=== PATIENT | female | born 1970 | race Caucasian/White ===

== ENCOUNTER → 2017-06-24 16:14 | Outpatient (CLI) | payer OTHER, SELFPAY ==
[2017-06-24 17:40] LABS: Vitamin D,25 Hydroxy 29.6 ng/mL (29.95-100.01)
[2017-06-24 17:48] LABS: AST(SGOT) 7 U/L (15-37); Alanine Aminotransfer ALT/SGPT 21 U/L (13-56); Alkaline Phosphatase 55 U/L (45-117); Anion Gap 7 (5-15); BUN 14 mg/dL (7-18); Calcium,Total 8.8 mg/dL (8.5-10.1); Chloride 104 mmol/L (98-107); Cholesterol 196 mg/dL (200); Creatinine, Serum 0.74 mg/dL (0.55-1.02); EST Glomerular Filtration Rate 90 mL/min (>60); Est Glom Filt Rate - Afr Amer 109 mL/min (>60); Glucose 87 mg/dL (74-106); High Density Lipoprotein 61 mg/dL; Potassium 3.9 mmol/L (3.5-5.1); Sodium Level 136 mmol/L (136-145); Triglycerides 88 mg/dL; Very Low Density Lipoprotein 18 mg/dL (5-40)
[2017-06-25 10:59] LABS: Absolute Lymphocyte Count 1.55 X10^3/ul (0.83-4.51); Absolute Neutrophil Count 4.2 X10^3/uL (2.0-7.7); Basophil# 0.02 X10^3/uL; Basophil% 0.3 % (0-1); Eosinophil# 0.04 X10^3/uL; Eosinophils% 0.6 % (0-5); Hematocrit 38.8 % (37-47); Hemoglobin 12.4 g/dl (12.0-15.0); Lymphocyte # 1.55 X10^3/ul (4.0); Mean Corpuscular Hgb 28.2 pg (27.0-32.0); Mean Corpuscular Volume 88.4 fL (81-99); Monocyte% 10.8 % (0-10); Neutrophil # 4.15 X10^3/uL (2.7-7.7); Neutrophil % 64.1 % (47-70); POSITIVE COUNT NO; POSITIVE DIFFERENTIAL NO; POSITIVE MORPHOLOGY NO; Platelet Count 258 K/mm3 (150-450); RBC Distribution Width CV 14.7 % (11.6-14.6); RBC Distribution Width SD 47.5 fl (35.1-43.9); Red Blood Count 4.39 M/mm3 (4.2-5.4); White Blood Count 6.5 K/mm3 (4.4-11.0)
== END ==
PROVIDERS: Family Provider Internal Medicine; PCP Internal Medicine; Visit Provider Internal Medicine Rheumatology
DX: L40.59 Other psoriatic arthropathy (principal); L40.8 Other psoriasis; M19.072 Primary osteoarthritis, left ankle and foot; Z79.899 Other long term (current) drug therapy
CPT/HCPCS: 36415; 80053; 80061; 82306; 85025

== ENCOUNTER → 2017-06-26 13:04 | Outpatient (CLI) | payer OTHER, SELFPAY ==
--- NOTE | 2017-06-26 13:05 | BI_ITS ---
MAMMOGRAPHY - BILATERAL SCREENING REASON FOR EXAM: Female, 47 years old. Routine annual screening examination. PERTINENT HISTORY: Aunt with breast cancer. TECHNIQUE: Digital bilateral breast jo (3D mammographic acquisition) in the CC and MLO projections. 2-D mediolateral oblique (MLO) and craniocaudad (CC) views of both breasts were obtained. CAD: Full Field Digital Mammography with Computer Added Detection was performed. COMPARISON: Comparison is made with prior abdomen examination dated March 23, 2016. FINDINGS: Breast Composition: There are scattered areas of fibroglandular density. There are no dominant masses or suspicious calcifications. No other significant abnormalities are identified. There has been no significant change since the prior study. BI/SCREENING MAMM (CAD), BILAT IMPRESSION: Stable bilateral screening mammogram. Yearly follow-up mammogram recommended. (A) ASSESSMENT CATEGORY: BIRADS Category 1: Negative. A letter regarding these results will be sent to the patient by the facility within 30 days. Approximately 10% of breast cancers are not detected by mammography. A normal mammogram should not delay biopsy of a clinically suspicious abnormality. [id number] Electronically Signed: Dominic Srinivasan MD at 14:41 EDT Tel [phone], Service support ,
== END ==
PROVIDERS: Family Provider Internal Medicine; PCP Internal Medicine; Visit Provider Internal Medicine
DX: Z12.31 Encounter for screening mammogram for malignant neoplasm of breast (principal)
CPT/HCPCS: 77063; 77067

== ENCOUNTER → 2017-09-20 13:07 | Outpatient (CLI) | payer OTHER, SELFPAY ==
[2017-09-20 15:32] LABS: Absolute Lymphocyte Count 1.64 X10^3/ul (0.83-4.51); Absolute Neutrophil Count 4.2 X10^3/uL (2.0-7.7); Basophil# 0.03 X10^3/uL; Basophil% 0.5 % (0-1); Eosinophil# 0.09 X10^3/uL; Eosinophils% 1.4 % (0-5); Hematocrit 38.9 % (37-47); Hemoglobin 12.7 g/dl (12.0-15.0); Lymphocyte # 1.64 X10^3/ul (4.0); Lymphocyte % 25.2 % (19-41); Mean Corp Hgb Conc 32.6 g/gl (32-36); Mean Corpuscular Hgb 29.1 pg (27.0-32.0); Mean Corpuscular Volume 89.2 fL (81-99); Mean Platelet Vol. 9.9 fl (6.2-12.0); Monocyte# 0.51 X10^3/uL; Monocyte% 7.8 % (0-10); Neutrophil # 4.23 X10^3/uL (2.7-7.7); Neutrophil % 64.9 % (47-70); Platelet Count 273 K/mm3 (150-450); RBC Distribution Width CV 15.7 % (11.6-14.6); RBC Distribution Width SD 50.8 fl (35.1-43.9); Red Blood Count 4.36 M/mm3 (4.2-5.4); White Blood Count 6.5 K/mm3 (4.4-11.0)
[2017-09-20 15:43] LABS: POSITIVE COUNT NO; POSITIVE DIFFERENTIAL NO; POSITIVE MORPHOLOGY NO
[2017-09-20 15:45] LABS: ALB/GLOB Ratio 1.1 RATIO (0.9-2.4); AST(SGOT) 11 U/L (15-37); Alanine Aminotransfer ALT/SGPT 31 U/L (13-56); Albumin, Serum 3.8 g/dL (3.2-5.0); Alkaline Phosphatase 61 U/L (45-117); Anion Gap 8 (5-15); BUN 15 mg/dL (7-18); BUN/Creat Ratio 18.2 RATIO (10-20); Calcium,Total 8.4 mg/dL (8.5-10.1); Chloride 105 mmol/L (98-107); Creatinine, Serum 0.82 mg/dL (0.55-1.02); EST Glomerular Filtration Rate 79 mL/min (>60); Est Glom Filt Rate - Afr Amer 96 mL/min (>60); Globulin 3.6 g/dL (2.2-4.2); Glucose 72 mg/dL (74-106); Potassium 4.2 mmol/L (3.5-5.1); Protein, Total 7.4 g/dL (6.4-8.2); Sodium Level 140 mmol/L (136-145)
== END ==
PROVIDERS: Family Provider Internal Medicine; PCP Internal Medicine; Visit Provider Internal Medicine Rheumatology
DX: L40.59 Other psoriatic arthropathy (principal); L40.8 Other psoriasis; M19.072 Primary osteoarthritis, left ankle and foot; Z79.899 Other long term (current) drug therapy
CPT/HCPCS: 36415; 80053; 85025

== ENCOUNTER → 2018-01-31 11:17 | Outpatient (CLI) | payer OTHER, SELFPAY ==
[2018-01-31 13:45] LABS: Absolute Neutrophil Count 3.4 X10^3/uL (2.0-7.7); Basophil# 0.03 X10^3/uL; Basophil% 0.5 % (0-1); Eosinophils% 1.8 % (0-5); Hematocrit 39.6 % (37-47); Hemoglobin 12.5 g/dl (12.0-15.0); Lymphocyte % 25.5 % (19-41); Mean Corp Hgb Conc 31.6 g/gl (32-36); Mean Corpuscular Hgb 28.3 pg (27.0-32.0); Mean Corpuscular Volume 89.6 fL (81-99); Mean Platelet Vol. 10.4 fl (6.2-12.0); Monocyte# 0.52 X10^3/uL; Monocyte% 9.5 % (0-10); Neutrophil # 3.43 X10^3/uL (2.7-7.7); Neutrophil % 62.5 % (47-70); POSITIVE COUNT NO; POSITIVE DIFFERENTIAL NO; POSITIVE MORPHOLOGY NO; Platelet Count 248 K/mm3 (150-450); RBC Distribution Width SD 48.3 fl (35.1-43.9); Red Blood Count 4.42 M/mm3 (4.2-5.4); White Blood Count 5.5 K/mm3 (4.4-11.0)
[2018-01-31 13:55] LABS: AST(SGOT) 8 U/L (15-37); Alanine Aminotransfer ALT/SGPT 24 U/L (13-56); Albumin, Serum 3.7 g/dL (3.2-5.0); Alkaline Phosphatase 59 U/L (45-117); Anion Gap 7 (5-15); BUN 10 mg/dL (7-18); BUN/Creat Ratio 15.5 RATIO (10-20); Calcium,Total 8.6 mg/dL (8.5-10.1); Chloride 106 mmol/L (98-107); Creatinine, Serum 0.64 mg/dL (0.55-1.02); EST Glomerular Filtration Rate 105 mL/min (>60); Est Glom Filt Rate - Afr Amer 127 mL/min (>60); Globulin 3.6 g/dL (2.2-4.2); Glucose 80 mg/dL (74-106); Potassium 4.3 mmol/L (3.5-5.1); Protein, Total 7.3 g/dL (6.4-8.2); Sodium Level 140 mmol/L (136-145)
== END ==
LOC: HPRAD 11:19 → MTLAB 11:20
PROVIDERS: Family Provider Internal Medicine; PCP Internal Medicine; Referring Provider Internal Medicine Rheumatology; Visit Provider Internal Medicine Rheumatology
DX: L40.59 Other psoriatic arthropathy (principal); L40.8 Other psoriasis; M19.071 Primary osteoarthritis, right ankle and foot; M19.072 Primary osteoarthritis, left ankle and foot; Z79.899 Other long term (current) drug therapy
CPT/HCPCS: 36415; 80053; 85025

== ENCOUNTER → 2018-04-25 14:01 | Outpatient (CLI) | payer OTHER, SELFPAY ==
[2018-04-25 15:53] LABS: Absolute Lymphocyte Count 1.48 X10^3/ul (0.83-4.51); Absolute Neutrophil Count 4.7 X10^3/uL (2.0-7.7); Basophil# 0.03 X10^3/uL; Basophil% 0.4 % (0-1); Eosinophil# 0.08 X10^3/uL; Eosinophils% 1.2 % (0-5); Hematocrit 39.5 % (37-47); Hemoglobin 12.3 g/dl (12.0-15.0); Lymphocyte # 1.48 X10^3/ul (4.0); Lymphocyte % 21.5 % (19-41); Mean Corp Hgb Conc 31.1 g/gl (32-36); Mean Corpuscular Hgb 27.8 pg (27.0-32.0); Mean Corpuscular Volume 89.4 fL (81-99); Mean Platelet Vol. 9.6 fl (6.2-12.0); Monocyte# 0.55 X10^3/uL; Neutrophil # 4.73 X10^3/uL (2.7-7.7); Neutrophil % 68.8 % (47-70); Platelet Count 319 K/mm3 (150-450); RBC Distribution Width CV 16.5 % (11.6-14.6); RBC Distribution Width SD 53.2 fl (35.1-43.9); Red Blood Count 4.42 M/mm3 (4.2-5.4); White Blood Count 6.9 K/mm3 (4.4-11.0)
[2018-04-25 15:58] LABS: POSITIVE COUNT NO; POSITIVE DIFFERENTIAL NO; POSITIVE MORPHOLOGY NO
[2018-04-25 16:11] LABS: AST(SGOT) 7 U/L (15-37); Alanine Aminotransfer ALT/SGPT 24 U/L (13-56); Albumin, Serum 3.8 g/dL (3.2-5.0); Alkaline Phosphatase 72 U/L (45-117); Anion Gap 9 (5-15); BUN 16 mg/dL (7-18); BUN/Creat Ratio 22.8 RATIO (10-20); Calcium,Total 8.3 mg/dL (8.5-10.1); Chloride 106 mmol/L (98-107); EST Glomerular Filtration Rate 95 mL/min (>60); Est Glom Filt Rate - Afr Amer 115 mL/min (>60); Glucose 117 mg/dL (74-106); Potassium 3.8 mmol/L (3.5-5.1); Protein, Total 7.8 g/dL (6.4-8.2); Sodium Level 139 mmol/L (136-145)
== END ==
PROVIDERS: Family Provider Internal Medicine; PCP Internal Medicine; Referring Provider Internal Medicine Rheumatology; Visit Provider Internal Medicine Rheumatology
DX: L40.59 Other psoriatic arthropathy (principal); L40.8 Other psoriasis; M19.071 Primary osteoarthritis, right ankle and foot; M19.072 Primary osteoarthritis, left ankle and foot; Z79.899 Other long term (current) drug therapy
CPT/HCPCS: 36415; 80053; 85025

== ENCOUNTER → 2018-04-28 12:11 | Outpatient (CLI) | payer OTHER, SELFPAY ==
--- NOTE | 2018-04-28 12:18 | US_ITS ---
STUDY: ULTRASOUND OF THE FEMALE PELVIS - COMPLETE REASON FOR EXAM: Female, 48 years old. 2 month history of abnormal uterine bleeding. LMP: April 21, 2018. TECHNIQUE: Transabdominal and Transvaginal TECHNICAL QUALITY: Adequate. COMPARISON: None. FINDINGS: The uterus is anteverted and is in a midline position. The uterus measures 9.7 cm x 4.9 cm x 3.9 cm. There is a Nabothian cyst of the cervix. The endometrium measures 9 point mm in thickness, and is hyperechoic. There is no demonstrated endometrial mass. The uterus is of heterogeneous echotexture. 2 uterine fibroids are seen. The larger measures 1.7 cm x 1.6 cm by 1.6 cm. I.U.D. - The patient does not have an I.U.D. The right ovary is visualized. The right ovary measures 3.1 cm x 2.7 cm x 2.1 cm. There is a 1.8 cm x 1.3 cm x 1.2 cm dominant follicle in the ovary. There is no visualized right adnexal mass or complex lesion. There is normal arterial and normal venous vascularity. The left ovary is visualized. The left ovary measures 2.2 cm x 3 cm x 1.4 cm. A follicle is seen within it measuring 1.1 cm x 1 cm x 0.9 cm. There is no visualized left adnexal mass or complex lesion. There is normal arterial and normal venous vascularity. There is no fluid in the cul-de-sac. The pre void volume of the bladder was 64.5 ml. Polycystic ovary disease: No. US/Pelvic (Non ) IMPRESSION: Fibroid uterus. Follicles seen in both ovaries. Electronically Signed: Dominic Srinivasan MD at 10:05 EST , Service support ,
--- NOTE | 2018-04-28 12:47 | US_ITS ---
STUDY: ULTRASOUND OF THE FEMALE PELVIS - COMPLETE REASON FOR EXAM: Female, 48 years old. 2 month history of abnormal uterine bleeding. LMP: April 21, 2018. TECHNIQUE: Transabdominal and Transvaginal TECHNICAL QUALITY: Adequate. COMPARISON: None. FINDINGS: The uterus is anteverted and is in a midline position. The uterus measures 9.7 cm x 4.9 cm x 3.9 cm. There is a Nabothian cyst of the cervix. The endometrium measures 9 point mm in thickness, and is hyperechoic. There is no demonstrated endometrial mass. The uterus is of heterogeneous echotexture. 2 uterine fibroids are seen. The larger measures 1.7 cm x 1.6 cm by 1.6 cm. I.U.D. - The patient does not have an I.U.D. The right ovary is visualized. The right ovary measures 3.1 cm x 2.7 cm x 2.1 cm. There is a 1.8 cm x 1.3 cm x 1.2 cm dominant follicle in the ovary. There is no visualized right adnexal mass or complex lesion. There is normal arterial and normal venous vascularity. The left ovary is visualized. The left ovary measures 2.2 cm x 3 cm x 1.4 cm. A follicle is seen within it measuring 1.1 cm x 1 cm x 0.9 cm. There is no visualized left adnexal mass or complex lesion. There is normal arterial and normal venous vascularity. There is no fluid in the cul-de-sac. The pre void volume of the bladder was 64.5 ml. Polycystic ovary disease: No. US/Transvaginal Non- IMPRESSION: Fibroid uterus. Follicles seen in both ovaries. Electronically Signed: Dominic Srinivasan MD at 10:05 EST , Service support ,
== END ==
PROVIDERS: Family Provider Internal Medicine; PCP Internal Medicine; Referring Provider Internal Medicine; Visit Provider Internal Medicine
DX: D25.9 Leiomyoma of uterus, unspecified (principal); N83.01 Follicular cyst of right ovary; N83.02 Follicular cyst of left ovary; N93.9 Abnormal uterine and vaginal bleeding, unspecified
CPT/HCPCS: 76830; 76856; 93976

== ENCOUNTER → 2018-05-09 10:06 | Outpatient (CLI) | payer OTHER, SELFPAY ==
[2018-05-09 11:36] LABS: Hemoglobin A1c 5.7 % (4.2-6.3)
[2018-05-09 11:59] LABS: Estradiol 116.9 pg/mL; Free T3 2.7 pg/mL (2.18-3.98); T4 Free Direct 1.01 ng/dL (0.76-1.46)
[2018-05-09 12:00] LABS: Progesterone Level 6.54 ng/mL (See Comment)
[2018-05-09 12:27] LABS: hCG Titer Quant., Serum < 1 mIU/mL (<9 non-preg)
== END ==
PROVIDERS: Visit Provider Obstetrics & Gynecology
DX: N92.6 Irregular menstruation, unspecified (principal)
CPT/HCPCS: 36415; 82670; 83036; 84144; 84403; 84439; 84481; 84702

== ENCOUNTER → 2018-08-12 12:12 | Outpatient (CLI) | payer OTHER, SELFPAY ==
[2018-08-12 12:56] LABS: Absolute Lymphocyte Count 1.59 X10^3/ul (0.83-4.51); Absolute Neutrophil Count 3.2 X10^3/uL (2.0-7.7); Basophil# 0.03 X10^3/uL; Basophil% 0.5 % (0-1); Eosinophils% 3.6 % (0-5); Hematocrit 35.7 % (37-47); Hemoglobin 11.4 g/dl (12.0-15.0); Lymphocyte # 1.59 X10^3/ul (4.0); Lymphocyte % 28.9 % (19-41); Mean Corp Hgb Conc 31.9 g/gl (32-36); Mean Corpuscular Hgb 26.8 pg (27.0-32.0); Mean Platelet Vol. 9.3 fl (6.2-12.0); Monocyte# 0.51 X10^3/uL; Monocyte% 9.3 % (0-10); Neutrophil # 3.17 X10^3/uL (2.7-7.7); Neutrophil % 57.7 % (47-70); POSITIVE COUNT NO; POSITIVE DIFFERENTIAL NO; POSITIVE MORPHOLOGY NO; Platelet Count 324 K/mm3 (150-450); RBC Distribution Width CV 16.4 % (11.6-14.6); Red Blood Count 4.25 M/mm3 (4.2-5.4); White Blood Count 5.5 K/mm3 (4.4-11.0)
[2018-08-12 13:09] LABS: ALB/GLOB Ratio 0.9 RATIO (0.9-2.4); AST(SGOT) 8 U/L (15-37); Alanine Aminotransfer ALT/SGPT 27 U/L (13-56); Albumin, Serum 3.6 g/dL (3.2-5.0); Alkaline Phosphatase 62 U/L (45-117); Anion Gap 6 (5-15); BUN 13 mg/dL (7-18); BUN/Creat Ratio 21.5 RATIO (10-20); Calcium,Total 8.3 mg/dL (8.5-10.1); Chloride 106 mmol/L (98-107); EST Glomerular Filtration Rate 113 mL/min (>60); Est Glom Filt Rate - Afr Amer 136 mL/min (>60); Globulin 3.8 g/dL (2.2-4.2); Glucose 107 mg/dL (74-106); Potassium 4.2 mmol/L (3.5-5.1); Protein, Total 7.4 g/dL (6.4-8.2); Sodium Level 138 mmol/L (136-145)
== END ==
PROVIDERS: Family Provider Internal Medicine; PCP Internal Medicine; Referring Provider Internal Medicine Rheumatology; Visit Provider Internal Medicine Rheumatology
DX: L40.59 Other psoriatic arthropathy (principal); L40.8 Other psoriasis; M19.071 Primary osteoarthritis, right ankle and foot; M19.072 Primary osteoarthritis, left ankle and foot; Z79.899 Other long term (current) drug therapy
CPT/HCPCS: 36415; 80053; 85025

== ENCOUNTER → 2018-11-17 08:11 | Outpatient (CLI) | payer OTHER, SELFPAY ==
[2018-11-17 10:10] LABS: Absolute Lymphocyte Count 1.02 X10^3/uL (0.83-4.51); Absolute Neutrophil Count 3.4 X10^3/uL (2.0-7.7); Basophil# 0.03 X10^3/uL; Basophil% 0.6 % (0-1); Eosinophil# 0.21 X10^3/uL; Eosinophils% 4.2 % (0-5); Hematocrit 38.9 % (37-47); Hemoglobin 12.1 g/dL (12.0-15.0); Lymphocyte # 1.02 X10^3/ul (4.0); Lymphocyte % 20.3 % (19-41); Mean Corp Hgb Conc 31.1 g/dL (32-36); Mean Corpuscular Hgb 26.7 pg (27.0-32.0); Mean Corpuscular Volume 85.7 fL (81-99); Mean Platelet Vol. 9.3 fl (6.2-12.0); Monocyte# 0.34 X10^3/uL; Monocyte% 6.8 % (0-10); NRBC Flagged by Analyzer 0 % (0-5); Neutrophil # 3.41 X10^3/uL (2.7-7.7); Neutrophil % 67.7 % (47-70); Platelet Count 237 K/mm3 (150-450); RBC Distribution Width CV 16.3 % (11.6-14.6); RBC Distribution Width SD 50.8 fl (35.1-43.9); Red Blood Count 4.54 M/mm3 (4.2-5.4)
[2018-11-17 10:41] LABS: ALB/GLOB Ratio 0.9 RATIO (0.9-2.4); AST(SGOT) < 3 U/L (15-37); Alanine Aminotransfer ALT/SGPT 24 U/L (13-56); Albumin, Serum 3.6 g/dL (3.2-5.0); Alkaline Phosphatase 55 U/L (45-117); Anion Gap 3 (5-15); BUN 11 mg/dL (7-18); BUN/Creat Ratio 15.2 RATIO (10-20); Calcium,Total 8.4 mg/dL (8.5-10.1); Chloride 105 mmol/L (98-107); Creatinine, Serum 0.72 mg/dL (0.55-1.02); EST Glomerular Filtration Rate 92 mL/min (>60); Est Glom Filt Rate - Afr Amer 111 mL/min (>60); Globulin 3.9 g/dL (2.2-4.2); Glucose 104 mg/dL (74-106); Potassium 3.9 mmol/L (3.5-5.1); Protein, Total 7.5 g/dL (6.4-8.2); Sodium Level 136 mmol/L (136-145)
== END ==
PROVIDERS: Family Provider Internal Medicine; PCP Internal Medicine; Referring Provider Internal Medicine Rheumatology; Visit Provider Internal Medicine Rheumatology
DX: L40.59 Other psoriatic arthropathy (principal); L40.8 Other psoriasis; M19.071 Primary osteoarthritis, right ankle and foot; M19.072 Primary osteoarthritis, left ankle and foot; Z79.899 Other long term (current) drug therapy
CPT/HCPCS: 36415; 80053; 85025

== ENCOUNTER → 2019-02-14 14:02 | Outpatient (CLI) | payer OTHER, SELFPAY ==
[2019-02-14 14:19] LABS: Absolute Lymphocyte Count 1.43 X10^3/uL (0.83-4.51); Absolute Neutrophil Count 3.6 X10^3/uL (2.0-7.7); Basophil# 0.04 X10^3/uL; Basophil% 0.7 % (0-1); Eosinophil# 0.14 X10^3/uL; Eosinophils% 2.3 % (0-5); Hematocrit 35.2 % (37-47); Hemoglobin 10.9 g/dL (12.0-15.0); Lymphocyte # 1.43 X10^3/ul (4.0); Lymphocyte % 23.6 % (19-41); Mean Corpuscular Hgb 26.1 pg (27.0-32.0); Mean Corpuscular Volume 84.2 fL (81-99); Mean Platelet Vol. 9.3 fl (6.2-12.0); Monocyte# 0.85 X10^3/uL; NRBC Flagged by Analyzer 0 % (0-5); Neutrophil # 3.56 X10^3/uL (2.7-7.7); Neutrophil % 58.9 % (47-70); Platelet Count 255 K/mm3 (150-450); RBC Distribution Width CV 17.1 % (11.6-14.6); Red Blood Count 4.18 M/mm3 (4.2-5.4); White Blood Count 6.1 K/mm3 (4.4-11.0)
[2019-02-14 14:35] LABS: ALB/GLOB Ratio 1.1 RATIO (0.9-2.4); AST(SGOT) 12 U/L (15-37); Alanine Aminotransfer ALT/SGPT 76 U/L (13-56); Albumin, Serum 3.8 g/dL (3.2-5.0); Alkaline Phosphatase 55 U/L (45-117); Anion Gap 5 (5-15); BUN 14 mg/dL (7-18); BUN/Creat Ratio 18.6 RATIO (10-20); Calcium,Total 8.2 mg/dL (8.5-10.1); Chloride 109 mmol/L (98-107); Creatinine, Serum 0.75 mg/dL (0.55-1.02); EST Glomerular Filtration Rate 87 mL/min (>60); Est Glom Filt Rate - Afr Amer 106 mL/min (>60); Globulin 3.5 g/dL (2.2-4.2); Glucose 90 mg/dL (74-106); Protein, Total 7.3 g/dL (6.4-8.2); Sodium Level 140 mmol/L (136-145)
== END ==
PROVIDERS: Family Provider Internal Medicine; PCP Internal Medicine; Visit Provider Internal Medicine Rheumatology
DX: L40.59 Other psoriatic arthropathy (principal); L40.8 Other psoriasis; M19.071 Primary osteoarthritis, right ankle and foot; M19.072 Primary osteoarthritis, left ankle and foot; Z79.899 Other long term (current) drug therapy
CPT/HCPCS: 36415; 80053; 85025

== ENCOUNTER → 2019-03-25 08:07 | Outpatient (CLI) | payer OTHER, SELFPAY ==
--- NOTE | 2019-03-25 08:15 | US_ITS ---
STUDY: ABDOMINAL ULTRASOUND - RIGHT UPPER QUADRANT REASON FOR VISIT: Female, 48 years old. Elevated liver enzymes TECHNIQUE: Ultrasound evaluation of the right upper quadrant was performed with real-time and static damon-scale imaging. TECHNICAL QUALITY: Adequate. COMPARISON: None. FINDINGS: Liver: The liver measures 16 cm. There is increased echogenicity of the liver. The bile ducts are within normal limits. There is hepatic color flow. The direction of portal flow is hepatopetal. There is no demonstrated mass lesion. Gallbladder: Normal distended gallbladder. The gallbladder wall measures 2 mm. There is a negative sonographic Powell''s sign. There is no pericholecystic fluid. Gallstone versus sludgeball is present. Common Bile Duct (C.B.D.): The common bile duct measures 4 mm. Pancreas: Normal size of the head, body and tail of the pancreas. There is normal echogenicity of the pancreas. There is no demonstrated pancreatic mass or cyst. Right Kidney: Normal size of the right kidney. The right kidney measures 12 cm. Normal renal cortex. There is no demonstrated renal mass or cyst. There is no right hydronephrosis. US/Liver IMPRESSION: No acute abdominal pathology identified. Fatty liver. Gallstone versus sludgeball. Electronically Signed: Victorino Vines, at 17:12 EST Tel , Service support ,
[2019-03-25 09:39] LABS: Absolute Lymphocyte Count 1.28 X10^3/uL (0.83-4.51); Absolute Neutrophil Count 3.2 X10^3/uL (2.0-7.7); Basophil# 0.05 X10^3/uL; Eosinophil# 0.06 X10^3/uL; Eosinophils% 1.2 % (0-5); Hematocrit 36.9 % (37-47); Hemoglobin 11.1 g/dL (12.0-15.0); Lymphocyte # 1.28 X10^3/ul (4.0); Lymphocyte % 25.3 % (19-41); Mean Corp Hgb Conc 30.1 g/dL (32-36); Mean Corpuscular Hgb 24.3 pg (27.0-32.0); Mean Corpuscular Volume 80.7 fL (81-99); Mean Platelet Vol. 9.2 fl (6.2-12.0); Monocyte# 0.48 X10^3/uL; Monocyte% 9.5 % (0-10); NRBC Flagged by Analyzer 0 % (0-5); Neutrophil # 3.17 X10^3/uL (2.7-7.7); Neutrophil % 62.8 % (47-70); Platelet Count 239 K/mm3 (150-450); RBC Distribution Width CV 16.5 % (11.6-14.6); RBC Distribution Width SD 47.4 fl (35.1-43.9); Red Blood Count 4.57 M/mm3 (4.2-5.4); White Blood Count 5.1 K/mm3 (4.4-11.0)
[2019-03-25 10:03] LABS: AST(SGOT) 8 U/L (15-37); Alanine Aminotransfer ALT/SGPT 31 U/L (13-56); Albumin, Serum 3.8 g/dL (3.2-5.0); Alkaline Phosphatase 55 U/L (45-117); Anion Gap 1 (5-15); BUN 12 mg/dL (7-18); BUN/Creat Ratio 19.7 RATIO (10-20); Calcium,Total 8.6 mg/dL (8.5-10.1); Chloride 108 mmol/L (98-107); Creatinine, Serum 0.61 mg/dL (0.55-1.02); EST Glomerular Filtration Rate 111 mL/min (>60); Est Glom Filt Rate - Afr Amer 135 mL/min (>60); Globulin 3.9 g/dL (2.2-4.2); Glucose 90 mg/dL (74-106); Potassium 4.2 mmol/L (3.5-5.1); Protein, Total 7.7 g/dL (6.4-8.2); Sodium Level 138 mmol/L (136-145)
== END ==
PROVIDERS: Family Provider Internal Medicine; PCP Internal Medicine; Referring Provider Internal Medicine Rheumatology; Visit Provider Internal Medicine Rheumatology
DX: L40.59 Other psoriatic arthropathy (principal); L40.8 Other psoriasis; M19.071 Primary osteoarthritis, right ankle and foot; M19.072 Primary osteoarthritis, left ankle and foot; Z79.899 Other long term (current) drug therapy
CPT/HCPCS: 36415; 76705; 80053; 85025

== ENCOUNTER → 2019-04-27 14:58 | Outpatient (CLI) | payer OTHER, SELFPAY ==
[2019-04-27 17:54] LABS: AST(SGOT) 4 U/L (15-37); Alanine Aminotransfer ALT/SGPT 22 U/L (13-56); Albumin, Serum 3.8 g/dL (3.2-5.0); Alkaline Phosphatase 52 U/L (45-117); Anion Gap 3 (5-15); BUN 15 mg/dL (7-18); Calcium,Total 8.8 mg/dL (8.5-10.1); Chloride 106 mmol/L (98-107); Creatinine, Serum 0.68 mg/dL (0.55-1.02); EST Glomerular Filtration Rate 98 mL/min (>60); Est Glom Filt Rate - Afr Amer 119 mL/min (>60); Globulin 3.7 g/dL (2.2-4.2); Glucose 79 mg/dL (74-106); Potassium 4.1 mmol/L (3.5-5.1); Protein, Total 7.5 g/dL (6.4-8.2); Sodium Level 138 mmol/L (136-145)
== END ==
PROVIDERS: PCP Internal Medicine; Referring Provider Internal Medicine Rheumatology; Visit Provider Internal Medicine Rheumatology
DX: L40.59 Other psoriatic arthropathy (principal); L40.8 Other psoriasis; M19.071 Primary osteoarthritis, right ankle and foot; M19.072 Primary osteoarthritis, left ankle and foot; K76.0 Fatty (change of) liver, not elsewhere classified; Z79.899 Other long term (current) drug therapy
CPT/HCPCS: 36415; 80053

== ENCOUNTER → 2019-07-09 12:12 | Outpatient (CLI) | payer OTHER, SELFPAY ==
[2019-07-09 15:15] LABS: Absolute Lymphocyte Count 1.25 X10^3/uL (0.83-4.51); Absolute Neutrophil Count 3.2 X10^3/uL (2.0-7.7); Basophil# 0.04 X10^3/uL; Basophil% 0.8 % (0-1); Hemoglobin 9.6 g/dL (12.0-15.0); Lymphocyte # 1.25 X10^3/ul (4.0); Lymphocyte % 24.8 % (19-41); Mean Corp Hgb Conc 29.1 g/dL (32-36); Mean Corpuscular Hgb 21.9 pg (27.0-32.0); Mean Corpuscular Volume 75.3 fL (81-99); Mean Platelet Vol. 9.7 fl (6.2-12.0); Monocyte% 7.9 % (0-10); NRBC Flagged by Analyzer 0 % (0-5); Neutrophil # 3.23 X10^3/uL (2.7-7.7); Neutrophil % 64.1 % (47-70); Platelet Count 295 K/mm3 (150-450); RBC Distribution Width CV 17.7 % (11.6-14.6); RBC Distribution Width SD 47.6 fl (35.1-43.9); Red Blood Count 4.38 M/mm3 (4.2-5.4)
[2019-07-09 15:26] LABS: ALB/GLOB Ratio 0.9 RATIO (0.9-2.4); AST(SGOT) 7 U/L (15-37); Alanine Aminotransfer ALT/SGPT 24 U/L (13-56); Albumin, Serum 3.5 g/dL (3.2-5.0); Alkaline Phosphatase 54 U/L (45-117); Anion Gap 7 (5-15); BUN 13 mg/dL (7-18); BUN/Creat Ratio 21.3 RATIO (10-20); Calcium,Total 8.9 mg/dL (8.5-10.1); Chloride 107 mmol/L (98-107); Creatinine, Serum 0.61 mg/dL (0.55-1.02); EST Glomerular Filtration Rate 111 mL/min (>60); Est Glom Filt Rate - Afr Amer 135 mL/min (>60); Globulin 3.7 g/dL (2.2-4.2); Glucose 98 mg/dL (74-106); Potassium 3.7 mmol/L (3.5-5.1); Protein, Total 7.2 g/dL (6.4-8.2); Sodium Level 140 mmol/L (136-145)
== END ==
PROVIDERS: PCP Internal Medicine; Referring Provider Internal Medicine Rheumatology; Visit Provider Internal Medicine Rheumatology
DX: L40.59 Other psoriatic arthropathy (principal); L40.8 Other psoriasis; M19.071 Primary osteoarthritis, right ankle and foot; M19.072 Primary osteoarthritis, left ankle and foot; K76.0 Fatty (change of) liver, not elsewhere classified; Z79.899 Other long term (current) drug therapy
CPT/HCPCS: 36415; 80053; 85025

== ENCOUNTER → 2019-07-13 10:36 | Outpatient (CLI) | payer OTHER, SELFPAY ==
[2019-07-13 12:44] LABS: Ferritin 2 ng/mL (8-252); Iron 23 ug/dL (50-170); Iron Binding Capacity,Total 375 ug/dL (250-450); PERCENT IRON SATURATION 6.1 % (15.0-55.0)
== END ==
PROVIDERS: PCP Internal Medicine; Referring Provider Internal Medicine Rheumatology; Visit Provider Internal Medicine Rheumatology
DX: L40.59 Other psoriatic arthropathy (principal); L40.8 Other psoriasis; M19.071 Primary osteoarthritis, right ankle and foot; M19.072 Primary osteoarthritis, left ankle and foot; K76.0 Fatty (change of) liver, not elsewhere classified; Z79.899 Other long term (current) drug therapy
CPT/HCPCS: 36415; 82728; 83540; 83550

== ENCOUNTER → 2019-10-02 08:58 | Outpatient (CLI) | payer OTHER, SELFPAY ==
[2019-10-02 10:05] LABS: Absolute Lymphocyte Count 1.22 X10^3/uL (0.83-4.51); Absolute Neutrophil Count 2.6 X10^3/uL (2.0-7.7); Basophil# 0.04 X10^3/uL; Basophil% 0.9 % (0-1); Eosinophil# 0.08 X10^3/uL; Eosinophils% 1.8 % (0-5); Hematocrit 41.4 % (37-47); Hemoglobin 12.8 g/dL (12.0-15.0); Lymphocyte # 1.22 X10^3/ul (4.0); Lymphocyte % 27.6 % (19-41); Mean Corp Hgb Conc 30.9 g/dL (32-36); Mean Corpuscular Hgb 26.7 pg (27.0-32.0); Mean Corpuscular Volume 86.4 fL (81-99); Mean Platelet Vol. 10.2 fl (6.2-12.0); Monocyte# 0.48 X10^3/uL; Monocyte% 10.9 % (0-10); NRBC Flagged by Analyzer 0 % (0-5); Neutrophil # 2.59 X10^3/uL (2.7-7.7); Neutrophil % 58.6 % (47-70); Platelet Count 257 K/mm3 (150-450); RBC Distribution Width CV 18.2 % (11.6-14.6); RBC Distribution Width SD 57.3 fl (35.1-43.9); Red Blood Count 4.79 M/mm3 (4.2-5.4); White Blood Count 4.4 K/mm3 (4.4-11.0)
[2019-10-02 10:39] LABS: ALB/GLOB Ratio 0.9 RATIO (0.9-2.4); AST(SGOT) 4 U/L (15-37); Alanine Aminotransfer ALT/SGPT 19 U/L (13-56); Albumin, Serum 3.7 g/dL (3.2-5.0); Alkaline Phosphatase 57 U/L (45-117); Anion Gap 2 (5-15); BUN 13 mg/dL (7-18); BUN/Creat Ratio 18.4 RATIO (10-20); Calcium,Total 8.6 mg/dL (8.5-10.1); Chloride 107 mmol/L (98-107); Creatinine, Serum 0.71 mg/dL (0.55-1.02); EST Glomerular Filtration Rate 94 mL/min (>60); Est Glom Filt Rate - Afr Amer 113 mL/min (>60); Globulin 3.9 g/dL (2.2-4.2); Glucose 68 mg/dL (74-106); Potassium 4.1 mmol/L (3.5-5.1); Protein, Total 7.6 g/dL (6.4-8.2); Sodium Level 137 mmol/L (136-145)
== END ==
PROVIDERS: PCP Internal Medicine; Referring Provider Internal Medicine Rheumatology; Visit Provider Internal Medicine Rheumatology
DX: L40.59 Other psoriatic arthropathy (principal); L40.8 Other psoriasis; M19.071 Primary osteoarthritis, right ankle and foot; M19.072 Primary osteoarthritis, left ankle and foot; K76.0 Fatty (change of) liver, not elsewhere classified; Z79.899 Other long term (current) drug therapy
CPT/HCPCS: 36415; 80053; 85025

== ENCOUNTER → 2020-01-09 10:24 | Outpatient (CLI) | payer OTHER, SELFPAY ==
--- NOTE | 2020-01-09 10:29 | US_ITS ---
STUDY: ULTRASOUND OF THE FEMALE PELVIS - COMPLETE REASON FOR EXAM: Female, 49 years old. AUB-HEAVY MENSES WITH CLOTS LMP: 01/05/2020 TECHNIQUE: Transabdominal and Transvaginal TECHNICAL QUALITY: Adequate. COMPARISON: 04/28/2018 FINDINGS: The uterus is anteverted and is in a midline position. The uterus measures 10.1 x 6.1 x 4.4 cm. Normal uterine cervix. The endometrium measures 4 mm in thickness, and is hyperechoic. There is no demonstrated endometrial mass. 1.2 cm intramural fibroid in the anterior fundus the uterus. I.U.D. - The patient does not have an I.U.D. The right ovary is visualized. The right ovary measures 2.5 x 2.1 x 1.3 cm. There is no right ovarian cyst or ovarian mass. There is no visualized right adnexal mass or complex lesion. There is normal arterial and normal venous vascularity. The left ovary is visualized. The left ovary measures 3.3 x 2.4 x 1.7 cm. There is no left ovarian cyst or ovarian mass. There is no visualized left adnexal mass or complex lesion. There is normal arterial and normal venous vascularity. There is no fluid in the cul-de-sac. The pre void volume of the bladder was ml. The post void volume of the bladder was ml. Polycystic ovary disease: No. US/Transvaginal Non- IMPRESSION: Small uterine fibroid. Electronically Signed: iRck De Guzman MD at 11:42 EDT Tel , Service support ,
--- NOTE | 2020-01-09 10:29 | US_ITS ---
STUDY: ULTRASOUND OF THE FEMALE PELVIS - COMPLETE REASON FOR EXAM: Female, 49 years old. AUB-HEAVY MENSES WITH CLOTS LMP: 01/05/2020 TECHNIQUE: Transabdominal and Transvaginal TECHNICAL QUALITY: Adequate. COMPARISON: 04/28/2018 FINDINGS: The uterus is anteverted and is in a midline position. The uterus measures 10.1 x 6.1 x 4.4 cm. Normal uterine cervix. The endometrium measures 4 mm in thickness, and is hyperechoic. There is no demonstrated endometrial mass. 1.2 cm intramural fibroid in the anterior fundus the uterus. I.U.D. - The patient does not have an I.U.D. The right ovary is visualized. The right ovary measures 2.5 x 2.1 x 1.3 cm. There is no right ovarian cyst or ovarian mass. There is no visualized right adnexal mass or complex lesion. There is normal arterial and normal venous vascularity. The left ovary is visualized. The left ovary measures 3.3 x 2.4 x 1.7 cm. There is no left ovarian cyst or ovarian mass. There is no visualized left adnexal mass or complex lesion. There is normal arterial and normal venous vascularity. There is no fluid in the cul-de-sac. The pre void volume of the bladder was ml. The post void volume of the bladder was ml. Polycystic ovary disease: No. US/Pelvic (Non ) IMPRESSION: Small uterine fibroid. Electronically Signed: Rick De Guzman MD at 11:42 EDT Tel , Service support ,
[2020-01-09 12:07] LABS: Absolute Neutrophil Count 3.5 X10^3/uL (2.0-7.7); Basophil# 0.05 X10^3/uL; Basophil% 0.9 % (0-1); Eosinophil# 0.58 X10^3/uL; Eosinophils% 9.9 % (0-5); Hematocrit 38.7 % (37-47); Hemoglobin 12.1 g/dL (12.0-15.0); Lymphocyte % 20.5 % (19-41); Mean Corp Hgb Conc 31.3 g/dL (32-36); Mean Corpuscular Hgb 27.6 pg (27.0-32.0); Mean Corpuscular Volume 88.2 fL (81-99); Mean Platelet Vol. 9.5 fl (6.2-12.0); Monocyte# 0.52 X10^3/uL; Monocyte% 8.9 % (0-10); NRBC Flagged by Analyzer 0 % (0-5); Neutrophil % 59.6 % (47-70); Platelet Count 295 K/mm3 (150-450); RBC Distribution Width CV 14.9 % (11.6-14.6); RBC Distribution Width SD 48.5 fl (35.1-43.9); Red Blood Count 4.39 M/mm3 (4.2-5.4); White Blood Count 5.9 K/mm3 (4.4-11.0)
[2020-01-09 12:28] LABS: ALB/GLOB Ratio 0.9 RATIO (0.9-2.4); AST(SGOT) 7 U/L (15-37); Alanine Aminotransfer ALT/SGPT 21 U/L (13-56); Albumin, Serum 3.8 g/dL (3.2-5.0); Alkaline Phosphatase 71 U/L (45-117); Anion Gap 5 (5-15); BUN 13 mg/dL (7-18); BUN/Creat Ratio 19.8 RATIO (10-20); Calcium,Total 8.8 mg/dL (8.5-10.1); Chloride 107 mmol/L (98-107); Creatinine, Serum 0.66 mg/dL (0.55-1.02); EST Glomerular Filtration Rate 102 mL/min (>60); Est Glom Filt Rate - Afr Amer 123 mL/min (>60); Globulin 4.1 g/dL (2.2-4.2); Glucose 83 mg/dL (74-106); Potassium 4.1 mmol/L (3.5-5.1); Protein, Total 7.9 g/dL (6.4-8.2); Sodium Level 138 mmol/L (136-145)
== END ==
PROVIDERS: Internal Medicine Rheumatology; PCP Internal Medicine; Referring Provider Internal Medicine; Visit Provider Internal Medicine
DX: N93.9 Abnormal uterine and vaginal bleeding, unspecified (principal); L40.59 Other psoriatic arthropathy; L40.8 Other psoriasis; M19.071 Primary osteoarthritis, right ankle and foot; M19.072 Primary osteoarthritis, left ankle and foot; K76.0 Fatty (change of) liver, not elsewhere classified; Z79.899 Other long term (current) drug therapy
CPT/HCPCS: 36415; 76830; 76856; 80053; 85025

== ENCOUNTER → 2020-04-11 15:23 | Outpatient (CLI) | payer OTHER, SELFPAY ==
[2020-04-11 17:41] LABS: Absolute Lymphocyte Count 1.46 X10^3/uL (0.83-4.51); Absolute Neutrophil Count 3.6 X10^3/uL (2.0-7.7); Basophil# 0.05 X10^3/uL; Basophil% 0.9 % (0-1); Eosinophils% 3.5 % (0-5); Hematocrit 36.4 % (37-47); Hemoglobin 11.7 g/dL (12.0-15.0); Lymphocyte # 1.46 X10^3/ul (4.0); Lymphocyte % 25.3 % (19-41); Mean Corp Hgb Conc 32.1 g/dL (32-36); Mean Corpuscular Volume 87.1 fL (81-99); Mean Platelet Vol. 9.8 fl (6.2-12.0); Monocyte# 0.48 X10^3/uL; Monocyte% 8.3 % (0-10); NRBC Flagged by Analyzer 0 % (0-5); Neutrophil # 3.57 X10^3/uL (2.7-7.7); Neutrophil % 61.8 % (47-70); Platelet Count 231 K/mm3 (150-450); RBC Distribution Width CV 18.4 % (11.6-14.6); RBC Distribution Width SD 51.8 fl (35.1-43.9); Red Blood Count 4.18 M/mm3 (4.2-5.4); White Blood Count 5.8 K/mm3 (4.4-11.0)
[2020-04-11 18:16] LABS: ALB/GLOB Ratio 0.9 RATIO (0.9-2.4); AST(SGOT) 9 U/L (15-37); Alanine Aminotransfer ALT/SGPT 20 U/L (13-56); Albumin, Serum 3.6 g/dL (3.2-5.0); Alkaline Phosphatase 57 U/L (45-117); Anion Gap 6 (5-15); BUN 13 mg/dL (7-18); BUN/Creat Ratio 18.7 RATIO (10-20); Calcium,Total 8.7 mg/dL (8.5-10.1); Chloride 106 mmol/L (98-107); EST Glomerular Filtration Rate 95 mL/min (>60); Est Glom Filt Rate - Afr Amer 115 mL/min (>60); Globulin 3.8 g/dL (2.2-4.2); Glucose 83 mg/dL (74-106); Potassium 4.1 mmol/L (3.5-5.1); Protein, Total 7.4 g/dL (6.4-8.2); Sodium Level 140 mmol/L (136-145)
== END ==
PROVIDERS: PCP Internal Medicine; Referring Provider Internal Medicine Rheumatology; Visit Provider Internal Medicine Rheumatology
DX: L40.59 Other psoriatic arthropathy (principal); L40.8 Other psoriasis; M19.071 Primary osteoarthritis, right ankle and foot; M19.072 Primary osteoarthritis, left ankle and foot; K76.0 Fatty (change of) liver, not elsewhere classified; Z79.899 Other long term (current) drug therapy
CPT/HCPCS: 36415; 80053; 85025

== ENCOUNTER → 2020-07-15 16:26 | Outpatient (CLI) | payer OTHER, SELFPAY ==
[2020-07-15 17:22] LABS: Absolute Lymphocyte Count 1.76 X10^3/uL (0.83-4.51); Absolute Neutrophil Count 2.5 X10^3/uL (2.0-7.7); Basophil# 0.05 X10^3/uL; Eosinophil# 0.14 X10^3/uL; Eosinophils% 2.8 % (0-5); Hematocrit 39.4 % (37-47); Hemoglobin 12.3 g/dL (12.0-15.0); Lymphocyte # 1.76 X10^3/ul (0.83-4.51); Lymphocyte % 35.7 % (19-41); Mean Corp Hgb Conc 31.2 g/dL (32-36); Mean Corpuscular Hgb 26.8 pg (27.0-32.0); Mean Corpuscular Volume 85.8 fL (81-99); Mean Platelet Vol. 9.5 fl (6.2-12.0); Monocyte# 0.52 X10^3/uL; Monocyte% 10.5 % (0-10); NRBC Flagged by Analyzer 0 % (0-5); Neutrophil # 2.46 X10^3/uL (2.7-7.7); Platelet Count 271 K/mm3 (150-450); RBC Distribution Width CV 16.1 % (11.6-14.6); RBC Distribution Width SD 49.3 fl (35.1-43.9); Red Blood Count 4.59 M/mm3 (4.2-5.4); White Blood Count 4.9 K/mm3 (4.4-11.0)
[2020-07-15 17:55] LABS: AST(SGOT) 6 U/L (15-37); Alanine Aminotransfer ALT/SGPT 22 U/L (13-56); Albumin, Serum 3.7 g/dL (3.2-5.0); Alkaline Phosphatase 74 U/L (45-117); Anion Gap 5 (5-15); BUN 12 mg/dL (7-18); BUN/Creat Ratio 18.6 RATIO (10-20); Calcium,Total 8.7 mg/dL (8.5-10.1); Chloride 106 mmol/L (98-107); Creatinine, Serum 0.64 mg/dL (0.55-1.02); EST Glomerular Filtration Rate 104 mL/min (>60); Est Glom Filt Rate - Afr Amer 126 mL/min (>60); Globulin 3.8 g/dL (2.2-4.2); Glucose 80 mg/dL (74-106); Potassium 3.9 mmol/L (3.5-5.1); Protein, Total 7.5 g/dL (6.4-8.2); Sodium Level 139 mmol/L (136-145)
== END ==
PROVIDERS: PCP Internal Medicine; Referring Provider Internal Medicine Rheumatology; Visit Provider Internal Medicine Rheumatology
DX: L40.59 Other psoriatic arthropathy (principal); L40.8 Other psoriasis; M19.071 Primary osteoarthritis, right ankle and foot; M19.072 Primary osteoarthritis, left ankle and foot; K76.0 Fatty (change of) liver, not elsewhere classified; Z79.899 Other long term (current) drug therapy
CPT/HCPCS: 36415; 80053; 85025

== ENCOUNTER → 2020-10-13 15:56 | Outpatient (CLI) | payer OTHER, SELFPAY ==
[2020-10-13 18:05] LABS: Absolute Lymphocyte Count 1.22 X10^3/uL (0.83-4.51); Absolute Neutrophil Count 3.6 X10^3/uL (2.0-7.7); Basophil# 0.04 X10^3/uL; Basophil% 0.7 % (0-1); Eosinophil# 0.09 X10^3/uL; Eosinophils% 1.6 % (0-5); Hematocrit 33.2 % (37-47); Hemoglobin 10.4 g/dL (12.0-15.0); Lymphocyte # 1.22 X10^3/ul (0.83-4.51); Lymphocyte % 21.9 % (19-41); Mean Corp Hgb Conc 31.3 g/dL (32-36); Mean Corpuscular Hgb 27.7 pg (27.0-32.0); Mean Corpuscular Volume 88.3 fL (81-99); Mean Platelet Vol. 9.9 fl (6.2-12.0); Monocyte# 0.56 X10^3/uL; Monocyte% 10.1 % (0-10); NRBC Flagged by Analyzer 0 % (0-5); Neutrophil # 3.64 X10^3/uL (2.7-7.7); Neutrophil % 65.3 % (47-70); Platelet Count 266 K/mm3 (150-450); RBC Distribution Width CV 15.2 % (11.6-14.6); RBC Distribution Width SD 49.5 fl (35.1-43.9); Red Blood Count 3.76 M/mm3 (4.2-5.4); White Blood Count 5.6 K/mm3 (4.4-11.0)
[2020-10-13 18:30] LABS: ALB/GLOB Ratio 1.1 RATIO (0.9-2.4); AST(SGOT) 6 U/L (15-37); Alanine Aminotransfer ALT/SGPT 22 U/L (13-56); Albumin, Serum 3.6 g/dL (3.2-5.0); Alkaline Phosphatase 62 U/L (45-117); Anion Gap 7 (5-15); BUN 15 mg/dL (7-18); Calcium,Total 8.2 mg/dL (8.5-10.1); Chloride 106 mmol/L (98-107); Creatinine, Serum 0.71 mg/dL (0.55-1.02); EST Glomerular Filtration Rate 92 mL/min (>60); Est Glom Filt Rate - Afr Amer 112 mL/min (>60); Globulin 3.4 g/dL (2.2-4.2); Glucose 106 mg/dL (74-106); Potassium 3.5 mmol/L (3.5-5.1); Sodium Level 138 mmol/L (136-145)
== END ==
PROVIDERS: PCP Internal Medicine; Referring Provider Internal Medicine Rheumatology; Visit Provider Internal Medicine Rheumatology
DX: L40.59 Other psoriatic arthropathy (principal); L40.8 Other psoriasis; M19.071 Primary osteoarthritis, right ankle and foot; M19.072 Primary osteoarthritis, left ankle and foot; K76.0 Fatty (change of) liver, not elsewhere classified; Z79.899 Other long term (current) drug therapy
CPT/HCPCS: 36415; 80053; 85025

== ENCOUNTER → 2021-01-09 16:45 | Outpatient (CLI) | payer OTHER, SELFPAY ==
[2021-01-09 17:39] LABS: Absolute Lymphocyte Count 1.27 X10^3/uL (0.83-4.51); Absolute Neutrophil Count 3.4 X10^3/uL (2.0-7.7); Basophil# 0.04 X10^3/uL; Basophil% 0.7 % (0-1); Eosinophil# 0.15 X10^3/uL; Eosinophils% 2.8 % (0-5); Hematocrit 44.4 % (37-47); Hemoglobin 14.5 g/dL (12.0-15.0); Lymphocyte # 1.27 X10^3/ul (0.83-4.51); Lymphocyte % 23.3 % (19-41); Mean Corp Hgb Conc 32.7 g/dL (32-36); Mean Corpuscular Hgb 30.1 pg (27.0-32.0); Mean Corpuscular Volume 92.3 fL (81-99); Mean Platelet Vol. 9.3 fl (6.2-12.0); Monocyte# 0.58 X10^3/uL; Monocyte% 10.7 % (0-10); NRBC Flagged by Analyzer 0 % (0-5); Neutrophil # 3.38 X10^3/uL (2.7-7.7); Neutrophil % 62.1 % (47-70); Platelet Count 240 K/mm3 (150-450); RBC Distribution Width CV 17.3 % (11.6-14.6); RBC Distribution Width SD 59.7 fl (35.1-43.9); Red Blood Count 4.81 M/mm3 (4.2-5.4); White Blood Count 5.4 K/mm3 (4.4-11.0)
[2021-01-09 18:19] LABS: AST(SGOT) 7 U/L (15-37); Alanine Aminotransfer ALT/SGPT 35 U/L (13-56); Albumin, Serum 3.8 g/dL (3.2-5.0); Alkaline Phosphatase 81 U/L (45-117); Anion Gap 3 (5-15); BUN 16 mg/dL (7-18); BUN/Creat Ratio 23.5 RATIO (10-20); Chloride 106 mmol/L (98-107); Creatinine, Serum 0.68 mg/dL (0.55-1.02); EST Glomerular Filtration Rate 97 mL/min (>60); Est Glom Filt Rate - Afr Amer 118 mL/min (>60); Glucose 97 mg/dL (74-106); Potassium 3.9 mmol/L (3.5-5.1); Protein, Total 7.8 g/dL (6.4-8.2); Sodium Level 138 mmol/L (136-145)
== END ==
PROVIDERS: PCP Internal Medicine; Referring Provider Internal Medicine Rheumatology; Visit Provider Internal Medicine Rheumatology
DX: L40.59 Other psoriatic arthropathy (principal); L40.8 Other psoriasis; M19.071 Primary osteoarthritis, right ankle and foot; M19.072 Primary osteoarthritis, left ankle and foot; K76.0 Fatty (change of) liver, not elsewhere classified; Z79.899 Other long term (current) drug therapy
CPT/HCPCS: 36415; 80053; 85025

== ENCOUNTER → 2021-01-28 08:54 | Outpatient (CLI) | payer OTHER, SELFPAY ==
[2021-01-28 09:57] LABS: Cholesterol 225 mg/dL (200); High Density Lipoprotein 61 mg/dL; Thyroid Stim Hormone (TSH) 0.71 uIU/mL (0.358-3.74); Triglycerides 57 mg/dL; Very Low Density Lipoprotein 11 mg/dL (5-40)
[2021-01-30 09:16] LABS: Vitamin D,25 Hydroxy 82.4 ng/mL
== END ==
PROVIDERS: PCP Internal Medicine; Referring Provider Internal Medicine; Visit Provider Internal Medicine
DX: Z01.84 Encounter for antibody response examination (principal); Z13.220 Encounter for screening for lipoid disorders; N93.9 Abnormal uterine and vaginal bleeding, unspecified; E55.9 Vitamin D deficiency, unspecified
CPT/HCPCS: 36415; 80061; 82306; 84443; 86769

== ENCOUNTER 2021-03-02 17:30 | Outpatient (CLI) | payer OTHER, SELFPAY ==
[2021-03-02 17:36] VITALS: BP 132/97; PULSE 89; RESP 16; TEMP 37.1; O2SAT 100; BMI 27.4
[2021-03-02] MEDS: 0.9% Saline Lock 10 ML Syringe IV (17:46)
[2021-03-02 18:24] VITALS: BP 131/92; PULSE 76; RESP 16; TEMP 37.3; O2SAT 96
[2021-03-02 19:25] VITALS: BP 129/87; PULSE 76; RESP 16; TEMP 37.1; O2SAT 100
== END 2021-03-02 19:26 | disposition home or self-care (01) ==
LOC: MS3OUT 17:39 → MS3 17:40
PROVIDERS: PCP Internal Medicine; Referring Provider Nurse Practitioner Acute Care; Visit Provider Nurse Practitioner Acute Care
DX: U07.1 COVID-19 (principal)
CPT/HCPCS: J7050; M0245; Q0245; A4216

== ENCOUNTER 2021-04-03 11:41 | Outpatient (CLI) | payer OTHER, SELFPAY ==
[2021-04-03 15:12] LABS: Absolute Lymphocyte Count 1.35 X10^3/uL (0.83-4.51); Absolute Neutrophil Count 4.1 X10^3/uL (2.0-7.7); Basophil# 0.05 X10^3/uL; Basophil% 0.8 % (0-1); Eosinophils% 3.3 % (0-5); Hematocrit 36.3 % (37-47); Lymphocyte # 1.35 X10^3/ul (0.83-4.51); Lymphocyte % 22.4 % (19-41); Mean Corp Hgb Conc 33.1 g/dL (32-36); Mean Corpuscular Hgb 31.9 pg (27.0-32.0); Mean Corpuscular Volume 96.5 fL (81-99); Monocyte# 0.37 X10^3/uL; Monocyte% 6.1 % (0-10); NRBC Flagged by Analyzer 0 % (0-5); Neutrophil # 4.05 X10^3/uL (2.7-7.7); Neutrophil % 67.2 % (47-70); Platelet Count 254 K/mm3 (150-450); RBC Distribution Width CV 12.8 % (11.6-14.6); RBC Distribution Width SD 44.5 fl (35.1-43.9); Red Blood Count 3.76 M/mm3 (4.2-5.4)
[2021-04-03 15:36] LABS: ALB/GLOB Ratio 0.9 RATIO (0.9-2.4); AST(SGOT) 7 U/L (15-37); Alanine Aminotransfer ALT/SGPT 19 U/L (13-56); Albumin, Serum 3.5 g/dL (3.2-5.0); Alkaline Phosphatase 62 U/L (45-117); Anion Gap 5 (5-15); BUN 10 mg/dL (7-18); BUN/Creat Ratio 11.1 RATIO (10-20); Calcium,Total 8.3 mg/dL (8.5-10.1); Chloride 109 mmol/L (98-107); EST Glomerular Filtration Rate 71 mL/min (>60); Est Glom Filt Rate - Afr Amer 86 mL/min (>60); Globulin 3.8 g/dL (2.2-4.2); Glucose 87 mg/dL (74-106); Potassium 3.6 mmol/L (3.5-5.1); Protein, Total 7.3 g/dL (6.4-8.2); Sodium Level 140 mmol/L (136-145); Thyroid Stim Hormone (TSH) 0.87 uIU/mL (0.358-3.74)
== END 2021-04-03 23:59 | disposition short-term general hospital (02) ==
LOC: MTLAB 11:46
PROVIDERS: PCP Internal Medicine; Referring Provider Internal Medicine Rheumatology; Visit Provider Internal Medicine Rheumatology
DX: N93.9 Abnormal uterine and vaginal bleeding, unspecified (principal); L40.59 Other psoriatic arthropathy; N94.6 Dysmenorrhea, unspecified; L40.8 Other psoriasis; M19.071 Primary osteoarthritis, right ankle and foot; M19.072 Primary osteoarthritis, left ankle and foot; K76.0 Fatty (change of) liver, not elsewhere classified; Z79.899 Other long term (current) drug therapy
CPT/HCPCS: 36415; 80053; 84443; 85025

== ENCOUNTER → 2021-08-08 | Outpatient (CLI) | payer OTHER, SELFPAY ==
[2021-08-08 17:49] LABS: Absolute Neutrophil Count 2.7 X10^3/uL (2.0-7.7); Basophil# 0.04 X10^3/uL; Basophil% 0.8 % (0-1); Eosinophil# 0.32 X10^3/uL; Eosinophils% 6.4 % (0-5); Hematocrit 39.6 % (37-47); Hemoglobin 12.4 g/dL (12.0-15.0); Mean Corp Hgb Conc 31.3 g/dL (32-36); Mean Corpuscular Hgb 26.8 pg (27.0-32.0); Mean Corpuscular Volume 85.7 fL (81-99); Mean Platelet Vol. 9.5 fl (6.2-12.0); NRBC Flagged by Analyzer 0 % (0-5); Neutrophil # 2.73 X10^3/uL (2.7-7.7); Neutrophil % 54.6 % (47-70); Platelet Count 253 K/mm3 (150-450); RBC Distribution Width CV 18.7 % (11.6-14.6); RBC Distribution Width SD 58.5 fl (35.1-43.9); Red Blood Count 4.62 M/mm3 (4.2-5.4)
[2021-08-08 18:06] LABS: ALB/GLOB Ratio 0.9 RATIO (0.9-2.4); AST(SGOT) 11 U/L (15-37); Alanine Aminotransfer ALT/SGPT 30 U/L (13-56); Albumin, Serum 3.7 g/dL (3.2-5.0); Alkaline Phosphatase 73 U/L (45-117); Anion Gap 5 (5-15); BUN 16 mg/dL (7-18); BUN/Creat Ratio 24.4 RATIO (10-20); Calcium,Total 8.8 mg/dL (8.5-10.1); Chloride 106 mmol/L (98-107); Creatinine, Serum 0.66 mg/dL (0.55-1.02); EST Glomerular Filtration Rate 101 mL/min (>60); Est Glom Filt Rate - Afr Amer 123 mL/min (>60); Globulin 3.9 g/dL (2.2-4.2); Glucose 87 mg/dL (74-106); Potassium 4.3 mmol/L (3.5-5.1); Protein, Total 7.6 g/dL (6.4-8.2); Sodium Level 138 mmol/L (136-145)
== END | disposition home or self-care (01) ==
LOC: MTLAB 15:46
PROVIDERS: PCP Internal Medicine; Referring Provider Internal Medicine Rheumatology; Visit Provider Internal Medicine Rheumatology
DX: L40.59 Other psoriatic arthropathy (principal); L40.8 Other psoriasis; M19.071 Primary osteoarthritis, right ankle and foot; M19.072 Primary osteoarthritis, left ankle and foot; M77.11 Lateral epicondylitis, right elbow; K76.0 Fatty (change of) liver, not elsewhere classified; Z79.899 Other long term (current) drug therapy
CPT/HCPCS: 36415; 80053; 85025

== ENCOUNTER → 2021-11-06 | Outpatient (CLI) | payer OTHER, SELFPAY ==
[2021-11-06 09:55] LABS: Absolute Lymphocyte Count 0.95 X10^3/uL (0.83-4.51); Basophil# 0.06 X10^3/uL; Basophil% 1.3 % (0-1); Eosinophil# 0.15 X10^3/uL; Eosinophils% 3.3 % (0-5); Hematocrit 40.9 % (37-47); Hemoglobin 13.1 g/dL (12.0-15.0); Lymphocyte # 0.95 X10^3/ul (0.83-4.51); Lymphocyte % 20.9 % (19-41); Mean Corpuscular Hgb 28.1 pg (27.0-32.0); Mean Corpuscular Volume 87.6 fL (81-99); Mean Platelet Vol. 9.6 fl (6.2-12.0); Monocyte# 0.39 X10^3/uL; Monocyte% 8.6 % (0-10); NRBC Flagged by Analyzer 0 % (0-5); Neutrophil # 2.98 X10^3/uL (2.7-7.7); Neutrophil % 65.7 % (47-70); Platelet Count 311 K/mm3 (150-450); RBC Distribution Width CV 15.7 % (11.6-14.6); RBC Distribution Width SD 50.1 fl (35.1-43.9); Red Blood Count 4.67 M/mm3 (4.2-5.4); White Blood Count 4.5 K/mm3 (4.4-11.0)
[2021-11-06 10:10] LABS: ALB/GLOB Ratio 0.9 RATIO (0.9-2.4); AST(SGOT) 7 U/L (15-37); Alanine Aminotransfer ALT/SGPT 21 U/L (13-56); Albumin, Serum 3.6 g/dL (3.2-5.0); Alkaline Phosphatase 71 U/L (45-117); Anion Gap 4 (5-15); BUN 10 mg/dL (7-18); BUN/Creat Ratio 15.3 RATIO (10-20); Calcium,Total 8.8 mg/dL (8.5-10.1); Chloride 108 mmol/L (98-107); Creatinine, Serum 0.65 mg/dL (0.55-1.02); EST Glomerular Filtration Rate 102 mL/min (>60); Est Glom Filt Rate - Afr Amer 123 mL/min (>60); Globulin 3.9 g/dL (2.2-4.2); Glucose 74 mg/dL (74-106); Potassium 4.1 mmol/L (3.5-5.1); Protein, Total 7.5 g/dL (6.4-8.2); Sodium Level 140 mmol/L (136-145)
== END | disposition home or self-care (01) ==
LOC: MTLAB 07:06
PROVIDERS: PCP Internal Medicine; Referring Provider Internal Medicine Rheumatology; Visit Provider Internal Medicine Rheumatology
DX: L40.59 Other psoriatic arthropathy (principal); L40.8 Other psoriasis; M19.071 Primary osteoarthritis, right ankle and foot; M19.072 Primary osteoarthritis, left ankle and foot; M77.11 Lateral epicondylitis, right elbow; K76.0 Fatty (change of) liver, not elsewhere classified; Z79.899 Other long term (current) drug therapy
CPT/HCPCS: 36415; 80053; 85025

== ENCOUNTER → 2022-01-31 | Outpatient (CLI) | payer OTHER, SELFPAY ==
[2022-01-31 12:29] LABS: Absolute Lymphocyte Count 1.33 X10^3/uL (0.83-4.51); Absolute Neutrophil Count 2.3 X10^3/uL (2.0-7.7); Basophil# 0.07 X10^3/uL; Basophil% 1.6 % (0-1); Eosinophil# 0.17 X10^3/uL; Hematocrit 38.2 % (37-47); Hemoglobin 12.4 g/dL (12.0-15.0); Lymphocyte # 1.33 X10^3/ul (0.83-4.51); Lymphocyte % 31.1 % (19-41); Mean Corp Hgb Conc 32.5 g/dL (32-36); Mean Corpuscular Hgb 28.2 pg (27.0-32.0); Mean Platelet Vol. 9.3 fl (6.2-12.0); Monocyte% 9.3 % (0-10); NRBC Flagged by Analyzer 0 % (0-5); Neutrophil % 53.8 % (47-70); Platelet Count 304 K/mm3 (150-450); RBC Distribution Width CV 15.9 % (11.6-14.6); RBC Distribution Width SD 50.6 fl (35.1-43.9); Red Blood Count 4.39 M/mm3 (4.2-5.4); White Blood Count 4.3 K/mm3 (4.4-11.0)
[2022-01-31 13:11] LABS: AST(SGOT) 8 U/L (15-37); Alanine Aminotransfer ALT/SGPT 32 U/L (13-56); Albumin, Serum 3.6 g/dL (3.2-5.0); Alkaline Phosphatase 79 U/L (45-117); Anion Gap 5 (5-15); BUN 13 mg/dL (7-18); BUN/Creat Ratio 21.2 RATIO (10-20); Calcium,Total 8.8 mg/dL (8.5-10.1); Chloride 107 mmol/L (98-107); Creatinine, Serum 0.61 mg/dL (0.55-1.02); EST Glomerular Filtration Rate 110 mL/min (>60); Est Glom Filt Rate - Afr Amer 133 mL/min (>60); Globulin 3.5 g/dL (2.2-4.2); Glucose 87 mg/dL (74-106); Potassium 4.2 mmol/L (3.5-5.1); Protein, Total 7.1 g/dL (6.4-8.2); Sodium Level 140 mmol/L (136-145)
== END | disposition home or self-care (01) ==
PROVIDERS: PCP Internal Medicine; Referring Provider Internal Medicine Rheumatology; Visit Provider Internal Medicine Rheumatology
DX: L40.59 Other psoriatic arthropathy (principal); L40.8 Other psoriasis; M19.071 Primary osteoarthritis, right ankle and foot; M19.072 Primary osteoarthritis, left ankle and foot; M77.11 Lateral epicondylitis, right elbow; K76.0 Fatty (change of) liver, not elsewhere classified; Z79.899 Other long term (current) drug therapy
CPT/HCPCS: 36415; 80053; 85025

== ENCOUNTER → 2022-05-08 | Outpatient (CLI) | payer OTHER, SELFPAY ==
[2022-05-08 17:47] LABS: Absolute Lymphocyte Count 0.95 X10^3/uL (0.83-4.51); Absolute Neutrophil Count 2.8 X10^3/uL (2.0-7.7); Basophil# 0.04 X10^3/uL; Basophil% 0.9 % (0-1); Eosinophil# 0.12 X10^3/uL; Eosinophils% 2.6 % (0-5); Hematocrit 42.5 % (37-47); Hemoglobin 13.1 g/dL (12.0-15.0); Lymphocyte # 0.95 X10^3/ul (0.83-4.51); Lymphocyte % 20.8 % (19-41); Mean Corp Hgb Conc 30.8 g/dL (32-36); Mean Corpuscular Hgb 27.3 pg (27.0-32.0); Mean Corpuscular Volume 88.7 fL (81-99); Mean Platelet Vol. 9.7 fl (6.2-12.0); Monocyte# 0.68 X10^3/uL; Monocyte% 14.9 % (0-10); NRBC Flagged by Analyzer 0 % (0-5); Neutrophil # 2.76 X10^3/uL (2.7-7.7); Neutrophil % 60.6 % (47-70); Platelet Count 329 K/mm3 (150-450); RBC Distribution Width CV 16.5 % (11.6-14.6); RBC Distribution Width SD 53.4 fl (35.1-43.9); Red Blood Count 4.79 M/mm3 (4.2-5.4); White Blood Count 4.6 K/mm3 (4.4-11.0)
[2022-05-08 18:27] LABS: AST(SGOT) 5 U/L (15-37); Alanine Aminotransfer ALT/SGPT 21 U/L (13-56); Albumin, Serum 3.8 g/dL (3.2-5.0); Alkaline Phosphatase 70 U/L (45-117); Anion Gap 7 (5-15); BUN 15 mg/dL (7-18); BUN/Creat Ratio 21.5 RATIO (10-20); Calcium,Total 9.2 mg/dL (8.5-10.1); Chloride 104 mmol/L (98-107); EST Glomerular Filtration Rate 94 mL/min (>60); Est Glom Filt Rate - Afr Amer 114 mL/min (>60); Globulin 3.9 g/dL (2.2-4.2); Glucose 82 mg/dL (74-106); Potassium 3.9 mmol/L (3.5-5.1); Protein, Total 7.7 g/dL (6.4-8.2); Sodium Level 138 mmol/L (136-145)
[2022-05-10 12:09] LABS: ASO Titer 354.6 IU/mL (0.0-200.0); QNTFERON TB Mitogen Value > 10.00 IU/mL (.); QNTFERON TB Nil Value 0.15 IU/mL (.); QNTFERON TB1+ Ag Value 0.14 IU/mL (.); QNTFERON TB2+ Ag Value 0.14 IU/mL (.)
[2022-05-10 18:49] LABS: Hepatitis B Core Ab Total Negative (Negative); QNTIFERON TB Positive Criteria Negative (Negative)
== END | disposition home or self-care (01) ==
LOC: MTLAB 14:40
PROVIDERS: Dermatology; PCP Internal Medicine; Referring Provider Internal Medicine Rheumatology; Visit Provider Internal Medicine Rheumatology
DX: L40.59 Other psoriatic arthropathy (principal); Z79.899 Other long term (current) drug therapy; L40.8 Other psoriasis; M19.071 Primary osteoarthritis, right ankle and foot; M19.072 Primary osteoarthritis, left ankle and foot; M77.11 Lateral epicondylitis, right elbow; K76.0 Fatty (change of) liver, not elsewhere classified
CPT/HCPCS: 36415; 80053; 85025; 86060; 86480; 86704

== ENCOUNTER → 2022-08-13 | Outpatient (CLI) | payer OTHER, SELFPAY ==
[2022-08-13 17:46] LABS: Absolute Neutrophil Count 2.9 X10^3/uL (2.0-7.7); Basophil# 0.07 X10^3/uL; Basophil% 1.4 % (0-1); Eosinophil# 0.25 X10^3/uL; Eosinophils% 4.9 % (0-5); Hematocrit 42.3 % (37-47); Hemoglobin 13.8 g/dL (12.0-15.0); Lymphocyte % 23.7 % (19-41); Mean Corp Hgb Conc 32.6 g/dL (32-36); Mean Corpuscular Hgb 30.1 pg (27.0-32.0); Mean Corpuscular Volume 92.4 fL (81-99); Mean Platelet Vol. 9.2 fl (6.2-12.0); Monocyte% 11.9 % (0-10); NRBC Flagged by Analyzer 0 % (0-5); Neutrophil # 2.93 X10^3/uL (2.7-7.7); Neutrophil % 57.9 % (47-70); Platelet Count 224 K/mm3 (150-450); RBC Distribution Width CV 16.4 % (11.6-14.6); RBC Distribution Width SD 55.2 fl (35.1-43.9); Red Blood Count 4.58 M/mm3 (4.2-5.4); White Blood Count 5.1 K/mm3 (4.4-11.0)
[2022-08-13 18:03] LABS: ALB/GLOB Ratio 0.9 RATIO (0.9-2.4); AST(SGOT) 4 U/L (15-37); Alanine Aminotransfer ALT/SGPT 25 U/L (13-56); Albumin, Serum 3.5 g/dL (3.2-5.0); Alkaline Phosphatase 69 U/L (45-117); Anion Gap 4 (5-15); BUN 17 mg/dL (7-18); BUN/Creat Ratio 26.6 RATIO (10-20); Calcium,Total 9.2 mg/dL (8.5-10.1); Chloride 106 mmol/L (98-107); Creatinine, Serum 0.64 mg/dL (0.55-1.02); EST Glomerular Filtration Rate 104 mL/min (>60); Est Glom Filt Rate - Afr Amer 126 mL/min (>60); Glucose 78 mg/dL (74-106); Potassium 4.1 mmol/L (3.5-5.1); Protein, Total 7.5 g/dL (6.4-8.2); Sodium Level 139 mmol/L (136-145)
== END | disposition home or self-care (01) ==
LOC: MTLAB 15:05
PROVIDERS: PCP Internal Medicine; Referring Provider Internal Medicine Rheumatology; Visit Provider Internal Medicine Rheumatology
DX: L40.59 Other psoriatic arthropathy (principal); L40.8 Other psoriasis; M19.071 Primary osteoarthritis, right ankle and foot; M19.072 Primary osteoarthritis, left ankle and foot; M77.11 Lateral epicondylitis, right elbow; K76.0 Fatty (change of) liver, not elsewhere classified; Z79.899 Other long term (current) drug therapy
CPT/HCPCS: 36415; 80053; 85025

== ENCOUNTER → 2022-11-19 | Outpatient (CLI) | payer OTHER, SELFPAY ==
[2022-11-19 12:09] LABS: Absolute Lymphocyte Count 1.11 X10^3/uL (0.83-4.51); Absolute Neutrophil Count 2.2 X10^3/uL (2.0-7.7); Basophil# 0.05 X10^3/uL; Basophil% 1.2 % (0-1); Eosinophil# 0.22 X10^3/uL; Eosinophils% 5.4 % (0-5); Hematocrit 42.2 % (37-47); Hemoglobin 13.3 g/dL (12.0-15.0); Lymphocyte # 1.11 X10^3/ul (0.83-4.51); Lymphocyte % 27.5 % (19-41); Mean Corp Hgb Conc 31.5 g/dL (32-36); Mean Corpuscular Hgb 29.1 pg (27.0-32.0); Mean Corpuscular Volume 92.3 fL (81-99); Mean Platelet Vol. 10.1 fl (6.2-12.0); Monocyte# 0.49 X10^3/uL; Monocyte% 12.1 % (0-10); NRBC Flagged by Analyzer 0 % (0-5); Neutrophil # 2.16 X10^3/uL (2.7-7.7); Neutrophil % 53.6 % (47-70); Platelet Count 250 K/mm3 (150-450); RBC Distribution Width CV 14.7 % (11.6-14.6); Red Blood Count 4.57 M/mm3 (4.2-5.4)
[2022-11-19 12:44] LABS: ALB/GLOB Ratio 0.9 RATIO (0.9-2.4); AST(SGOT) 8 U/L (15-37); Alanine Aminotransfer ALT/SGPT 27 U/L (13-56); Albumin, Serum 3.5 g/dL (3.2-5.0); Alkaline Phosphatase 78 U/L (45-117); Anion Gap 5 (5-15); BUN 12 mg/dL (7-18); BUN/Creat Ratio 19.1 RATIO (10-20); Calcium,Total 8.6 mg/dL (8.5-10.1); Chloride 106 mmol/L (98-107); Creatinine, Serum 0.63 mg/dL (0.55-1.02); EST Glomerular Filtration Rate 106 mL/min (>60); Est Glom Filt Rate - Afr Amer 128 mL/min (>60); Globulin 3.8 g/dL (2.2-4.2); Glucose 83 mg/dL (74-106); Potassium 4.2 mmol/L (3.5-5.1); Protein, Total 7.3 g/dL (6.4-8.2); Sodium Level 140 mmol/L (136-145)
== END | disposition home or self-care (01) ==
LOC: MTLAB 10:55
PROVIDERS: PCP Internal Medicine; Referring Provider Internal Medicine Rheumatology; Visit Provider Internal Medicine Rheumatology
DX: L40.59 Other psoriatic arthropathy (principal); Z79.899 Other long term (current) drug therapy
CPT/HCPCS: 36415; 80053; 85025

== ENCOUNTER → 2023-04-26 | Outpatient (CLI) | payer OTHER, SELFPAY ==
[2023-04-26 10:08] LABS: Absolute Lymphocyte Count 1.12 X10^3/uL (0.83-4.51); Absolute Neutrophil Count 2.3 X10^3/uL (2.0-7.7); Basophil# 0.06 X10^3/uL; Basophil% 1.4 % (0-1); Eosinophil# 0.23 X10^3/uL; Eosinophils% 5.5 % (0-5); Hematocrit 37.7 % (37-47); Hemoglobin 11.7 g/dL (12.0-15.0); Lymphocyte # 1.12 X10^3/ul (0.83-4.51); Lymphocyte % 26.8 % (19-41); Mean Corpuscular Hgb 28.1 pg (27.0-32.0); Mean Corpuscular Volume 90.6 fL (81-99); Mean Platelet Vol. 10.1 fl (6.2-12.0); Monocyte# 0.44 X10^3/uL; Monocyte% 10.5 % (0-10); NRBC Flagged by Analyzer 0 % (0-5); Neutrophil # 2.32 X10^3/uL (2.7-7.7); Neutrophil % 55.6 % (47-70); Platelet Count 276 K/mm3 (150-450); RBC Distribution Width CV 13.4 % (11.6-14.6); RBC Distribution Width SD 44.4 fl (35.1-43.9); Red Blood Count 4.16 M/mm3 (4.2-5.4); White Blood Count 4.2 K/mm3 (4.4-11.0)
[2023-04-26 10:49] LABS: ALB/GLOB Ratio 0.9 RATIO (0.9-2.4); AST(SGOT) 7 U/L (15-37); Alanine Aminotransfer ALT/SGPT 23 U/L (13-56); Albumin, Serum 3.5 g/dL (3.2-5.0); Alkaline Phosphatase 68 U/L (45-117); Anion Gap 4 (5-15); BUN 13 mg/dL (7-18); Chloride 107 mmol/L (98-107); Creatinine, Serum 0.65 mg/dL (0.55-1.02); EST Glomerular Filtration Rate 102 mL/min (>60); Est Glom Filt Rate - Afr Amer 123 mL/min (>60); Follicle Stimulating Hormone 34.7 mIU/mL; Globulin 3.7 g/dL (2.2-4.2); Glucose 91 mg/dL (74-106); Luteinizing Hormone 17.1 mIU/mL; Potassium 4.3 mmol/L (3.5-5.1); Protein, Total 7.2 g/dL (6.4-8.2); Sodium Level 138 mmol/L (136-145); Thyroid Stim Hormone (TSH) 0.78 uIU/mL (0.358-3.74)
[2023-04-26 11:05] LABS: Vitamin D,25 Hydroxy 36.8 ng/mL
[2023-04-26 12:39] LABS: Cholesterol 242 mg/dL (200); High Density Lipoprotein 68 mg/dL; Triglycerides 66 mg/dL; Very Low Density Lipoprotein 13 mg/dL (5-40)
[2023-04-30 06:08] LABS: QNTFERON TB Mitogen Value > 10.00 IU/mL (.); QNTFERON TB Nil Value 0.05 IU/mL (.); QNTFERON TB1+ Ag Value 0.03 IU/mL (.); QNTFERON TB2+ Ag Value 0.03 IU/mL (.); QNTIFERON TB Positive Criteria Negative (Negative)
== END | disposition home or self-care (01) ==
LOC: MTLAB 08:21
PROVIDERS: PCP Internal Medicine; Referring Provider Internal Medicine; Visit Provider Internal Medicine
DX: L40.0 Psoriasis vulgaris (principal); Z79.899 Other long term (current) drug therapy
CPT/HCPCS: 36415; 80053; 80061; 82306; 83001; 83002; 84443; 85025; 86480

== ENCOUNTER → 2023-09-16 | Outpatient (CLI) | payer OTHER, SELFPAY ==
[2023-09-16 14:35] LABS: Vitamin D,25 Hydroxy 30.7 ng/mL
== END | disposition home or self-care (01) ==
LOC: LAB 13:18
PROVIDERS: PCP Internal Medicine; Visit Provider Obstetrics & Gynecology Gynecology
DX: E55.9 Vitamin D deficiency, unspecified (principal); D22.9 Melanocytic nevi, unspecified
CPT/HCPCS: 36415; 82306

== ENCOUNTER → 2023-09-16 | Outpatient (CLI) | payer OTHER, SELFPAY ==
--- NOTE | 2023-09-16 12:53 | BI_ITS ---
MAMMOGRAPHY - BILATERAL SCREENING REASON FOR EXAM: Female, 53 years old. Routine annual screening examination. PERTINENT HISTORY: Aunt with breast cancer. TECHNIQUE: Digital bilateral breast anum (3D mammographic acquisition) in the CC and MLO projections. 2-D mediolateral oblique (MLO) and craniocaudad (CC) views of both breasts were obtained. CAD: Full Field Digital Mammography with Computer Added Detection was performed. COMPARISON: Comparison is made with prior study June 26, 2017. FINDINGS: Breast Composition: There are scattered areas of fibroglandular density. There are no dominant masses or suspicious calcifications. No other significant abnormalities are identified. There has been no significant change since the prior study. BI/SCRN MAMM (CAD)W/ANUM BILAT IMPRESSION: Stable bilateral screening mammogram. Yearly follow-up mammogram recommended. (A) ASSESSMENT CATEGORY: BIRADS Category 1: Negative. A letter regarding these results will be sent to the patient by the facility within 30 days. Approximately 10% of breast cancers are not detected by mammography. A normal mammogram should not delay biopsy of a clinically suspicious abnormality. [id number] Electronically Signed: Dominic Srinivasan MD at 14:01 EDT ,
== END | disposition home or self-care (01) ==
LOC: OPBI 12:52
PROVIDERS: PCP Internal Medicine; Referring Provider Obstetrics & Gynecology Gynecology; Visit Provider Obstetrics & Gynecology Gynecology
DX: Z12.31 Encounter for screening mammogram for malignant neoplasm of breast (principal); D22.9 Melanocytic nevi, unspecified; E55.9 Vitamin D deficiency, unspecified
CPT/HCPCS: 77063; 77067

== ENCOUNTER → 2023-11-18 | Outpatient (CLI) | payer SELFPAY ==
--- NOTE | 2023-11-18 07:21 | CT_ITS ---
STUDY: CT CHEST WITHOUT CONTRAST REASON FOR EXAM: Female, 53 years old. Hyperlipidemia, unspecified RADIATION DOSAGE (If Supplied By Facility): CTDIvol = ( 12.19 ) mGy, DLP = ( 195.04 ) mGycm TECHNIQUE: Transaxial imaging was performed without the administration of intravenous contrast material. Cardiac over read examination. Individualized dose optimization techniques were used for this CT. COMPARISON: No relevant priors. FINDINGS: CHEST The lungs are normal. There is no demonstrated pleural abnormality. No evidence of coronary artery calcification. Normal mediastinum. Normal hilar regions. Normal unenhanced pulmonary arteries. Normal aorta arch and descending thoracic aorta. Normal osseous structures. There is no demonstrated abnormality of the visualized upper abdomen. CT/Cardiac Calcium Scoring IMPRESSION: No evidence of coronary artery calcification. Electronically Signed: Dominic Srinivasan MD at 14:33 EDT ,
--- NOTE | 2023-11-18 07:21 | CT_ITS ---
STUDY: CT CHEST WITHOUT CONTRAST REASON FOR EXAM: Female, 53 years old. Hyperlipidemia, unspecified RADIATION DOSAGE (If Supplied By Facility): CTDIvol = ( 12.19 ) mGy, DLP = ( 195.04 ) mGycm TECHNIQUE: Transaxial imaging was performed without the administration of intravenous contrast material. Cardiac over read examination. Individualized dose optimization techniques were used for this CT. COMPARISON: No relevant priors. FINDINGS: CHEST The lungs are normal. There is no demonstrated pleural abnormality. No evidence of coronary artery calcification. Normal mediastinum. Normal hilar regions. Normal unenhanced pulmonary arteries. Normal aorta arch and descending thoracic aorta. Normal osseous structures. There is no demonstrated abnormality of the visualized upper abdomen. CT/Limited Chest CT Cardiac Only IMPRESSION: No evidence of coronary artery calcification. Electronically Signed: Dominic Srinivasan MD at 14:33 EDT ,
--- NOTE | 2023-11-18 13:40 | CA.SCORE ---
Calcium Scoring Date of Study:: 11/18/23 Indications Indications: hyperlidemia Coronary Calcium Scoring: High-resolution Computed Tomographic imaging of the chest was performed on [11/18/23 ], with particular attention paid to the coronary arteries. Images from the examination were analyzed for the presence and extent of coronary artery calcification , using coronary calcium quantification software. The patient tolerated the procedure well and there were no complications. The results of the coronary calcification analysis are provided below. Findings Coronary Artery Left Main (LM): 0 Left Anterior Descending (LAD): 0 Left Circumflex (LCX): 0 Right Coronary Artery (RCA): 0 Total Agatston Score: 0 Percentile Rankin Calcium Scoring Interpretation: Different methods to categorize the overall amount of coronary plaque. Overall amount CAC SIS Visual of coronary plaque P1 Mild -100 <2 1-2 vessels with mild amount of plaque P2 Moderate 101-300 3-4 1-2 vessels with moderate amount, 3 vessels with mild amount of plaque P3 Severe 301-999 5-7 3 vessels with moderate amount, 1 vessel with severe amount of plaque P4 Extensive >1000 >8 2-3 vessels with severe amount of plaque Conclusion: No atherosclerotic plaquing noted
== END | disposition home or self-care (01) ==
PROVIDERS: PCP Internal Medicine; Referring Provider Internal Medicine; Visit Provider Internal Medicine
DX: Z13.6 Encounter for screening for cardiovascular disorders (principal); E78.5 Hyperlipidemia, unspecified
CPT/HCPCS: 75571; 76380

== ENCOUNTER → 2024-03-13 | Outpatient (CLI) | payer OTHER, SELFPAY ==
[2024-03-13 10:51] LABS: Cholesterol 260 mg/dL (200); High Density Lipoprotein 72 mg/dL; Triglycerides 129 mg/dL; Very Low Density Lipoprotein 26 mg/dL (5-40)
[2024-03-14 05:07] LABS: HOMOCYSTEINE 8.9 umol/L (0.0-14.5)
== END | disposition home or self-care (01) ==
LOC: MTLAB 08:08
PROVIDERS: PCP Internal Medicine; Referring Provider Internal Medicine; Visit Provider Internal Medicine
DX: E78.5 Hyperlipidemia, unspecified (principal)
CPT/HCPCS: 36415; 80061; 83090

== ENCOUNTER → 2024-06-23 | Outpatient (CLI) | payer OTHER, SELFPAY ==
[2024-06-25 14:08] LABS: QNTFERON TB Mitogen Value 0.21 IU/mL (.); QNTFERON TB Nil Value 0.01 IU/mL (.); QNTFERON TB1+ Ag Value 0.03 IU/mL (.); QNTFERON TB2+ Ag Value 0.03 IU/mL (.); QNTIFERON TB Positive Criteria Indeterminate (Negative)
== END | disposition home or self-care (01) ==
LOC: MTLAB 16:21
PROVIDERS: PCP Internal Medicine; Referring Provider Dermatology; Visit Provider Dermatology
DX: L40.0 Psoriasis vulgaris (principal)
CPT/HCPCS: 36415; 86480

== ENCOUNTER → 2024-07-16 | Outpatient (CLI) | payer OTHER, SELFPAY ==
[2024-07-16 11:33] LABS: Cholesterol 248 mg/dL (<=200); High Density Lipoprotein 56 mg/dL; Low Density Lipoprotein Calc. 180 mg/dL; Triglycerides 57 mg/dL; Very Low Density Lipoprotein 11 mg/dL (5-40)
[2024-07-21 10:08] LABS: QNTFERON TB Mitogen Value > 10.00 IU/mL (.); QNTFERON TB Nil Value 0.01 IU/mL (.); QNTFERON TB1+ Ag Value 0.01 IU/mL (.); QNTFERON TB2+ Ag Value 0 IU/mL (.); QNTIFERON TB Positive Criteria Negative (Negative)
== END | disposition home or self-care (01) ==
PROVIDERS: PCP Internal Medicine; Referring Provider Internal Medicine; Visit Provider Internal Medicine
DX: L40.0 Psoriasis vulgaris (principal); Z79.899 Other long term (current) drug therapy
CPT/HCPCS: 36415; 80061; 86480

== ENCOUNTER 2024-09-21 08:00 | Outpatient (RCR) | payer OTHER, SELFPAY ==
--- NOTE | 2024-08-18 11:53 | HP.PTEVAL_ITS ---
Patient's Visit Information Visit Information Visit Information: CLAUDIA MONSALVE is a 54 year old F referred to Physical Therapy by Dr. Christal George DO with a diagnosis of L shoulder pain. Date of Evaluation: 08/18/24 Physical Therapist: THIEN Burrows Visit Plan Frequency: 2x /Week Duration: 2 Months Plan: 2X/ week for 8 weeks for pec stretches, scapular retraction, postural exercises, RC strength with HEP and US/ice as needed HEP: scapular retraction, mid rows with orange band, and corner wall stretch Subjective Subjective: Pt has L shoulder pain. She was doing a Yoga move and stretching back into extension overhead and she was also lifting some boxes and started to have L shoulder pain. She has pain in both shoulders but the L is worst. She can not take her shirt off over her head, can not lay on L shoulder in bed. It hurts and it feels weak. She can feel it when she turns the car wheel. She is a teacher and off right now. She has no pain unless she moves certain directions. She is R handed. R shoulder pain comes and goes. Pain L shoulder pain: Pain Intensity (Out of 10): 2 R shoulder pain: Pain Intensity (Out of 10): 1 Objective Objective: R handed UE AROM: Full AROM..some discomfort with end range L ER and abduction and flexion UE MMT: R shoulder flex 12 and L 10.6 R shoulder ABD 15.4 and L 11.1 R shoulder ER 14.6 and L 13.9 R shoulder IR 11.7 and L 8.9 + Empty Can Test for pain and slight weakness + Impingement Sign on the L Posture: Rounded shoulders, decreased scapular retraction Balance/Special Test Scores Quick DASH Score: 18.1800 Goals Goal 1:: I HEP Goal Time Frame: 6-8 Weeks Goal 2:: Sit with more upright posture Goal Time Frame: 6-8 Weeks Goal 3:: Increase UE strength (at the time of the eval: UE MMT: R shoulder flex 12 and L 10.6 R shoulder ABD 15.4 and L 11.1 R shoulder ER 14.6 and L 13.9 R shoulder IR 11.7 and L 8.9) Goal Time Frame: 6-8 Weeks Goal 4:: Decrease L shoulder pain with reaching back into the back seat Goal Time Frame: 6-8 Weeks Rehabilitation Potential Rehabilitation Potential: Good Anticipated Interventions Patient/Client Instruction: Educate patient on: Plan of Care For the Purpose of:: To decrease pain, To increase ROM, To improve nutrient delivery to tissue, To improve muscle performance and motor function, To improve ability to perform ADL's, To increase tolerance to activity/condition/position, To improve performance and independence with ADL's, To decrease level of supervision to perform tasks, To improve ability of physical actions for home/community/work/leisure, To improve gait and locomotor functions, To improve health of tissue, To decrease soft tissue restriction and To increase flexibility/ROM Therapeutic Exercise to Include: Strength training, Postural training, Passive ROM, Active ROM and Scapular Strength/Stabilization For the Purpose of:: To decrease pain, To decrease swelling/inflammation, To increase ROM, To improve nutrient delivery to tissue, To improve muscle performance and motor function, To improve ability to perform ADL's, To increase tolerance to activity/condition/position, To improve performance and inde pendence with ADL's, To improve health of tissue, To decrease soft tissue restriction and To increase flexibility/ROM Manual Therapy Techniques to Include: Mobilization, Passive ROM and Soft tissue mobilization For the Purpose of:: To decrease pain, To increase ROM, To improve nutrient delivery to tissue, To improve muscle performance and motor function, To improve ability to perform ADL's, To increase tolerance to activity/condition/position, To improve performance and independence with ADL's, To decrease level of supervision to perform tasks, To improve ability of physical actions for home/community/work/leisure, To improve health of tissue, To decrease soft tissue restriction and To increase flexibility/ROM Ultrasound (thermal/non thermal): Yes For the Purpose of:: To decrease pain, To decrease swelling/inflammation, To increase ROM and To improve nutrient delivery to tissue Text: Thank you for the opportunity to evaluate your patient. For Medicare and Medicare HMO plans, please review the plan of care and approve it. It will need to be FAXED BACK to us at [phone] for Medicare purposes. For Medicare only, by signing this I certify the plan of care. Please let me know if there are questions or concerns regarding this plan of care. Physician Signature: Date:
--- NOTE | 2024-09-21 12:06 | HP.PTDCSUM ---
Discharge Summary D/C summary: It has been my pleasure to treat CLAUDIA MONSALVE referred by Dr. Christal George DO, with the diagnosis of L shoulder pain for a total of 9 visit(s). Discharge Date: 09/21/24 Please see the following information for a summary of their discharge status. Subjective Subjective: She has pain with certain movements but still better than what it was. She is doing some exercises at home. She is more likely to do stretching than the exercises. She feels that she needs to get herself motivated to do exercises on her own. Pain L shoulder pain: Pain Intensity (Out of 10): 2 R shoulder pain: Pain Intensity (Out of 10): 2 Overall Improvement % Improvement: 75 Objective Objective/Function: UE MMT: R shoulder flex 14.9 and L 17.2 R shoulder ABD 15.4 and L 15.2 R shoulder ER 15.9 and L 18.2 R shoulder IR 13.3and L 13.9 Goals Goal 1:: I HEP Goal Progress: Goal Met Goal 2:: Sit with more upright posture Goal Progress: Goal Met Goal 3:: Increase UE strength (at the time of the eval: UE MMT: R shoulder flex 12 and L 10.6 R shoulder ABD 15.4 and L 11.1 R shoulder ER 14.6 and L 13.9 R shoulder IR 11.7 and L 8.9) Goal Progress: Goal Met Goal 4:: Decrease L shoulder pain with reaching back into the back seat Goal Progress: Progressing Plan Plan: DC PT to HEP D/C Information Discharge Comments: DC PT to HEP d/c sentence: If there are questions or concerns regarding this patient's physical therapy, please feel free to call me at [phone]. Thank you for the referral of this patient. Sincerely, Beth Vaughan, MPT Balance/Gait/Functional tests Balance/Special Test Scores Quick DASH Score: 18.1800 Improvement % Improvement: 75
== END 2024-09-21 14:31 | disposition home or self-care (01) ==
LOC: PT 08:00
PROVIDERS: PCP Internal Medicine; Referring Provider Student in an Organized Health Care Education/Training Program; Visit Provider Student in an Organized Health Care Education/Training Program
DX: M25.512 Pain in left shoulder (principal)
CPT/HCPCS: 97110; 97161

== ENCOUNTER → 2025-02-27 | Outpatient (CLI) | payer OTHER, SELFPAY ==
--- OUTSIDE RECORDS SUMMARY | 2025-02-27 08:23 | XMS RPT_ITS | CCD ---
Author Organization [facility] ion Partnership UTILIZATION COORDINATOR [facility] Care Team Providers Care Rehab Director Occupational Therapist Name Role Phone Shanon Greer Unavailable Donta Perez Unavailable Shanon Greer Unavailable Sarah Brewer Unavailable Unavailable Harsh Richey Unavailable Unavailable Unavailable Unavailable Lashay Denson Unavailable Evelyn Ann Unavailable Harsh Richey Unavailable Unavailable Harsh Louis Unavailable Unavailable Unavailable Unavailable Pam Briones Unavailable Julia Anthony Unavailable Unavailable Shanon Greer DO Unavailable Donta Perez MD Unavailable Shanon Greer DO Unavailable Pam Briones Unavailable Danie Nascimento MD Unavailable Friend, Dr. Salter Unavailable Dr. Lashay Denson MD Unavailable [phone] Harsh Louis LPN Unavailable Unavailable Julia Anthony LPN Unavailable Unavailable Slarb JIMBO, Beth Unavailable Unavailable Unavailable Unavailable Unavailable Unavailable DR SHANON GREER DO Primary Care Physician Shanon Greer DO Unavailable Michelle Ashley CNP Unavailable Agnieszka HERNANDEZ, Mark Unavailable Unavailable Percy DO, Shanon Attending Unavailable Percy DO, Shanon Referring Unavailable Percy DO, Shanon Consulting Unavailable PERCY DO, DR CLAUDIO Primary Care Physician PAM BRIONES MD Attending Unavailable PERCY DO, DR CLAUDIO Primary Care Unavailab le Percy DO, Shanon Crabtree Primary Care Provider [phone] FALLS, ODILON ROBBINS Attending Unavailabl e PERCY, SHANON Crabtree Primary Care Unavailable FALLS, ODILON ITZEL Referring Unavailabl e FALLS, ODILON ITZEL Attending Unavailabl e PERCY, SHANON K Primary Care Unavailable FALLS, ODILON ITZEL Referring Unavailabl e FALLS, ODILON ROBBINS Attending Unavailabl e PERCY, SHANON Crabtree Primary Care Unavailable FALLS, ODILON ROBBINS Referring Unavailabl e PERCY, SHANON K Primary Care Unavailable FALLS, ODILON ROBBINS Attending Unavailabl e FALLS, ODILON ARREOLAE Referring Unavailabl e PERCY, SHANON Crabtree Primary Care Unavailable FALLS, ODILON ROBBINS Attending Unavailabl e FALLS, ODILONNikhil ROBBINS Referring Unavailabl e Percy DO, Dr. Claudio Primary Care Provider [phone] Percy DO, Dr. Claudio Attending Provider [phone] Percy DO, Dr. Claudio Referring Provider [phone] Monica MILLER, Dr. Cline Attending Provider Monica MILLER, Dr. Cline Referring Provider Percy DO, Dr. Claudio Primary Care Provider Percy DO, Dr. Claudio Attending Provider [phone] Percy DO, Dr. Claudio Referring Provider [phone] Monica MILLER, Dr. Cline Other Provider Falls DO, Dr. Siegel Attending Provider Falls DO, Dr. Siegel Referring Provider [phone] Ambrocio Anderson Referring Unavailable Percy, Shanon Primary Care Unavailable Ambrocio Anderson Attending Unavailable Percy, Shanon Referring Unavailable Percy, Shanon Primary Care Unavailable Percy, Shanon Attending Unavailable Monica, Ambrocio Consulting Unavailable Percy, Shanon Referring Unavailable Percy, Shanon Primary Care Unavailable Roberth Smith Attending Unavailable Kayla, Jose Attending Unavailable Percy, Shanon Referring Unavailable Percy, Shanon Primary Care Unavailable Percy, Shanon Consulting Unavailable Percy, Shanon Attending Unavailable Percy, Shanon Referring Unavailable Percy, Shanon Primary Care Unavailable Kayla, Superior Attending Unavailable Percy, Shanon Primary Care Unavailable Falls, Odilon Attending Unavailable Falls, Odilon Referring Unavailable Percy, Shanon Primary Care Unavailable Percy, Shanon Referring Unavailable Percy, Shanon Primary Care Unavailable Percy, Shanon Attending Unavailable FALLS, ODILON ROBBINS Attending Unavailabl e MONICA, AMBROCIO TY Referring Unavailab le MONICA, AMBROCIO TY Admitting Unavailab le PERCY, SHANON K Primary Care Unavailable FALLS, ODILON ROBBINS Attending Unavailabl e PERCY, SHANON K Primary Care Unavailable FALLS, ODILON ROBBINS Attending Unavailabl e PERCY, SHANON K Primary Care Unavailable FALLS, ODILON ROBBINS Attending Unavailabl e PERCY, SHANON K Primary Care Unavailable FALLS, ODILON ROBBINS Attending Unavailabl e PERCY, SHANON K Primary Care Unavailable Allergies Allergy Classification Reported Allergen(s) Allergy Type Date of Onset Reaction(s) Facility (1 source) enivronmental; Translations: [enivronmental] Propensity to adverse reactions (disorder) 4 [facility] Repository Medications Current Medications Medication Drug Class(es) Dates Sig (Normalized) Sig (Original) acetaminophen 500 mg oral tablet (1 source) Start: 05-26-2021 End: 06-23-2021 Tylenol Extra Strength 500 mg oral tablet Dose : 500 mg = 1 tab(s), Oral, q4h, X 14 day(s), # 30 tab(s), 1 Refill(s), 06/23/21 8:55:00 EDT, Pharmacy: [facility], 157.5, cm, 05/26/21 8:11:00 EDT, Height, kg, 05/26/21 8:11:00 EDT, Dosing Weight Start Date: 05/26/21 Stop Date: 06/23/21 Status: Ordered Antihistamine and Nasal Decongestant (2 sources) Start: 05-26-2021 Antihistamine and Nasal Decongestant Dose = 1 tab(s), Oral, AsDirected, 0 Refill(s) Start Date: 05/26/21 Status: Ordered DULoxetine 20 mg delayed release oral capsule (20 sources) Serotonin and Norepinephrine Reuptake Inhibitor Start: 11-04-2022 take 1 capsule by mouth twice daily Duloxetine (Cymbalta) 20 mg capsule,delayed release(DR/EC) Active 20 mg PO TWICE A DAY November 04, 2022 12:00am Start: 02-20-2021 take 1 capsule by mo [facility] once daily Cymbalta 30 mg oral capsule,delayed release (enteric coated) 1 (one) Capsule qd for 0 days Quantity: 90 {Capsule} Refills: 3 Ordered: 06-Feb-2022 Shanon Greer DO, DO, Kathleen Start : 06-Feb-2022 Active folic acid 20 mg oral capsule (20 sources) Start: 11-04-2022 take 1 capsule by mouth once daily Folic Acid 20 mg capsule Active 20 mg PO DAILY November 04, 2022 12:00am Start: 02-08-2020 folic acid 1 m g oral tablet Dose : 2 mg = 2 tab(s), Oral, qDay, # 30 tab(s), 0 Refill(s) Start Date: 02/08/20 Status: Ordered 1 ml guselkumab 100 mg/ml auto-injector (1 source) Interleukin-23 Antagonist Start: 09-03-2022 Tremfya One-Press 100 mg/mL subcutaneous solution 0 Refill(s) Start Date: 09/03/22 Status: Ordered ibuprofen 800 mg oral tablet (1 source) Nonsteroidal Anti-inflammatory Drug Start: 05-26-2021 End: 06-09-2021 ibuprofen 800 mg oral tablet Dose : 800 mg = 1 tab(s), Oral, q8h, X 14 day(s), # 42 tab(s), 0 Refill(s), 06/09/21 8:55:00 EDT, Pharmacy: [facility], 157.5, cm, 05/26/21 8:11:00 EDT, Height, kg, 05/26/21 8:11:00 EDT, Dosing Weight Start Date: 05/26/21 Stop Date: 06/09/21 Status: Ordered methotrexate 2.5 mg oral tablet (20 sources) Folate Analog Metabolic Inhibitor Start: 02-08-2020 Methotrexate Sodium (Methotrexate (Anti-Rheumatic)) 2.5 mg Tablet Active mg PO EVERY WEEK March 02, 2021 1:00am take 8 tablets by mouth every we ek Methotrexate 2.5 MG Oral Tablet 8 q week (2.5 MG) Active take 6 tablets by mouth every we ek METHOTREXATE, 2.5MG (Oral Tablet) 6 Tablet week for 0 days Refills: 0 Ordered: 19-Aug-2009 ADRIAN Uribe LPN Inactive Vitamin D3 (3 sources) Start: 03-23-2020 take 1 dose by mouth once daily Vitamin D3 Dose : 10 mcg =, Oral, qDay, 0 Refill(s) Start Date: 03/23/20 Status: Ordered Completed/Discontinued Medications Medication Drug Class(es) Dates Sig (Normalized) Sig (Original) 0.8 ml adalimumab 50 mg/ml prefilled syringe (20 sources) Tumor Necrosis Factor Genny HUMIRA, 40MG/0.8ML (Subcutaneous Kit) 1 injection q 2 weeks for 0 days Refills: 0 Ordered: 19-Aug-2009 ADRIAN Uribe LPN Inactive HUMIRA, 40MG/0.8 ML (Subcutaneous Kit) 1 injection q 2 weeks for 0 days Refills: 0 Ordered: 19-Aug-2009 Rony CHOI ADRIAN Inactive HUMIRA, 40MG/0.8 ML (Subcutaneous Kit) 1 injection q 2 weeks for 0 days Refills: 0 Ordered: 19-Aug-2009 ADRIAN Uribe LPN Inactive HUMIRA, 20MG/0.4 ML (Subcutaneous Kit) 1 q 3 weeks (20 MG/0.4ML) Inactive HUMIRA, 20MG/0.4 ML (Subcutaneous Kit) 1 q 3 weeks (20 MG/0.4ML) Inactive amoxicillin 875 mg / clavulanate 125 mg oral tablet (20 sources) Penicillin-class Antibacterial Start: 11-04-2022 End: 11-11-2022 Amoxicillin-Pot Clavulanate 875-125 mg tablet Discontinued 1 {tbl} PO TWICE A DAY 14 7 0 November 04, 2022 12:00am November 10, 2022 12:00am November 11, 2022 12:03am Start: 11-04-2022 End: 11-11-2022 take 1 tablet by mouth twice daily Amoxicillin-Pot Clavulanate Discontinued 1 TABLET PO TWICE A DAY 14 7 November 03, 2022 11:00pm November 10, 2022 11:03pm Start: 07-29-2018 End: 04-25-2022 take 1 tablet by mouth twice daily amoxicillin-pot clavulanate 875-125 mg oral tablet 1 (one) tablet bid for 0 days Quantity: 20 {Tablet} Refills: 0 Ordered: 25-Apr-2022 Shanon Greer DO, DO, Kathleen Start : 25-Apr-2022 Active Start: 03-10-2012 End: 03-20-2012 take 1 tablet by mouth twice daily AUGMENTIN, 875-125MG (Oral Tablet) 1 Tablet Twice daily for 10 days Quantity: 20 {Tablet} Refills: 0 Ordered: 10-Mar-2012 Shanon Greer DO, DO, Kathleen Start : 10-Mar-2012 End : 20-Mar-2012 Inactive Comment on above: Discontinued by [employer] [facility] vendor. azithromycin 250 mg oral tablet (20 sources) Macrolide Antimicrobial Start: 03-01-20 End: 11-05-19 take 1 tablet by mouth once daily Azithromycin (Zithromax) 250 mg Tablet Discontinued 250 mg PO DAILY March 02, 2021 1:00am November 04, 2022 12:28pm Start: 01-17-2018 End: 04-10-2018 take 1 tablet by mouth once daily Zithromax Z-Luc 250 MG Oral Tablet tad Tablet qd for 0 days Quantity: 1 {Package} Refills: 0 Ordered: 10-Apr-2018 Harsh Louis LPN Start : 17-Jan-2018 End : 10-Apr-2018 Inactive benzonatate 200 mg oral capsule (20 sources) Non-narcotic Antitussive Start: 12-09-2006 End: 05-21-2008 take 1 capsule by mouth three times daily TESSALON, 200MG (Oral Capsule) 1 (one) Capsule TID for 0 days Quantity: 30 {Capsule} Refills: 0 Ordered: 09-Dec-2006 Zoie Harris RN Start : 09-Dec-2006 End : 21-May-2008 Inactive calcipotriene 0.18159 mg/mg topical ointment (20 sources) Vitamin D Analog End: 05-21-2008 DOVONEX, 0.005% (External Ointment) 1 PRN for 0 days Refills: 0 Ordered: 21-May-2008 Zoie Harris RN End : 21-May-2008 Inactive Calcium (20 sources) Phosphate Binder, Calcium take 1 mg by mouth once daily Calcium 500 MG Oral Tablet daily (500 MG) Inactive take 1 mg by mouth once daily Ca lcium 500 MG Oral Tablet daily (500 MG) Active calcium carbonate 1250 mg oral tablet (2 sources) take 1 mg by mouth once daily Calcium 500 MG Oral Tablet daily (500 MG) Inactive cholecalciferol 1.25 mg oral tablet (14 sources) Vitamin D Start: 02-19-2020 End: 10-20-2021 take 1 tablet by mouth once daily Vitamin D3 1.25 MG (24004 UT) Oral Tablet 1 (one) Tablet daily for 0 days Quantity: 30 {Tablet} Refills: 0 Ordered: 19-Feb-2020 Harsh Louis LPN Start : 19-Feb-2020 End : 20-Oct-2021 Discontinued Comments: This order discontinued per [facility]. Start: 02-16-2020 take 1 tablet by cecelia th once daily Vitamin D3 1.25 MG (24526 UT) Oral Tablet 1 (one) Tablet daily for 0 days Quantity: 30 {Tablet} Refills: 0 Ordered: 16-Feb-2020 Evelyn Ann CNP Start : 16-Feb-2020 Active Start: 02-16-2020 take 1 tablet by cecelia th once daily Vitamin D3 1.25 MG (41089 UT) Oral Tablet 1 (one) Tablet daily for 0 days Quantity: 30 {Tablet} Refills: 0 Ordered: 16-Feb-2020 Evelyn Ann CNP Start : 16-Feb-2020 Active Start: 02-16-2020 take 1 tablet by cecelia th once daily Vitamin D3 1.25 MG (10611 UT) Oral Tablet 1 (one) Tablet daily for 0 days Quantity: 30 {Tablet} Refills: 0 Ordered: 16-Feb-2020 Evelyn Ann CNP Start : 16-Feb-2020 Active Comment on above: This order discontin ued per [facility]. citalopram 20 mg oral tablet (20 sources) Serotonin Reuptake Inhibitor Start: 1 End: 1 take 1 tablet by mouth once daily at bedtime Citalopram Hydrobromide 20 MG Oral Tablet 1 (one) Tablet qhs for 90 days Quantity: 90 {Tablet} Refills: 0 Ordered: 27-Jan-2021 Percy DO, Shanon Percy DO, Shanon Start : 27-Jan-2021 End : 27-Jan-2021 Discontinued Comments: Mail order. Start: 03-14-2020 take 1 tablet by cecelia th once daily at bedtime Citalopram Hydrobromide 20 MG Oral Tablet 1 (one) Tablet qhs for 90 days Quantity: 90 {Tablet} Refills: 0 Ordered: 14-Mar-2020 Percy DO, Shanon Percy DO, Shanon Start : 14-Mar-2020 Active Comments: short term supply Start: 03-14-2020 take 1 tablet by cecelia th once daily at bedtime Citalopram Hydrobromide 20 MG Oral Tablet 1 (one) Tablet qhs for 90 days Quantity: 90 {Tablet} Refills: 0 Ordered: 14-Mar-2020 Percy DO, Shanon Percy DO, Shanon Start : 14-Mar-2020 Active Comments: Mail order. Start: 12-31-2019 take 1 tablet by cecelia th once daily at bedtime Citalopram Hydrobromide 20 MG Oral Tablet 1 (one) Tablet qhs for 90 days Quantity: 90 {Tablet} Refills: 0 Ordered: 31-Dec-2019 Percy DO, Shanon Percy DO, Shanon Start : 31-Dec-2019 Active Comments: short term supply Start: 12-10-2019 take 1 tablet by cecelia th once daily at bedtime Citalopram Hydrobromide 20 MG Oral Tablet 1 (one) Tablet qhs for 14 days Quantity: 14 {Tablet} Refills: 0 Ordered: 10-Dec-2019 Percy DO, Shanon Percy DO, Shanon Start : 10-Dec-2019 Active Comments: short term supply Start: 12-09-2019 take 1 tablet by cecelia th once daily at bedtime Citalopram Hydrobromide 20 MG Oral Tablet 1 (one) Tablet qhs for 14 days Quantity: 14 {Tablet} Refills: 0 Ordered: 09-Dec-2019 Percy DO, Shanon Percy DO, Shanon Start : 09-Dec-2019 Active Comments: short term supply Start: 12-09-2019 take 1 tablet by cecelia th once daily at bedtime Citalopram Hydrobromide 20 MG Oral Tablet 1 (one) Tablet qhs for 90 days Quantity: 90 {Tablet} Refills: 3 Ordered: 09-Dec-2019 Percy ZARCO Shanon Percy DO, Shanon Start : 09-Dec-2019 Active Comments: Mail order. Start: 08-18-2018 take 1 tablet by cecelia th once daily at bedtime Citalopram Hydrobromide 20 MG Oral Tablet 1 (one) Tablet qhs for 0 days Quantity: 90 {Tablet} Refills: 3 Ordered: 18-Aug-2018 PercyShanon sanders DO PercyAndrew sanders DOeen Start : 18-Aug-2018 Active Comments: Mail order. Start: 08-14-2017 take 1 tablet by cecelia th once daily at bedtime Citalopram Hydrobromide 20 MG Oral Tablet 1 (one) Tablet qhs for 0 days Quantity: 30 {Tablet} Refills: 3 Ordered: 14-Aug-2017 PercyShanon sanders DO, DO Shanon Start : 14-Aug-2017 Active Comment on above: Mail order. short term supply Citalopram & Diet Manage Prod 10 MG Miscellaneous (18 sources) Citalopram & t Manage Prod 10 MG Miscellaneous (10 MG) Inactive clobetasol propionate 0.5 mg/ml topical cream (20 sources) Corticosteroid End: 05-22-19 09 TEMOVATE, 0.05% (External Cream) 1 PRN for 0 days Refills: 0 Ordered: 21-May-2008 Zoie Harris RN End : 21-May-2008 Inactive dexamethasone 6 mg oral tablet (16 sources) Corticosteroid Start: 03-01-20 End: 11-05-19 23 take 1 tablet by mouth once daily Dexamethasone 6 mg Tablet Discontinued 6 mg PO DAILY March 02, 2021 1:00am November 04, 2022 12:28pm WILLIAM 28, 3-0.03MG (Oral Tablet) (20 sources) Progestin, Estrogen End: 05-22-19 09 take 1 tablet by mouth once daily WILLIAM 28, 3-0.03MG (Oral Tablet) 1 qd for 0 days Refills: 0 Ordered: 21-May-2008 Zoie Harris RN End : 21-May-2008 Inactive End: 05-21-2008 take 1 tablet by mouth once daily WILLIAM 28, 3-0.03MG (Oral Tablet) 1 qd for 0 days Refills: 0 Ordered: 21-May-2008 Zoie Harris LPN End : 21-May-2008 Inactive ENBREL SURECLICK, 50MG/ML (Subcutaneous Solution) (6 sources) ENBREL SURECLICK , 50MG/ML (Subcutaneous Solution) 1 (50 MG/ML) Inactive Comments: ten days to two weeks Comment on above: ten days to two week s 0.5 ml etanercept 50 mg/ml injection (20 sources) Tumor Necrosis Factor Genny ENBREL SURECLICK, 50 MG/ML (Subcutaneous Solution) 1 (50 MG/ML) Inactive Comments: ten days to two weeks ENBREL SURECLICK , 50MG/ML (Subcutaneous Solution) 1 (50 MG/ML) Inactive Comments: ten days to two weeks ENBREL SURECLICK , 50MG/ML (Subcutaneous Solution) 1 (50 MG/ML) Inactive Comments: ten days to two weeks ENBREL SURECLICK , 50MG/ML (Subcutaneous Solution) 1 (50 MG/ML) Inactive Comments: ten days to two weeks Comment on above: ten days to two week s 21 day ethinyl estradiol 0.893527 mg/hr / etonogestrel 0.005 mg/hr vaginal system (20 sources) Progestin, Estrogen End: 007 NUVARING, 0.12-0.015MG/24HR (Vaginal Ring) 1 q mos for 0 days Refills: 0 Ordered: 06-Dec-2006 Zoie Harris RN End : 06-Dec-2006 Inactive 12 hr fexofenadine hydrochloride 60 mg / pseudoephedrine hydrochloride 120 mg extended release oral tablet (20 sources) alpha-Adrenergic Agonist, Histamine-1 Receptor Antagonist Start: 010 End: 011 take 60-120 mg by mouth every twelve hours MUMTAZ-D 12 HOUR, 60-120MG (Oral Tablet Extended Release 12 Hour) 1 Tablet ER 12HR q12hr for 0 days Quantity: 20 {Tablet_ER_12HR} Refills: 0 Ordered: 13-Jul-2010 Zoie Harris RN Start : 10-Feb-2010 End : 13-Jul-2010 Inactive 12 hr guaiFENesin 600 mg extended release oral tablet (20 sources) Start: 007 End: 009 MUCINEX, 600MG (Oral Tablet Extended Release 12 Hour) 2 (two) Tablet ER 12HR Twice daily for 0 days Refills: 0 Ordered: 09-Dec-2006 Zoie Harris RN Start : 09-Dec-2006 End : 21-May-2008 Inactive guselkumab (TREMFYA PEN SUBQ) (5 sources) End: 025 inject 100 mg by subcutaneous injection every week guselkumab (TREMFYA PEN SUBQ) Inject 100 mg under the skin every (8) weeks . 08/17/2024 Discontinued inject 100 mg by sub cutaneous injection every week guselkumab (TREMFYA PEN SUBQ) Inject 100 mg under the skin every (8) weeks . Active Iron as needed (6 sources) Iron as needed I nactive Iron as needed A ctive ivermectin 3 mg oral tablet (8 sources) Antiparasitic, Pediculicide Start: 03-01-2021 End: 03-06-2021 take 6 tablets by mouth once daily Ivermectin 3 MG Oral Tablet 6 Tablet qd for 5 days Quantity: 30 {Tablet} Refills: 0 Ordered: 01-Mar-2021 Shanon Greer DO, DO, Kathleen Start : 01-Mar-2021 End : 06-Mar-2021 Inactive lactobacillus rhamnosus gg [id number] unt oral capsule (20 sources) Start: 09-08-2008 End: 11-10-2008 take 1 capsule by mouth twice daily CULTURELLE, 10B CELL (Oral Capsule) 1 (one) Capsule bid for 10 days Quantity: 20 {Capsule} Refills: 0 Ordered: 08-Sep-2008 Evelyn Ann Start : 08-Sep-2008 End : 10-Nov-2008 Inactive naproxen sodium 220 mg oral tablet (20 sources) Nonsteroidal Anti-inflammatory Drug Start: 11-15-2006 End: 12-06-2006 take 2 tablets by mouth twice daily ALEVE, 220MG (Oral Tablet) 2 (two) Tablet Twice daily for 0 days Refills: 0 Ordered: 15-Nov-2006 Zoie Harris RN Start : 15-Nov-2006 End : 06-Dec-2006 Inactive penicillin v potassium 250 mg oral tablet (20 sources) Start: 09-08-2008 End: 11-10-2008 take 1 tablet by mouth three times daily PENICILLIN V POTASSIUM, 250MG (Oral Tablet) 1 (one) Tablet tid for 10 days Quantity: 30 {Tablet} Refills: 0 Ordered: 08-Sep-2008 Evelyn Ann Start : 08-Sep-2008 End : 10-Nov-2008 Inactive predniSONE 20 mg oral tablet (20 sources) Start: 07-13-2010 End: 07-18-2010 take 1 tablet by mouth once daily PREDNISONE, 20MG (Oral Tablet) 1 Tablet qd for 5 days Quantity: 5 {Tablet} Refills: 0 Ordered: 21-Jul-2010 Shanon Greer DO, DO, Kathleen Start : 13-Jul-2010 End : 18-Jul-2010 Inactive 1 ml secukinumab 150 mg/ml auto-injector (12 sources) Interleukin-17A Antagonist Start: 09-16-2024 End: 08-20-2024 secukinumab (Cosentyx Pen, 2 Pens,) 150 mg/mL Pen Indications: PSA (psoriatic arthritis) (HCC) , Psoriasis Inject 2 mL (300 mg total) under the skin every 28 days To start after completion of loading dose. Start: 09/16/24. 2 mL 09/16/2024 08/20/2024 Discontinued (Reorder (Suppress CancelRx Message to Pharmacy)) Start: 09-16-2024 End: 08-20-2024 secukinumab (Cosentyx Pen, 2 Pens,) 150 mg/mL Pen Indications: PSA (psoriatic arthritis) (HCC) , Psoriasis Inject 2 mL (300 mg total) under the skin every 28 days To start after completion of loading dose. Start: 09/16/24. 2 mL 11 09/16/2024 08/20/2024 Discontinued (Reorder (Suppress CancelRx Message to Pharmacy)) Start: 09-16-2024 secukinumab (C osentyx Pen, 2 Pens,) 150 mg/mL Pen Indications: PSA (psoriatic arthritis) (HCC) , Psoriasis Inject 2 mL (300 mg total) under the skin every 28 days To start after completion of loading dose. Start: 09/16/24. 2 mL 11 09/16/2024 Active Start: 09-16-2024 secukinumab (C osentyx Pen, 2 Pens,) 150 mg/mL Pen Indications: PSA (psoriatic arthritis) (HCC) , Psoriasis Inject 2 mL (300 mg total) under the skin every 28 days To start after completion of loading dose. Start: 09/16/24. 2 mL 09/16/2024 Active Start: 09-16-2024 secukinumab (C osentyx Pen, 2 Pens,) 150 mg/mL Pen Indications: PSA (psoriatic arthritis) (HCC) , Psoriasis Inject 2 mL (300 mg total) under the skin every 28 days To start after completion of loading dose. Start: 09/16/24. 2 mL 11 09/16/2024 Active Start: 09-16-2024 secukinumab (C osentyx Pen, 2 Pens,) 150 mg/mL Pen Indications: PSA (psoriatic arthritis) (HCC) , Psoriasis Inject 2 mL (300 mg total) under the skin every 28 days To start after completion of loading dose. Start: 09/16/24. 2 mL 09/16/2024 Active Start: 08-17-2024 End: 08-20-2024 secukinumab (Cosentyx Pen, 2 Pens,) 150 mg/mL Pen Indications: PSA (psoriatic arthritis) (HCC) , Psoriasis Inject 300 mg once weekly at weeks 0, 1, 2, 3, and 4. Start 8 weeks after last Tremfya dose. . 10 mL 08/17/2024 08/20/2024 Discontinued (Reorder (Suppress CancelRx Message to Pharmacy)) tranexamic acid 650 mg oral tablet (8 sources) Antifibrinolytic Agent Start: 01-27-2021 End: 10-20-2021 take 1 tablet by mouth once daily Lysteda 650 MG Oral Tablet 1 (one) Tablet up to 4daily on heavy bleeding days for 356 days Refills: 0 Ordered: 20-Oct-2021 Harsh Louis LPN Start : 27-Jan-2021 End : 20-Oct-2021 Inactive triamcinolone acetonide 0.055 mg/actuat metered dose nasal spray (20 sources) Corticosteroid Start: 07-13-2010 End: 05-27-2014 NASACORT AQ, 55MCG/ACT (Nasal Aerosol) 2 (two) Puff(s) QD for 0 days Quantity: 1 {Aerosol_Soln} Refills: 0 Ordered: 27-May-2014 Zoie Harris RN Start : 13-Jul-2010 End : 27-May-2014 Inactive Start: 07-13-2010 End: 05-27-2014 NASACORT AQ, 55MCG/ACT (Nasa l Aerosol) 2 (two) Puff(s) QD for 0 days Quantity: 1 {Aerosol_Soln} Refills: 0 Ordered: 27-May-2014 Zoie Harris RN Start : 13-Jul-2010 End : 27-May-2014 Inactive Start: 07-13-2010 End: 05-27-2014 NASACORT AQ, 55MCG/ACT (Nasa l Aerosol) 2 (two) Puff(s) QD for 0 days Quantity: 1 {Aerosol_Soln} Refills: 0 Ordered: 27-May-2014 Zoie Harris LPN Start : 13-Jul-2010 End : 27-May-2014 Inactive 0.5 ml ustekinumab 90 mg/ml prefilled syringe (20 sources) Interleukin-12 Antagonist, Interleukin-23 Antagonist Start: 05-27-2014 End: 05-02-2017 Stelara 45 MG/0.5ML Subcutaneous Solution Prefilled Syringe 1 (one) Soln Pref Syr Soln Pref Syr q week for 30 days Refills: 0 Ordered: 02-May-2017 Zoie Harris RN Start : 27-May-2014 End : 02-May-2017 Inactive End: 02-10-2010 STELARA, 45MG/0.5ML (Subcuta neous Solution) 1 q 3 months for 0 days Refills: 0 Ordered: 10-Feb-2010 End : 10-Feb-2010 Inactive End: 02-10-2010 STELARA, 45MG/0.5ML (Subcuta neous Solution) 1 q 3 months for 0 days Refills: 0 Ordered: 10-Feb-2010 Sabrina Gillis LPN End : 10-Feb-2010 Inactive Problems Active Problems Problem Classification Problem Date Documented Date Episodic/Chronic Anxiety disorders (20 sources) Anxiety; Translations: [Anxiety] 01-17-2018 Chronic Comment on above: stab;e stable-- try switchi ng to cymbalta for combo effect of chronic pain Benign neoplasm of uterus (3 sources) Uterine leiomyoma 02-03-2020 Episodic Cardiac dysrhythmias (20 sources) Palpitations; Translations: [Tachycardia] Resolved: 05-02-2017 08-14-2017 Episodic Comment on above: had work for this ro vargasmaria guadalupe 5 yrs ago - nad all normal Disorders of lipid metabolism (18 sources) Hyperlipidemia; Translations: [Hyperlipidemia] Onset: 12-09-2023 03-01-2021 Chronic Comment on above: berta 2021 Heart valve disorders (20 sources) Heart sounds abnormal; Translations: [Other cardiac sounds] 01-17-2018 Episodic Immunity disorders (20 sources) Immunodeficiency, unspecified; Translations: [Patient immunocompromised] 01-17-2018 Chronic Immunizations and screening for infectious disease (20 sources) Need for prophylactic vaccination and inoculation against influenza; Translations: [Encounter for screening for respiratory tuberculosis] Resolved: 03-01-2010 03-01-2010 Episodic Malaise and fatigue (20 sources) Fatigue; Translations: [Fatigue] 01-17-2018 Episodic Menstrual disorders (3 sources) Dysmenorrhea 02-08-2020 Chronic Nonspecific chest pain (20 sources) Chest pain; Translations: [Chest pain] Resolved: 08-19-2009 05-27-2014 Episodic Nutritional deficiencies (20 sources) Vitamin D deficiency; Translations: [Vitamin D deficiency] 01-17-2018 Chronic Comment on above: currently 20,000 [address] so need to berta Other and unspecified benign neoplasm (20 sources) Benign neoplasm of connective and other soft tissue, unspecified; Translations: [Leiomyoma] 05-05-2018 Episodic Comment on above: 2- uterine fibriods Other endocrine disorders (20 sources) Hypoglycemia; Translations: [Hypoglycemia] 01-17-2018 Chronic Comment on above: eating more freq and llow gi Other female genital disorders (16 sources) Dysfunctional uterine bleeding; Translations: [DYSFUNCTIONAL UTERINE BLEEDING (Renamed from DUB (dysfunctional uterine bleeding))] 01-17-2018 Chronic Other female genital disorders (15 sources) Abnormal uterine bleeding; Translations: [DYSFUNCTIONAL UTERINE BLEEDING (Renamed from DUB (dysfunctional uterine bleeding))] Onset: 05-26-2021 07-29-2018 Chronic Other female genital disorders (20 sources) Abnormal vaginal bleeding; Translations: [Abnormal vaginal bleeding] 03-01-2021 Chronic Comment on above: dr Briones rx trans ex amic acid - Other female genital disorders (3 sources) Vaginal bleeding 02-03-2020 Chronic Other female genital disorders (20 sources) Abnormal vaginal bleeding; Translations: [Abnormal vaginal bleeding] 04-10-2018 Episodic Other inflammatory condition of skin (20 sources) Psoriatic arthropathy; Translations: [Psoriatic arthritis] Chronic Other inflammatory condition of skin (20 sources) Psoriasis; Translations: [Psoriasis] 01-17-2018 Chronic Other inflammatory condition of skin (20 sources) Psoriasis with arthropathy; 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] 01-17-2018 Chronic Other inflammatory condition of skin (13 sources) Psoriatic arthritis; 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] 03-01-2021 Chronic Other inflammatory condition of skin (4 sources) Arthropathic psoriasis, unspecified; Translations: [Arthropathic psoriasis, unspecified] Onset: 04-28-2024 Chronic Other inflammatory condition of skin (1 source) Psoriasis vulgaris; Translations: [Psoriasis vulgaris] Onset: 07-21-2024 Chronic Other inflammatory condition of skin (2 sources) Psoriasis, unspecified; Translations: [Psoriasis, unspecified] Onset: 04-28-2024 Chronic Other lower respiratory disease (20 sources) Dyspnea; Translations: [Dyspnea on exertion] Episodic Other lower respiratory disease (20 sources) Wheezing; Translations: [Wheezing] Resolved: 08-05-2008 05-27-2014 Episodic Other lower respiratory disease (20 sources) Cough; Translations: [Cough] 03-01-2021 Episodic Other nervous system disorders (20 sources) Paresthesia; Translations: [Paresthesia] 01-17-2018 Episodic Other non-traumatic joint disorders (20 sources) Arthralgia of the ankle and/or foot; Translations: [Pain in joint involving ankle and foot, unspecified laterality] Resolved: 08-05-2008 01-25-2015 Episodic Other non-traumatic joint disorders (1 source) Multiple joint pain; Translations: [Pain in unspecified joint] 04-28-2024 Episodic Other non-traumatic joint disorders (1 source) Joint pain; Translations: [Pain in unspecified joint] 04-28-2024 Episodic Other nutritional; endocrine; and metabolic disorders (20 sources) Body mass index 25-29 - overweight; Translations: [BMI 25.0-25.9,adult] 04-10-2018 Chronic Other nutritional; endocrine; and metabolic disorders (20 sources) Body mass index 25-29 - overweight; Translations: [BMI 25.0-25.9,adult] Resolved: 02-28-2021 07-29-2018 Episodic Other nutritional; endocrine; and metabolic disorders (20 sources) Overweight in adulthood with body mass index of 25 or more but less than 30; Translations: [BMI 25.0-25.9,adult] Resolved: 02-28-2021 07-29-2018 Episodic Other upper respiratory disease (20 sources) Allergic rhinitis; Translations: [Allergic rhinitis] 01-17-2018 Chronic Other upper respiratory disease (20 sources) Bleeding from nose; Translations: [Epistaxis] 01-17-2018 Episodic Other upper respiratory disease (3 sources) Epistaxis; Translations: [Epistaxis] 07-29-2018 Episodic Other upper respiratory disease (2 sources) Pain in face; Translations: [Sinus pain] 04-25-2022 Episodic Other upper respiratory infections (20 sources) Chronic sinusitis, unspecified; Translations: [Bacterial sinusitis] Resolved: 12-31-2019 01-17-2018 Chronic Other upper respiratory infections (20 sources) Acute sinusitis, unspecified; Translations: [Streptococcal sore throat] Resolved: 03-01-2010 05-27-2014 Episodic Comment on above: history of strep rec urrent Otitis media and related conditions (20 sources) Acute otitis media; Translations: [Other specified disorders of Eustachian tube, right ear] Resolved: 12-31-2019 01-17-2018 Episodic Comment on above: dx at urgent care cu rrently looks like resolved on exam Residual codes; unclassified (14 sources) Body mass index (BMI) 24.0-24.9, adult; Translations: [Body mass index 20-24 - normal] Resolved: 01-17-2018 04-10-2018 Episodic Residual codes; unclassified (20 sources) Needs influenza immunization; Translations: [Need for prophylactic vaccination and inoculation against influenza] 01-17-2018 Episodic Residual codes; unclassified (20 sources) Non-smoker; Translations: [Non-smoker] 03-01-2021 Episodic Spondylosis; intervertebral disc disorders; other back problems (20 sources) Low back pain; Translations: [Sciatica] Resolved: 05-02-2017 01-17-2018 Episodic Sprains and strains (20 sources) Other sprains and strains of ankle; Translations: [Other ankle sprain] Resolved: 08-05-2008 05-27-2014 Episodic Comment on above: ENC TO DO EXERCISE Unclassified (20 sources) Work Physical (V70.3) Unclassified (20 sources) Unclassified (20 sources) SYMPTOMS INVOLVING CARDIOVASCULAR SYSTEM; OTHER ABNORMAL HEART SOUNDS (785.3) Unclassified (20 sources) Non-smoker; Translations: [Non-smoker] 04-10-2018 Unclassified (20 sources) Immunocompromised patient (279.3) Unclassified (20 sources) BMI 25.0-25.9,adult Unclassified (20 sources) Fibroid Unclassified (20 sources) BMI 26.0-26.9,adult Unclassified (6 sources) Immunity status testing Unclassified (12 sources) Encounter for screening for lipid disorder (Renamed from Screening for hyperlipidemia) Unclassified (6 sources) Colon cancer screening (Renamed from Encounter for screening for malignant neoplasm of colon) Unclassified (3 sources) History of SARS-CoV-2 03-23-2020 Viral infection (20 sources) Viral disease; Translations: [Viral infection, unspecified] Resolved: 03-01-2010 01-24-2015 Episodic Comment on above: Day #3 Day #6, she saw [facility] urgent [facility], she looked up on line saw it was positive. zinc 75mg daily, ASA 325mg qd, mouthwash like Crest or Scope tid, michael pot tid, Vit C 500mg bid, Vit D3 4000IU daily, Curcumin 500mg bid-call if symptoms worsen or go to ER-reviewed red flags. Monitor pulse ox and take tylenol around the clock.-quarantine 5 days, then mask for additional 5 days. clean/disinfect house regularlysymptoms are mild, she is on day 3. immunocompromised - on methotrexate-declines monoclonal antibodies/paxlovid Past or Other Problems Problem Classification Problem Date Documented Date Episodic/Chronic Coronary atherosclerosis and other heart disease (20 sources) Coronary atherosclerosis and other heart disease Fracture of lower limb (4 sources) Closed fracture of fifth metatarsal bone; Translations: [Nondisplaced fracture of fifth metatarsal bone, right foot, initial encounter for closed fracture] Onset: 03-19-2024 01-09-2024 Episodic Other injuries and conditions due to external causes (1 source) Other injury of unspecified body region, initial encounter; Translations: [Other injury of unspecified body region, initial encounter] Onset: 03-19-2024 Episodic Other lower respiratory disease (20 sources) Dyspnea on exertion; Translations: [SOB (shortness of breath) on exertion] Resolved: 08-19-2009 01-21-2015 Episodic Other non-traumatic joint disorders (4 sources) Pain in left shoulder; Translations: [Pain in joint, shoulder region] Onset: 08-06-2024 08-06-2024 Episodic Other non-traumatic joint disorders (2 sources) Pain in unspecified joint; Translations: [Pain in unspecified joint] Onset: 04-28-2024 Episodic Other screening for suspected conditions (not mental disorders or infectious disease) (20 sources) Patient encounter status; Translations: [Colon cancer screening (Renamed from Encounter for screening for malignant neoplasm of colon)] Onset: 09-03-2022 03-01-2021 Episodic Otitis media and related conditions (20 sources) Otitis media and related conditions; Translations: [Dysfunction of right eustachian tube] Resolved: 12-31-2019 07-29-2018 Tuberculosis (20 sources) Tuberculosis Unclassified (20 sources) DYSFUNCTIONAL UTERINE BLEEDING (Renamed from DUB (dysfunctional uterine bleeding)) Unclassified (20 sources) Other ankle sprain (845.09) Unclassified (20 sources) Ankle/Foot Pain (719.47) Unclassified (20 sources) Patient encounter status; Translations: [Encounter for gynecological examination without abnormal finding] Resolved: 08-05-2008 01-17-2018 Unclassified (20 sources) LOW BACK PAIN WITH RADICULOPATHY (724.4) Unclassified (20 sources) PARASTHESIA (782.0) Unclassified (20 sources) SYMPTOM, EPISTAXIS (784.7) Unclassified (20 sources) Racing heart beat Unclassified (20 sources) Sinusitis, bacterial Unclassified (20 sources) ETD (Eustachian tube dysfunction), right Unclassified (20 sources) BMI 24.0-24.9, adult; Translations: [Body mass index 20-24 - normal] Resolved: 01-17-2018 04-10-2018 Unclassified (20 sources) Screening for HPV (human papillomavirus) (Renamed from Encounter for screening for human papillomavirus (HPV)) Unclassified (20 sources) Encounter for screening mammogram for breast cancer (Renamed from Encounter for screening mammogram for malignant neoplasm of breast) Unclassified (16 sources) Tuberculosis screening status; Translations: [Screening examination for pulmonary tuberculosis] Resolved: 03-01-2010 03-01-2010 Unclassified (20 sources) SARS-associated coronavirus infection Unclassified (13 sources) BMI 27.0-27.9,adult Unclassified (1 source) Acute pain of left shoulder 08-10-2024 Viral infection (16 sources) Disease caused by 2019-nCoV Results Test Name Value Interpretation Reference Range Facility PT D/C Summary (1)on 025 PT D/C Summary (1) [facility] [address] [place] [address] / REHABILITATION SERVICES DISCHARGE SUMMARY MR#: [id number] Acct: [id number] Name: MARILIN MONSALVE Rep #: [id number] : 1970 54 From: Beth Vaughan MPT Referring Dr.: Dr. Odilon George DO Status: REG R CR Insurance: [facility] [employer] INSURANCE Discharge Summary D/C summary: It has been my pleasure to treat MARILIN MONSALVE referred by Dr. Odilon George DO, with the diagnosis of L shoulder pain for a total of 9 visit(s). Discharge Date: 09/21/24 Please see the following information for a summary of their discharge status. Subjective Subjective: She has pain with certain movements but still better than what it was. She is doing some exercises at home. She is more likely to do stretching than the exercises. She feels that she needs to get herself motivated to do exercises on her own. Pain L shoulder pain: Pain Intensity (Out of 10): 2 R shoulder pain: Pain Intensity (Out of 10): 2 Overall Improvement % Improvement: 75 Objective Objective/Function: UE MMT: R shoulder flex 14.9 and L 17.2 R shoulder ABD 15.4 and L 15.2 R shoulder ER 15.9 and L 18.2 R shoulder IR 13.3and L 13.9 Goals Goal 1:: I HEP Goal Progress: Goal Met Goal 2:: Sit with more upright posture Goal Progress: Goal Met Goal 3:: Increase UE strength (at the time of the eval: UE MMT: R shoulder flex 12 and L 10.6 R shoulder ABD 15.4 and L 11.1 R shoulder ER 14.6 and L 13.9 R shoulder IR 11.7 and L 8.9) Goal Progress: Goal Met Goal 4:: Decrease L shoulder pain with reaching back into the back seat Goal Progress: Progressing Plan Plan: DC PT to HEP D/C Information Discharge Comments: DC PT to HEP d/c sentence: If there are questions or concerns regarding this patient's physical therapy, please feel free to call me at [phone]. Thank you for the referral of this patient. Sincerely, THIEN Burrows Balance/Gait/Functional tests Balance/Special Test Scores Quick DASH Score: 18.1800 Improvement % Improvement: 75 09/21/24 1206 CC: Dr. Odilon George DO; Dr. Shanon Greer DO Signed Normal [facility] Inital Evaluation (1) - PTon 08-18-2024 Inital Evaluation (1) - PT [facility] [address] [place] [address] [address] [place] [address] / REHABILITATION SERVICES INITIAL EVALUATION MR#: [id number] Acct: [id number] Name: MARILIN MONSALVE Rep #: [id number] : 1970 54 From: Beth NEUMANN Referring Dr.: Dr. Odilon George DO Status: REG R CR Insurance: [facility] [employer] INSURANCE Patient's Visit Information Visit Information Visit Information: MARILIN MONSALVE is a 54 year old F referred to Physical Therapy by Dr. Odilon George DO with a diagnosis of L shoulder pain. Date of Evaluation: 08/18/24 Physical Therapist: THIEN Burrows Visit Plan Frequency: 2x /Week Duration: 2 Months Plan: 2X/ week for 8 weeks for pec stretches, scapular retraction, postural exercises, RC strength with HEP and US/ice as needed HEP: scapular retraction, mid rows with orange band, and corner wall stretch Subjective Subjective: Pt has L shoulder pain. She was doing a Yoga move and stretching back into extension overhead and she was also lifting some boxes and started to have L shoulder pain. She has pain in both shoulders but the L is worst. She can not take her shirt off over her head, can not lay on L shoulder in bed. It hurts and it feels weak. She can feel it when she turns the car wheel. She is a teacher and off right now. She has no pain unless she moves certain directions. She is R handed. R shoulder pain comes and goes. Pain L shoulder pain: Pain Intensity (Out of 10): 2 R shoulder pain: Pain Intensity (Out of 10): 1 Objective Objective: R handed UE AROM: Full AROM..some discomfort with end range L ER and abduction and flexion UE MMT: R shoulder flex 12 and L 10.6 R shoulder ABD 15.4 and L 11.1 R shoulder ER 14.6 and L 13.9 R shoulder IR 11.7 and L 8.9 + Empty Can Test for pain and slight weakness + Impingement Sign on the L Posture: Rounded shoulders, decreased scapular retraction Balance/Special Test Scores Quick DASH Score: 18.1800 Goals Goal 1:: I HEP Goal Time Frame: 6-8 Weeks Goal 2:: Sit with more upright posture Goal Time Frame: 6-8 Weeks Goal 3:: Increase UE strength (at the time of the eval: UE MMT: R shoulder flex 12 and L 10.6 R shoulder ABD 15.4 and L 11.1 R shoulder ER 14.6 and L 13.9 R shoulder IR 11.7 and L 8.9) Goal Time Frame: 6-8 Weeks Goal 4:: Decrease L shoulder pain with reaching back into the back seat Goal Time Frame: 6-8 Weeks Rehabilitation Potential Rehabilitation Potential: Good Anticipated Interventions Patient/Client Instruction: Educate patient on: Plan of Care For the Purpose of:: To decrease pain, To increase ROM, To improve nutrient delivery to tissue, To improve muscle performance and motor function, To improve ability to perform ADL's, To increase tolerance to activity/condition/position , To improve performance and independence with ADL's, To decrease level of supervision to perform tasks, To improve ability of physical actions for home/community/work/leisure , To improve gait and locomotor functions, To improve health of tissue, To decrease soft tissue restriction and To increase flexibility/ROM Therapeutic Exercise to Include: Strength training, Postural training, Passive ROM, Active ROM and Scapular Strength/Stabilization For the Purpose of:: To decrease pain, To decrease swelling/inflammation, To increase ROM, To improve nutrient delivery to tissue, To improve muscle performance and motor function, To improve ability to perform ADL's, To increase tolerance to activity/condition/position , To improve performance and independence with ADL's, To improve health of tissue, To decrease soft tissue restriction and To increase flexibility/ROM Manual Therapy Techniques to Include: Mobilization, Passive ROM and Soft tissue mobilization For the Purpose of:: To decrease pain, To increase ROM, To improve nutrient delivery to tissue, To improve muscle performance and motor function, To improve ability to perform ADL's, To increase tolerance to activity/condition/position , To improve performance and independence with ADL's, To decrease level of supervision to perform tasks, To improve ability of physical actions for home/community/work/leisure , To improve health of tissue, To decrease soft tissue restriction and To increase flexibility/ROM Ultrasound (thermal/non thermal): Yes For the Purpose of:: To decrease pain, To decrease swelling/inflammation, To increase ROM and To improve nutrient delivery to tissue Text: Thank you for the opportunity to evaluate your patient. For Medicare and Medicare HMO plans, please review the plan of care and approve it. It will need to be FAXED BACK to us at [phone] for Medicare purposes. For Medicare only, by signing this I certify the plan of care. Please let me know if there are questions or concerns regarding this plan (more content not included)... Normal [facility] CBC (INCLUDES DIFF/PLT)on Basophils (Bld) [#/Vol] 0.07 10*3/uL Normal 0-200 [facility] Comment on above: Performed By: #### 1 0256, 6399, 375 #### [facility] [address] [place] [address] [employer] Operator: Ru Paige MD Basophils/100 WBC (Bld) 1.1 % Normal [facility] Comment on above: Performed By: #### 1 0256, 6399, 375 #### [facility] [address] [place] [address] [employer] Operator: Ru Paige MD Eosinophils (Bld) [#/Vol] 0.314 10*3/uL Normal 15-500 [facility] Comment on above: Performed By: #### 1 0256, 6399, 375 #### [facility] [place] [address] [employer] Operator: Ru Paige MD Eosinophils/100 WBC (Bld) 4.9 % Normal [facility] Comment on above: Performed By: #### 1 0256, 6399, 375 #### [facility] [place] [address] [employer]: Ru Paige MD Erythrocyte distribution width (RBC) [Ratio] 15.4 % High 11.0-15.0 [facility] Comment on above: Performed By: #### 1 0256, 63, 375 #### [facility] [place] [address] [employer]: Ru Paige MD Hematocrit (Bld) [Volume fraction] 42.2 % Normal 35.0-45.0 [facility] Comment on above: Performed By: #### 1 0256, 63, 375 #### [facility] [place] [address] [employer] Operator: Ru Paige MD Hemoglobin (Bld) [Mass/Vol] 13.3 g/dL Normal 11.7-15.5 [facility] Comment on above: Performed By: #### 1 0256, 63, 375 #### [facility] [place] [address] [employer] Operator: Ru Paige MD Lymphocytes (Bld) [#/Vol] 1.76 10*3/uL Normal 850-3900 [facility] Comment on above: Performed By: #### 1 0256, 6399, 375 #### [facility] [place] [address] [employer] Operator: Ru Paige MD Lymphocytes/100 WBC (Bld) 27.5 % Normal [facility] Comment on above: Performed By: #### 1 0256, 6399, 375 #### [facility] [place] [address] [employer] Operator: Ru Paige MD MCH (RBC) [Entitic mass] 26.1 pg Low 27.0-33.0 [facility] Comment on above: Performed By: #### 1 025, 6399, 375 #### [facility] [place] [address] [employer] Operator: Ru Paige MD MCHC (RBC) [Mass/Vol] 31.5 g/dL Low 32.0-36.0 [facility] Comment on above: Result Comment: For adults, a slight decrease in the calculated MCHC value (in the range of 30 to 32 g/dL) is most likely not clinically significant; however, it should be interpreted with caution in correlation with other red cell parameters and the patient's clinical condition. Performed By: #### 1 255, 63, 375 #### [facility] [place] [address] [employer] Operator: Ru Paige MD MCV (RBC) [Entitic vol] 82.9 fL Normal 80.0-100.0 [facility] Comment on above: Performed By: #### 1 255, 63, 375 #### [facility] [place] [address] [employer] Operator: Ru Paige MD Monocytes (Bld) [#/Vol] 0.672 10*3/uL Normal 200-950 [facility] Comment on above: Performed By: #### 1 025, 63, 375 #### [facility] [place] [address] [employer] Operator: Ru Paige MD Monocytes/100 WBC (Bld) 10.5 % Normal [facility] Comment on above: Performed By: #### 1 025, 6399, 375 #### [facility] [place] [address] [employer] Operator: Ru Paige MD Neutrophils (Bld) [#/Vol] 3.584 10*3/uL Normal 6610-5075 [facility] Comment on above: Performed By: #### 1 0256, 6399, 375 #### [facility] [place] [address] [employer] Operator: Ru Paige MD Neutrophils/100 WBC (Bld) 56 % Normal [facility] Comment on above: Performed By: #### 1 0256, 6399, 375 #### [facility] [place] [address] [employer] Operator: Ru Paige MD Platelet mean volume (Bld) [Entitic vol] 10.1 fL Normal 7.5-12.5 [facility] Comment on above: Performed By: #### 1 0256, 6399, 375 #### [facility] [place] [address] [employer] Operator: Ru Paige MD Platelets (Bld) [#/Vol] 262 10*3/uL Normal 140-400 [facility] Comment on above: Performed By: #### 1 0256, 63, 375 #### [facility] [place] [address] [employer] Operator: Ru Paige MD RBC (Bld) [#/Vol] 5.09 10*6/uL Normal 3.80-5.10 [facility] Comment on above: Performed By: #### 1 0256, 63, 375 #### [facility] [place] [address] [employer] Operator: Ru Paige MD WBC (Bld) [#/Vol] 6.4 10*3/uL Normal 3.8-10.8 [facility] Comment on above: Performed By: #### 1 0256, 6399, 375 #### [facility] [place] [address] [employer] Operator: Ru Paige MD CBC and Differentialon 08-07 Basophils (Bld) [#/Vol] 70 10*3/uL [facility] Basophils/100 WBC (Bld) 1.1 % [facility] Eosinophils (Bld) [#/Vol] 314 10*3/uL [facility] Eosinophils/100 WBC (Bld) 4.9 % [facility] Erythrocyte distribution width (RBC) [Ratio] 15.4 % High 11.0 - 15.0 % [facility] Hematocrit (Bld) [Volume fraction] 42.2 % 35.0 - 45.0 % [facility] Hemoglobin (Bld) [Mass/Vol] 13.3 g/dL 11.7 - 15.5 g/dL [facility] Interpretation and review of laboratory results Abnormal [facility] Lymphocytes (Bld) [#/Vol] 1760 10*3/uL [facility] Lymphocytes/100 WBC (Bld) 27.5 % [facility] MCH (RBC) [Entitic mass] 26.1 pg Low 27.0 - 33.0 pg [facility] MCHC (RBC) [Mass/Vol] 31.5 g/dL Low 32.0 - 36.0 g/dL [facility] Comment on above: For adults, a slight decrease in the calculated MCHC value (in the range of 30 to 32 g/dL) is most likely not clinically significant; however, it should be interpreted with caution in correlation with other red cell parameters and the patient's clinical condition. MCV (RBC) [Entitic vol] 82.9 fL 80.0 - 100.0 fL [facility] Monocytes (Bld) [#/Vol] 672 10*3/uL [facility] Monocytes/100 WBC (Bld) 10.5 % [facility] Neutrophils (Bld) [#/Vol] 3584 10*3/uL [facility] Neutrophils/100 WBC (Bld) 56 % [facility] Platelet mean volume (Bld) [Entitic vol] 10.1 fL 7.5 - 12.5 fL [facility] Platelets (Bld) [#/Vol] 262 10*3/uL [facility] RBC (Bld) [#/Vol] 5.09 10*6/uL [facility] WBC (Bld) [#/Vol] 6.4 10*3/uL [facility] CREATININEon 08-07-2024 Creatinine [Mass/Vol] 0.67 mg/dL Normal 0.50-1.03 [facility] Comment on above: Performed By: #### 1 0256, 6399, 375 #### [facility] [place] [address] Wastewater Plant Operator: Ru Paige MD GFR/1.73 sq M.predicted among non-blacks MDRD (S/P/Bld) [Vol rate/Area] 104 mL/min/{1.73_m2} Normal > OR = 60 [facility] Comment on above: Performed By: #### 1 0256, 6399, 375 #### [facility] [place] [address] Wastewater Plant Operator: Ru Paige MD Creatinine [Mass/Vol]on 07-11 GFR/1.73 sq M.predicted among non-blacks MDRD (S/P/Bld) [Vol rate/Area] 104 mL/min/{1.73_m2} > OR = 60 mL/min/1.7 2 [facility] Creatinine, serumon 08-08-19 Creatinine [Mass/Vol] 0.67 mg/dL 0.50 - 1.03 mg/dL [facility] HEPATIC FUNCTION PANELon Albumin [Mass/Vol] 4.4 g/dL Normal 3.6-5.1 [facility] Comment on above: Performed By: #### 1 0256, 63, 375 #### [facility] [place] [address] Wastewater Plant Operator: Ru Paige MD Albumin/Globulin [Mass ratio] 1.5 {ratio} Normal 1.0-2.5 [facility] Comment on above: Performed By: #### 1 0256, 6399, 375 #### [facility] [place] [address] Wastewater Plant Operator: Ru Paige MD ALP [Catalytic activity/Vol] 72 U/L Normal 37-153 [facility] Comment on above: Performed By: #### 1 0256, 6399, 375 #### [facility] [place] [address] Wastewater Plant Operator: Ru Paige MD ALT [Catalytic activity/Vol] 16 U/L Normal 6-29 [facility] Comment on above: Performed By: #### 1 0256, 6399, 375 #### [facility] [place] [address] Wastewater Plant Operator: Ru Paige MD AST [Catalytic activity/Vol] 9 U/L Low 10-35 [facility] Comment on above: Performed By: #### 1 0256, 6399, 375 #### [facility] [place] [address] Wastewater Plant Operator: Ru Paige MD Bilirubin [Mass/Vol] 0.4 mg/dL Normal 0.2-1.2 [facility] Comment on above: Performed By: #### 1 0256, 63, 375 #### [facility] [place] [address] Wastewater Plant Operator: Ru Paige MD BILIRUBIN, INDIRECT 0.4 mg/dL (calc) Normal 0.2-1.2 [facility] Comment on above: Performed By: #### 1 0256, 63, 375 #### [facility] [place] [address] Wastewater Plant Operator: Ru Paige MD Bilirubin.indirect [Mass/Vol] 0.0 mg/dL Normal < OR = 0.2 [facility] Comment on above: Performed By: #### 1 0256, 63, 375 #### [facility] [place] [address] Wastewater Plant Operator: Ru Paige MD Globulin (S) [Mass/Vol] 2.9 g/dL Normal 1.9-3.7 [facility] Comment on above: Performed By: #### 1 0256, 6399, 375 #### [facility] [place] [address] Wastewater Plant Operator: Ru Paige MD Protein [Mass/Vol] 7.3 g/dL Normal 6.1-8.1 [facility] Comment on above: Performed By: #### 1 0256, 6399, 375 #### [facility] [address], [address] [place] [address] Wastewater Plant Operator: Ru Paige MD Hepatic function 2000 panelo n 08-07-2024 Albumin [Mass/Vol] 4.4 g/dL 3.6 - 5.1 g/dL [facility] Albumin/Globulin [Mass ratio] 1.5 {ratio} [facility] ALP [Catalytic activity/Vol] 72 U/L 37 - 153 U/L [facility] ALT [Catalytic activity/Vol] 16 U/L 6 - 29 U/L [facility] AST [Catalytic activity/Vol] 9 U/L Low 10 - 35 U/L [facility] Bilirubin [Mass/Vol] 0.4 mg/dL 0.2 - 1.2 mg/dL [facility] Bilirubin.direct [Mass/Vol] 0 mg/dL < OR = 0.2 [facility] Bilirubin.indirect [Mass/Vol] 0.4 mg/dL [facility] Globulin (S) [Mass/Vol] 2.9 g/dL [facility] Interpretation and review of laboratory results Abnormal [facility] Protein [Mass/Vol] 7.3 g/dL 6.1 - 8.1 g/dL [facility] No Panel Informationon 08-07 [facility] Quantiferon TB-Gold+on 07-21 QFT MITOGEN YOVANY > 10.00 Normal . [facility] Comment on above: Order Comment: QT-RE EDYLIPID-PERCY Performed By: #### L 3400.8000, L500.4100 ####[facility] [address] [place], [place], [phone] QFT NIL VALUE 0.01 IU/mL Normal . [facility] Comment on above: Order Comment: QT-RE EDYLIPID-PERCY Performed By: #### L 3400.8000, L500.4100 ####[facility] [address] [place], [address] QFT TB GOLD+ Comment Normal . [facility] Comment on above: Order Comment: QT-RE EDYLIPID-PERCY Result Comment: Ean tiFERON-TB Gold Plus is a qualitative indirect test for M tuberculosis infection (including disease) and is intended for use in conjunction with risk assessment, radiography, and other medical and diagnostic evaluations. The QuantiFERON-TB Gold Plus result is determined by subtracting the Nil value from either TB antigen (Ag) value. The Mitogen tube serves as a control for the test. Performed By: #### L 3400.8000, L500.4100 ####[facility] [address] [place], [address] QFT TB POS CRIT Negative Normal Negative [facility] Comment on above: Order Comment: QT-RE EDYLIPID-PERCY Result Comment: No r esponse to M tuberculosis antigens detected. Infection with M tuberculosis is unlikely, but high risk individuals should be considered for additional testing (ATS/IDSA/CDC Clinical Practice Guidelines, 2017). The reference range is an Antigen minus Nil result of <0.35 IU/mL. The specimen received for QuantiFERON testing was incubated by the ordering institution. Specific procedures outlined in our Directory of Services and in the package insert for the QuantiFERON Gold (In Tube) test must be followed to enable for proper stimulation of cells for the production of interferon gamma. Chemiluminescence immunoassay methodology Performed at: [facility] [employer] [id number] Patent Engineer: Carlos Alberto Lynch PhD, Phone: [phone] Performed By: #### L 3400.8000, L500.4100 ####[facility] [address] [place], [place], [phone]) QFT TB1+ AG YOVANY 0.01 IU/mL Normal . [facility] Comment on above: Order Comment: QT-RE EDYLIPID-PERCY Performed By: #### L 3400.8000, L500.4100 ####[facility] [address] [place], [address] QFT TB2+ AG YOVANY 0 IU/mL Normal . [facility] Comment on above: Order Comment: QT-RE EDYLIPID-PERCY Performed By: #### L 3400.8000, L500.4100 ####[facility] [address] [facility] [id number] Calculated very low density lipoprotein (VLDL) cholesterol measurementOrdered By: Shanon Greer on 07-16-2024 Calculated very low density lipoprotein (VLDL) cholesterol measurement 11 mg/dL 5-40 [facility] LDL calc ser/plasOrdered By: Shanon Greer on 07-16-2024 Cholesterol in LDL [Mass/Vol] 180 mg/dL [facility] Comment on above: Eqpwkseksh=452-209 m g/dL & Higher Djtw=610 mg/dL or greater Lipid Profileon 07-16-2024 CHOL:HDL 4.40 Normal [facility] Comment on above: Order Comment: QT-RE EDYLIPID-PERCY Performed By: #### L 3400.8000, L500.4108 ####[facility] [address] [place], [place], [phone] Cholesterol [Mass/Vol] 248 mg/dL High <=200 [facility] Comment on above: Order Comment: QT-RE EDYLIPID-PERCY Result Comment: Chol esterol level, Desirable <200 mg/dL Borderline high cholesterol 200-239 mg/dL High cholesterol >=240 mg/dL Recommendations of the NCEP Adult Treatment Panel for the following risk-cutoff thresholds for the [place] population. Performed By: #### L 3400.8000, L500.4100 ####[facility] [address] [place], [place], [phone] Cholesterol in HDL [Mass/Vol] 56 mg/dL Normal [facility] Comment on above: Order Comment: QT-RE EDYLIPID-PERCY Result Comment: Purnima onal Cholesterol Education Program (NCEP) guidelines: <40 mg/dL: Low HDL-cholesterol (major risk factor for CHD) >= 60 mg/dL: High HDL-cholesterol (negative risk factor for CHD) HDL-cholesterol is affected by a number of factors, e.g. smoking, exercise, hormones, sex and age. Performed By: #### L 3400.8000, L500.4100 ####[facility] [address] [place], [place], [phone] Cholesterol in LDL [Mass/Vol] 180 mg/dL Normal [facility] Comment on above: Order Comment: QT-RE EDYLIPID-PERCY Result Comment: Bord rcajsq=179-586 mg/dL Higher Dgcc=349 mg/dL or greater Performed By: #### L 3400.8000, L500.4100 ####[facility] [address] [place], [place], [phone] Cholesterol in VLDL [Mass/Vol] 11 mg/dL Normal 5-40 [facility] Comment on above: Order Comment: QT-RE EDYLIPID-PERCY Performed By: #### L 3400.8000, L500.4100 ####[facility] [address] [place], [address] Triglyceride [Mass/Vol] 57 mg/dL Normal [facility] Comment on above: Order Comment: QT-RE EDYLIPID-PERCY Result Comment: The drugs N-Acetylcysteine and Metamizole may falsely depress this assay. Normal range: <150 mg/dL Borderline High: 150-199 mg/dL High: 200-499 mg/dL Very High: >500 mg/dL Performed By: #### L 3400.8000, L500.4100 ####[facility] [address] [place], [address] Qualitative QuantiFERON-TB g old in tube testOrdered By: Shanon Greer on 07-16-2024 M. tuberculosis tuberculin stim IFN-g Ql (Bld) 0.01 IU/mL . [facility] Screening total cholesterol/ high density lipoprotein (HDL) cholesterol ratioOrdered By: Shanon Greer on 07-16-2024 Cholesterol.total/C holesterol in HDL [Mass ratio] 4.40 {ratio} [facility] Serum or plasma cholesterol in HDL measurement (mass/volume)Ordered By: Shanno Greer on 07-16-2024 Cholesterol in HDL [Mass/Vol] 56 mg/dL >40 [facility] Comment on above: National Cholesterol Education Program (NCEP) guidelines:<40 mg/dL: Low HDL-cholesterol (major risk factor for CHD)>= 60 mg/dL: High HDL-cholesterol (negative risk factor for CHD)HDL-cholesterol is affected by a number of factors, e.g. smoking, exercise, hormones, sex and age. Serum or plasma cholesterol measurement (mass/volume)Ordered By: Shanon Greer on 07-16-2024 Cholesterol [Mass/Vol] 248 mg/dL High <201 [facility] Comment on above: Cholesterol level, D esirable <200 mg/dLBorderline high cholesterol 200-239 mg/dLHigh cholesterol >=240 mg/dLRecommendations of the NCEP Adult Treatment Panel for the following risk-cutoff thresholds for the [place] population. Triglycerides measurementOrd ered By: Shanon Greer on 07-16-2024 Triglyceride [Mass/Vol] 57 mg/dL <199 [facility] Comment on above: The drugs N-Acetylcy steine and Metamizole may falsely depress this assay. Normal range: <150 mg/dLBorderline High: 150-199 mg/dLHigh: 200-499 mg/dLVery High: >500 mg/dL Quantiferon TB-Gold+on 06-25 QFT MITOGEN YOVANY 0.21 IU/mL Normal . [facility] Comment on above: Performed By: #### L 3400.8000 #### [facility] [address] [facility] [facility] [place], [place], [phone] QFT NIL VALUE 0.01 IU/mL Normal . [facility] Comment on above: Performed By: #### L 3400.8000 #### [facility] [address] [facility] [facility] [place], [place], [phone] QFT TB GOLD+ Comment Normal . [facility] Comment on above: Result Comment: Ean tiFERON-TB Gold Plus is a qualitative indirect test for M tuberculosis infection (including disease) and is intended for use in conjunction with risk assessment, radiography, and other medical and diagnostic evaluations. The QuantiFERON-TB Gold Plus result is determined by subtracting the Nil value from either TB antigen (Ag) value. The Mitogen tube serves as a control for the test. Performed By: #### L 3400.8000 #### [facility] [address] [place], [place], [phone] QFT TB POS CRIT Indeterminate Abnormal Negative [facility] Comment on above: Result Comment: Alan gen (positive control) gave low response. This may occur due to suboptimal pre-analytical handling. The specimen received for QuantiFERON testing was incubated by the ordering institution. Specific procedures outlined in our Directory of Services and in the package insert for the QuantiFERON Gold (In Tube) test must be followed to enable for proper stimulation of cells for the production of interferon gamma. Chemiluminescence immunoassay methodology Performed at: [facility] [employer] [id number] Patent Engineer: Carlos Alberto Lynch PhD, Phone: [phone] Performed By: #### L 3400.8000 #### [facility] [address] [facility]. [place], [place], [phone] QFT TB1+ AG YOVANY 0.03 IU/mL Normal . [facility] Comment on above: Performed By: #### L 3400.8000 #### [facility] [address] [facility] [address] [place], [place], [phone] QFT TB2+ AG YOVANY 0.03 IU/mL Normal . [facility] Comment on above: Performed By: #### L 3400.8000 #### [facility] [address] [facility] [address] [facility] [address] [place], [place], [phone] M. tuberculosis tuberculin s madelaine IFN-g Ql (Bld)Ordered By: Ambrocio Anderson on 06-23-2024 TB Test (QFT) Antigen 1 0.03 IU/mL . [facility] Qualitative QuantiFERON-TB g old in tube testOrdered By: Ambrocio Anderson on 06-23-2024 M. tuberculosis tuberculin stim IFN-g Ql (Bld) 0.03 IU/mL . [facility] Quantiferon-TB Gold Plus john tOrdered By: Ambrocio Anderson on 06-23-2024 TB Test (QFT) Comment . [facility] Comment on above: QuantiFERON-TB Gold Plus is a qualitative indirect test forM tuberculosis infection (including disease) and isintended for use in conjunction with risk assessment,radiography, and other medical and diagnostic evaluations.The QuantiFERON-TB Gold Plus result is determined bysubtracting the Nil value from either TB antigen (Ag)value. The Mitogen tube serves as a control for the test. TB Test (QFT) Antigen 2 0.03 IU/mL . [facility] TB Test (QFT) Mitogen 0.21 IU/mL . [facility] TB Test (QFT) Nil 0.01 IU/mL . [facility] TB Test (QFT) Positive Criteria Indeterminate High Negative [facility] Comment on above: Mitogen (positive co ntrol) gave low response. This mayoccur due to suboptimal pre-analytical handling.The specimen received for QuantiFERON testing was incubatedby the ordering institution. Specific procedures outlinedin our Directory of Services and in the package insert forthe QuantiFERON Gold (In Tube) test must be followed toenable for proper stimulation of cells for the productionof interferon gamma. Chemiluminescence immunoassaymethodologyPerformed at: [facility] [id number] Director: Carlos Alberto Lynch PhD, Phone: [phone] MR HAND RIGHT WITH AND WITHO UT CONTRASTon 06-02-2024 MR HAND RIGHT WITH AND WITHOUT CONTRAST EXAMINATION: MR HAND RIGHT WITH AND WITHOUT CONTRAST HISTORY: ORDERING SYSTEM PROVIDED HISTORY: History of psoriatic arthritis. Please evaluate for underlying synovitis., TECHNOLOGIST PROVIDED HISTORY: Illness/Other Reason for exam: History of psoriatic arthritis. Please evaluate for underlying synovitis, joint pain chronic pain increasing over the years Encounter Type: Initial Additional signs and symptoms: . ORDERING SYSTEM PROVIDED DIAGNOSIS CODES: L40.50 PSA (psoriatic arthritis) ([facility]) COMPARISON: Hand x-rays 04/28/2024 TECHNIQUE: Multiplanar, multisequence imaging of the right hand with and without IV contrast. CONTRAST: GADOTERATE MEGLUMINE 0.5 MMOL/ML (376.9 MG/ML) INTRAVENOUS SOLUTION - 13 mL, FINDINGS: There is prominent reactive/degenerative bone marrow edema throughout the shaft and base of the thumb metacarpal including lesser bone edema in the trapezium consistent with thumb CMC arthritis. Enhancement at the level of bone edema seen. Pericapsular edema/inflammation around the thumb CMC joint noted. No osseous erosions. Small thumb CMC effusion seen. Additionally, there is moderately prominent de Quervain tenosynovitis of the 1st compartment extensor tendons, partially visualized. The other joint spaces appear maintained. Musculature is maintained. No tendon tear or tenosynovitis. IMPRESSION: There is prominent reactive/degenerative bone marrow edema throughout the shaft and base of the thumb metacarpal including lesser bone edema in the trapezium consistent with thumb CMC arthritis. Enhancement at the level of bone edema seen. Pericapsular edema/inflammation around the thumb CMC joint noted. No osseous erosions. Small thumb CMC effusion seen. Additionally, there is moderately prominent de Quervain tenosynovitis of the 1st compartment extensor tendons, partially visualized. The other joint spaces appear maintained. PD/kls Workstation ID: [id number] Dictated by: DAYDAY PHILLIP on SatJun 04, 2024 2:06:34 PM EDT Transcribed by: MONICA WRIGHT on SatJun 04, 2024 2:35:43 PM EDT Finalized by: DAYDAY PHILLIP on SatJun 04, 2024 2:36:16 PM EDT Normal [facility] Comment on above: Order Comment: Injur y/Trauma or Illness?:Illness/Other How long have you had these symptoms (acute/chronic)?:Acute Reason for exam?:History of psoriatic arthritis. ??Please evaluate for underlying synovitis, joint pain chronic pain increasing over the years Type of Exam?:Initial Additional signs and symptoms?:. C-REACTIVE PROTEINon 025 CRP [Mass/Vol] mg/L Normal <8.0 [facility] Comment on above: Performed By: #### 8 09, 2116, [address]226, 0849, 901 #### [employer] [facility] [address] [facility], [address] [place] [address] Wastewater Plant Operator: Ru Paige MD CCP Antibodyon 04-29-2024 Cyclic citrullinated peptide IgG Qn <16 UNITS [facility] Comment on above: Reference Range Negative: <20 Weak Positive: 20-39 Moderate Positive: 40-59 Strong Positive: >59 FASTING:NO FASTING: NO [facility] CRP, Inflammationon 04-29-19 25 CRP [Mass/Vol] mg/L NINF - 8.0 mg/L [facility] CYCLIC CITRULLINATED PEPTIDE (CCP) AB (IGG)on 04-29-2024 CYCLIC CITRULLINATED PEPTIDE (CCP) AB (IGG) <16 Normal [facility] Comment on above: Result Comment: Refe rence Range Negative: <20 Weak Positive: 20-39 Moderate Positive: 40-59 Strong Positive: >59 Performed By: #### 8 09, 4420, [address]324, 4418, 905 #### [facility] [address], [address] [place] [address] Wastewater Plant Operator: Ru Paige MD ESR Westergren method (Bld) [Velocity]on 04-29-2024 ESR (Bld) [Velocity] 9 mm/h < OR = 30 [facility] FASTING:NO FASTING: NO [facility] No Panel Informationon 04-29 FASTING:NO FASTING: NO [facility] RHEUMATOID FACTORon 04-29-19 25 RHEUMATOID FACTOR <10 Normal <14 [facility] Comment on above: Performed By: #### 8 09, 4420, [address]3008, 4418, 905 #### [facility] [address], [address] [place] [address] Wastewater Plant Operator: Ru Paige MD Rheumatoid factoron 04-29-19 25 Rheumatoid factor Qn [IU]/mL [facility] SED RATE BY MODIFIED WESTERG RENon 04-29-2024 SED RATE BY MODIFIED WESTERGREN 9 mm/h Normal < OR = 30 [facility] Comment on above: Performed By: #### 8 09, 4420, 43902, 4418, 905 #### [facility] [place] [address] Wastewater Plant Operator: Ru Paige MD URIC ACIDon 04-29-2024 Urate [Mass/Vol] 5.6 mg/dL Normal 2.5-7.0 [facility] Comment on above: Order Comment: FASTI NG:NO FASTING: NO Result Comment: Ther apeutic target for gout patients: <6.0 mg/dL Performed By: #### 8 09, 4420, 17075, 4418, 905 #### [facility] [address], [address] [place] [address] Wastewater Plant Operator: Ru Paige MD Urate [Mass/Vol]on FASTING:NO FASTING: NO [facility] Uric Acidon 04-29-2024 Urate [Mass/Vol] 5.6 mg/dL 2.5 - 7.0 mg/dL [facility] Comment on above: Therapeutic target f or gout patients: <6.0 mg/dL XR FOOT LEFT 3+ VIEWS (STAND EZ)on 04-28-2024 XR FOOT LEFT 3+ VIEWS (STANDARD) EXAMINATION: XR FOOT LEFT 3+ VIEWS (STANDARD) HISTORY: ORDERING SYSTEM PROVIDED HISTORY: Please evalaute for inflammatory arthritis, TECHNOLOGIST PROVIDED HISTORY: Illness/Other Reason for exam: pain Cancer History: u Surgery, RadiationHistory: u Encounter Type: Initial Additional signs and symptoms: (psoriatic arthritis) ([facility]) ORDERING SYSTEM PROVIDED DIAGNOSIS CODES: L40.50 PSA (psoriatic arthritis) ([facility]) COMPARISON: None. FINDINGS: Three views of the left foot. No acute fracture. Joint alignment is anatomic. Suspect small periarticular erosions at the lateral aspect of the 2nd and 5th metatarsal heads. No additional joint erosions. Mild 1st MTP joint space narrowing with minimal spurring. Soft tissues are within normal limits. IMPRESSION: No acute osseous abnormality. Suspect small periarticular joint erosions at the lateral aspects of the 2nd and 5th metatarsal heads. ST/ads Workstation ID: [id number] Dictated by: TALISHA LOCK on SatApr 28, 2024 4:11:00 PM EST Transcribed by: KARLA AMARAL on SatApr 28, 2024 4:44:18 PM EST Finalized by: TALISHA LOCK on SatApr 28, 2024 9:31:24 PM EST Normal [facility] Comment on above: Order Comment: Injur y/Trauma or Illness?:Illness/Other How long have you had these symptoms (acute/chronic)?:Chronic Reason for exam?:pain History of cancer?:u Surgeries, chemotherapy, or radiation?:u Type of Exam?:Initial Additional signs and symptoms?:(psoriatic arthritis) ([facility]) XR FOOT RIGHT 3+ VIEWS (MARIBEL DARD)on 04-28-2024 XR FOOT RIGHT 3+ VIEWS (STANDARD) EXAMINATION: XR FOOT RIGHT 3+ VIEWS (STANDARD) HISTORY: ORDERING SYSTEM PROVIDED HISTORY: Please evalaute for inflammatory arthritis, TECHNOLOGIST PROVIDED HISTORY: Illness/Other Reason for exam: pain Cancer History: u Surgery, RadiationHistory: u Encounter Type: Initial Additional signs and symptoms: (psoriatic arthritis) ([facility]) ORDERING SYSTEM PROVIDED DIAGNOSIS CODES: L40.50 PSA (psoriatic arthritis) ([facility]) COMPARISON: None. FINDINGS: Three views of the right foot. No acute fracture. Joint alignment is anatomic. Mild 1st MTP joint space narrowing with mild osteophytic spurring. Small periarticular erosions at the lateral aspects of the 2nd and 5th metatarsal heads. Soft tissues are within normal limits. IMPRESSION: No acute osseous abnormality. Small periarticular erosions at the lateral aspect of the 2nd and 5th metatarsal heads. Findings suspicious for inflammatory arthritis. Similar findings seen at the left foot. [employer] Workstation ID: [id number] Dictated by: TALISHA LOCK on SatApr 28, 2024 4:12:37 PM EST Transcribed by: ELY COOPER on SatApr 28, 2024 4:44:46 PM EST Finalized by: TALISHA LOCK on SatApr 28, 2024 9:30:33 PM EST Normal [facility] Comment on above: Order Comment: Injur y/Trauma or Illness?:Illness/Other How long have you had these symptoms (acute/chronic)?:Chronic Reason for exam?:pain History of cancer?:u Surgeries, chemotherapy, or radiation?:u Type of Exam?:Initial Additional signs and symptoms?:(psoriatic arthritis) ([facility]) XR HANDS BILATERAL BALL CATC HERS 2 VIEWSon 04-28-2024 XR HANDS BILATERAL BALL CATCHERS 2 VIEWS EXAMINATION: XR HANDS BILATERAL BALL CATCHERS 2 VIEWS HISTORY: ORDERING SYSTEM PROVIDED HISTORY: Please evaluate for inflammatory arthritis, TECHNOLOGIST PROVIDED HISTORY: Illness/Other Reason for exam: pain Cancer History: u Surgery, RadiationHistory: u Encounter Type: Initial Additional signs and symptoms: (psoriatic arthritis) ([facility]) ORDERING SYSTEM PROVIDED DIAGNOSIS CODES: L40.50 PSA (psoriatic arthritis) ([facility]) COMPARISON: None. FINDINGS: PA and ball catchers views of the hands. No acute osseous abnormality. No subluxation or dislocation. Symmetric mild radiocarpal joint space narrowing. The remaining joint spaces appear symmetric and preserved. No suspicious joint erosions. Soft tissues appear unremarkable. IMPRESSION: No acute osseous abnormality. No findings suspicious for inflammatory arthritis. /[facility] Workstation ID: [id number] Dictated by: TALISHA LOCK on SatApr 28, 2024 4:06:40 PM EST Transcribed by: ELY COOPER on SatApr 28, 2024 4:38:43 PM EST Finalized by: TALISHA LOCK on SatApr 28, 2024 9:30:24 PM EST [facility] Comment on above: Order Comment: Injur y/Trauma or Illness?:Illness/Other How long have you had these symptoms (acute/chronic)?:Chronic Reason for exam?:pain History of cancer?:u Surgeries, chemotherapy, or radiation?:u Type of Exam?:Initial Additional signs and symptoms?:(psoriatic arthritis) ([facility]) XR SI JOINTS 3+ VIEWSon 04-11 XR SI JOINTS 3+ VIEWS EXAMINATION: XR SI JOINTS 3+ VIEWS HISTORY: ORDERING SYSTEM PROVIDED HISTORY: Please evaluate for sacroillitis with yee view, TECHNOLOGIST PROVIDED HISTORY: Illness/Other Reason for exam: pain Cancer History: u Surgery, RadiationHistory: u Encounter Type: Initial Additional signs and symptoms: (psoriatic arthritis) ([facility]) ORDERING SYSTEM PROVIDED DIAGNOSIS CODES: L40.50 PSA (psoriatic arthritis) ([facility]) COMPARISON: None. FINDINGS: Three views of the sacroiliac joints. No acute osseous abnormality. Normal alignment of the hips, sacroiliac pubic symphysis articulation. Sacroiliac joint spaces are symmetric and preserved. IMPRESSION: No acute osseous abnormality. Sacroiliac joint spaces are preserved. [facility] Workstation ID: [id number] Dictated by: TALISHA LOCK on SatApr 28, 2024 4:07:48 PM EST Transcribed by: JIMMY ERWIN on SatApr 28, 2024 4:44:02 PM EST Finalized by: TALISHA LOCK on SatApr 28, 2024 9:25:24 PM EST [facility] Comment on above: Order Comment: Injur y/Trauma or Illness?:Illness/Other How long have you had these symptoms (acute/chronic)?:Acute Reason for exam?:pain History of cancer?:u Surgeries, chemotherapy, or radiation?:u Type of Exam?:Initial Additional signs and symptoms?:(psoriatic arthritis) (HCC) L803.0600on 03-14-2024 HOMOCYSTEINE 8.9 umol/L Normal 0.0-14.5 [facility] Comment on above: Result Comment: Perf ormed at: - [facility] [place] [address] [place], [place] [id number] Patent Engineer: Carlos Alberto Lynch PhD, Phone: [phone] Performed By: #### L 500.4100, L803.0600 #### [facility] [address] [place], [address] High density lipoprotein (HD L) measurementOrdered By: Shanon Greer on 03-13-2024 Cholesterol in HDL [Mass/Vol] 72 mg/dL >40 [facility] Comment on above: The drugs N-Acetylcy steine and Metamizole may falsely depress this assay. Reference Range HDL <40 mg/dL Low HDL Cholesterol HDL >or= 60 mg/dL High HDL Cholesterol Homocysteine measurement (ma ss/volume)Ordered By: Shanon Greer on 03-13-2024 Homocysteine 8.9 umol/L 0.0-14.5 [facility] Comment on above: Performed at: - [facility] [address] [id number] Director: Carlos Alberto Lynch PhD, Phone: [phone] Lipid Profileon 03-13-2024 Cholesterol [Mass/Vol] 260 mg/dL High 200 [facility] Comment on above: Result Comment: <200 mg/dL Desirable 200-240 mg/dL Borderline >240 mg/dL High Risk Performed By: #### L 500.4100, L803.0600 #### [facility] [address] [place], [address] Cholesterol in HDL [Mass/Vol] 72 mg/dL Normal [facility] Comment on above: Result Comment: The drugs N-Acetylcysteine and Metamizole may falsely depress this assay. Reference Range HDL <40 mg/dL Low HDL Cholesterol HDL >or= 60 mg/dL High HDL Cholesterol Performed By: #### L 500.4100, L803.0600 #### [facility] [address] [place], [address] Cholesterol in LDL [Mass/Vol] 162 mg/dL High 0-130 [facility] Comment on above: Performed By: #### L 500.4100, L803.0600 #### [facility] [address] [place], [address] Cholesterol in VLDL [Mass/Vol] 26 mg/dL Normal 5-40 [facility] Comment on above: Performed By: #### L 500.4100, L803.0600 #### [facility] [address] [place], [address] Triglyceride [Mass/Vol] 129 mg/dL Normal [facility] Comment on above: Result Comment: The drugs N-Acetylcysteine and Metamizole may falsely depress this assay. Serum Triglycerides Reference Interval Normal <150 mg/dL Borderline high 150 - 199 mg/dL High 200 - 499 mg/dL Very High > or = 500 mg/dL Performed By: #### L 500.4100, L803.0600 #### [facility] [address] [place], [address] Low density lipoprotein (LDL ) cholesterol measurementOrdered By: Shanon Greer on 03-13-2024 Cholesterol in LDL [Mass/Vol] 162 mg/dL High 0-130 [facility] Serum or plasma cholesterol measurement (mass/volume)Ordered By: Shanon Greer on 03-13-2024 Cholesterol [Mass/Vol] 260 mg/dL High <200 [facility] Comment on above: <200 mg/dL Desirable 200-240 mg/dL Borderline >240 mg/dL High Risk Triglycerides measurementOrd ered By: Shanon Greer on 03-13-2024 Triglyceride [Mass/Vol] 129 mg/dL <199 [facility] Comment on above: The drugs N-Acetylcy steine and Metamizole may falsely depress this assay.Serum Triglycerides Reference Interval Normal <150 mg/dL Borderline high 150 - 199 mg/dL High 200 - 499 mg/dL Very High > or = 500 mg/dL Very low density lipoprotein (VLDL) cholesterol measurementOrdered By: Shanon Greer on 03-13-2024 VLDL Cholesterol 26 mg/dL 5-40 [facility] Foot min 3 Viewson 4 Foot min [address] [facility] [address] [place] [address] Foot min 3 Views MR#: [id number] Acct: [id number] Name: MARILIN MONSALVE Rep #: [id number] : 1970 F 53 From: Dominic rodríguez MD PCP: Dr. Shanon Greer, DO Status: DEP AMB Study: Foot min 3 Views Date of Exam: 01/09/24 Exam# [id number] Ordering Dr: Roberth Skinner [id number] STUDY: X-RAY - RIGHT FOOT CLINICAL: Female, 53 years old. Twisting injury. Pain along the fifth metatarsal. TECHNIQUE: 3 view(s) of the foot. COMPARISON: None. FINDINGS: Normal talus, calcaneus, and tarsal bones. Normal visualized subtalar, talonavicular, calcaneocuboid, tarsal and tarsometatarsal articulations. Nondisplaced transverse fracture at the base of the fifth metatarsal. Normal metatarsophalangeal joint of the great toe. Normal tibial and fibular sesamoid bones. Normal interphalangeal joint of the great toe. Normal phalanges of the great toe. Normal second through fifth metatarsophalangeal joints. Normal interphalangeal joints and phalanges of the lesser toes. Soft tissue swelling. RAD/Foot min 3 Views IMPRESSION: Nondisplaced transverse fracture at the base of the fifth metatarsal with overlying soft tissue swelling. Electronically Signed: Dominic Srinivasan MD at 9:01 EDT , CC: YENNI Sadler; Dr. Shanon Greer DO In Home Aide: Signed Normal [facility] Urgent Care Visit Reporton 1 Urgent Care Visit Report [facility] [address], [address] [place] [address] OFFICE VISIT Date of Service: 01/09/24 MR#: [id number] Acct: [id number] Name: MARILIN MONSALVE Rep #: [id number] : 1970 Provider: YENNI Sadler Age/Sex: 53/F [place] [facility] [place]: Signed Intake Vital Signs 11/04/22 12:27 01/09/24 08:03 Height 5 ft 3 in 5 ft 3 in BP 130/60 H Blood Pressure Location Rt brachial Position Sitting Respiration 16 Pulse 96 Pulse Source NIBP Temp 98.2 F Temp Source Oral Pulse Oximetry (%) 96 Oxygen Delivery Method room air Intake Visit Reasons: R FOOT INJURY Chief Complaint: right foot injury Direct Sales Representative Required: No Is patient in pain?: Yes Allergies enivronmental Allergy (Mild, Uncoded 01/09/24 08:41) congestion Is last menstrual period known: No Post menopausal: Yes Patient : No Have you fallen in the past year?: Yes Nurse's Note: pt rolled ankle at home this morning stepping onto rug in kitchen. c/o pain to right lateral foot. lump with bruising noted to area of pain. pt ambulates unassisted with limp. denies additional injuries. HPI HPI Chief Complaint: right foot injury Details: MARILIN MONSALVE, is a 53 F who presents to the office today for complaint of right foot pain after rolling her ankle this morning. Patient states she stepped onto a rug in the kitchen and rolled her foot with complaint on the outside of the right foot currently. She denies numbness, tingling or loss range of motion. She does report worsening pain with walking. No other associated symptoms or alleviating/aggravating factors. ROS Const Constitutional: No other (6 system ROS completed with pertinent findings in the HPI otherwise normal.) Exam Const General: cooperative and healthy appearing Skin General: no rashes or lesions noted Neuro General: patient alert Extrem Other: Pain to palpation right lateral foot over the fifth metatarsal with minor ecchymosis and swelling to the same. Psych Appearance: grossly normal Mental Status: mental status grossly normal Coding Level of Care Code Off vis,est,level 4 Diagnoses Nondisplaced fracture of fifth metatarsal bone, right foot, initial encounter for closed fracture S92.354A Assessment and Plan Assessment and Plan (1) Nondisplaced fracture of fifth metatarsal bone, right foot, initial encounter for closed fracture: Status: Acute Plan: X-ray of the right foot read and interpreted by myself finding and an acute fracture of the right fifth metatarsal approximately, awaiting radiology interpretation at time of patient discharge. Patient placed in a walking boot and advised to follow-up with podiatry at the next available appointment. Patient advised of RICE techniques as well as use of ibuprofen or Tylenol as needed for pain. Patient advised of other symptomatic management techniques as well as potential red flags and when appropriate to report to the ED. Patient verbalized understanding and agreement with all the above. Orders: Orders Foot min 3 Views Today T14.8XXA - Other injury of unspecified body region, initial encounter Clinical Quality Measures Falls Risk Screening/Assistive Devices Have you fallen in the past year?: Yes 01/09/24 0936 Date Roberth Tidwell Signature: Date (if applicable) CC: Normal [facility] Cardiac Calcium Scoringon Cardiac Calcium Scoring [facility] [address] [place], [place] [id number] Cardiac Calcium Scoring MR#: [id number] Acct: [id number] Name: MARILIN MONSALVE Rep #: [id number] : 1970 F 53 From: Dominic rodríguez MD PCP: Dr. Shanon Greer, DO Status: REG CLI Study: Cardiac Calcium Scoring Date of Exam: 11/18/23 Exam# [id number] Ordering Dr: Shanon Greer DO [id number] STUDY: CT CHEST WITHOUT CONTRAST REASON FOR EXAM: Female, 53 years old. Hyperlipidemia, unspecified RADIATION DOSAGE (If Supplied By Facility): CTDIvol = ( 12.19 ) mGy, DLP = ( 195.04 ) mGycm TECHNIQUE: Transaxial imaging was performed without the administration of intravenous contrast material. Cardiac over read examination. Individualized dose optimization techniques were used for this CT. COMPARISON: No relevant priors. FINDINGS: CHEST The lungs are normal. There is no demonstrated pleural abnormality. No evidence of coronary artery calcification. Normal mediastinum. Normal hilar regions. Normal unenhanced pulmonary arteries. Normal aorta arch and descending thoracic aorta. Normal osseous structures. There is no demonstrated abnormality of the visualized upper abdomen. CT/Cardiac Calcium Scoring IMPRESSION: No evidence of coronary artery calcification. Electronically Signed: Dominic Srinivasan MD at 14:33 EDT Reading Location ID and State: [address] [place] [address] , Service support , CC: Dr. Shanon Greer DO In Home Aide: Signed Normal [facility] Coronary Angiography CTon Coronary Angiography CT [facility] [address] [place] [address] 11/18/23 1340 MR#: [id number] Acct: [id number] Name: MARILIN MONSALVE Rep #: [id number] : 1970 53 From: Jose Garza MD PCP: Dr. Shanon Greer DO Status:REG CLI Y Location: CT Calcium Scoring Date of Study:: 11/18/23 Indications Indications: hyperlidemia Coronary Calcium Scoring: High-resolution Computed Tomographic imaging of the chest was performed on [11/18/23 ], with particular attention paid to the coronary arteries. Images from the examination were analyzed for the presence and extent of coronary artery calcification , using coronary calcium quantification software. The patient tolerated the procedure well and there were no complications. The results of the coronary calcification analysis are provided below. Findings Coronary Artery Left Main (LM): 0 Left Anterior Descending (LAD): 0 Left Circumflex (LCX): 0 Right Coronary Artery (RCA): 0 Total Agatston Score: 0 Percentile Rankin Calcium Scoring Interpretation: Different methods to categorize the overall amount of coronary plaque. Overall amount CAC SIS Visual of coronary plaque P1 Mild -100 <2 1-2 vessels with mild amount of plaque P2 Moderate 101-300 3-4 1-2 vessels with moderate amount, 3 vessels with mild amount of plaque P3 Severe 301-999 5-7 3 vessels with moderate amount, 1 vessel with severe amount of plaque P4 Extensive >1000 >8 2-3 vessels with severe amount of plaque Conclusion: No atherosclerotic plaquing noted 11/18/23 1341 Date Jose Gazra MD Cosigner Signature (if applicable): Date CC: Dr. Jose Garza MD; Dr. Shanon Greer DO Signed Normal [facility] Limited Chest CT Cardiac Onl yon 11-18-[address] Cardiac Only [facility] Imaging Services [facility] [place] [address] Cardiac Only MR#: [id number] Acct: [id number] Name: MARILIN MONSALVE Rep #: [id number] : 1970 F 53 From: Dominic rodríguez MD PCP: Dr. Shanon Greer DO Status: REG CLI Study: Limited Chest CT Cardiac Only Date of Exam: Exam# [id number] Ordering Dr: Shanon Greer DO [id number] STUDY: CT CHEST WITHOUT CONTRAST REASON FOR EXAM: Female, 53 years old. Hyperlipidemia, unspecified RADIATION DOSAGE (If Supplied By Facility): CTDIvol = ( 12.19 ) mGy, DLP = ( 195.04 ) mGycm TECHNIQUE: Transaxial imaging was performed without the administration of intravenous contrast material. Cardiac over read examination. Individualized dose optimization techniques were used for this CT. COMPARISON: No relevant priors. FINDINGS: CHEST The lungs are normal. There is no demonstrated pleural abnormality. No evidence of coronary artery calcification. Normal mediastinum. Normal hilar regions. Normal unenhanced pulmonary arteries. Normal aorta arch and descending thoracic aorta. Normal osseous structures. There is no demonstrated abnormality of the visualized upper abdomen. CT/Limited Chest CT Cardiac Only IMPRESSION: No evidence of coronary artery calcification. Electronically Signed: Dominic Srinivasan MD at 14:33 EDT , CC: Dr. Shanon Greer DO In Home Aide: Signed Normal [facility] Absolute lymphocyte countOrd ered By: Shanon Greer on 04-26-2023 Lymphocytes Auto (Unsp spec) [#/Vol] 1.12 10*3/uL 0.83-4.51 [facility] Automated lymphocyte count a s percentage of total leukocytesOrdered By: Shanon Greer on 04-26-2023 Lymphocytes/100 WBC Auto (Unsp spec) 26.8 % 19-41 [facility] Basophil percentageOrdered B y: Shanon Greer on 04-26-2023 Basophils/100 WBC (Bld) 1.4 % 0-1 [facility] Bilirubin [Mass/Vol] 0.50 mg/dL 0.20-1.00 [facility] Comment on above: For patients on eltr ombopag therapy, use of Dimension [place] TBIL is not recommended. Chloride [Moles/Vol] 107 mmol/L 98-107 [facility] Cholesterol [Mass/Vol] 242 mg/dL <200 [facility] Comment on above: <200 mg/dL Desirable 200-240 mg/dL Borderline >240 mg/dL High Risk Eosinophils/100 WBC (Bld) 5.5 % 0-5 [facility] Glucose [Mass/Vol] 91 mg/dL 74-106 [facility] Hemoglobin (Bld) [Mass/Vol] 11.7 g/dL 12.0-15.0 [facility] Monocytes/100 WBC (Bld) 10.5 % 0-10 [facility] Neutrophils (Bld) [#/Vol] 2.3 10*3/uL 2.0-7.7 [facility] Neutrophils/100 WBC (Bld) 55.6 % 47-70 [facility] Potassium [Moles/Vol] 4.3 mmol/L 3.5-5.1 [facility] Protein [Mass/Vol] 7.2 g/dL 6.4-8.2 [facility] Sodium [Moles/Vol] 138 mmol/L 136-145 [facility] Triglyceride [Mass/Vol] 66 mg/dL <199 [facility] Comment on above: The drugs N-Acetylcy steine and Metamizole may falsely depress this assay.Serum Triglycerides Reference Interval Normal <150 mg/dL Borderline high 150 - 199 mg/dL High 200 - 499 mg/dL Very High > or = 500 mg/dL WBC (Bld) [#/Vol] 4.2 10*3/uL 4.4-11.0 [facility] Determination of erythrocyte mean corpuscular volume (MCV)Ordered By: Shanon Greer on 04-26-2023 MCV (RBC) [Entitic vol] 90.6 fL 81-99 [facility] Erythrocyte distribution wid th ratioOrdered By: Shanon Greer on 04-26-2023 Erythrocyte distribution width (RBC) [Ratio] 13.4 % 11.6-14.6 [facility] Erythrocyte distribution wid th standard deviationOrdered By: Shanon Greer on 04-26-2023 Erythrocyte distribution width (RBC) [Entitic vol] 44.4 fL 35.1-43.9 [facility] Hematocrit Auto (Bld) [Volum e fraction]Ordered By: Shanon Greer on 04-26-2023 Hematocrit (Bld) [Volume fraction] 37.7 % 37-47 [facility] Immature granulocytes/100 WB C Auto (Bld)Ordered By: Shanon Greer on 04-26-2023 Immature granulocytes/100 WBC (Bld) 0.200 % 0.0-0.9 [facility] Comment on above: IG% - Immature Granu locytes (promyelocytes, myelocytes and metamyelocytes) > 1% indicates that a LEFT SHIFT is Present. Laboratory - Chemistry and C hemistry - challengeOrdered By: Shanon Greer on 04-26-2023 Albumin/Globulin [Mass ratio] 0.9 {ratio} 0.9-2.4 [facility] ALP [Catalytic activity/Vol] 68 U/L 45-117 [facility] ALT [Catalytic activity/Vol] 23 U/L 13-56 [facility] Cholesterol in HDL [Mass/Vol] 68 mg/dL >40 [facility] Comment on above: The drugs N-Acetylcy steine and Metamizole may falsely depress this assay. Reference Range HDL <40 mg/dL Low HDL Cholesterol HDL >or= 60 mg/dL High HDL Cholesterol Cholesterol in LDL [Mass/Vol] 161 mg/dL 0-130 [facility] CO2 [Moles/Vol] 27.0 mmol/L 21.0-32.0 [facility] Globulin (S) [Mass/Vol] 3.7 g/dL 2.2-4.2 [facility] Urea nitrogen/Creatinine [Mass ratio] 20.0 mg/mg 10-20 [facility] Laboratory - Hematology and Cell countsOrdered By: Shanon Greer on 04-26-2023 MCH (RBC) [Entitic mass] 28.1 pg 27.0-32.0 [facility] MCHC (RBC) [Mass/Vol] 31.0 g/dL 32-36 [facility] Nucleated RBC/100 WBC (Bld) [Ratio] 0 % 0-5 [facility] Platelet mean volume (Bld) [Entitic vol] 10.1 fL 6.2-12.0 [facility] Platelets (Bld) [#/Vol] 276 10*3/uL 150-450 [facility] No Panel InformationOrdered By: Shanon Greer on 04-26-2023 Estimated GFR (MDRD) Amer 123 mL/min >60 [facility] Comment on above: GFR Calc Estimated GFR (MDRD) Non-Af Amer 102 mL/min >60 [facility] Comment on above: Non- GFR Calc Follicle Stimulating Hormone 34.7 mIU/mL [facility] Comment on above: NORMAL REFERENCE RAN GES FEMALE FOLLICULAR 2.3 - 12.6 mIU/mL MID-CYCLE PEAK 5.2 - 17.5 mIU/mL LUTEAL 1.7 - 12.9 mIU/mL POST-MENOPAUSAL ON MHT 5.9 - 72.8 mIU/mL NOT ON MHT 12.7 - 132.2 mlU/mL MALE 0.7 - 10.8 mIU/mL Luteinizing Hormone 17.1 mIU/mL [facility] Comment on above: NORMAL REFERENCE RAN [facility] FEMALE FOLLICULAR 1.9 - 26.2 mIU/mL MID-CYCLE PEAK 22.8 - 76.1 mIU/mL LUTEAL 0.6 - 16.6 mIU/mL POST-MENOPAUSAL ON MHT 1.1 - 52.4 mIU/mL NOT ON MHT 8.6 - 61.8 mIU/mL MALE 1.2 - 10.6 mIU/mL Vitamin D 25-Hydroxy 36.8 ng/mL [facility] Comment on above: Vitamin D 25(OH) Sta tus Range Deficiency <20 ng/mL (50nmol/L) Insufficiency 20 - 30 ng/mL (50 - 75 nmol/L) Sufficiency 30 - 100 ng/mL (75 - 250 nmol/L) Toxicity >100 ng/mL (>250 nmol/L) VLDL Cholesterol 13 mg/dL 5-40 [facility] Qualitative QuantiFERON-TB g old in tube testOrdered By: Shanon Greer on 04-26-2023 M. tuberculosis tuberculin stim IFN-g Ql (Bld) 0.03 IU/mL . [facility] RBC Auto (Bld) [#/Vol]Ordere d By: Shanon Greer on 04-26-2023 RBC (Bld) [#/Vol] 4.16 10*6/uL 4.2-5.4 [facility] Serum or plasma calcium isabelle urement (mass/volume)Ordered By: Shanon Greer on 04-26-2023 Calcium [Mass/Vol] 9.0 mg/dL 8.5-10.1 [facility] Serum or plasma creatinine m easurement (mass/volume)Ordered By: Shanon Greer on 04-26-2023 Creatinine [Mass/Vol] 0.65 mg/dL 0.55-1.02 [facility] Comment on above: The validity of the calculated GFR & GFRAA in patients over 70 years has not been determined. Clinical correlation is essential. Serum or plasma thyroid stim ulating hormone (TSH) measurement (units/volume)Ordered By: Shanon Greer on 04-26-2023 TSH Qn 0.78 uIU/mL 0.358-3.74 [facility] Serum or plasma urea nitroge n measurement (mass/volume)Ordered By: Shanon Greer on 04-26-2023 Urea nitrogen [Mass/Vol] 13 mg/dL 7-18 [facility] Thin prep Papanicolaou smear with manual screeningOrdered By: Shanon Greer on 04-26-2023 Thin prep Papanicolaou smear with manual screening 3.5 g/dL 3.2-5.0 [facility] Thin prep Papanicolaou smear with manual screening 7 U/L 15-37 [facility] Thin prep Papanicolaou smear with manual screening 4 5-15 [facility] Thin prep Papanicolaou smear with manual screening Comment . [facility] Comment on above: QuantiFERON-TB Gold Plus is a qualitative indirect test forM tuberculosis infection (including disease) and isintended for use in conjunction with risk assessment,radiography, and other medical and diagnostic evaluations.The QuantiFERON-TB Gold Plus result is determined bysubtracting the Nil value from either TB antigen (Ag)value. The Mitogen tube serves as a control for the test. Thin prep Papanicolaou smear with manual screening 0.03 IU/mL . [facility] Thin prep Papanicolaou smear with manual screening 0.05 IU/mL . [facility] Thin prep Papanicolaou smear with manual screening > 10.00 IU/mL . [facility] Thin prep Papanicolaou smear with manual screening Negative Negative [facility] Comment on above: No response to M tub erculosis antigens detected.Infection with M tuberculosis is unlikely, but high riskindividuals should be considered for additional testing(ATS/IDSA/CDC Clinical Practice Guidelines, 2017). Thereference range is an Antigen minus Nil result of <0.35IU/mL.The specimen received for QuantiFERON testing was incubatedby the ordering institution. Specific procedures outlinedin our Directory of Services and in the package insert forthe QuantiFERON Gold (In Tube) test must be followed toenable for proper stimulation of cells for the productionof interferon gamma. Chemiluminescence immunoassaymethodologyPerformed at: [facility] [address] [id number] Director: Carlos Alberto Lynch PhD, Phone: [phone] Director Of Recruitment And Admissions Cytology Reporton 2022 Director Of Recruitment And Admissions Cytology Report . Pathology Reports Accession: Collected Date/Time: Received Date/Time: Pathologist: [id number] 09/03/2022 16:36 EDT 09/03/2022 18:00 EDT Director Of Recruitment And Admissions Cytology Report SPECIMEN: Specimen Description: Liquid Prep w/ HPV Specimen: Cervical/Endocervical Screening or Diagnostic: Screening RELEVANT HISTORY: LMP: 2021 Other clinical information: s/p ablation SPECIMEN ADEQUACY: SATISFACTORY FOR EVALUATION Endocervical/Transformation al zone component present INTERPRETATION/RESULTS: NEGATIVE FOR INTRAEPITHELIAL LESION OR MALIGNANCY HIGH RISK HPV TESTING: Event Code Result HPV Interp See Interp HPVN HPV Interp Text: High Risk HPV Typing: NEGATIVE HPV types 16, 18, 31, 33, 35, 39, 45, 51, 52, 56, 58, 59, 66 and 68 DNA were undetectable or below the pre-set threshold. The jen High-Risk HPV DNA Test is not intended for use as a screening device for Pap normal women under age 30 and is not intended to substitute for regular Pap screening. The jen High-Risk HPV DNA Test is designed to augment existing methods for the detection of cervical disease and should be used in conjunction with clinical information derived from other diagnostic and screening tests, physical examinations and full medical history in accordance with appropriate patient management procedures. NOTE: A negative result does not preclude the presence of HPV infection because results depend on adequate specimen collection, absence of inhibitors and sufficient DNA to be detected. As of: 09/10/22 15:55 EDT COMMENT: This Pap Test was successfully processed and evaluated with the assistance of the [employer] ThinPrep Test Imaging System. Pathology Reports Accession: Collected Date/Time: Received Date/Time: Pathologist: [id number] 09/03/2022 16:36 EDT 09/03/2022 18:00 EDT Electronically Signed by Pathology report verified by [facility] Screened by: [place] Electronically signed by Patricia HARDY (ASCP) Sign-Out Date: 09/10/2022 15:56 Performing Lab: [facility], [address] [place] [address] Pathology Dept Disclaimer The Pap test is a screening test for cervical cancer. As evidenced by published data, it is subject to both inherent false negative and false positive results. Your patient's results should be interpreted in context with pertinent clinical history including gynecological examination. Normal [facility] ([place]) HPVon 09-08-2022 HPV Interp Normal See Interp HPVN [facility] ([place]) Comment on above: Order Comment: Order placed by AP_HPV_ORDER rule from [id number] Result Comment: High Risk HPV Typing: NEGATIVE HPV types 16, 18, 31, 33, 35, 39, 45, 51, 52, 56, 58, 59, 66 and 68 DNA were undetectable or below the pre-set threshold. The jen High-Risk HPV DNA Test is not intended for use as a screening device for Pap normal women under age 30 and is not intended to substitute for regular Pap screening. The jen High-Risk HPV DNA Test is designed to augment existing methods for the detection of cervical disease and should be used in conjunction with clinical information derived from other diagnostic and screening tests, physical examinations and full medical history in accordance with appropriate patient management procedures. NOTE: A negative result does not preclude the presence of HPV infection because results depend on adequate specimen collection, absence of inhibitors and sufficient DNA to be detected. See Interp HPVN Performed By: #### H PV #### [facility] [address] [place] [id number] HPV Source Cervix Normal [facility] ([place]) Comment on above: Order Comment: Order placed by AP_HPV_ORDER rule from [id number] Performed By: #### H PV #### [facility] [address] [place] [id number] ASO titerOrdered By: Dr. Catherine doyle on 05-08-2022 Streptolysin O Ab (S) [Titer] 354.6 IU/mL 0.0-200.0 [facility] Absolute lymphocyte countOrd ered By: Dr. Toure on 05-08-2022 Lymphocytes Auto (Unsp spec) [#/Vol] 0.95 10*3/uL 0.83-4.51 [facility] Basophil percentageOrdered B y: Dr. Toure on 05-08-2022 Basophils/100 WBC (Bld) 0.9 % 0-1 [facility] Bilirubin [Mass/Vol] 0.20 mg/dL 0.20-1.00 [facility] Comment on above: For patients on eltr ombopag therapy, use of Dimension [place] TBIL is not recommended. Chloride [Moles/Vol] 104 mmol/L 98-107 [facility] Eosinophils/100 WBC (Bld) 2.6 % 0-5 [facility] Glucose [Mass/Vol] 82 mg/dL 74-106 [facility] Neutrophils (Bld) [#/Vol] 2.8 10*3/uL 2.0-7.7 [facility] Neutrophils/100 WBC (Bld) 60.6 % 47-70 [facility] Potassium [Moles/Vol] 3.9 mmol/L 3.5-5.1 [facility] Protein [Mass/Vol] 7.7 g/dL 6.4-8.2 [facility] Sodium [Moles/Vol] 138 mmol/L 136-145 [facility] WBC (Bld) [#/Vol] 4.6 10*3/uL 4.4-11.0 [facility] Blood erythrocytes count (nu mber/volume)Ordered By: Dr. Toure on 05-08-2022 RBC (Bld) [#/Vol] 4.79 10*6/uL 4.2-5.4 [facility] Blood hemoglobin measurement (mass/volume)Ordered By: Dr. Toure on 05-08-2022 Hemoglobin (Bld) [Mass/Vol] 13.1 g/dL 12.0-15.0 [facility] Blood lymphocytes/100 leukoc ytesOrdered By: Dr. Toure on 05-08-2022 Lymphocytes/100 WBC (Bld) 20.8 % 19-41 [facility] Blood monocytes/100 leukocyt esOrdered By: Dr. Toure on 05-08-2022 Monocytes/100 WBC (Bld) 14.9 % 0-10 [facility] Blood platelet mean volumeOr dered By: Dr. Toure on 05-08-2022 Platelet mean volume (Bld) [Entitic vol] 9.7 fL 6.2-12.0 [facility] Determination of erythrocyte mean corpuscular volume (MCV)Ordered By: Dr. Toure on 05-08-2022 MCV (RBC) [Entitic vol] 88.7 fL 81-99 [facility] Hematocrit Auto (Bld) [Volum e fraction]Ordered By: Dr. Toure on 05-08-2022 Hematocrit (Bld) [Volume fraction] 42.5 % 37-47 [facility] Laboratory - Chemistry and C hemistry - challengeOrdered By: Dr. Toure on 05-08-2022 ALP [Catalytic activity/Vol] 70 U/L 45-117 [facility] ALT [Catalytic activity/Vol] 21 U/L 13-56 [facility] CO2 [Moles/Vol] 27.0 mmol/L 21.0-32.0 [facility] Globulin (S) [Mass/Vol] 3.9 g/dL 2.2-4.2 [facility] Urea nitrogen/Creatinine [Mass ratio] 21.5 mg/mg 10-20 [facility] Laboratory - Hematology and Cell countsOrdered By: Dr. Toure on 05-08-2022 Erythrocyte distribution width (RBC) [Entitic vol] 53.4 fL 35.1-43.9 [facility] Erythrocyte distribution width (RBC) [Ratio] 16.5 % 11.6-14.6 [facility] Immature granulocytes/100 WBC (Bld) 0.200 % 0.0-0.9 [facility] Comment on above: IG% - Immature Granu locytes (promyelocytes, myelocytes and metamyelocytes) > 1% indicates that a LEFT SHIFT is Present. MCH (RBC) [Entitic mass] 27.3 pg 27.0-32.0 [facility] Nucleated RBC/100 WBC (Bld) [Ratio] 0 % 0-5 [facility] MCHC Auto (RBC) [Mass/Vol]Or dered By: Dr. Touer on 05-08-2022 MCHC (RBC) [Mass/Vol] 30.8 g/dL 32-36 [facility] No Panel InformationOrdered By: Dr. Toure on 05-08-2022 Estimated GFR (MDRD) Amer 114 mL/min >60 [facility] Comment on above: GFR Calc Estimated GFR (MDRD) Non-Af Amer 94 mL/min >60 [facility] Comment on above: Non- GFR Calc Platelets bldOrdered By: Dr. Toure on 05-08-2022 Platelets (Bld) [#/Vol] 329 10*3/uL 150-450 [facility] Qualitative QuantiFERON-TB g old in tube testOrdered By: Dr. Anderson on 05-08-2022 M. tuberculosis tuberculin stim IFN-g Ql (Bld) 0.14 IU/mL . [facility] Serum hepatitis B virus core antibody detectionOrdered By: Dr. Anderson on 05-08-2022 HBV core Ab Ql (S) Negative Negative [facility] Comment on above: Performed at: - [facility] [id number] Director: Carlos Alberto Lynch PhD, Phone: [phone] Serum or plasma albumin isabelle urement (mass/volume)Ordered By: Dr. Toure on 05-08-2022 Albumin [Mass/Vol] 3.8 g/dL 3.2-5.0 [facility] Serum or plasma albumin/glob ulin mass ratioOrdered By: Dr. Toure on 05-08-2022 Albumin/Globulin [Mass ratio] 1.0 {ratio} 0.9-2.4 [facility] Serum or plasma calcium isabelle urement (mass/volume)Ordered By: Dr. Toure on 05-08-2022 Calcium [Mass/Vol] 9.2 mg/dL 8.5-10.1 [facility] Serum or plasma creatinine m easurement (mass/volume)Ordered By: Dr. Toure on 05-08-2022 Creatinine [Mass/Vol] 0.70 mg/dL 0.55-1.02 [facility] Comment on above: The validity of the calculated GFR & GFRAA in patients over 70 years has not been determined. Clinical correlation is essential. Serum or plasma urea nitroge n measurement (mass/volume)Ordered By: Dr. Toure on 05-08-2022 Urea nitrogen [Mass/Vol] 15 mg/dL 7-18 [facility] Thin prep Papanicolaou smear with manual screeningOrdered By: Dr. Toure on 05-08-2022 Thin prep Papanicolaou smear with manual screening 5 U/L 15-37 [facility] Thin prep Papanicolaou smear with manual screening 7 5-15 [facility] Thin prep Papanicolaou smear with manual screeningOrdered By: Dr. Anderson on 05-08-2022 Thin prep Papanicolaou smear with manual screening Comment . [facility] Comment on above: QuantiFERON-TB Gold Plus is a qualitative indirect test forM tuberculosis infection (including disease) and isintended for use in conjunction with risk assessment,radiography, and other medical and diagnostic evaluations.The QuantiFERON-TB Gold Plus result is determined bysubtracting the Nil value from either TB antigen (Ag)value. The Mitogen tube serves as a control for the test. Thin prep Papanicolaou smear with manual screening 0.14 IU/mL . [facility] Thin prep Papanicolaou smear with manual screening 0.15 IU/mL . [facility] Thin prep Papanicolaou smear with manual screening > 10.00 IU/mL . [facility] Thin prep Papanicolaou smear with manual screening Negative Negative [facility] Comment on above: No response to M tub erculosis antigens detected.Infection with M tuberculosis is unlikely, but high riskindividuals should be considered for additional testing(ATS/IDSA/CDC Clinical Practice Guidelines, 2017). Thereference range is an Antigen minus Nil result of <0.35IU/mL.The specimen received for QuantiFERON testing was incubatedby the ordering institution. Specific procedures outlinedin our Directory of Services and in the package insert forthe QuantiFERON Gold (In Tube) test must be followed toenable for proper stimulation of cells for the productionof interferon gamma. Chemiluminescence immunoassaymethodology Absolute lymphocyte countOrd ered By: Dr. Toure on 01-31-2022 Lymphocytes Auto (Unsp spec) [#/Vol] 1.33 10*3/uL 0.83-4.51 [facility] Basophil percentageOrdered B y: Dr. Toure on 01-31-2022 Basophils/100 WBC (Bld) 1.6 % 0-1 [facility] Bilirubin [Mass/Vol] 0.30 mg/dL 0.20-1.00 [facility] Comment on above: For patients on eltr ombopag therapy, use of Dimension [place] TBIL is not recommended. Chloride [Moles/Vol] 107 mmol/L 98-107 [facility] Eosinophils/100 WBC (Bld) 4.0 % 0-5 [facility] Glucose [Mass/Vol] 87 mg/dL 74-106 [facility] Neutrophils (Bld) [#/Vol] 2.3 10*3/uL 2.0-7.7 [facility] Neutrophils/100 WBC (Bld) 53.8 % 47-70 [facility] Potassium [Moles/Vol] 4.2 mmol/L 3.5-5.1 [facility] Protein [Mass/Vol] 7.1 g/dL 6.4-8.2 [facility] Sodium [Moles/Vol] 140 mmol/L 136-145 [facility] WBC (Bld) [#/Vol] 4.3 10*3/uL 4.4-11.0 [facility] Blood erythrocytes count (nu mber/volume)Ordered By: Dr. Toure on 01-31-2022 RBC (Bld) [#/Vol] 4.39 10*6/uL 4.2-5.4 [facility] Blood hemoglobin measurement (mass/volume)Ordered By: Dr. Toure on 01-31-2022 Hemoglobin (Bld) [Mass/Vol] 12.4 g/dL 12.0-15.0 [facility] Blood lymphocytes/100 leukoc ytesOrdered By: Dr. Toure on 01-31-2022 Lymphocytes/100 WBC (Bld) 31.1 % 19-41 [facility] Blood monocytes/100 leukocyt esOrdered By: Dr. Toure on 01-31-2022 Monocytes/100 WBC (Bld) 9.3 % 0-10 [facility] Blood platelet mean volumeOr dered By: Dr. Toure on 01-31-2022 Platelet mean volume (Bld) [Entitic vol] 9.3 fL 6.2-12.0 [facility] Determination of erythrocyte mean corpuscular volume (MCV)Ordered By: Dr. Toure on 01-31-2022 MCV (RBC) [Entitic vol] 87.0 fL 81-99 [facility] Hematocrit Auto (Bld) [Volum e fraction]Ordered By: Dr. Toure on 01-31-2022 Hematocrit (Bld) [Volume fraction] 38.2 % 37-47 [facility] Laboratory - Chemistry and C hemistry - challengeOrdered By: Dr. Toure on 01-31-2022 ALP [Catalytic activity/Vol] 79 U/L 45-117 [facility] ALT [Catalytic activity/Vol] 32 U/L 13-56 [facility] CO2 [Moles/Vol] 28.0 mmol/L 21.0-32.0 [facility] Globulin (S) [Mass/Vol] 3.5 g/dL 2.2-4.2 [facility] Urea nitrogen/Creatinine [Mass ratio] 21.2 mg/mg 10-20 [facility] Laboratory - Hematology and Cell countsOrdered By: Dr. Toure on 01-31-2022 Erythrocyte distribution width (RBC) [Entitic vol] 50.6 fL 35.1-43.9 [facility] Erythrocyte distribution width (RBC) [Ratio] 15.9 % 11.6-14.6 [facility] Immature granulocytes/100 WBC (Bld) 0.200 % 0.0-0.9 [facility] Comment on above: IG% - Immature Granu locytes (promyelocytes, myelocytes and metamyelocytes) > 1% indicates that a LEFT SHIFT is Present. MCH (RBC) [Entitic mass] 28.2 pg 27.0-32.0 [facility] Nucleated RBC/100 WBC (Bld) [Ratio] 0 % 0-5 [facility] MCHC Auto (RBC) [Mass/Vol]Or dered By: Dr. Toure on 01-31-2022 MCHC (RBC) [Mass/Vol] 32.5 g/dL 32-36 [facility] No Panel InformationOrdered By: Dr. Toure on 01-31-2022 Estimated GFR (MDRD) Amer 133 mL/min >60 [facility] Comment on above: GFR Calc Estimated GFR (MDRD) Non-Af Amer 110 mL/min >60 [facility] Comment on above: Non- GFR Calc Platelets bldOrdered By: Dr. Toure on 01-31-2022 Platelets (Bld) [#/Vol] 304 10*3/uL 150-450 [facility] Serum or plasma albumin isabelle urement (mass/volume)Ordered By: Dr. Toure on 01-31-2022 Albumin [Mass/Vol] 3.6 g/dL 3.2-5.0 [facility] Serum or plasma albumin/glob ulin mass ratioOrdered By: Dr. Toure on 01-31-2022 Albumin/Globulin [Mass ratio] 1.0 {ratio} 0.9-2.4 [facility] Serum or plasma calcium isabelle urement (mass/volume)Ordered By: Dr. Toure on 01-31-2022 Calcium [Mass/Vol] 8.8 mg/dL 8.5-10.1 [facility] Serum or plasma creatinine m easurement (mass/volume)Ordered By: Dr. Toure on 01-31-2022 Creatinine [Mass/Vol] 0.61 mg/dL 0.55-1.02 [facility] Comment on above: The validity of the calculated GFR & GFRAA in patients over 70 years has not been determined. Clinical correlation is essential. Serum or plasma urea nitroge n measurement (mass/volume)Ordered By: Dr. Toure on 01-31-2022 Urea nitrogen [Mass/Vol] 13 mg/dL 7-18 [facility] Thin prep Papanicolaou smear with manual screeningOrdered By: Dr. Toure on 01-31-2022 Thin prep Papanicolaou smear with manual screening 8 U/L 15-37 [facility] Thin prep Papanicolaou smear with manual screening 5 5-15 [facility] Absolute lymphocyte counton 11-06-2021 Lymphocytes Auto (Unsp spec) [#/Vol] 0.95 10*3/uL 0.83-4.51 [facility] Work Phone: Basophil percentageon 2021 Basophils/100 WBC (Bld) 1.3 % 0-1 [facility] Work Phone: Bilirubin [Mass/Vol] 0.40 mg/dL 0.20-1.00 [facility] Work Phone: Comment on above: For patients on eltr ombopag therapy, use of Dimension [place] TBIL is not recommended. Chloride [Moles/Vol] 108 mmol/L 98-107 [facility] Work Phone: Eosinophils/100 WBC (Bld) 3.3 % 0-5 [facility] Work Phone: Glucose [Mass/Vol] 74 mg/dL 74-106 [facility] Work Phone: Neutrophils (Bld) [#/Vol] 3.0 10*3/uL 2.0-7.7 [facility] Work Phone: Neutrophils/100 WBC (Bld) 65.7 % 47-70 [facility] Work Phone: Potassium [Moles/Vol] 4.1 mmol/L 3.5-5.1 [facility] Work Phone: Protein [Mass/Vol] 7.5 g/dL 6.4-8.2 [facility] Work Phone: Sodium [Moles/Vol] 140 mmol/L 136-145 [facility] Work Phone: WBC (Bld) [#/Vol] 4.5 10*3/uL 4.4-11.0 [facility] Work Phone: Blood erythrocytes count (nu mber/volume)on 11-06-2021 RBC (Bld) [#/Vol] 4.67 10*6/uL 4.2-5.4 [facility] Work Phone: Blood hemoglobin measurement (mass/volume)on 11-06-2021 Hemoglobin (Bld) [Mass/Vol] 13.1 g/dL 12.0-15.0 [facility] Work Phone: Blood lymphocytes/100 leukoc yteson 11-06-2021 Lymphocytes/100 WBC (Bld) 20.9 % 19-41 [facility] Work Phone: Blood monocytes/100 leukocyt eson 11-06-2021 Monocytes/100 WBC (Bld) 8.6 % 0-10 [facility] Work Phone: Blood platelet mean volumeon 11-06-2021 Platelet mean volume (Bld) [Entitic vol] 9.6 fL 6.2-12.0 [facility] Work Phone: Determination of erythrocyte mean corpuscular volume (MCV)on 11-06-2021 MCV (RBC) [Entitic vol] 87.6 fL 81-99 [facility] Work Phone: Hematocrit Auto (Bld) [Volum e fraction]on 11-06-2021 Hematocrit (Bld) [Volume fraction] 40.9 % 37-47 [facility] Work Phone: Laboratory - Chemistry and C hemistry - challengeon 11-06-2021 ALP [Catalytic activity/Vol] 71 U/L 45-117 [facility] Work Phone: ALT [Catalytic activity/Vol] 21 U/L 13-56 [facility] Work Phone: CO2 [Moles/Vol] 28.0 mmol/L 21.0-32.0 [facility] Work Phone: Globulin (S) [Mass/Vol] 3.9 g/dL 2.2-4.2 [facility] Work Phone: Urea nitrogen/Creatinine [Mass ratio] 15.3 mg/mg 10-20 [facility] Work Phone: Laboratory - Hematology and Cell countson 11-06-2021 Erythrocyte distribution width (RBC) [Entitic vol] 50.1 fL 35.1-43.9 [facility] Work Phone: Erythrocyte distribution width (RBC) [Ratio] 15.7 % 11.6-14.6 [facility] Work Phone: Immature granulocytes/100 WBC (Bld) 0.200 % 0.0-0.9 [facility] Work Phone: Comment on above: IG% - Immature Granu locytes (promyelocytes, myelocytes and metamyelocytes) > 1% indicates that a LEFT SHIFT is Present. MCH (RBC) [Entitic mass] 28.1 pg 27.0-32.0 [facility] Work Phone: Nucleated RBC/100 WBC (Bld) [Ratio] 0 % 0-5 [facility] Work Phone: MCHC Auto (RBC) [Mass/Vol]on 11-06-2021 MCHC (RBC) [Mass/Vol] 32.0 g/dL 32-36 [facility] Work Phone: No Panel Informationon 11-06 Estimated GFR (MDRD) Amer 123 mL/min >60 [facility] Work Phone: Comment on above: GFR Calc Estimated GFR (MDRD) Non-Af Amer 102 mL/min >60 [facility] Work Phone: Comment on above: Non- GFR Calc Platelets bldon 11-06-2021 Platelets (Bld) [#/Vol] 311 10*3/uL 150-450 [facility] Work Phone: Serum or plasma albumin isabelle urement (mass/volume)on 11-06-2021 Albumin [Mass/Vol] 3.6 g/dL 3.2-5.0 [facility] Work Phone: Serum or plasma albumin/glob ulin mass ratioon 11-06-2021 Albumin/Globulin [Mass ratio] 0.9 {ratio} 0.9-2.4 [facility] Work Phone: Serum or plasma calcium isabelle urement (mass/volume)on 11-06-2021 Calcium [Mass/Vol] 8.8 mg/dL 8.5-10.1 [facility] Work Phone: Serum or plasma creatinine m easurement (mass/volume)on 11-06-2021 Creatinine [Mass/Vol] 0.65 mg/dL 0.55-1.02 [facility] Work Phone: Comment on above: The validity of the calculated GFR & GFRAA in patients over 70 years has not been determined. Clinical correlation is essential. Serum or plasma urea nitroge n measurement (mass/volume)on 11-06-2021 Urea nitrogen [Mass/Vol] 10 mg/dL 7-18 [facility] Work Phone: Thin prep Papanicolaou smear with manual screeningon 11-06-2021 Thin prep Papanicolaou smear with manual screening 7 U/L 15-37 [facility] Work Phone: Thin prep Papanicolaou smear with manual screening 4 5-15 [facility] Work Phone: Absolute lymphocyte counton 08-08-2021 Lymphocytes Auto (Unsp spec) [#/Vol] 1.50 10*3/uL 0.83-4.51 [facility] Work Phone: Basophil percentageon 2021 Basophils/100 WBC (Bld) 0.8 % 0-1 [facility] Work Phone: Bilirubin [Mass/Vol] 0.30 mg/dL 0.20-1.00 [facility] Work Phone: Comment on above: For patients on eltr ombopag therapy, use of Dimension [place] TBIL is not recommended. Chloride [Moles/Vol] 106 mmol/L 98-107 [facility] Work Phone: Eosinophils/100 WBC (Bld) 6.4 % 0-5 [facility] Work Phone: Glucose [Mass/Vol] 87 mg/dL 74-106 [facility] Work Phone: Neutrophils (Bld) [#/Vol] 2.7 10*3/uL 2.0-7.7 [facility] Work Phone: Neutrophils/100 WBC (Bld) 54.6 % 47-70 [facility] Work Phone: Potassium [Moles/Vol] 4.3 mmol/L 3.5-5.1 [facility] Work Phone: Protein [Mass/Vol] 7.6 g/dL 6.4-8.2 [facility] Work Phone: Sodium [Moles/Vol] 138 mmol/L 136-145 [facility] Work Phone: WBC (Bld) [#/Vol] 5.0 10*3/uL 4.4-11.0 [facility] Work Phone: Blood erythrocytes count (nu mber/volume)on 08-08-2021 RBC (Bld) [#/Vol] 4.62 10*6/uL 4.2-5.4 [facility] Work Phone: Blood hemoglobin measurement (mass/volume)on 08-08-2021 Hemoglobin (Bld) [Mass/Vol] 12.4 g/dL 12.0-15.0 [facility] Work Phone: Blood lymphocytes/100 leukoc yteson 08-08-2021 Lymphocytes/100 WBC (Bld) 30.0 % 19-41 [facility] Work Phone: Blood monocytes/100 leukocyt eson 08-08-2021 Monocytes/100 WBC (Bld) 8.0 % 0-10 [facility] Work Phone: Blood platelet mean volumeon 08-08-2021 Platelet mean volume (Bld) [Entitic vol] 9.5 fL 6.2-12.0 [facility] Work Phone: Determination of erythrocyte mean corpuscular volume (MCV)on 08-08-2021 MCV (RBC) [Entitic vol] 85.7 fL 81-99 [facility] Work Phone: Hematocrit Auto (Bld) [Volum e fraction]on 08-08-2021 Hematocrit (Bld) [Volume fraction] 39.6 % 37-47 [facility] Work Phone: Laboratory - Chemistry and C hemistry - challengeon 08-08-2021 ALP [Catalytic activity/Vol] 73 U/L 45-117 [facility] Work Phone: ALT [Catalytic activity/Vol] 30 U/L 13-56 [facility] Work Phone: CO2 [Moles/Vol] 27.0 mmol/L 21.0-32.0 [facility] Work Phone: Globulin (S) [Mass/Vol] 3.9 g/dL 2.2-4.2 [facility] Work Phone: Urea nitrogen/Creatinine [Mass ratio] 24.4 mg/mg 10-20 [facility] Work Phone: Laboratory - Hematology and Cell countson 08-08-2021 Erythrocyte distribution width (RBC) [Entitic vol] 58.5 fL 35.1-43.9 [facility] Work Phone: Erythrocyte distribution width (RBC) [Ratio] 18.7 % 11.6-14.6 [facility] Work Phone: Immature granulocytes/100 WBC (Bld) 0.200 % 0.0-0.9 [facility] Work Phone: Comment on above: IG% - Immature Granu locytes (promyelocytes, myelocytes and metamyelocytes) > 1% indicates that a LEFT SHIFT is Present. MCH (RBC) [Entitic mass] 26.8 pg 27.0-32.0 [facility] Work Phone: Nucleated RBC/100 WBC (Bld) [Ratio] 0 % 0-5 [facility] Work Phone: MCHC Auto (RBC) [Mass/Vol]on 08-08-2021 MCHC (RBC) [Mass/Vol] 31.3 g/dL 32-36 [facility] Work Phone: No Panel Informationon 08-08 Estimated GFR (MDRD) Amer 123 mL/min >60 [facility] Work Phone: Comment on above: GFR Calc Estimated GFR (MDRD) Non-Af Amer 101 mL/min >60 [facility] Work Phone: Comment on above: Non- GFR Calc Platelets bldon 08-08-2021 Platelets (Bld) [#/Vol] 253 10*3/uL 150-450 [facility] Work Phone: Serum or plasma albumin isabelle urement (mass/volume)on 08-08-2021 Albumin [Mass/Vol] 3.7 g/dL 3.2-5.0 [facility] Work Phone: Serum or plasma albumin/glob ulin mass ratioon 08-08-2021 Albumin/Globulin [Mass ratio] 0.9 {ratio} 0.9-2.4 [facility] Work Phone: Serum or plasma calcium isabelle urement (mass/volume)on 08-08-2021 Calcium [Mass/Vol] 8.8 mg/dL 8.5-10.1 [facility] Work Phone: Serum or plasma creatinine m easurement (mass/volume)on 08-08-2021 Creatinine [Mass/Vol] 0.66 mg/dL 0.55-1.02 [facility] Work Phone: Comment on above: The validity of the calculated GFR & GFRAA in patients over 70 years has not been determined. Clinical correlation is essential. Serum or plasma urea nitroge n measurement (mass/volume)on 08-08-2021 Urea nitrogen [Mass/Vol] 16 mg/dL 7-18 [facility] Work Phone: Thin prep Papanicolaou smear with manual screeningon 08-08-2021 Thin prep Papanicolaou smear with manual screening 11 U/L 15-37 [facility] Work Phone: Thin prep Papanicolaou smear with manual screening 5 5-15 [facility] Work Phone: LABORATORYOrdered By: Haresh Patiño on 05-26-2021 HCG ( test) Ql Negative (05/26/21 7:59 AM) Invalid Interpretation Code AO Manual Urine SS test (u) int Not detected Invalid Interpretation Code AO Manual Urine SS INHOUSE Rapid Covid/ Flu A/ Flu Bon 02-28-2021 SARS-CoV-2 (COVID-19) RNA HARRY+probe Ql (Unsp spec) Positive Normal [facility]; [facility] Work Phone: CALCIFEDIOL ([id number])Ordered B y: Heat Curer on 12-31-2019 25-Hydroxyvitamin D2+25-Hydroxyvitami n D3 [Mass/Vol] 27.9 ng/mL Abnormal 30.0-100.0 [facility] Work Phone: Comment on above: Vitamin D deficiency has been defined by the [place] of[place] and an Endocrine Society practice guideline as alevel of serum 25-OH vitamin D less than 20 ng/mL (1,2).The Endocrine Society went on to further define vitamin Dinsufficiency as a level between 21 and 29 ng/mL (2).1. IOM ([place] of [employer]). 2010. Dietary reference intakes for calcium and D. [place]: The National Academies Press.2. Davis [place], [place], Lane BETTENCOURT, et al. Evaluation, treatment, and prevention of vitamin D deficiency: an Endocrine Society clinical practice guideline. JCEM. 2010; 96(7):1911-30. PATIENT NOT FASTINGP ERFORMED BY: [facility] Kmaoye6670 [facility] [id number] TSH ([id number])Ordered By: Davida m Billing And Accounting Staff Assistant on 12-31-2019 TSH Qn 1.060 {uIU/mL} Normal 0.450-4.50 0 [facility] Work Phone: Comment on above: send results to dr mayur roque as well; PATIENT NOT FASTINGPERFORMED BY: LabCoSaint James HospitalOmdmai[address] [place] [id number] CBC W/Diff, AutomatedOrdered By: Heat Curer on 04-25-2018 Absolute Neut 4.7 {X10_3/uL} Normal 2.0-7.7 Compreh ensive Internal Medicine Work Phone: Comment on above: [facility] [address] [place], [address] Basophils/100 WBC (Bld) 0.4 % Normal 0-1 [facility] Work Phone: Comment on above: [facility] [address] [place], [address] Eosinophils/100 WBC (Bld) 1.2 % Normal 0-5 [facility] Work Phone: Comment on above: [facility] [address] [place], [address] Erythrocyte distribution width Ratio (RBC) 16.5 % Abnormal 11.6-14.6 [facility] Work Phone: Comment on above: [facility] [address] [place], [address] Hematocrit Volume Fraction (Bld) 39.5 % Normal 37-47 [facility] Work Phone: Comment on above: [facility] [address] [place], [address] Hemoglobin mass conc (Bld) 12.3 g/dL Normal 12.0-15.0 [facility] Work Phone: Comment on above: [facility] [address] [place], [address] IM GRAN % 0.100 % Normal 0.0-0.9 [facility] Work Phone: Comment on above: IG% - Immature Granu locytes (promyelocytes, myelocytes andmetamyelocytes) > 1% indicates that a LEFT SHIFT is Present. [facility] [address] [place], [address] Lymphocytes #/vol (Bld) 1.48 {X10_3/ul} Normal 0.83-4.51 [facility] Work Phone: Comment on above: [facility] [address] [place], [address] Lymphocytes/100 WBC (Bld) 21.5 % Normal 19-41 [facility] Work Phone: Comment on above: [facility] [address] [place], [address] MCH Entitic mass (RBC) 27.8 pg Normal 27.0-32.0 [facility] Work Phone: Comment on above: [facility] [address] [place], [address] MCHC mass conc (RBC) 31.1 {g/gl} Abnormal 32-36 [facility] Work Phone: Comment on above: [facility] [address] [place], [address] MCV Entitic volume (RBC) 89.4 fL Normal 81-99 [facility] Work Phone: Comment on above: [facility] [address] [place], [address] Monocytes/100 WBC (Bld) 8.0 % Normal 0-10 [facility] Work Phone: Comment on above: [facility] [address] [place], [address] Neutrophils/100 WBC (Bld) 68.8 % Normal 47-70 [facility] Work Phone: Comment on above: [facility] [address] [place], [place], [id number] Platelet mean volume Entitic volume (Bld) 9.6 fL Normal 6.2-12.0 [facility] Work Phone: Comment on above: [facility] [address] [place], [place], [id number] Platelets #/vol (Bld) 319 10*3/uL Normal 150-450 [facility] Work Phone: Comment on above: [facility] [address] [place], [address] RBC #/vol (Bld) 4.42 {M/mm3} Normal 4.2-5.4 Compreh ensive [facility] Work Phone: Comment on above: [facility] [address] [place], [place], [id number] RDW SD 53.2 fL Abnormal 35.1-43.9 [facility] Work Phone: Comment on above: [facility] [address] [place], [address] WBC #/vol (Bld) 6.9 10*3/uL Normal 4.4-11.0 Comprehe nsive Internal Medicine Work Phone: Comment on above: [facility] [address] [place], [place], [id number] [facility] Metabolic Prof ilOrdered By: Heat Curer on 04-25-2018 Comprehensive metabolic 2000 panel 3.8 mmol/L Normal 3.5-5.1 [facility] Work Phone: Comment on above: [facility] [address] [place], [address] Comprehensive metabolic 2000 panel 106 mmol/L Normal 98-107 [facility] Work Phone: Comment on above: [facility] [address] [place], [place], [id number] Comprehensive metabolic 2000 panel 24.0 mmol/L Normal 21.0-32.0 [facility] Work Phone: Comment on above: [facility] [address] [place], [place], [id number] Comprehensive metabolic 2000 panel 4.0 g/dL Normal 2.2-4.2 [facility] Work Phone: Comment on above: [facility] [address] [place], [address] Comprehensive metabolic 2000 panel 9 1 Normal 5-15 [facility] Work Phone: Comment on above: [facility] [address] [place], [place], [id number] Comprehensive metabolic 2000 panel 3.8 g/dL Normal 3.2-5.0 [facility] Work Phone: Comment on above: [facility] [address] [place], [place], [address] Comprehensive metabolic 2000 panel 0.30 mg/dL Normal 0.20-1.00 [facility] Work Phone: Comment on above: [facility] [address] [place], [address] Comprehensive metabolic 2000 panel 24 U/L Normal 13-56 [facility] Work Phone: Comment on above: [facility] [address] [place], [address] Comprehensive metabolic 2000 panel 72 U/L Normal 45-117 [facility] Work Phone: Comment on above: [facility] [address] [place], [place], [address] Comprehensive metabolic 2000 panel 7.8 g/dL Normal 6.4-8.2 [facility] Work Phone: Comment on above: [facility] [address] [place], [place], [address] Comprehensive metabolic 2000 panel 7 U/L Abnormal 15-37 [facility] Work Phone: Comment on above: [facility] [address] [place], [place], [address] Comprehensive metabolic 2000 panel 22.8 {RATIO} Abnormal 10-20 [facility] Work Phone: Comment on above: [facility] [address] [place], [address] Comprehensive metabolic 2000 panel 115 mL/min Normal [facility] Work Phone: Comment on above: GFR Calc [facility] [address] [place], [place], [address] Comprehensive metabolic 2000 panel 139 mmol/L Normal 136-145 [facility] Work Phone: Comment on above: [facility] [address] [place], [address] Comprehensive metabolic 2000 panel 95 mL/min Normal [facility] Work Phone: Comment on above: Non- GFR Calc [facility] [address] [place], [place], [address] Comprehensive metabolic 2000 panel 8.3 mg/dL Abnormal 8.5-10.1 [facility] Work Phone: Comment on above: [facility] [address] [place], [address] Comprehensive metabolic 2000 panel 1.0 {RATIO} Normal 0.9-2.4 [facility] Work Phone: Comment on above: [facility] [address] [place], [address] Comprehensive metabolic 2000 panel 0.70 mg/dL Normal 0.55-1.02 [facility] Work Phone: Comment on above: The validity of the calculated GFR AND GFRAA in patients over70 years has not been determined. Clinical correlation isessential. [facility] [address] [place], [place], [id number] Comprehensive metabolic 2000 panel 16 mg/dL Normal 7-18 [facility] Work Phone: Comment on above: [facility] [address] [place], [place], [id number] Comprehensive metabolic 2000 panel 117 mg/dL Abnormal 74-106 [facility] Work Phone: Comment on above: Fasting Glucose resu lt from 100 to 125 mg/dLsuggests IMPAIRED HOMEOSTASIS per A.D.A. criteria.Please note revised GLUCOSE reference range /02/2018. [facility] [address] [place], [place], [id number] CBC W/AUTO DIFF WBC (25891)O rdered By: Heat Curer on 04-10-2018 Basophils #/vol (Bld) 0.0 {x10E3/uL} Normal 0.0-0.2 [facility] Work Phone: Comment on above: PATIENT WAS FASTINGP ERFORMED BY: [facility] Ehvprr6068 Seth TapC[facility]dOur [facility] [id number] Basophils (Bld) [#/Vol] 0.0 10*3/uL Normal 0.0-0.2 [facility]; [facility] Work Phone: Comment on above: PATIENT WAS FASTINGP ERFORMED BY: [facility] Kwakea7095 Seth [facility] [id number] Basophils/100 WBC (Bld) 0 % Normal [facility] Work Phone: Comment on above: PATIENT WAS FASTINGP ERFORMED BY: [employer] [facility] Ijcbnd8633 Seth TapCrowdDuWake Forest [facility] [id number] Eosinophils #/vol (Bld) 0.1 {x10E3/uL} Normal 0.0-0.4 [facility] Work Phone: Comment on above: PATIENT WAS FASTINGP ERFORMED BY: [facility] Gykrdt2796 Esth RoadDuWake Forest Baptist [facility] [id number] Eosinophils (Bld) [#/Vol] 0.1 10*3/uL Normal 0.0-0.4 [facility]; [facility] Work Phone: Comment on above: PATIENT WAS FASTINGP ERFORMED BY: TEO [facility] Oyyjvt0918 Seth [facility] [place] [id number] Eosinophils/100 WBC (Bld) 1 % Normal [facility] Work Phone: Comment on above: PATIENT WAS FASTINGP ERFORMED BY: [facility] Lwwxuj1953 Seth [facility] [id number] Erythrocyte distribution width Ratio (RBC) 17.1 % Abnormal 12.3-15.4 [facility] Work Phone: Comment on above: PATIENT WAS FASTINGP ERFORMED BY: [facility] Tdiryl3486 [address] [facility] [id number] Hematocrit Volume Fraction (Bld) 39.8 % Normal 34.0-46.6 [facility] Work Phone: Comment on above: PATIENT WAS FASTINGP ERFORMED BY: [facility] Wicrsl5219 Seth [facility] [id number] Hemoglobin mass conc (Bld) 13.0 g/dL Normal 11.1-15.9 [facility] Work Phone: Comment on above: PATIENT WAS FASTINGP ERFORMED BY: [facility] Vlbpwr4643 Seth [facility] [id number] Immature granulocytes #/vol (Bld) 0.0 {x10E3/uL} Normal 0.0-0.1 [facility] Work Phone: Comment on above: PATIENT WAS FASTINGP ERFORMED BY: [facility] Xqbfte6045 Seth [facility] [place] [id number] Immature granulocytes (Bld) [#/Vol] 0.0 10*3/uL Normal 0.0-0.1 [facility]; [facility] Work Phone: Comment on above: PATIENT WAS FASTINGP ERFORMED BY: [facility] Fwifrn5927 Seth RoadOnslow [facility] Hospitalin [place] [id number] Immature granulocytes/100 WBC (Bld) 0 % Normal [facility] Work Phone: Comment on above: PATIENT WAS FASTINGP ERFORMED BY: [facility] Bpbehd7517 Seth [facility] [place] [id number] Lymphocytes #/vol (Bld) 1.8 {x10E3/uL} Normal 0.7-3.1 [facility] Work Phone: Comment on above: PATIENT WAS FASTINGP ERFORMED BY: LabCoTsaile Health CenterLpuarj2884 Seth [facility] [place] [id number] Lymphocytes (Bld) [#/Vol] 1.8 10*3/uL Normal 0.7-3.1 [facility]; [facility] Work Phone: Comment on above: PATIENT WAS FASTINGP ERFORMED BY: LabSelect [facility]6370 [address] [facility] [place] [id number] Lymphocytes/100 WBC (Bld) 22 % Normal [facility] Work Phone: Comment on above: PATIENT WAS FASTINGP ERFORMED BY: LabSelect Specialty Hospital6370 [address] [facility] [id number] MCH Entitic mass (RBC) 28.6 pg Normal 26.6-33.0 [facility] Work Phone: Comment on above: PATIENT WAS FASTINGP ERFORMED BY: LabCoTsaile Health CenterEywqzo1147 Seth [facility] [id number] MCHC mass conc (RBC) 32.7 g/dL Normal 31.5-35.7 [facility] Work Phone: Comment on above: PATIENT WAS FASTINGP ERFORMED BY: [facility] Ykvedc0438 Seth [facility] [place] [id number] MCV Entitic volume (RBC) 88 fL Normal 79-97 [facility] Work Phone: Comment on above: PATIENT WAS FASTINGP ERFORMED BY: [facility] Sjiyua0797 Seth RoadDublin [place] [id number] Monocytes #/vol (Bld) 0.6 {x10E3/uL} Normal 0.1-0.9 [facility] Work Phone: Comment on above: PATIENT WAS FASTINGP ERFORMED BY: TEO [facility] Avvkox2053 Seth RoadDublin [place] [id number] Monocytes (Bld) [#/Vol] 0.6 10*3/uL Normal 0.1-0.9 [facility]; [facility] Work Phone: Comment on above: PATIENT WAS FASTINGP ERFORMED BY: TEO [facility] Cpvrqt1842 Seth RoadDublin [place] [id number] Monocytes/100 WBC (Bld) 8 % Normal [facility] Work Phone: Comment on above: PATIENT WAS FASTINGP ERFORMED BY: TEO [facility] Rupirx6260 Seth RoadDublin [place] [id number] Neutrophils #/vol (Bld) 5.7 {x10E3/uL} Normal 1.4-7.0 [facility] Work Phone: Comment on above: PATIENT WAS FASTINGP ERFORMED BY: TEO [facility] Rmpeim3090 Seth RoadDublin [place] [id number] Neutrophils (Bld) [#/Vol] 5.7 10*3/uL Normal 1.4-7.0 [facility]; [facility] Work Phone: Comment on above: PATIENT WAS FASTINGP ERFORMED BY: TEO [facility] Sbekvg8895 Seth RoadDublin [place] [id number] Neutrophils/100 WBC (Bld) 69 % Normal [facility] Work Phone: Comment on above: PATIENT WAS FASTINGP ERFORMED BY: [facility] Epuklg0801 Seth RoadDublin [place] [id number] Platelets #/vol (Bld) 287 {x10E3/uL} Normal 150-379 [facility] Work Phone: Comment on above: PATIENT WAS FASTINGP ERFORMED BY: [facility] Bxvkhr9542 Seth RoadDublin [place] [id number] Platelets (Bld) [#/Vol] 287 10*3/uL Normal 150-379 [facility]; [facility] Work Phone: Comment on above: PATIENT WAS FASTINGP ERFORMED BY: [facility] Osxqwm5806 Seth [facility] HospitalDublin [place] [id number] RBC #/vol (Bld) 4.55 {x10E6/uL} Normal 3.77-5.28 Comp [facility] Internal Medicine Work Phone: Comment on above: PATIENT WAS FASTINGP ERFORMED BY: [facility] Slziva5605 Seth Roadblin [place] [id number] RBC (Bld) [#/Vol] 4.55 10*6/uL Normal 3.77-5.28 Compr [facility] Internal Medicine; [facility] Work Phone: Comment on above: PATIENT WAS FASTINGP ERFORMED BY: [facility] Rbufuc0984 Seth [facility] [place] [id number] WBC #/vol (Bld) 8.1 {x10E3/uL} Normal 3.4-10.8 [facility] Internal Medicine Work Phone: Comment on above: PATIENT WAS FASTINGP ERFORMED BY: [facility] Xpwrqh4136 Seth RoadDublin [place] [id number] WBC (Bld) [#/Vol] 8.1 10*3/uL Normal 3.4-10.8 Compre [facility] Internal Medicine; [facility] Medicine Work Phone: Comment on above: PATIENT WAS FASTINGP ERFORMED BY: [facility] Rtlrkd6202 Seth [facility] [place] [id number] FSH AND LH ([id number])Ordered By : Heat Curer on 04-10-2018 Follitropin Qn 6.5 m[IU]/mL Normal Comprehe [facility] Work Phone: Comment on above: Adult Female: Follic ular phase 3.5 - 12.5 Ovulation phase 4.7 - 21.5 Luteal phase 1.7 - 7.7 Postmenopausal 25.8 - 134.8 PATIENT WAS FASTINGP ERFORMED BY: [facility] Ajdtfv4665 Seth [facility] [place] [id number] Lutropin Qn 6.2 m[IU]/mL Normal Comprehensi ve Internal Medicine Work Phone: Comment on above: Adult Female: Follic ular phase 2.4 - 12.6 Ovulation phase 14.0 - 95.6 Luteal phase 1.0 - 11.4 Postmenopausal 7.7 - 58.5 PATIENT WAS FASTINGP ERFORMED BY: TEO LabSaima Mendoza6370 Seth RoadDublin [place] [id number] METABOLIC PANEL, COMPREHENSI VE ([id number])Ordered By: Heat Curer on 04-10-2018 Albumin mass conc 4.4 g/dL Normal 3.5-5.5 Compreh ensive Internal Medicine Work Phone: Comment on above: PATIENT WAS FASTINGP ERFORMED BY: TEO LabCoyamileth GilesUcbvgt5770 Seth RoadOnslow Memorial Hospitalin [place] [id number] Albumin/Globulin mass ratio 1.4 {ratio} Normal 1.2-2.2 [facility] Work Phone: Comment on above: PATIENT WAS FASTINGP ERFORMED BY: TEO LabCoyamileth GilesFhobdy3702 Seth [facility] [id number] ALP [Catalytic activity/Vol] 54 U/L Normal 39-117 [facility]; [facility] Work Phone: Comment on above: PATIENT WAS FASTINGP ERFORMED BY: TEO LabSaima GilesLekede7685 Seth [facility] [place] [id number] ALP enzyme act/vol 54 [iU]/L Normal 39-117 [facility] Internal Medicine Work Phone: Comment on above: PATIENT WAS FASTINGP ERFORMED BY: TEO [facility] Ttlsgc5236 Seth [facility] [place] [id number] ALT [Catalytic activity/Vol] 25 U/L Normal 0-32 [facility]; [facility] Work Phone: Comment on above: PATIENT WAS FASTINGP ERFORMED BY: TEO LabCoyamileth Qezvyi9354 Seth [facility] [place] [id number] ALT enzyme act/vol 25 [iU]/L Normal 0-32 [facility] Internal Medicine Work Phone: Comment on above: PATIENT WAS FASTINGP ERFORMED BY: TEO [facility] Pbzhog3700 [address] RoadDublin [place] [id number] AST [Catalytic activity/Vol] 12 U/L Normal 0-40 [facility]; [facility] Work Phone: Comment on above: PATIENT WAS FASTINGP ERFORMED BY: TEO [facility] Kognah3462 Seth RoadDublin [place] [id number] AST enzyme act/vol 12 [iU]/L Normal 0-40 [facility] Internal Medicine Work Phone: Comment on above: PATIENT WAS FASTINGP ERFORMED BY: TEO [facility] Usbuky6530 Seth RoadDublin [place] [id number] Bilirubin mass conc 0.3 mg/dL Normal 0.0-1.2 [facility] Internal Medicine Work Phone: Comment on above: PATIENT WAS FASTINGP ERFORMED BY: TEO [facility] Yrfbku9281 Seth RoadDublin [place] [id number] Calcium mass conc 9.0 mg/dL Normal 8.7-10.2 Compreh [facility] Internal Medicine Work Phone: Comment on above: PATIENT WAS FASTINGP ERFORMED BY: TEO [facility] Dnggtz3199 Seth RoadDublin [place] [id number] Chloride molar conc 101 mmol/L Normal 96-106 [facility] Internal Medicine Work Phone: Comment on above: PATIENT WAS FASTINGP ERFORMED BY: TEO [facility] Rtqrxe6271 [address] RoadDublin [place] [id number] CO2 molar conc 21 mmol/L Normal 20-29 [facility] Internal Medicine Work Phone: Comment on above: PATIENT WAS FASTINGP ERFORMED BY: TEO [facility] Fmummw0078 [address] RoadDublin [place] [id number] Creatinine mass conc 0.64 mg/dL Normal 0.57-1.00 [facility] Internal Medicine Work Phone: Comment on above: PATIENT WAS FASTINGP ERFORMED BY: TEO [facility] Onwbie1938 [address] RoadDublin [place] [id number] GFR/1.73 sq M predicted among blacks CKD-EPI vol rate/area (S/P/Bld) 123 mL/min/1.73 Normal Comprehensiv e Internal Medicine Work Phone: Comment on above: PATIENT WAS FASTINGP ERFORMED BY: TEO [facility] Mwzzeg2962 [address] Roadbl[address] [place] [id number] GFR/1.73 sq M predicted among non-blacks CKD-EPI vol rate/area (S/P/Bld) 107 mL/min/1.73 Normal [facility] Work Phone: Comment on above: PATIENT WAS FASTINGP ERFORMED BY: [facility] [id number] Seth RoadOnslow [facility] Hospitalin [place] [id number] Globulin mass conc (S) 3.1 g/dL Normal 1.5-4.5 [facility] Work Phone: Comment on above: PATIENT WAS FASTINGP ERFORMED BY: [facility] [id number] [facility] [place] [id number] Glucose mass conc 63 mg/dL Abnormal 65-99 [facility] Work Phone: Comment on above: PATIENT WAS FASTINGP ERFORMED BY: [facility] Ckbnwo1970 [facility] [place] [id number] Potassium molar conc 4.4 mmol/L Normal 3.5-5.2 [facility] Work Phone: Comment on above: PATIENT WAS FASTINGP ERFORMED BY: [facility] Diyhrt5924 [facility] [place] [id number] Protein mass conc 7.5 g/dL Normal 6.0-8.5 [facility] Work Phone: Comment on above: PATIENT WAS FASTINGP ERFORMED BY: [facility] Bcfwte7179 [facility] [place] [id number] Sodium molar conc 137 mmol/L Normal 134-144 [facility] Work Phone: Comment on above: PATIENT WAS FASTINGP ERFORMED BY: [facility] [id number] [facility] [place] [id number] Urea nitrogen mass conc 12 mg/dL Normal 6-24 [facility] Work Phone: Comment on above: PATIENT WAS FASTINGP ERFORMED BY: [facility] Dmuxku8314 [facility] [id number] Urea nitrogen/Creatinine mass ratio 19 mg/mg Normal 9- [facility] Work Phone: Comment on above: PATIENT WAS FASTINGP ERFORMED BY: [facility] Abomlt1276 [facility] [id number] T3, FREE (TRIDOTHYRONINE) ([id number])Ordered By: Heat Curer on 04-10-2018 T3 free mass conc 2.5 pg/mL Normal 2.0-4.4 [facility] Work Phone: Comment on above: PATIENT WAS FASTINGP ERFORMED BY: [facility]Xz[facility]56 [facility] [id number] T4, FREE (THYROXINE) ([id number]) Ordered By: Heat Curer on 04-10-2018 T4 free mass conc 1.16 ng/dL Normal 0.82-1.77 [facility] Work Phone: Comment on above: PATIENT WAS FASTINGP ERFORMED BY: [facility] WashingtonNvvmjs3027 [facility] [id number] TSH ([id number])Ordered By: Davida m Billing And Accounting Staff Assistant on 04-10-2018 Thyrotropin Qn 1.570 {uIU/mL} Normal 0.450-4.50 0 [facility] Work Phone: Comment on above: PATIENT WAS FASTINGP ERFORMED BY: [facility] Exdxbd4626 [facility] [id number] CBC W/Diff, AutomatedOrdered By: Heat Curer on 01-31-2018 Absolute Neut 3.4 {X10_3/uL} Normal 2.0-7.7 [facility] Work Phone: Comment on above: [facility] [address] [place], [address] Basophils/100 WBC (Bld) 0.5 % Normal 0-1 [facility] Work Phone: Comment on above: [facility] [address] [place], [address] Eosinophils/100 WBC (Bld) 1.8 % Normal 0-5 [facility] Work Phone: Comment on above: [facility] [address] [place], [place], [phone] Erythrocyte distribution width Ratio (RBC) 15.0 % Abnormal 11.6-14.6 [facility] Work Phone: Comment on above: [facility] [address] [place], [place], [phone] Hematocrit Volume Fraction (Bld) 39.6 % Normal 37-47 [facility] Work Phone: Comment on above: [facility] [address] [place], [place], [phone] Hemoglobin mass conc (Bld) 12.5 g/dL Normal 12.0-15.0 [facility] Work Phone: Comment on above: [facility] [address] [place], [place], [phone] IM GRAN % 0.200 % Normal 0.0-0.9 [facility] Work Phone: Comment on above: IG% - Immature Granu locytes (promyelocytes, myelocytes andmetamyelocytes) > 1% indicates that a LEFT SHIFT is Present. [facility] [address] [place], [address] Lymphocytes #/vol (Bld) 1.40 {X10_3/ul} Normal 0.83-4.51 [facility] Work Phone: Comment on above: [facility] [address] [place], [address] Lymphocytes/100 WBC (Bld) 25.5 % Normal 19-41 [facility] Work Phone: Comment on above: [facility] [address] [place], [address] MCH Entitic mass (RBC) 28.3 pg Normal 27.0-32.0 [facility] Work Phone: Comment on above: [facility] [address] [place], [address] MCHC mass conc (RBC) 31.6 {g/gl} Abnormal 32-36 [facility] Work Phone: Comment on above: [facility] [address] [place], [address] MCV Entitic volume (RBC) 89.6 fL Normal 81-99 [facility] Work Phone: Comment on above: [facility] [address] [place], [address] Monocytes/100 WBC (Bld) 9.5 % Normal 0-10 [facility] Work Phone: Comment on above: [facility] [address] [place], [address] Neutrophils/100 WBC (Bld) 62.5 % Normal 47-70 [facility] Work Phone: Comment on above: [facility] [address] [place], [address] Platelet mean volume Entitic volume (Bld) 10.4 fL Normal 6.2-12.0 [facility] Work Phone: Comment on above: [facility] [address] [place], [address] Platelets #/vol (Bld) 248 10*3/uL Normal 150-450 [facility] Work Phone: Comment on above: [facility] [address] [place], [address] RBC #/vol (Bld) 4.42 {M/mm3} Normal 4.2-5.4 [facility] Work Phone: Comment on above: [facility] [address] [place], [place], [phone] RDW SD 48.3 fL Abnormal 35.1-43.9 [facility] Work Phone: Comment on above: [facility] [address] [place], [place], [phone] WBC #/vol (Bld) 5.5 10*3/uL Normal 4.4-11.0 Compre[facility] ns[facility] Work Phone: Comment on above: [facility] [address] [place], [place], [address] [facility] Prof ilOrdered By: Heat Curer on 01-31-2018 Comprehensive metabolic 2000 panel 7 1 Normal 5-15 [facility] Work Phone: Comment on above: [facility] [address] [place], [place], [address] Comprehensive metabolic 2000 panel 8 U/L Abnormal 15-37 [facility] Work Phone: Comment on above: [facility] [address] [place], [place], [address] Comprehensive metabolic 2000 panel 3.7 g/dL Normal 3.2-5.0 [facility] Work Phone: Comment on above: [facility] [address] [place], [place], [address] Comprehensive metabolic 2000 panel 3.6 g/dL Normal 2.2-4.2 [facility] Work Phone: Comment on above: [facility] [address] [place], [place], [phone] Comprehensive metabolic 2000 panel 140 mmol/L Normal 136-145 [facility] Work Phone: Comment on above: [facility] [address] [place], [place], [address] Comprehensive metabolic 2000 panel 4.3 mmol/L Normal 3.5-5.1 [facility] Work Phone: Comment on above: [facility] [address] [place], [place], [address] Comprehensive metabolic 2000 panel 1.0 {RATIO} Normal 0.9-2.4 [facility] Work Phone: Comment on above: [facility] [address] [place], [address] Comprehensive metabolic 2000 panel 106 mmol/L Normal 98-107 [facility] Work Phone: Comment on above: [facility] [address] [place], [place], [address] Comprehensive metabolic 2000 panel 27.0 mmol/L Normal 21.0-32.0 [facility] Work Phone: Comment on above: [facility] [address] [place], [place], [address] Comprehensive metabolic 2000 panel 24 U/L Normal 13-56 [facility] Work Phone: Comment on above: [facility] [address] [place], [address] Comprehensive metabolic 2000 panel 8.6 mg/dL Normal 8.5-10.1 [facility] Work Phone: Comment on above: [facility] [address] [place], [address] Comprehensive metabolic 2000 panel 80 mg/dL Normal 74-106 [facility] Work Phone: Comment on above: Please note revised GLUCOSE reference range [id number]/02/2018. [facility] [address] [place], [address] Comprehensive metabolic 2000 panel 10 mg/dL Normal 7-18 [facility] Work Phone: Comment on above: [facility] [address] [place], [place], [address] Comprehensive metabolic 2000 panel 0.64 mg/dL Normal 0.55-1.02 [facility] Work Phone: Comment on above: The validity of the calculated GFR AND GFRAA in patients over70 years has not been determined. Clinical correlation isessential. [facility] [address] [place], [place], [address] Comprehensive metabolic 2000 panel 105 mL/min Normal [facility] Work Phone: Comment on above: Non- GFR Calc [facility] [address] [place], [place], [address] Comprehensive metabolic 2000 panel 127 mL/min Normal [facility] Work Phone: Comment on above: GFR Calc [facility] [address] [place], [place], [address] Comprehensive metabolic 2000 panel 15.5 {RATIO} Normal 10-20 [facility] Work Phone: Comment on above: [facility] [address] [place], [place], [address] Comprehensive metabolic 2000 panel 7.3 g/dL Normal 6.4-8.2 [facility] Work Phone: Comment on above: [facility] [address] [place], [place], [address] Comprehensive metabolic 2000 panel 59 U/L Normal 45-117 [facility] Work Phone: Comment on above: [facility] [address] [place], [place], [address] Comprehensive metabolic 2000 panel 0.40 mg/dL Normal 0.20-1.00 [facility] Work Phone: Comment on above: [facility] [address] [place], [address] CBC W/Diff, AutomatedOrdered By: Heat Curer on 09-20-2017 Absolute Neut 4.2 {X10_3/uL} Normal 2.0-7.7 [facility] Work Phone: Comment on above: [facility] [address] [place], [address] Basophils/100 WBC (Bld) 0.5 % Normal 0-1 [facility] Work Phone: Comment on above: [facility] [address] [place], [address] Eosinophils/100 WBC (Bld) 1.4 % Normal 0-5 [facility] Work Phone: Comment on above: [facility] [address] [place], [address] Erythrocyte distribution width Ratio (RBC) 15.7 % Abnormal 11.6-14.6 [facility] Work Phone: Comment on above: [facility] [address] [place], [address] Hematocrit Volume Fraction (Bld) 38.9 % Normal 37-47 [facility] Work Phone: Comment on above: [facility] [address] [place], [address] Hemoglobin mass conc (Bld) 12.7 g/dL Normal 12.0-15.0 [facility] Work Phone: Comment on above: [facility] [address] [place], [address] IM GRAN % 0.200 % Normal 0.0-0.9 [facility] Work Phone: Comment on above: IG% - Immature Granu locytes (promyelocytes, myelocytes andmetamyelocytes) > 1% indicates that a LEFT SHIFT is Present. [facility] [address] [place], [place], [phone] Lymphocytes #/vol (Bld) 1.64 {X10_3/ul} Normal 0.83-4.51 [facility] Work Phone: Comment on above: [facility] [address] [place], [address] Lymphocytes/100 WBC (Bld) 25.2 % Normal 19-41 [facility] Work Phone: Comment on above: [facility] [address] [place], [address] MCH Entitic mass (RBC) 29.1 pg Normal 27.0-32.0 [facility] Work Phone: Comment on above: [facility] [address] [place], [address] MCHC mass conc (RBC) 32.6 {g/gl} Normal 32-36 [facility] Work Phone: Comment on above: [facility] [address] [place], [address] MCV Entitic volume (RBC) 89.2 fL Normal 81-99 [facility] Work Phone: Comment on above: [facility] [address] [place], [address] Monocytes/100 WBC (Bld) 7.8 % Normal 0-10 [facility] Work Phone: Comment on above: [facility] [address] [place], [address] Neutrophils/100 WBC (Bld) 64.9 % Normal 47-70 [facility] Work Phone: Comment on above: [facility] [address] [place], [address] Platelet mean volume Entitic volume (Bld) 9.9 fL Normal 6.2-12.0 [facility] Work Phone: Comment on above: [facility] [address] [place], [address] Platelets #/vol (Bld) 273 10*3/uL Normal 150-450 [facility] Work Phone: Comment on above: [facility] [address] [place], [place], [address] RBC #/vol (Bld) 4.36 {M/mm3} Normal 4.2-5.4 Com[facility] Work Phone: Comment on above: [facility] [address] [place], [place], [phone] RDW SD 50.8 fL Abnormal 35.1-43.9 [facility] Work Phone: Comment on above: [facility] [address] [place], [place], [phone] WBC #/vol (Bld) 6.5 10*3/uL Normal 4.4-11.0 Compre[facility] Work Phone: Comment on above: [facility] [address] [place], [place], [address] [facility] Prof ilOrdered By: Heat Curer on 09-20-2017 Comprehensive metabolic 2000 panel 18.2 {RATIO} Normal 10-20 [facility] Work Phone: Comment on above: [facility] [address] [place], [place], [address] Comprehensive metabolic 2000 panel 140 mmol/L Normal 136-145 [facility] Work Phone: Comment on above: [facility] [address] [place], [place], [phone] Comprehensive metabolic 2000 panel 79 mL/min Normal [facility] Work Phone: Comment on above: Non- GFR Calc [facility] [address] [place], [place], [address] Comprehensive metabolic 2000 panel 96 mL/min Normal [facility] Work Phone: Comment on above: GFR Calc [facility] [address] [place], [place], [address] Comprehensive metabolic 2000 panel 0.30 mg/dL Normal 0.20-1.00 [facility] Work Phone: Comment on above: [facility] [address] [place], [place], [address] Comprehensive metabolic 2000 panel 15 mg/dL Normal 7-18 [facility] Work Phone: Comment on above: [facility] [address] [place], [place], [address] Comprehensive metabolic 2000 panel 0.82 mg/dL Normal 0.55-1.02 [facility] Work Phone: Comment on above: The validity of the calculated GFR AND GFRAA in patients over70 years has not been determined. Clinical correlation isessential. [facility] [address] [place], [address] Comprehensive metabolic 2000 panel 31 U/L Normal 13-56 [facility] Work Phone: Comment on above: [facility] [address] [place], [place], [address] Comprehensive metabolic 2000 panel 61 U/L Normal 45-117 [facility] Work Phone: Comment on above: [facility] [address] [place], [place], [address] Comprehensive metabolic 2000 panel 27.0 mmol/L Normal 21.0-32.0 [facility] Work Phone: Comment on above: [facility] [address] [place], [place], [address] Comprehensive metabolic 2000 panel 72 mg/dL Abnormal 74-106 [facility] Work Phone: Comment on above: Please note revised GLUCOSE reference range [id number]/02/2018. [facility] [address] [place], [address] Comprehensive metabolic 2000 panel 8.4 mg/dL Abnormal 8.5-10.1 [facility] Work Phone: Comment on above: [facility] [address] [place], [place], [address] Comprehensive metabolic 2000 panel 8 1 Normal 5-15 [facility] Work Phone: Comment on above: [facility] [address] [place], [place], [address] Comprehensive metabolic 2000 panel 105 mmol/L Normal 98-107 [facility] Work Phone: Comment on above: [facility] [address] [place], [place], [address] Comprehensive metabolic 2000 panel 4.2 mmol/L Normal 3.5-5.1 [facility] Work Phone: Comment on above: [facility] [address] [place], [place], [address] Comprehensive metabolic 2000 panel 1.1 {RATIO} Normal 0.9-2.4 [facility] Work Phone: Comment on above: [facility] [address] [place], [place], [phone] Comprehensive metabolic 2000 panel 3.6 g/dL Normal 2.2-4.2 [facility] Work Phone: Comment on above: [facility] [address] [place], [address] Comprehensive metabolic 2000 panel 3.8 g/dL Normal 3.2-5.0 [facility] Work Phone: Comment on above: [facility] [address] [place], [place], [address] Comprehensive metabolic 2000 panel 7.4 g/dL Normal 6.4-8.2 [facility] Work Phone: Comment on above: [facility] [address] [place], [place], [address] Comprehensive metabolic 2000 panel 11 U/L Abnormal 15-37 [facility] Work Phone: Comment on above: [facility] [address] [place], [place], [address] CBC W/Diff, AutomatedOrdered By: Heat Curer on 06-24-2017 Absolute Neut 4.2 {X10_3/uL} Normal 2.0-7.7 Com[facility] Work Phone: Comment on above: [facility] [address] [place], [place], [address] Basophils/100 WBC (Bld) 0.3 % Normal 0-1 [facility] Work Phone: Comment on above: [facility] [address] [place], [place], [address] Eosinophils/100 WBC (Bld) 0.6 % Normal 0-5 [facility] Work Phone: Comment on above: [facility] [address] [place], [place], [address] Erythrocyte distribution width Ratio (RBC) 14.7 % Abnormal 11.6-14.6 [facility] Work Phone: Comment on above: [facility] [address] [place], [place], [address] Hematocrit Volume Fraction (Bld) 38.8 % Normal 37-47 [facility] Work Phone: Comment on above: [facility] [address] [place], [place], [address] Hemoglobin mass conc (Bld) 12.4 g/dL Normal 12.0-15.0 [facility] Work Phone: Comment on above: [facility] [address] [place], [place], [phone] IM GRAN % 0.200 % Normal 0.0-0.9 [facility] Work Phone: Comment on above: IG% - Immature Granu locytes (promyelocytes, myelocytes andmetamyelocytes) > 1% indicates that a LEFT SHIFT is Present. [facility] [address] [place], [address] Lymphocytes #/vol (Bld) 1.55 {X10_3/ul} Normal 0.83-4.51 [facility] Work Phone: Comment on above: [facility] [address] [place], [address] Lymphocytes/100 WBC (Bld) 24.0 % Normal 19-41 [facility] Work Phone: Comment on above: [facility] [address] [place], [address] MCH Entitic mass (RBC) 28.2 pg Normal 27.0-32.0 [facility] Work Phone: Comment on above: [facility] [address] [place], [address] MCHC mass conc (RBC) 32.0 {g/gl} Normal 32-36 [facility] Work Phone: Comment on above: [facility] [address] [place], [address] MCV Entitic volume (RBC) 88.4 fL Normal 81-99 [facility] Work Phone: Comment on above: [facility] [address] [place], [address] Monocytes/100 WBC (Bld) 10.8 % Abnormal 0-10 [facility] Work Phone: Comment on above: [facility] [address] [place], [address] Neutrophils/100 WBC (Bld) 64.1 % Normal 47-70 [facility] Work Phone: Comment on above: [facility] [address] [place], [place], [address] Platelet mean volume Entitic volume (Bld) 10.0 fL Normal 6.2-12.0 [facility] Work Phone: Comment on above: [facility] [address] [place], [place], [address] Platelets #/vol (Bld) 258 10*3/uL Normal 150-450 [facility] Work Phone: Comment on above: [facility] [address] [place], [address] RBC #/vol (Bld) 4.39 {M/mm3} Normal 4.2-5.4 Compreh ens[facility] Work Phone: Comment on above: [facility] [address] [place], [address] RDW SD 47.5 fL Abnormal 35.1-43.9 [facility] Work Phone: Comment on above: [facility] [address] [place], [place], [address] WBC #/vol (Bld) 6.5 10*3/uL Normal 4.4-11.0 Comprehe ns[facility] Work Phone: Comment on above: [facility] [address] [place], [place], [address] Comprehensive Metabolic Prof ilOrdered By: Heat Curer on 06-24-2017 Comprehensive metabolic 2000 panel 19.0 {RATIO} Normal 10-20 [facility] Work Phone: Comment on above: VELLANKI ORDERED CBC D AND CMPFEARON ORDERED VITD AND [facility]IDWMi[facility] [address] [place], [place], [phone] Comprehensive metabolic 2000 panel 8.0 g/dL Normal 6.4-8.2 [facility] Work Phone: Comment on above: MOLLY ORDERED CBC D AND CMPFEARON ORDERED VITD AND LIPIDWMiami [facility] Hospital [address]ax[address] [place], [place], [address] Comprehensive metabolic 2000 panel 4.0 g/dL Normal 2.2-4.2 [facility] Work Phone: Comment on above: MOLLY ORDERED CBC D AND CMPFEARON ORDERED VITD AND LIPIDWMiami Valley Hospital [address] [place], [place], [address] Comprehensive metabolic 2000 panel 55 U/L Normal 45-117 [facility] Work Phone: Comment on above: MOLLY ORDERED CBC D AND CMPFEARON ORDERED [facility]ITD AND [facility]IDC[facility] [address]wljy[address] [place], [place], [address] Comprehensive metabolic 2000 panel 7 1 Normal 5-15 [facility] Work Phone: Comment on above: MOLLY ORDERED CBC D AND CMPFEARON ORDERED VITD AND LIPIDWMiami Valley Hospital [address] [place], [place], [address] Comprehensive metabolic 2000 panel 25.0 mmol/L Normal 21.0-32.0 [facility] Work Phone: Comment on above: MOLLY ORDERED CBC D AND CMPFEARON ORDERED VITD AND L[facility]IDC[facility] [address] [place], [place], [address] Comprehensive metabolic 2000 panel 87 mg/dL Normal 74-106 [facility] Work Phone: Comment on above: Please note revised GLUCOSE reference range [id number]/02/2018. MOLLY ORDERED CBC D AND CMPFEARON ORDERED VITD AND LIPIDC[facility] [address] [place], [place], [address] Comprehensive metabolic 2000 panel 14 mg/dL Normal 7-18 [facility] Work Phone: Comment on above: MOLLY ORDERED CBC D AND CMPFEARON ORDERED VITD AND LIPIDWMiami [facility] Hospital [address] [place], [place], [id number] Comprehensive metabolic 2000 panel 104 mmol/L Normal 98-107 [facility] Work Phone: Comment on above: MOLLY ORDERED CBC D AND CMPFEARON ORDERED VITD AND L[facility]IDC[facility] [address] [place], [place], [phone] Comprehensive metabolic 2000 panel 0.74 mg/dL Normal 0.55-1.02 [facility] Work Phone: Comment on above: The validity of the calculated GFR AND GFRAA in patients over70 years has not been determined. Clinical correlation isessential. MOLLY ORDERED CBC D AND CMPFEARON ORDERED VITD AND LIPIDC[facility] [address] [place], [place], [phone] Comprehensive metabolic 2000 panel 1.0 {RATIO} Normal 0.9-2.4 [facility] Work Phone: Comment on above: NICOLANKENIA ORDERED CBC D AND CMPFEARON ORDERED VITD AND LIPIDC[facility] [address] [place], [place], [phone] Comprehensive metabolic 2000 panel 8.8 mg/dL Normal 8.5-10.1 [facility] Work Phone: Comment on above: NICOLANKI ORDERED CBC D AND CMPFEARON ORDERED VITD AND LIPIDC[facility] [address] [place], [address] Comprehensive metabolic 2000 panel 7 U/L Abnormal 15-37 [facility] Work Phone: Comment on above: [facility] ORDERED CBC D AND CMPFEARON ORDERED VITD AND LIPIDC[facility] [address] [place], [address] Comprehensive metabolic 2000 panel 90 mL/min Normal [facility] Work Phone: Comment on above: Non- GFR Calc VELLANKI ORDERED CBC D AND CMPFEARON ORDERED VITD AND LIPIDC[facility] [address] [place], [place], [phone] Comprehensive metabolic 2000 panel 109 mL/min Normal [facility] Work Phone: Comment on above: GFR Calc MOLLY ORDERED CBC D AND CMPFEARON ORDERED VITD AND LIPIDC[facility] [address] [place], [place], [phone] Comprehensive metabolic 2000 panel 3.9 mmol/L Normal 3.5-5.1 [facility] Work Phone: Comment on above: MOLLY ORDERED CBC D AND CMPFEARON ORDERED VITD AND LIPIDC[facility] [address] [place], [address] Comprehensive metabolic 2000 panel 136 mmol/L Normal 136-145 [facility] Work Phone: Comment on above: MOLLY ORDERED CBC D AND CMPFEARON ORDERED VITD AND LIPIDC[facility] [address] [place], [place], [address] Comprehensive metabolic 2000 panel 0.40 mg/dL Normal 0.20-1.00 [facility] Work Phone: Comment on above: MOLLY ORDERED CBC D AND CMPFEARON ORDERED VITD AND LIPIDC[facility] [address] [place], [address] Comprehensive metabolic 2000 panel 21 U/L Normal 13-56 [facility] Work Phone: Comment on above: MOLLY ORDERED CBC D AND CMPFEARON ORDERED VITD AND LIPIDC[facility] [address] [place], [address] Lipid ProfileOrdered By: Ke tem Billing And Accounting Staff Assistant on 06-24-2017 Cholesterol in HDL mass conc 61 mg/dL Normal [facility] Work Phone: Comment on above: The drugs N-Acetylcy steine and Metamizole may falselydepress this assay. Reference Range HDL <40 mg/dL Low HDL Cholesterol HDL >or= 60 mg/dL High HDL Cholesterol MOLLY ORDERED CBC D AND CMPFEARON ORDERED VITD AND LIPIDWMiami Valley Hospital [address] [place], [place], [phone] Cholesterol in LDL mass conc 117 mg/dL Normal 0-130 [facility] Work Phone: Comment on above: MOLLY ORDERED CBC D AND CMPFEARON ORDERED VITD AND LIPIDWMiami Valley Hospital [address] [place], [place], [phone] Cholesterol in VLDL mass conc 18 mg/dL Normal 5-40 [facility] Work Phone: Comment on above: MOLLY ORDERED CBC D AND CMPFEARON ORDERED VITD AND LIPIDC[facility] [address] [place], [place], [phone] Cholesterol mass conc 196 mg/dL Normal [facility] Work Phone: Comment on above: <200 mg/dL Desirable 200-240 mg/dL Borderline >240 mg/dL High Risk MOLLY ORDERED CBC D AND CMPFEARON ORDERED VITD AND LIPIDC[facility] [address] [place], [place], [address] Triglyceride mass conc 88 mg/dL Normal [facility] Work Phone: Comment on above: The drugs N-Acetylcy steine and Metamizole may falselydepress this assay.Serum Triglycerides Reference Interval Normal <150 mg/dL Borderline high 150 - 199 mg/dL High 200 - 499 mg/dL Very High > or = 500 mg/dL MOLLY ORDERED CBC D AND CMPFEARON ORDERED VITD AND LIPIDC[facility] [address] [place], [place], [address] Lipid Profile 18 mg/dL Normal 5-40 Comprehensi Internal Medicine Work Phone: Comment on above: MOLLY ORDERED CBC D AND CMPFEARON ORDERED VITD AND LIPIDC[facility] [address] [place], [place], [address] Vitamin D,25 HydroxyOrdered By: Heat Curer on 06-24-2017 Vitamin D,25 Hydroxy 29.6 ng/mL Abnormal 29.95-100. 01 [facility] Work Phone: Comment on above: Vitamin D 25([place]) Sta tus Range Deficiency <20 ng/mL (50nmol/L) Insuffciency 20 - 30 ng/mL (50 - 75 nmol/L) Sufficiency 30 - 100 ng/mL (75 - 250 nmol/L) Toxicity >100 ng/mL (>250 nmol/L) [facility] [address] [place], [address] IGP, Aptima HPV, rfx 16/18,4 5Ordered By: Heat Curer on 05-02-2017 HPV 16+18+31+33+35+39+4 5+51+52+56+58+59+66 +68 DNA Probe+sig amp Ql (Cvx) Negative Normal [facility] Work Phone: Comment on above: This test detects fo urteen high-risk HPV types (16/18/31/33/35/39/45/51/52/56/58/59/66/68) without differentiation. No. of containers..0 1 ThinPrep VialPERFORMED BY: =G [employer] [employer] [place] [id number] BY: SETiT120 [employer] [place] [id number] Microscopic observation Other stain Nom (Unsp spec) . Normal [facility] Work Phone: Comment on above: No. of containers..0 1 ThinPrep VialPERFORMED BY: =G [employer] Fmtaitgtre643 [address] [place] [id number] BY: WB [employer] [employer] [place] [id number] Pathology report final diagnosis Narrative SPRCS Normal [facility] Work Phone: Comment on above: NEGATIVE FOR INTRAEP ITHELIAL LESION AND MALIGNANCY.THIS SPECIMEN WAS RESCREENED PART OF OUR REFUSE COLLECTOR SUPERVISOR PROGRAM.Satisfactory for evaluation. Endocervical and/or squamous metaplasticcells (endocervical component) are present.[id number] Radha Rodrigues, Environmental Test Technician ([facility])Carlita Reno, Supervisory Environmental Test Technician ([facility]) No. of containers..0 1 ThinPrep VialPERFORMED BY: =G [facility] Sgrcdactfa[address] [place] [id number] BY: WB [facility] Aojalskeke[address] [place] [id number] IGP, Aptima HPV, rfx 16/18,45 PAPSMR Normal [facility] Work Phone: Comment on above: The Pap smear is a s creening test designed to aid in the detection ofpremalignant and malignant conditions of the uterine cervix. It is not adiagnostic procedure and should not be used as the sole means of detectingcervical cancer. Both false-positive and false-negative reports do occur. .This liquid based ThinPrep(R) pap test was screened with theuse of an image guided system. No. of containers..0 1 ThinPrep VialPERFORMED BY: =G [facility] Bzlxkqcfkw6[address] [place] [id number] BY: WB [facility] Yczgxwtaau[address] [place] [id number] Thin prep Pap (91838) (no ST D testing)Ordered By: Heat Curer on 05-02-2017 Thin prep Pap (65914) (no STD testing) 30-65 Normal [facility] Work Phone: Comment on above: No. of containers..0 1 ThinPrep VialPERFORMED BY: =G [facility] Lsoksovgky992 [place] [id number] BY: WB [facility] Mqrmhxrifb[address] [place] [id number] Information: [id number] CBC W/Diff, AutomatedOrdered By: Heat Curer on 03-12-2017 Absolute Neut 3.8 {X10_3/uL} Normal 2.0-7.7 Compreh ensive Internal Medicine Work Phone: Comment on above: [facility] [address] [place], [place], [phone] Basophils/100 WBC (Bld) 0.3 % Normal 0-1 [facility] Work Phone: Comment on above: [facility] [address] [place], [address] Eosinophils/100 WBC (Bld) 2.4 % Normal 0-5 [facility] Work Phone: Comment on above: [facility] [address] [place], [place], [address] Erythrocyte distribution width Ratio (RBC) 14.7 % Abnormal 11.6-14.6 [facility] Work Phone: Comment on above: [facility] [address] [place], [place], [address] Hematocrit Volume Fraction (Bld) 39.2 % Normal 37-47 [facility] Work Phone: Comment on above: [facility] [address] [place], [place], [address] Hemoglobin mass conc (Bld) 12.5 g/dL Normal 12.0-15.0 [facility] Work Phone: Comment on above: [facility] [address] [place], [place], [address] IM GRAN % 0.200 % Normal 0.0-0.9 [facility] Work Phone: Comment on above: IG% - Immature Granu locytes (promyelocytes, myelocytes andmetamyelocytes) > 1% indicates that a LEFT SHIFT is Present. [facility] [address] [place], [place], [phone] Lymphocytes #/vol (Bld) 1.29 {X10_3/ul} Normal 0.83-4.51 [facility] Work Phone: Comment on above: [facility] [address] [place], [address] Lymphocytes/100 WBC (Bld) 22.1 % Normal 19-41 [facility] Work Phone: Comment on above: [facility] [address] [place], [address] MCH Entitic mass (RBC) 28.6 pg Normal 27.0-32.0 [facility] Work Phone: Comment on above: [facility] [address] [place], [address] MCHC mass conc (RBC) 31.9 {g/gl} Abnormal 32-36 [facility] Work Phone: Comment on above: [facility] [address] [place], [address] MCV Entitic volume (RBC) 89.7 fL Normal 81-99 [facility] Work Phone: Comment on above: [facility] [address] [place], [address] Monocytes/100 WBC (Bld) 9.8 % Normal 0-10 [facility] Work Phone: Comment on above: [facility] [address] [place], [address] Neutrophils/100 WBC (Bld) 65.2 % Normal 47-70 [facility] Work Phone: Comment on above: [facility] [address] [place], [address] Platelet mean volume Entitic volume (Bld) 10.0 fL Normal 6.2-12.0 [facility] Work Phone: Comment on above: [facility] [address] [place], [address] Platelets #/vol (Bld) 325 10*3/uL Normal 150-450 [facility] Work Phone: Comment on above: [facility] [address] [place], [place], [phone] RBC #/vol (Bld) 4.37 {M/mm3} Normal 4.2-5.4 Compreh ensive Internal Medicine Work Phone: Comment on above: [facility] [address] [place], [address] RDW SD 47.6 fL Abnormal 35.1-43.9 [facility] Work Phone: Comment on above: [facility] [address] [place], [address] WBC #/vol (Bld) 5.8 10*3/uL Normal 4.4-11.0 Comprehe nsive Internal Medicine Work Phone: Comment on above: [facility] [address] [place], [place], [address] Comprehensive Metabolic Prof ilOrdered By: Heat Curer on 03-12-2017 Comprehensive metabolic 2000 panel 103 mmol/L Normal 98-107 [facility] Work Phone: Comment on above: [facility] [address] [place], [place], [address] ; Dr. Do Comprehensive metabolic 2000 panel 99 mL/min Normal [facility] Work Phone: Comment on above: Non- GFR Calc [facility] [address] [place], [place], [address] ; Dr. Do Comprehensive metabolic 2000 panel 22.0 {RATIO} Abnormal 10-20 [facility] Work Phone: Comment on above: [facility] [address] [place], [place], [address] ; Dr. Do Comprehensive metabolic 2000 panel 28.0 mmol/L Normal 21.0-32.0 [facility] Work Phone: Comment on above: [facility] [address] [place], [address] ; Dr. Do Comprehensive metabolic 2000 panel 119 mL/min Normal [facility] Work Phone: Comment on above: GFR Calc [facility] [address] [place], [place], [address] ; Dr. Do Comprehensive metabolic 2000 panel 7.6 g/dL Normal 6.4-8.2 [facility] Work Phone: Comment on above: [facility] [address] [place], [place], [address] ; Dr. Do Comprehensive metabolic 2000 panel 24 U/L Normal 12-78 [facility] Work Phone: Comment on above: [facility] [address] [place], [place], [address] ; Dr. Do Comprehensive metabolic 2000 panel 0.30 mg/dL Normal 0.20-1.00 [facility] Work Phone: Comment on above: [facility] [address] [place], [place], [address] ; Dr. Do Comprehensive metabolic 2000 panel 139 mmol/L Normal 136-145 [facility] Work Phone: Comment on above: [facility] [address] [place], [address] ; Dr. Do Comprehensive metabolic 2000 panel 3.7 g/dL Normal 3.4-5.0 [facility] Work Phone: Comment on above: Please note revised Albumin AND Globulin reference rangeeffective 2016. [facility] [address] [place], [address] ; Dr. Do Comprehensive metabolic 2000 panel 15 mg/dL Normal 7-18 [facility] Work Phone: Comment on above: [facility] [address] [place], [address] ; Dr. Do Comprehensive metabolic 2000 panel 70 mg/dL Normal 70-110 [facility] Work Phone: Comment on above: [facility] spital [address] [place], [address] ; Dr. Do Comprehensive metabolic 2000 panel 3.6 mmol/L Normal 3.5-5.1 [facility] Work Phone: Comment on above: [facility] spital [address] [place], [address] ; Dr. Do Comprehensive metabolic 2000 panel 3.9 g/dL Normal 2.2-4.2 [facility] Work Phone: Comment on above: [facility] spital [address] [place], [address] ; Dr. Do Comprehensive metabolic 2000 panel 0.9 {RATIO} Normal 0.9-2.4 [facility] Work Phone: Comment on above: [facility] spital [address] [place], [address] ; Dr. Do Comprehensive metabolic 2000 panel 8.4 mg/dL Abnormal 8.5-10.1 [facility] Work Phone: Comment on above: [facility] spital [address] [place], [address] ; Dr. Do Comprehensive metabolic 2000 panel 10 U/L Abnormal 15-37 [facility] Work Phone: Comment on above: [facility] spital [address] [place], [address] ; Dr. Do Comprehensive metabolic 2000 panel 62 U/L Normal 45-117 [facility] Work Phone: Comment on above: [facility] spital [address] [place], [address] ; Dr. Do Comprehensive metabolic 2000 panel 0.68 mg/dL Normal 0.55-1.02 [facility] Work Phone: Comment on above: The validity of the calculated GFR AND GFRAA in patients over70 years has not been determined. Clinical correlation isessential. [facility] [address] [place], [place], [phone] ; Dr. Do Comprehensive metabolic 2000 panel 8 1 Normal 5-15 [facility] Work Phone: Comment on above: [facility] [address] [place], [place], [address] ; Dr. Do CBC W/Diff, AutomatedOrdered By: Heat Curer on 12-06-2016 Absolute Neut 4.0 {X10_3/uL} Normal 2.0-7.7 Compreh [facility] Internal [facility] Work Phone: Comment on above: [facility] [address] [place], [place], [address] ; rheum Basophils/100 WBC (Bld) 0.6 % Normal 0-1 [facility] Work Phone: Comment on above: [facility] [address] [place], [place], [address] ; rheum Eosinophils/100 WBC (Bld) 1.6 % Normal 0-5 [facility] Work Phone: Comment on above: [facility] [address] [place], [place], [address] ; rheum Erythrocyte distribution width Ratio (RBC) 14.1 % Normal 11.6-14.6 [facility] Work Phone: Comment on above: [facility] [address] [place], [place], [address] ; rheum Hematocrit Volume Fraction (Bld) 40.4 % Normal 37-47 [facility] Work Phone: Comment on above: [facility] [address] [place], [place], [address] ; rheum Hemoglobin mass conc (Bld) 13.5 g/dL Normal 12.0-15.0 [facility] Work Phone: Comment on above: [facility] [address] [place], [place], [address] ; rheum IM GRAN % 0.200 % Normal 0.0-0.9 [facility] Work Phone: Comment on above: IG% - Immature Granu locytes (promyelocytes, myelocytes andmetamyelocytes) > 1% indicates that a LEFT SHIFT is Present. [facility] [address] [place], [place], [phone] ; rheum Lymphocytes #/vol (Bld) 1.73 {X10_3/ul} Normal 0.83-4.51 [facility] Work Phone: Comment on above: [facility] [address] [place], [place], [address] ; rheum Lymphocytes/100 WBC (Bld) 27.2 % Normal 19-41 [facility] Work Phone: Comment on above: [facility] [address] [place], [place], [address] ; rheum MCH Entitic mass (RBC) 29.2 pg Normal 27.0-32.0 [facility] Work Phone: Comment on above: [facility] [address] [place], [place], [address] ; rheum MCHC mass conc (RBC) 33.4 {g/gl} Normal 32-36 [facility] Work Phone: Comment on above: [facility] [address] [place], [place], [address] ; rheum MCV Entitic volume (RBC) 87.4 fL Normal 81-99 [facility] Work Phone: Comment on above: [facility] [address] [place], [place], [address] ; rheum Monocytes/100 WBC (Bld) 7.5 % Normal 0-10 [facility] Work Phone: Comment on above: [facility] [address] [place], [address] ; rheum Neutrophils/100 WBC (Bld) 62.9 % Normal 47-70 [facility] Work Phone: Comment on above: [facility] [address] [place], [place], [address] ; rheum Platelet mean volume Entitic volume (Bld) 9.6 fL Normal 6.2-12.0 [facility] Work Phone: Comment on above: [facility] [address] [place], [place], [address] ; rheum Platelets #/vol (Bld) 254 10*3/uL Normal 150-450 [facility] Work Phone: Comment on above: [facility] [address] [place], [place], [address] ; rheum RBC #/vol (Bld) 4.62 {M/mm3} Normal 4.2-5.4 Compreh ensive Internal Medicine Work Phone: Comment on above: [facility] [address] [place], [place], [address] ; rheum RDW SD 44.2 fL Abnormal 35.1-43.9 [facility] Work Phone: Comment on above: [facility] [address] [place], [place], [address] ; rheum WBC #/vol (Bld) 6.4 10*3/uL Normal 4.4-11.0 Comprehe nsive Internal Medicine Work Phone: Comment on above: [facility] [address] [place], [place], [address] ; rheum Comprehensive Metabolic Prof ilOrdered By: Heat Curer on 12-06-2016 Comprehensive metabolic 2000 panel 0.30 mg/dL Normal 0.20-1.00 [facility] Work Phone: Comment on above: [facility] [address] [place], [place], [address] Comprehensive metabolic 2000 panel 25.0 mmol/L Normal 21.0-32.0 [facility] Work Phone: Comment on above: [facility] [address] [place], [place], [address] Comprehensive metabolic 2000 panel 1.0 {RATIO} Normal 0.9-2.4 [facility] Work Phone: Comment on above: [facility] [address] [place], [place], [address] Comprehensive metabolic 2000 panel 10 1 Normal 5-15 [facility] Work Phone: Comment on above: [facility] [address] [place], [place], [address] Comprehensive metabolic 2000 panel 0.79 mg/dL Normal 0.55-1.02 [facility] Work Phone: Comment on above: The validity of the calculated GFR AND GFRAA in patients over70 years has not been determined. Clinical correlation isessential. [facility] [address] [place], [place], [phone] Comprehensive metabolic 2000 panel 20 U/L Normal 12-78 [facility] Work Phone: Comment on above: [facility] [address] [place], [place], [phone] Comprehensive metabolic 2000 panel 139 mmol/L Normal 136-145 [facility] Work Phone: Comment on above: [facility] [address] [place], [place], [address] Comprehensive metabolic 2000 panel 3.8 g/dL Abnormal 2.3-3.5 [facility] Work Phone: Comment on above: [facility] spital [address] [place], [address] Comprehensive metabolic 2000 panel 53 U/L Normal 45-117 [facility] Work Phone: Comment on above: [facility] spital [address] [place], [address] Comprehensive metabolic 2000 panel 14 mg/dL Normal 7-18 [facility] Work Phone: Comment on above: [facility] spital [address] [place], [address] Comprehensive metabolic 2000 panel < 3 Abnormal 15-37 [facility] Work Phone: Comment on above: [facility] spital [address] [place], [address] Comprehensive metabolic 2000 panel 8.7 mg/dL Normal 8.5-10.1 [facility] Work Phone: Comment on above: [facility] [address] [place], [address] Comprehensive metabolic 2000 panel 3.9 g/dL Normal 3.4-5.0 [facility] Work Phone: Comment on above: [facility] spital [address] [place], [address] Comprehensive metabolic 2000 panel 3.8 mmol/L Normal 3.5-5.1 [facility] Work Phone: Comment on above: [facility] spital [address] [place], [address] Comprehensive metabolic 2000 panel 102 mL/min Normal Comprehensive [facility] Work Phone: Comment on above: GFR Calc [facility] spital [address] [place], [address] Comprehensive metabolic 2000 panel 17.8 {RATIO} Normal 10-20 [facility] Work Phone: Comment on above: [facility] [address] [place], [place], [phone] Comprehensive metabolic 2000 panel 7.7 g/dL Normal 6.4-8.2 [facility] Work Phone: Comment on above: [facility] [address] [place], [place], [address] Comprehensive metabolic 2000 panel 84 mL/min Normal [facility] Work Phone: Comment on above: Non- GFR Calc [facility] [address] [place], [place], [phone] Comprehensive metabolic 2000 panel 114 mg/dL Abnormal 70-110 [facility] Work Phone: Comment on above: Fasting Glucose resu lt from 110 to <126 mg/dLsuggests IMPAIRED HOMEOSTASIS per A.D.A. criteria. [facility] [address] [place], [place], [phone] Comprehensive metabolic 2000 panel 104 mmol/L Normal 98-107 [facility] Work Phone: Comment on above: [facility] [address] [place], [place], [phone] CBC W/Diff, AutomatedOrdered By: Heat Curer on 08-27-2016 Absolute Neut 3.7 {X10_3/uL} Normal 2.0-7.7 Compreh ensive Internal Medicine Work Phone: Comment on above: [facility] [address] [place], [place], [phone] Basophils/100 WBC (Bld) 0.5 % Normal 0-1 [facility] Work Phone: Comment on above: [facility] [address] [place], [place], [phone] Eosinophils/100 WBC (Bld) 1.8 % Normal 0-5 [facility] Work Phone: Comment on above: [facility] [address] [place], [place], [phone] Erythrocyte distribution width Ratio (RBC) 14.4 % Normal 11.6-14.6 [facility] Work Phone: Comment on above: [facility] [address] [place], [place], [phone] Hematocrit Volume Fraction (Bld) 38.5 % Normal 37-47 [facility] Work Phone: Comment on above: [place] [address] [place], [place], [phone] Hemoglobin mass conc (Bld) 12.7 g/dL Normal 12.0-15.0 [facility] Work Phone: Comment on above: [place] [address] [place], [place], [phone] IM GRAN % 0.200 % Normal 0.0-0.9 [facility] Work Phone: Comment on above: IG% - Immature Granu locytes (promyelocytes, myelocytes andmetamyelocytes) > 1% indicates that a LEFT SHIFT is Present. [place] [address] [place], [place], [phone] Lymphocytes #/vol (Bld) 1.73 {X10_3/ul} Normal 0.83-4.51 [facility] Work Phone: Comment on above: [place] [address] [place], [address] Lymphocytes/100 WBC (Bld) 28.3 % Normal 19-41 [facility] Work Phone: Comment on above: [facility] [address] [place], [address] MCH Entitic mass (RBC) 28.8 pg Normal 27.0-32.0 [facility] Work Phone: Comment on above: [facility] [address] [place], [address] MCHC mass conc (RBC) 33.0 {g/gl} Normal 32-36 [facility] Work Phone: Comment on above: [facility] [address] [place], [address] MCV Entitic volume (RBC) 87.3 fL Normal 81-99 [facility] Work Phone: Comment on above: [facility] [address] [place], [address] Monocytes/100 WBC (Bld) 8.7 % Normal 0-10 [facility] Work Phone: Comment on above: [facility] [address] [place], [address] Neutrophils/100 WBC (Bld) 60.5 % Normal 47-70 [facility] Work Phone: Comment on above: [facility] [address] [place], [address] Platelet mean volume Entitic volume (Bld) 9.8 fL Normal 6.2-12.0 [facility] Work Phone: Comment on above: [facility] [address] [place], [address] Platelets #/vol (Bld) 281 10*3/uL Normal 150-450 [facility] Work Phone: Comment on above: [facility] [address] [place], [address] RBC #/vol (Bld) 4.41 {M/mm3} Normal 4.2-5.4 [facility]h [facility] Work Phone: Comment on above: [facility] [address] [place], [address] RDW SD 44.8 fL Abnormal 35.1-43.9 [facility] Work Phone: Comment on above: [facility] [address] [place], [place], [phone] WBC #/vol (Bld) 6.1 10*3/uL Normal 4.4-11.0 Comprehe nsive Internal Medicine Work Phone: Comment on above: [facility] [address] [place], [place], [phone] Comprehensive Metabolic Prof ilOrdered By: Heat Curer on 08-27-2016 Comprehensive metabolic 2000 panel 8.9 mg/dL Normal 8.5-10.1 [facility] Work Phone: Comment on above: [facility] [address] [place], [place], [phone] Comprehensive metabolic 2000 panel 107 mL/min Normal [facility] Work Phone: Comment on above: GFR Calc [facility] [address] [place], [place], [phone] Comprehensive metabolic 2000 panel 28.0 mmol/L Normal 21.0-32.0 [facility] Work Phone: Comment on above: [facility] [address] [place], [place], [phone] Comprehensive metabolic 2000 panel 20.0 {RATIO} Normal 10-20 [facility] Work Phone: Comment on above: [facility] [address] [place], [place], [phone] Comprehensive metabolic 2000 panel 3.8 g/dL Normal 3.4-5.0 [facility] Work Phone: Comment on above: [facility] [address] [place], [place], [phone] Comprehensive metabolic 2000 panel 7.7 g/dL Normal 6.4-8.2 [facility] Work Phone: Comment on above: [facility] [address] [place], [address] Comprehensive metabolic 2000 panel 103 mmol/L Normal 98-107 [facility] Work Phone: Comment on above: [facility] [address] [place], [place], [address] Comprehensive metabolic 2000 panel 1.0 {RATIO} Normal 0.9-2.4 [facility] Work Phone: Comment on above: [facility] [address] [place], [address] Comprehensive metabolic 2000 panel 4 U/L Abnormal 15-37 [facility] Work Phone: Comment on above: [facility] [address] [place], [address] Comprehensive metabolic 2000 panel 4.2 mmol/L Normal 3.5-5.1 [facility] Work Phone: Comment on above: [facility] [address] [place], [address] Comprehensive metabolic 2000 panel 53 U/L Normal 45-117 [facility] Work Phone: Comment on above: [facility] [address] [place], [address] Comprehensive metabolic 2000 panel 15 mg/dL Normal 7-18 [facility] Work Phone: Comment on above: [facility] [address] [place], [address] Comprehensive metabolic 2000 panel 91 mg/dL Normal 70-110 [facility] Work Phone: Comment on above: [facility] [address] [place], [address] Comprehensive metabolic 2000 panel 6 1 Normal 5-15 [facility] Work Phone: Comment on above: [facility] [address] [place], [place], [address] Comprehensive metabolic 2000 panel 137 mmol/L Normal 136-145 [facility] Work Phone: Comment on above: [facility] [address] [place], [place], [phone] Comprehensive metabolic 2000 panel 89 mL/min Normal [facility] Work Phone: Comment on above: Non- GFR Calc [facility] [address] [place], [place], [phone] Comprehensive metabolic 2000 panel 3.9 g/dL Abnormal 2.3-3.5 [facility] Work Phone: Comment on above: [facility] [address] [place], [place], [phone] Comprehensive metabolic 2000 panel 0.75 mg/dL Normal 0.55-1.02 [facility] Work Phone: Comment on above: The validity of the calculated GFR AND GFRAA in patients over70 years has not been determined. Clinical correlation isessential. [facility] [address] [place], [place], [phone] Comprehensive metabolic 2000 panel 0.40 mg/dL Normal 0.20-1.00 [facility] Work Phone: Comment on above: [facility] [address] [place], [place], [phone] Comprehensive metabolic 2000 panel 26 U/L Normal 12-78 [facility] Work Phone: Comment on above: [facility] [address] [place], [place], [phone] CBC W/Diff, AutomatedOrdered By: Heat Curer on 06-13-2016 Absolute Neut 3.8 {X10_3/uL} Normal 2.0-7.7 Compreh ensive [facility] Medicine Work Phone: Comment on above: [facility] [address] [place], [place], [phone] Basophils/100 WBC (Bld) 0.7 % Normal 0-1 [facility] Work Phone: Comment on above: [facility] [address] [place], [address] Eosinophils/100 WBC (Bld) 3.3 % Normal 0-5 [facility] Work Phone: Comment on above: [facility] [address] [place], [place], [address] Erythrocyte distribution width Ratio (RBC) 14.6 % Normal 11.6-14.6 [facility] Work Phone: Comment on above: [facility] [address] [place], [place], [phone] Hematocrit Volume Fraction (Bld) 39.9 % Normal 37-47 [facility] Work Phone: Comment on above: [facility] [address] [place], [address] Hemoglobin mass conc (Bld) 12.7 g/dL Normal 12.0-15.0 [facility] Work Phone: Comment on above: [facility] [address] [place], [place], [address] IM GRAN % 0.200 % Normal 0.0-0.9 [facility] Work Phone: Comment on above: IG% - Immature Granu locytes (promyelocytes, myelocytes andmetamyelocytes) > 1% indicates that a LEFT SHIFT is Present. [facility] [address] [place], [place], [phone] Lymphocytes #/vol (Bld) 1.70 {X10_3/ul} Normal 0.83-4.51 [facility] Work Phone: Comment on above: [facility] [address] [place], [address] Lymphocytes/100 WBC (Bld) 27.7 % Normal 19-41 [facility] Work Phone: Comment on above: [facility] [address] [place], [address] MCH Entitic mass (RBC) 27.7 pg Normal 27.0-32.0 [facility] Work Phone: Comment on above: [facility] [address] [place], [address] MCHC mass conc (RBC) 31.8 {g/gl} Abnormal 32-36 [facility] Work Phone: Comment on above: [facility] [address] [place], [address] MCV Entitic volume (RBC) 86.9 fL Normal 81-99 [facility] Work Phone: Comment on above: [facility] [address] [place], [address] Monocytes/100 WBC (Bld) 6.2 % Normal 0-10 [facility] Work Phone: Comment on above: [facility] [address] [place], [address] Neutrophils/100 WBC (Bld) 61.9 % Normal 47-70 [facility] Work Phone: Comment on above: [facility] [address] [place], [address] Platelet mean volume Entitic volume (Bld) 9.8 fL Normal 6.2-12.0 [facility] Work Phone: Comment on above: [facility] [address] [place], [address] Platelets #/vol (Bld) 267 10*3/uL Normal 150-450 [facility] Work Phone: Comment on above: [facility] [address] [place], [address] RBC #/vol (Bld) 4.59 {M/mm3} Normal 4.2-5.4 Compreh ensive [facility] Work Phone: Comment on above: [facility] [address] [place], [place], [address] RDW SD 45.8 fL Abnormal 35.1-43.9 [facility] Work Phone: Comment on above: [facility] [address] [place], [place], [address] WBC #/vol (Bld) 6.1 10*3/uL Normal 4.4-11.0 Comprehe nsive Internal Medicine Work Phone: Comment on above: [facility] [address] [place], [place], [address] Comprehensive Metabolic Prof ilOrdered By: Heat Curer on 06-13-2016 Comprehensive metabolic 2000 panel 106 mL/min Normal [facility] Work Phone: Comment on above: Non- GFR Calc [facility] [address] [place], [place], [address] Comprehensive metabolic 2000 panel 51 U/L Normal 45-117 [facility] Work Phone: Comment on above: [facility] [address] [place], [place], [address] Comprehensive metabolic 2000 panel 28.0 mmol/L Normal 21.0-32.0 [facility] Work Phone: Comment on above: [facility] [address] [place], [place], [phone] Comprehensive metabolic 2000 panel 20.2 {RATIO} Abnormal 10-20 [facility] Work Phone: Comment on above: [facility] [address] [place], [place], [phone] Comprehensive metabolic 2000 panel 7.6 g/dL Normal 6.4-8.2 [facility] Work Phone: Comment on above: [facility] [address] [place], [address] Comprehensive metabolic 2000 panel 20 U/L Normal 12-78 [facility] Work Phone: Comment on above: [facility] [address] [place], [address] Comprehensive metabolic 2000 panel 3.8 g/dL Normal 3.4-5.0 [facility] Work Phone: Comment on above: [facility] [address] [place], [address] Comprehensive metabolic 2000 panel 101 mmol/L Normal 98-107 [facility] Work Phone: Comment on above: [facility] [address] [place], [address] Comprehensive metabolic 2000 panel 13 mg/dL Normal 7-18 [facility] Work Phone: Comment on above: [facility] [address] [place], [address] Comprehensive metabolic 2000 panel 8 1 Normal 5-15 [facility] Work Phone: Comment on above: [facility] [address] [place], [address] Comprehensive metabolic 2000 panel 128 mL/min Normal [facility] Work Phone: Comment on above: GFR Calc [facility] [address] [place], [address] Comprehensive metabolic 2000 panel 3.8 mmol/L Normal 3.5-5.1 [facility] Work Phone: Comment on above: [facility] [address] [place], [address] Comprehensive metabolic 2000 panel 137 mmol/L Normal 136-145 [facility] Work Phone: Comment on above: [facility] [address] [place], [address] Comprehensive metabolic 2000 panel 0.30 mg/dL Normal 0.20-1.00 [facility] Work Phone: Comment on above: [facility] [address] [place], [place], [phone] Comprehensive metabolic 2000 panel 0.64 mg/dL Normal 0.55-1.02 [facility] Work Phone: Comment on above: The validity of the calculated GFR AND GFRAA in patients over70 years has not been determined. Clinical correlation isessential. [facility] [address] [place], [place], [phone] Comprehensive metabolic 2000 panel 1.0 {RATIO} Normal 0.9-2.4 [facility] Work Phone: Comment on above: [facility] [address] [place], [place], [address] Comprehensive metabolic 2000 panel 8.6 mg/dL Normal 8.5-10.1 [facility] Work Phone: Comment on above: [facility] [address] [place], [place], [address] Comprehensive metabolic 2000 panel 5 U/L Abnormal 15-37 [facility] Work Phone: Comment on above: [facility] [address] [place], [place], [address] Comprehensive metabolic 2000 panel 108 mg/dL Normal 70-110 [facility] Work Phone: Comment on above: [facility] [address] [place], [place], [address] ANTINUCLEAR ANTIBODIES DIREC TOrdered By: Heat Curer on 03-23-2016 Nuclear Ab Ql (S) Negative Normal Compreh ensive Internal Medicine Work Phone: Comment on above: Performed at: [address] [id number] Director: Carlos Alberto Lynch PhD, Phone: [phone] [facility] (refer to re port for specific site)refer to report for address and phone number CBC W/Diff, AutomatedOrdered By: Heat Curer on 03-23-2016 Absolute Neut 4.3 {X10_3/uL} Normal 2.0-7.7 Compreh ensive Internal Medicine Work Phone: Comment on above: [facility] [address] [place], [place], [phone] Basophils/100 WBC (Bld) 0.6 % Normal 0-1 [facility] Work Phone: Comment on above: [facility] [address] [place], [place], [phone] Eosinophils/100 WBC (Bld) 2.8 % Normal 0-5 [facility] Work Phone: Comment on above: [facility] [address] [place], [place], [phone] Erythrocyte distribution width Ratio (RBC) 13.9 % Normal 11.6-14.6 [facility] Work Phone: Comment on above: [facility] [address] [place], [place], [address] Hematocrit Volume Fraction (Bld) 39.4 % Normal 37-47 [facility] Work Phone: Comment on above: [facility] [address] [place], [place], [address] Hemoglobin mass conc (Bld) 12.8 g/dL Normal 12.0-15.0 [facility] Work Phone: Comment on above: [facility] [address] [place], [place], [phone] IM GRAN % 0.100 % Normal 0.0-0.9 [facility] Work Phone: Comment on above: IG% - Immature Granu locytes (promyelocytes, myelocytes andmetamyelocytes) > 1% indicates that a LEFT SHIFT is Present. [facility] [address] [place], [address] Lymphocytes #/vol (Bld) 1.79 {X10_3/ul} Normal 0.83-4.51 [facility] Work Phone: Comment on above: [facility] [address] [place], [address] Lymphocytes/100 WBC (Bld) 26.0 % Normal 19-41 [facility] Work Phone: Comment on above: [facility] [address] [place], [address] MCH Entitic mass (RBC) 27.4 pg Normal 27.0-32.0 [facility] Work Phone: Comment on above: [facility] [address] [place], [address] MCHC mass conc (RBC) 32.5 {g/gl} Normal 32-36 [facility] Work Phone: Comment on above: [facility] [address] [place], [address] MCV Entitic volume (RBC) 84.2 fL Normal 81-99 [facility] Work Phone: Comment on above: [facility] [address] [place], [address] Monocytes/100 WBC (Bld) 8.4 % Normal 0-10 [facility] Work Phone: Comment on above: [facility] [address] [place], [address] Neutrophils/100 WBC (Bld) 62.1 % Normal 47-70 [facility] Work Phone: Comment on above: [facility] [address] [place], [address] Platelet mean volume Entitic volume (Bld) 9.7 fL Normal 6.2-12.0 [facility] Work Phone: Comment on above: [facility] [address] [place], [address] Platelets #/vol (Bld) 270 10*3/uL Normal 150-450 [facility] Work Phone: Comment on above: [facility] [address] [place], [address] RBC #/vol (Bld) 4.68 {M/mm3} Normal 4.2-5.4 Compreh ensive Internal Medicine Work Phone: Comment on above: [facility] [address] [place], [address] RDW SD 42.8 fL Normal 35.1-43.9 [facility] Work Phone: Comment on above: [facility] [address] [place], [place], [phone] WBC #/vol (Bld) 6.9 10*3/uL Normal 4.4-11.0 Comprehe nsive Internal Medicine Work Phone: Comment on above: [facility] [address] [place], [address] CCP IgG AntibodiesOrdered By : Heat Curer on 03-23-2016 Cyclic citrullinated peptide IgG Qn 7 {units} Normal 0-19 [facility] Work Phone: Comment on above: Negative <20 Weak po sitive 20 - 39 Moderate positive 40 - 59 Strong positive >59 [facility] (refer to re port for specific site)refer to report for address and phone number CRPOrdered By: System Manage r on 03-23-2016 CRP mass conc mg/L Normal 0.0-3.0 Comprehensi ve Internal Medicine Work Phone: Comment on above: C-Reactive Protein ( CRP) provides useful information for thediagnosis, therapy and monitoring of inflammatory processesand associated diseases. For the evaluation of Relative Riskfor Cardiovascular Disease, a High Sensitivity CRP (HSCRP)should be ordered. [facility] [address] [place], [place], [phone] Comprehensive Metabolic Prof ilOrdered By: Heat Curer on 03-23-2016 Comprehensive metabolic 2000 panel 3.9 g/dL Abnormal 2.3-3.5 [facility] Work Phone: Comment on above: [facility] [address] [place], [place], [address] Comprehensive metabolic 2000 panel 139 mmol/L Normal 136-145 [facility] Work Phone: Comment on above: [facility] [address] [place], [place], [address] Comprehensive metabolic 2000 panel 7 1 Normal 5-15 [facility] Work Phone: Comment on above: [facility] [address] [place], [place], [address] Comprehensive metabolic 2000 panel 7.9 g/dL Normal 6.4-8.2 [facility] Work Phone: Comment on above: [facility] [address] [place], [place], [address] Comprehensive metabolic 2000 panel 0.65 mg/dL Normal 0.55-1.02 [facility] Work Phone: Comment on above: The validity of the calculated GFR AND GFRAA in patients over70 years has not been determined. Clinical correlation isessential. [facility] [address] [place], [place], [phone] Comprehensive metabolic 2000 panel 21.4 {RATIO} Abnormal 10-20 [facility] Work Phone: Comment on above: [facility] [address] [place], [place], [address] Comprehensive metabolic 2000 panel 126 mL/min Normal [facility] Work Phone: Comment on above: GFR Calc [facility] [address] [place], [place], [address] Comprehensive metabolic 2000 panel 104 mL/min Normal [facility] Work Phone: Comment on above: Non- GFR Calc [facility] [address] [place], [place], [address] Comprehensive metabolic 2000 panel 22.0 mmol/L Normal 21.0-32.0 [facility] Work Phone: Comment on above: [facility] [address] [place], [place], [address] Comprehensive metabolic 2000 panel 0.30 mg/dL Normal 0.20-1.00 [facility] Work Phone: Comment on above: [facility] [address] [place], [place], [phone] Comprehensive metabolic 2000 panel 4 U/L Abnormal 15-37 [facility] Work Phone: Comment on above: [facility] [address] [place], [place], [address] Comprehensive metabolic 2000 panel 8.2 mg/dL Abnormal 8.5-10.1 [facility] Work Phone: Comment on above: [facility] [address] [place], [place], [address] Comprehensive metabolic 2000 panel 18 U/L Normal 12-78 [facility] Work Phone: Comment on above: [facility] [address] [place], [place], [address] Comprehensive metabolic 2000 panel 86 mg/dL Normal 70-110 [facility] Work Phone: Comment on above: [facility] [address] [place], [place], [address] Comprehensive metabolic 2000 panel 14 mg/dL Normal 7-18 [facility] Work Phone: Comment on above: [facility] [address] [place], [place], [address] Comprehensive metabolic 2000 panel 110 mmol/L Abnormal 98-107 [facility] Work Phone: Comment on above: [facility] [address] [place], [place], [address] Comprehensive metabolic 2000 panel 3.9 mmol/L Normal 3.5-5.1 [facility] Work Phone: Comment on above: [facility] [address] [place], [place], [phone] Comprehensive metabolic 2000 panel 58 U/L Normal 45-117 [facility] Work Phone: Comment on above: [facility] [address] [place], [place], [phone] Comprehensive metabolic 2000 panel 1.0 {RATIO} Normal 0.9-2.4 [facility] Work Phone: Comment on above: [facility] [address] [place], [place], [phone] Comprehensive metabolic 2000 panel 4.0 g/dL Normal 3.4-5.0 [facility] Work Phone: Comment on above: [facility] [address] [place], [place], [phone] Erythrocyte Sed RateOrdered By: Heat Curer on 03-23-2016 Erythrocyte Sed Rate 14 mm/h Normal 0-20 [facility] Work Phone: Comment on above: [facility] [address] [place], [place], [id number] HLA L25Erofvda By: System Aurea handley on 03-23-2016 HLA B27 Positive Normal [facility] Work Phone: Comment on above: HLA-B*27 PositiveThi s patient is positive for HLA-B*27. This procedure rulesout the B*27:06 and 27:09 alleles, which the literaturesuggests are not associated with spondyloarthropathies.HLA allele interpretation for all loci based on IMGT/HLAdatabase version 3.21.0[facility] CLIA ID Number [id number] test was performed using PCR (Polymerase ChainReaction)/SSOP (Sequence Specific Oligonucleotide Probes)technique. SBT (Sequence Based Typing) and/or SSP(Sequence Specific Primers) may be used as supplementalmethods when necessary. Please contact [facility] CustomerService at if you have any questions. Director of HLA Laboratory Dr Lamont Ward, PhD [facility] (refer to re port for specific site)refer to report for address and phone number Hep B Surface AntibodiesOrde red By: Heat Curer on 03-23-2016 HBV surface Ab Qn (S) Non Reactive Normal [facility] Work Phone: Comment on above: Non Reactive: Incons istent with immunity, less than 10 mIU/mL Reactive: Consistent with immunity, greater than 9.9 mIU/mL [facility] (refer to re port for specific site)refer to report for address and phone number Hepatitis B Surface AgOrdere d By: Heat Curer on 03-23-2016 Hepatitis B Surface Ag Negative Normal [facility] Work Phone: Comment on above: Performed at: [place] [id number] Director: Carlos Alberto Lynch PhD, Phone: [phone] at: - [facility] [id number] Director: Lamont Ward PhD, Phone: [phone] at: - [facility] [address] [id number] Director: Manuel Olson MD, Phone: [phone] [facility] (refer to re port for specific site)refer to report for address and phone number Hepatitis C AntibodiesOrdere d By: Heat Curer on 03-23-2016 Hepatitis C Antibodies 0.1 {s/co_ratio} Normal 0.0-0.9 [facility] Work Phone: Comment on above: Negative: < 0.8 Inde terminate: 0.8 - 0.9 Positive: > 0.9 The CDC recommends that a positive HCV antibody result be followed up with a HCV Nucleic Acid Amplification test (133501). [facility] (refer to re port for specific site)refer to report for address and phone number Quantiferon TB-GoldOrdered B y: Heat Curer on 03-23-2016 M. tuberculosis tuberculin stim IFN-g Ql (Bld) Comment Normal [facility] Work Phone: Comment on above: The QuantiFERON TB G old (in Tube) assay is intended for useas an aid in the diagnosis of TB infection. Negativeresults suggest that there is no TB infection. In patientswith high suspicion of exposure, a negative test should berepeated. A positive test indicates infection withMycobacterium tuberculosis. Among individuals withouttuberculosis infection, a positive test may be due toexposure to M. kansasii, M. szulgai or M. marinum. On theInternet, go to cdc.gov/tb for further details. [facility] (refer to re port for specific site)refer to report for address and phone number To be considered pos itive a specimen should have a TB Agminus Nil value greater than or equal to 0.35 IU/mL and inaddition the TB Ag minus Nil value must be greater than orequal to 25% of the Nil value. There may be insufficientinformation in these values to differentiate between somenegative and some indeterminate test values. M. tuberculosis tuberculin stim IFN-g Ql (Bld) 0 {IU/mL} Normal [facility] Work Phone: Comment on above: [facility] (refer to re port for specific site)refer to report for address and phone number M. tuberculosis tuberculin stim IFN-g Ql (Bld) > 10.00 Normal [facility] Work Phone: Comment on above: [facility] (refer to re port for specific site)refer to report for address and phone number M. tuberculosis tuberculin stim IFN-g Ql (Bld) 0.03 {IU/mL} Normal [facility] Work Phone: Comment on above: [facility] (refer to re port for specific site)refer to report for address and phone number M. tuberculosis tuberculin stim IFN-g Ql (Bld) Negative Normal [facility] Work Phone: Comment on above: The specimen receive d for QuantiFERON testing was incubatedby the ordering institution. Specific procedures outlinedin our Directory of Services and in the package insert forthe QuantiFERON Gold (In Tube) test must be followed toenable for proper stimulation of cells for the productionof interferon gamma. [facility] (refer to re port for specific site)refer to report for address and phone number Rheumatoid FactorOrdered By: Heat Curer on 03-23-2016 Rheumatoid factor Qn [IU]/mL Normal [facility] Work Phone: Comment on above: [facility] [address] [place], [place], [phone] ANTINUCLEAR ANTIBODIES DIREC TOrdered By: Heat Curer on 02-01-2015 Nuclear Ab Ql (S) Negative Normal Compreh ensive Internal Medicine Work Phone: Comment on above: Performed at: [address] [id number] Director: Carlos Alberto Lynch PhD, Phone: [phone] [facility] (refer to re port for specific site)refer to report for address and phone number CBC W/Diff, AutomatedOrdered By: Heat Curer on 02-01-2015 Absolute Neut 4.2 {X10_3/uL} Normal 2.0-7.7 Compreh ensive Internal Medicine Work Phone: Comment on above: [facility] [address] [place], [phone] Basophils/100 WBC (Bld) 0.4 % Normal 0-1 [facility] Work Phone: Comment on above: [facility] [address] [place], [phone] Eosinophils/100 WBC (Bld) 2.5 % Normal 0-5 [facility] Work Phone: Comment on above: [facility] [address] [place], [place], [phone] Erythrocyte distribution width Ratio (RBC) 13.3 % Normal 11.6-14.6 [facility] Work Phone: Comment on above: [facility] [address] [place], [place], [phone] Hematocrit Volume Fraction (Bld) 41.8 % Normal 37-47 [facility] Work Phone: Comment on above: [facility] [address] [place], [address] Hemoglobin mass conc (Bld) 13.6 g/dL Normal 12.0-15.0 [facility] Work Phone: Comment on above: [place] [address] [place], [address] IM GRAN % 0.100 % Normal 0.0-0.9 [facility] Work Phone: Comment on above: IG% - Immature Granu locytes (promyelocytes, myelocytes andmetamyelocytes) > 1% indicates that a LEFT SHIFT is Present. [place] [address] [place], [address] Lymphocytes #/vol (Bld) 1.72 {X10_3/ul} Normal 0.83-4.51 [facility] Work Phone: Comment on above: [place] [address] [place], [address] Lymphocytes/100 WBC (Bld) 25.6 % Normal 19-41 [facility] Work Phone: Comment on above: [place] [address] [place], [address] MCH Entitic mass (RBC) 28.8 pg Normal 27.0-32.0 [facility] Work Phone: Comment on above: [facility] [address] [place], [address] MCHC mass conc (RBC) 32.5 {g/gl} Normal 32-36 [facility] Work Phone: Comment on above: [place] [address] [place], [address] MCV Entitic volume (RBC) 88.4 fL Normal 81-99 [facility] Work Phone: Comment on above: [facility] [address] [place], [address] Monocytes/100 WBC (Bld) 8.3 % Normal 0-10 [facility] Work Phone: Comment on above: [facility] [address] [place], [address] Neutrophils/100 WBC (Bld) 63.1 % Normal 47-70 [facility] Work Phone: Comment on above: [facility] [address] [place], [address] Platelet mean volume Entitic volume (Bld) 9.8 fL Normal 6.2-12.0 [facility] Work Phone: Comment on above: [facility] [address] [place], [address] Platelets #/vol (Bld) 261 10*3/uL Normal 150-450 [facility] Work Phone: Comment on above: [facility] [address] [place], [address] RBC #/vol (Bld) 4.73 {M/mm3} Normal 4.2-5.4 Compreh ensive Internal Medicine Work Phone: Comment on above: [facility] [address] [place], [address] RDW SD 43.3 fL Normal 35.1-43.9 [facility] Work Phone: Comment on above: [facility] [address] [place], [address] WBC #/vol (Bld) 6.7 10*3/uL Normal 4.4-11.0 Comprehe nsive Internal Medicine Work Phone: Comment on above: [facility] [address] [place], [place], [phone] Comprehensive Metabolic Prof ilOrdered By: Heat Curer on 02-01-2015 Comprehensive metabolic 2000 panel 1.0 {RATIO} Normal 0.9-2.4 [facility] Work Phone: Comment on above: [facility] [address] [place], [place], [phone] Comprehensive metabolic 2000 panel 7 1 Normal 5-15 [facility] Work Phone: Comment on above: [facility] [address] [place], [place], [phone] Comprehensive metabolic 2000 panel 90 mg/dL Normal 70-110 [facility] Work Phone: Comment on above: [place] [address] [place], [place], [phone] Comprehensive metabolic 2000 panel 12 mg/dL Normal 7-18 [facility] Work Phone: Comment on above: [facility] [address] [place], [place], [phone] Comprehensive metabolic 2000 panel 0.73 mg/dL Normal 0.55-1.20 [facility] Work Phone: Comment on above: The validity of the calculated GFR AND GFRAA in patients over70 years has not been determined. Clinical correlation isessential. [facility] [address] [place], [place], [phone] Comprehensive metabolic 2000 panel 92 mL/min Normal [facility] Work Phone: Comment on above: Non- GFR Calc [facility] [address] [place], [place], [phone] Comprehensive metabolic 2000 panel 111 mL/min Normal [facility] Work Phone: Comment on above: GFR Calc [facility] [address] [place], [place], [address] Comprehensive metabolic 2000 panel 16.3 {RATIO} Normal 10-20 [facility] Work Phone: Comment on above: [facility] [address] [place], [address] Comprehensive metabolic 2000 panel 8.2 g/dL Normal 6.4-8.2 [facility] Work Phone: Comment on above: [facility] [address] [place], [place], [address] Comprehensive metabolic 2000 panel 4.0 g/dL Normal 3.4-5.0 [facility] Work Phone: Comment on above: [facility] [address] [place], [place], [phone] Comprehensive metabolic 2000 panel 4.2 g/dL Abnormal 2.3-3.5 [facility] Work Phone: Comment on above: [facility] [address] [place], [place], [phone] Comprehensive metabolic 2000 panel 28.0 mmol/L Normal 21.0-32.0 [facility] Work Phone: Comment on above: [facility] [address] [place], [address] Comprehensive metabolic 2000 panel 8.9 mg/dL Normal 8.5-10.1 [facility] Work Phone: Comment on above: [facility] [address] [place], [address] Comprehensive metabolic 2000 panel 7 U/L Abnormal 15-37 [facility] Work Phone: Comment on above: [facility] [address] [place], [address] Comprehensive metabolic 2000 panel 59 U/L Normal 50-136 [facility] Work Phone: Comment on above: [facility] [address] [place], [place], [address] Comprehensive metabolic 2000 panel 24 U/L Normal 12-78 [facility] Work Phone: Comment on above: [facility] [address] [place], [place], [address] Comprehensive metabolic 2000 panel 0.30 mg/dL Normal 0.20-1.00 [facility] Work Phone: Comment on above: [facility] [address] [place], [place], [address] Comprehensive metabolic 2000 panel 140 mmol/L Normal 136-145 [facility] Work Phone: Comment on above: [facility] [address] [place], [place], [address] Comprehensive metabolic 2000 panel 4.0 mmol/L Normal 3.5-5.1 [facility] Work Phone: Comment on above: [facility] [address] [place], [place], [phone] Comprehensive metabolic 2000 panel 105 mmol/L Normal 98-107 [facility] Work Phone: Comment on above: [facility] [address] [place], [place], [phone] HIV Test W/ConfirmationOrder ed By: Heat Curer on 02-01-2015 HIV Test W/Confirmation < 1.00 Normal [facility] Work Phone: Comment on above: Index Value: Specime n reactivity relative to the negativecutoff. [facility] (refer to re port for specific site)refer to report for address and phone number Hepatitis ABC ProfileOrdered By: Heat Curer on 02-01-2015 Hepatitis ABC Profile Comment Normal [facility] Work Phone: Comment on above: Non reactive HCV ant ibody screen is consistent with no HCVinfection, unless recent infection is suspected or otherevidence exists to indicate HCV infection. [facility] (refer to re port for specific site)refer to report for address and phone number Hepatitis ABC Profile 0.1 {s/co_ratio} Normal 0.0-0.9 [facility] Work Phone: Comment on above: [facility] (refer to re port for specific site)refer to report for address and phone number Hepatitis ABC Profile Non Reactive Normal [facility] Work Phone: Comment on above: Non Reactive: Incons istent with immunity, less than 10 mIU/mL Reactive: Consistent with immunity, greater than 9.9 mIU/mL [facility] (refer to re port for specific site)refer to report for address and phone number Hepatitis ABC Profile Negative Normal [facility] Work Phone: Comment on above: [facility] (refer to re port for specific site)refer to report for address and phone number Quantiferon TB-GoldOrdered B y: Heat Curer on 02-01-2015 M. tuberculosis tuberculin stim IFN-g Ql (Bld) 0.01 {IU/mL} Normal [facility] Work Phone: Comment on above: [facility] (refer to re port for specific site)refer to report for address and phone number M. tuberculosis tuberculin stim IFN-g Ql (Bld) 0.02 {IU/mL} Normal [facility] Work Phone: Comment on above: [facility] (refer to re port for specific site)refer to report for address and phone number M. tuberculosis tuberculin stim IFN-g Ql (Bld) > 10.00 Normal [facility] Work Phone: Comment on above: [facility] (refer to re port for specific site)refer to report for address and phone number M. tuberculosis tuberculin stim IFN-g Ql (Bld) < 0 Normal [facility] Work Phone: Comment on above: [facility] (refer to re port for specific site)refer to report for address and phone number M. tuberculosis tuberculin stim IFN-g Ql (Bld) Comment Normal [facility] Work Phone: Comment on above: The QuantiFERON TB G old (in Tube) assay is intended for useas an aid in the diagnosis of TB infection. Negativeresults suggest that there is no TB infection. In patientswith high suspicion of exposure, a negative test should berepeated. A positive test indicates infection withMycobacterium tuberculosis. Among individuals withouttuberculosis infection, a positive test may be due toexposure to M. kansasii, M. szulgai or M. marinum. On theInternet, go to cdc.gov/tb for further details. [facility] (refer to re port for specific site)refer to report for address and phone number To be considered pos itive a specimen should have a TB Agminus Nil value greater than or equal to 0.35 IU/mL and inaddition the TB Ag minus Nil value must be greater than orequal to 25% of the Nil value. There may be insufficientinformation in these values to differentiate between somenegative and some indeterminate test values. M. tuberculosis tuberculin stim IFN-g Ql (Bld) Negative Normal [facility] Work Phone: Comment on above: The specimen receive d for QuantiFERON testing was incubatedby the ordering institution. Specific procedures outlinedin our Directory of Services and in the package insert forthe QuantiFERON Gold (In Tube) test must be followed toenable for proper stimulation of cells for the productionof interferon gamma. [facility] (refer to re port for specific site)refer to report for address and phone number URINE HISTOPLASMA ANTIGENOrd ered By: Heat Curer on 02-01-2015 URINE HISTOPLASMA ANTIGEN 0.76 EU Normal [facility] Work Phone: Comment on above: Reference RangeNegat destiny 0.00 - 3.50Equivocal 3.51 - 4.50Positive >4.50Repeat testing is suggested if result does not supportclinical presentation of equivocal or positive patients.The performance characteristics of the listed assay wasvalidated by [employer]. The [place] FDA has notapproved or cleared this test. The results of these assaycan be used for clinical diagnosis without FDA approval.[facility] is a CLIA certified, CAP accreditedlaboratory for performing high complexity assays such asthis one.Performed at: [facility] [employer] [id number] Director: Carlos Alberto Lynch PhD, Phone: [phone] at: E= - [facility] [address] [place], [place] [id number] Director: Jaime Chaney PhD, Phone: [phone] [facility] (refer to re port for specific site)refer to report for address and phone number C-REACTIVE PROTEIN ([id number])Or dered By: Heat Curer on 05-27-2014 CRP mass conc 0.5 mg/L Normal 0.0-4.9 Comprehensi ve Internal Medicine Work Phone: Comment on above: PATIENT NOT FASTINGP ERFORMED BY: [id number] [facility] [id number] CALCIFIDIOL (14873) VIT D 25 Ordered By: Heat Curer on 05-27-2014 25-Hydroxyvitamin D2+25-Hydroxyvitami n D3 mass conc 27.7 ng/mL Abnormal 30.0-100.0 [facility] Work Phone: Comment on above: Vitamin D deficiency has been defined by the [place] [facility] and an Endocrine Society practice guideline as alevel of serum 25-OH vitamin D less than 20 ng/mL (1,2).The Endocrine Society went on to further define vitamin Dinsufficiency as a level between 21 and 29 ng/mL (2).1. IOM ([place] of Medicine). 2010. Dietary reference intakes for calcium and D. [place]: The National Academies Press.2. Davis [place], [place], Lane BETTENCOURT, et al. Evaluation, treatment, and prevention of vitamin D deficiency: an Endocrine Society clinical practice guideline. JCEM. 2010; 96(7):1911-30. PATIENT NOT FASTINGP ERFORMED BY: [id number] [facility] [id number] CBC (AUTO) ([id number])Ordered By : Heat Curer on 05-27-2014 Erythrocyte distribution width Ratio (RBC) 13.4 % Normal 12.3-15.4 [facility] Work Phone: Comment on above: PATIENT NOT FASTINGP ERFORMED BY: 1Cast Gobadw4686 [facility] [id number] Hematocrit Volume Fraction (Bld) 41.1 % Normal 34.0-46.6 [facility] Work Phone: Comment on above: PATIENT NOT FASTINGP ERFORMED BY: TEO LabCoyamileth MendozaLfsqrr[address] [facility] [id number] Hemoglobin mass conc (Bld) 13.6 g/dL Normal 11.1-15.9 [facility] Work Phone: Comment on above: PATIENT NOT FASTINGP ERFORMED BY: TEO [facility] Ybxyfu5232 [facility] [id number] MCH Entitic mass (RBC) 28.8 pg Normal 26.6-33.0 [facility] Work Phone: Comment on above: PATIENT NOT FASTINGP ERFORMED BY: TEO Mendoza6370 [facility] [id number] MCHC mass conc (RBC) 33.1 g/dL Normal 31.5-35.7 [facility] Work Phone: Comment on above: PATIENT NOT FASTINGP ERFORMED BY: TEO Mendoza6370 [facility] [id number] MCV Entitic volume (RBC) 87 fL Normal 79-97 [facility] Work Phone: Comment on above: PATIENT NOT FASTINGP ERFORMED BY: TEO Mendoza6370 [facility] [id number] Platelets #/vol (Bld) 284 {x10E3/uL} Normal 150-379 [facility] Work Phone: Comment on above: PATIENT NOT FASTINGP ERFORMED BY: TEO Gileslin6370 [facility] [id number] Platelets (Bld) [#/Vol] 284 10*3/uL Normal 150-379 [facility]; [facility] Work Phone: Comment on above: PATIENT NOT FASTINGP ERFORMED BY: TEO Gileslin6370 [facility] [id number] RBC #/vol (Bld) 4.72 {x10E6/uL} Normal 3.77-5.28 Comp [facility] Internal Medicine Work Phone: Comment on above: PATIENT NOT FASTINGP ERFORMED BY: TEO [facility] Vwrwjn45[address] Seth RoadDublin [place] [id number] RBC (Bld) [#/Vol] 4.72 10*6/uL Normal 3.77-5.28 Compr ensive Internal Medicine; [facility] Work Phone: Comment on above: PATIENT NOT FASTINGP ERFORMED BY: CB [facility] Repvsi0331 Seth RoadDublin [place] [id number] WBC #/vol (Bld) 6.8 {x10E3/uL} Normal 3.4-10.8 Compr ensive Internal Medicine Work Phone: Comment on above: PATIENT NOT FASTINGP ERFORMED BY: CB [facility] Cvvres[address] RoadDublin [place] [id number] WBC (Bld) [#/Vol] 6.8 10*3/uL Normal 3.4-10.8 Compre [facility] Internal Medicine; [facility] Work Phone: Comment on above: PATIENT NOT FASTINGP ERFORMED BY: TEO [facility] Lfgpmj[address] [facility] [place] [id number] METABOLIC PANEL, COMPREHENSI VE ([id number])Ordered By: Heat Curer on 05-27-2014 Albumin mass conc 4.4 g/dL Normal 3.5-5.5 Compreh [facility] Internal Medicine Work Phone: Comment on above: PATIENT NOT FASTINGP ERFORMED BY: CB [facility] Rjqxup[address] [facility]in [place] [id number] Information: [id number], [id number] Albumin/Globulin mass ratio 1.5 {ratio} Normal 1.1-2.5 [facility] Work Phone: Comment on above: PATIENT NOT FASTINGP ERFORMED BY: CB [facility] Jkuhbz4[address] Seth RoadDublin [place] [id number] Information: [id number], [id number] ALP [Catalytic activity/Vol] 55 U/L Normal 39-117 [facility]; [facility] Work Phone: Comment on above: PATIENT NOT FASTINGP ERFORMED BY: CB [facility] Qyabmk4060 Seth RoadDublin [place] [id number] Information: [id number], [id number] ALP enzyme act/vol 55 [iU]/L Normal 39-117 [facility] Internal Medicine Work Phone: Comment on above: PATIENT NOT FASTINGP ERFORMED BY: CB [facility] Edjrou0578 Seth RoadDublin [place] [id number] Information: [id number], [id number] ALT [Catalytic activity/Vol] 16 U/L Normal 0-32 [facility]; [facility] Internal Medicine Work Phone: Comment on above: PATIENT NOT FASTINGP ERFORMED BY: CB [facility] Cvirnw9488 Seth RoadDublin [place] [id number] Information: [id number], [id number] ALT enzyme act/vol 16 [iU]/L Normal 0-32 [facility] Internal Medicine Work Phone: Comment on above: PATIENT NOT FASTINGP ERFORMED BY: CB [facility] [id number] Seth RoadDublin [place] [id number] Information: [id number], [id number] AST [Catalytic activity/Vol] 8 U/L Normal 0-40 [facility] Internal Medicine; [facility] Internal Medicine Work Phone: Comment on above: PATIENT NOT FASTINGP ERFORMED BY: CB [facility] Drarhm1984 Seth RoadDublin [place] [id number] Information: [id number], [id number] AST enzyme act/vol 8 [iU]/L Normal 0-40 [facility] Internal Medicine Work Phone: Comment on above: PATIENT NOT FASTINGP ERFORMED BY: CB [facility] Pxsnkb7655 Seth RoadDublin [place] [id number] Information: [id number], [id number] Bilirubin mass conc 0.3 mg/dL Normal 0.0-1.2 [facility] Internal Medicine Work Phone: Comment on above: PATIENT NOT FASTINGP ERFORMED BY: CB [facility] Fnpgxm1763 Seth RoadDublin [place] [id number] Information: [id number], 104826 Calcium mass conc 9.1 mg/dL Normal 8.7-10.2 Com[facility] ens[facility] Internal Medicine Work Phone: Comment on above: PATIENT NOT FASTINGP ERFORMED BY: TEO [facility] Zreqne4456 Seth RoadRickyblin [place] [id number] Information: [id number], [id number] Chloride molar conc 101 mmol/L Normal 97-108 Compr ehensive Internal Medicine Work Phone: Comment on above: PATIENT NOT FASTINGP ERFORMED BY: CB [facility] Gpntev9966 Seth Roadblin [place] [id number] Information: [id number], 145045 CO2 molar conc 22 mmol/L Normal 18-29 [facility] Internal Medicine Work Phone: Comment on above: PATIENT NOT FASTINGP ERFORMED BY: CB [facility] Ogjtdj1676 Seth RoadOnslow [facility] Hospitalin [place] [id number] Information: [id number], 700052 Creatinine mass conc 0.69 mg/dL Normal 0.57-1.00 [facility] Work Phone: Comment on above: PATIENT NOT FASTINGP ERFORMED BY: CB [facility] Lyslib1178 Seth RoadOnslow [facility] Hospitalin [place] [id number] Information: [id number], 218099 GFR/1.73 sq M predicted among blacks CKD-EPI vol rate/area (S/P/Bld) 123 mL/min/1.73 Normal Comprehensiv e Internal Medicine Work Phone: Comment on above: PATIENT NOT FASTINGP ERFORMED BY: CB [facility] Ollhuc1258 Seth RoadOnslow [facility] Hospitalin [place] [id number] Information: [id number], 471370 GFR/1.73 sq M predicted among non-blacks CKD-EPI vol rate/area (S/P/Bld) 107 mL/min/1.73 Normal [facility] Work Phone: Comment on above: PATIENT NOT FASTINGP ERFORMED BY: CB [facility] Gyexmf7257 Seth RoadDublin [place] [id number] Information: [id number], 844035 Globulin mass conc (S) 2.9 g/dL Normal 1.5-4.5 [facility] Work Phone: Comment on above: PATIENT NOT FASTINGP ERFORMED BY: TEO LabCoyamileth MendozaDgohzi9705 [facility] [id number] Information: [id number], 216353 Glucose mass conc 87 mg/dL Normal 65-99 Compreh ensive Internal Medicine Work Phone: Comment on above: PATIENT NOT FASTINGP ERFORMED BY: [facility]6370 [facility] [id number] Information: [id number], 304996 Potassium molar conc 4.7 mmol/L Normal 3.5-5.2 [facility] Work Phone: Comment on above: PATIENT NOT FASTINGP ERFORMED BY: [facility]6370 [facility] [id number] Information: [id number], 535081 Protein mass conc 7.3 g/dL Normal 6.0-8.5 Compreh ensive Internal Medicine Work Phone: Comment on above: PATIENT NOT FASTINGP ERFORMED BY: LabCoSaint [facility] HospitalCxwffn6787 [facility] [id number] Information: [id number], 414034 Sodium molar conc 138 mmol/L Normal 134-144 Compreh ensive Internal Medicine Work Phone: Comment on above: PATIENT NOT FASTINGP ERFORMED BY: LabCoSaint James HospitalJasncj5488 [facility] [id number] Information: [id number], 863090 Urea nitrogen mass conc 14 mg/dL Normal 6-24 [facility] Work Phone: Comment on above: PATIENT NOT FASTINGP ERFORMED BY: [facility] Iabavt7714 [facility] [id number] Information: [id number], 942923 Urea nitrogen/Creatinine mass ratio 20 mg/mg Normal 9-23 [facility] Work Phone: Comment on above: PATIENT NOT FASTINGP ERFORMED BY: [facility] Fkosdc1370 Seth [facility]in [place] [id number] Information: [id number], 498723 SED RATE ERYTHROCYTE ([id number]) Ordered By: Heat Curer on 05-27-2014 ESR Velocity (Bld) 6 mm/h Normal 0-32 Compre [facility] Internal Medicine Work Phone: Comment on above: PATIENT NOT FASTINGP ERFORMED BY: CB [facility] Gnrtbd9084 Seth [facility] [place] [id number] TSH ([id number])Ordered By: Syste m Billing And Accounting Staff Assistant on 05-27-2014 Thyrotropin Qn 1.060 {uIU/mL} Normal 0.450-4.50 0 [facility] Work Phone: Comment on above: PATIENT NOT FASTINGP ERFORMED BY: [facility] Sbtgwi7873 Seth [facility] [place] [id number] VITAMIN B-12 (CYANOCOBALAMIN ) ([id number])Ordered By: Heat Curer on 05-27-2014 Cobalamin (Vitamin B12) mass conc 433 pg/mL Normal 211-946 [facility] Work Phone: Comment on above: PATIENT NOT FASTINGP ERFORMED BY: CB [facility] Qhaorq4968 Seth [facility] [id number] CBC W/Diff, AutomatedOrdered By: Heat Curer on 02-22-2014 Absolute Neut 4.5 {X10_3/uL} Normal 2.0-7.7 Compreh ensive Internal Medicine Work Phone: Comment on above: Test performed at:[facility] [address] [place] [address] Basophils/100 WBC (Bld) 0.5 % Normal 0-1 [facility] Work Phone: Comment on above: Test performed at:[facility] [address] [place] [address] Eosinophils/100 WBC (Bld) 1.9 % Normal 0-5 [facility] Work Phone: Comment on above: Test performed at:[facility] [address] [place] [address] Erythrocyte distribution width Ratio (RBC) 12.7 % Normal 11.6-14.6 [facility] Work Phone: Comment on above: Test performed at:[facility] [address] [place] [address] Hematocrit Volume Fraction (Bld) 42.1 % Normal 37-47 [facility] Work Phone: Comment on above: Test performed at:[facility] [address] [place] [address] Hemoglobin mass conc (Bld) 14.1 g/dL Normal 12.0-15.0 [facility] Work Phone: Comment on above: Test performed at:[facility] [address] [place] [address] IM GRAN % 0.300 % Normal 0.0-0.9 [facility] Work Phone: Comment on above: IG% - Immature Granu locytes (promyelocytes, myelocytes andmetamyelocytes) > 1% indicates that a LEFT SHIFT is Present. Test performed at:[facility] [address] [place] [address] Lymphocytes #/vol (Bld) 2.02 {X10_3/ul} Normal 0.83-4.51 [facility] Work Phone: Comment on above: Test performed at:[facility] [address] [place] [address] Lymphocytes/100 WBC (Bld) 27.2 % Normal 19-41 [facility] Work Phone: Comment on above: Test performed at:[facility] [address] [place] [address] MCH Entitic mass (RBC) 29.9 pg Normal 27.0-32.0 [facility] Work Phone: Comment on above: Test performed at:[facility] [address] [place] [address] MCHC mass conc (RBC) 33.5 {g/gl} Normal 32-36 [facility] Work Phone: Comment on above: Test performed at:[facility] [address] [place] [address] MCV Entitic volume (RBC) 89.2 fL Normal 81-99 [facility] Work Phone: Comment on above: Test performed at:[facility] [address] [place] [address] Monocytes/100 WBC (Bld) 9.3 % Normal 0-10 [facility] Work Phone: Comment on above: Test performed at:[facility] [address] [place] [address] Neutrophils/100 WBC (Bld) 60.8 % Normal 47-70 [facility] Work Phone: Comment on above: Test performed at:[facility] [address] [place] [address] Platelet mean volume Entitic volume (Bld) 9.8 fL Normal 6.2-12.0 [facility] Work Phone: Comment on above: Test performed at:[facility] [address] [place] [address] Platelets #/vol (Bld) 266 10*3/uL Normal 150-450 [facility] Work Phone: Comment on above: Test performed at:[facility] [address] [place] [address] RBC #/vol (Bld) 4.72 {M/mm3} Normal 4.2-5.4 Compreh ensive Internal Medicine Work Phone: Comment on above: Test performed at:[facility] [address] [place] [address] RDW SD 41.3 fL Normal 35.1-43.9 [facility] Work Phone: Comment on above: Test performed at:[facility] [address] [place] [address] WBC #/vol (Bld) 7.4 10*3/uL Normal 4.4-11.0 Comprehe nsive Internal Medicine Work Phone: Comment on above: Test performed at:[facility] [address] [place] [address] Comprehensive Metabolic Prof ilOrdered By: Heat Curer on 02-22-2014 Albumin mass conc 4.0 g/dL Normal 3.4-5.0 Compreh ensive Internal Medicine Work Phone: Comment on above: Test performed at:[facility] [address] [place] [address] Albumin/Globulin mass ratio 1.1 {RATIO} Normal 0.9-2.4 [facility] Work Phone: Comment on above: Test performed at:[facility] [address] [place] [address] ALT enzyme act/vol 21 U/L Normal 12-78 Compre [facility] Internal Medicine Work Phone: Comment on above: Test performed at:[facility] [address] [place] [address] AST enzyme act/vol U/L Abnormal 15-37 [facility]pre [facility] Internal [facility] Work Phone: Comment on above: Test performed at:[facility] [address] [place] [address] Bilirubin mass conc 0.30 mg/dL Normal 0.00-4.00 Compr ehensive Internal Medicine Work Phone: Comment on above: Test performed at:[facility] [address] [place] [address] Calcium mass conc 9.7 mg/dL Normal 8.5-10.1 Compreh ensive Internal Medicine Work Phone: Comment on above: Test performed at:[facility] [address] [place] [address] Chloride molar conc 106 mmol/L Normal 98-107 Compr ehensive Internal Medicine Work Phone: Comment on above: Test performed at:[facility] [address] [place] [address] CO2 molar conc 26.0 mmol/L Normal 21.0-32.0 Comprehen sive Internal Medicine Work Phone: Comment on above: Test performed at:[facility] [address] [place] [address] Creatinine mass conc 0.8 mg/dL Normal 0.6-1.0 [facility] Work Phone: Comment on above: Test performed at:[facility] [address] [place] [address] GFR/1.73 sq M predicted among non-blacks MDRD vol rate/area (S/P/Bld) 84 mL/min/{1.73_m2} Normal Comprehe nsive Internal Medicine Work Phone: Comment on above: Test performed at:[facility] [address] [place] [address] Globulin mass conc (S) 3.8 g/dL Normal 2.7-4.2 [facility] Work Phone: Comment on above: Test performed at:[facility] [address] [place] [address] Glucose mass conc 73 mg/dL Normal 70-110 Compreh ensive Internal Medicine Work Phone: Comment on above: Test performed at:[facility] [address] [place] [address] Potassium molar conc 4.0 mmol/L Normal 3.5-5.1 [facility] Work Phone: Comment on above: Test performed at:[facility] [address] [place] [address] Protein mass conc 7.8 g/dL Normal 6.4-8.2 Compreh ensive Internal Medicine Work Phone: Comment on above: Test performed at:[facility] [address] [place] [address] Sodium molar conc 137 mmol/L Normal 136-145 Compreh ensive Internal Medicine Work Phone: Comment on above: Test performed at:[facility] [address] [place] [address] Urea nitrogen mass conc 13 mg/dL Normal 7-18 [facility] Work Phone: Comment on above: Test performed at:[facility] [address] [place] [address] Comprehensive Metabolic Profil 52 U/L Normal 50-136 [facility] Work Phone: Comment on above: Test performed at:[facility] [address] [place] [address] Comprehensive Metabolic Profil 16.3 {RATIO} Normal 10-20 [facility] Work Phone: Comment on above: Test performed at:[facility] [address] [place] [address] Comprehensive Metabolic Profil 102 mL/min Normal [facility] Work Phone: Comment on above: Test performed at:[facility] [address] [place] [address] Comprehensive Metabolic Profil 5 1 Normal 5-15 [facility] Work Phone: Comment on above: Test performed at:[facility] [address] [place] [address] SPE [id number] By: Heat Curer on 07-17-2010 Albumin mass conc 4.0 g/dL Normal 3.2-5.6 Compreh ensive Internal Medicine Work Phone: Albumin/Globulin mass ratio 1.2 {ratio} Normal 0.7-2.0 [facility] Work Phone: Globulin mass conc (S) 3.3 g/dL Normal 2.0-4.5 [facility] Work Phone: Protein mass conc 7.3 g/dL Normal 6.0-8.5 Compreh ensive Internal Medicine Work Phone: SPE [id number] Comment Normal [facility] Work Phone: Comment on above: The SPE pattern appe ars essentially unremarkable. Evidenceof monoclonal protein is not apparent.Performed at: [facility] [employer] [id number] Director: Constance Rapp MD, Phone: [phone] electrophoresis scan will follow via computer,mail, or varnish melter helper delivery. SPE [id number] 0.9 g/dL Normal 0.6-1.3 [facility] Work Phone: SPE [id number] 1.6 g/dL Normal 0.5-1.6 [facility] Work Phone: SPE [id number] 0.6 g/dL Normal 0.4-1.2 [facility] Work Phone: SPE [id number] SeeNote Normal [facility] Work Phone: Comment on above: Result: Not Observed SPE [id number] 0.2 g/dL Normal 0.1-0.4 [facility] Work Phone: CBCDOrdered By: System Manag er on 07-13-2010 Basophils/100 WBC (Bld) 0.5 % Normal 0-1 [facility] Work Phone: Eosinophils/100 WBC (Bld) 3.5 % Normal 0-5 [facility] Work Phone: Erythrocyte distribution width Ratio (RBC) 12.6 % Normal 11.6-14.6 [facility] Work Phone: Hematocrit Volume Fraction (Bld) 41.2 % Normal 37-47 [facility] Work Phone: Hemoglobin mass conc (Bld) 14.2 g/dL Normal 12.0-16.0 [facility] Work Phone: Lymphocytes/100 WBC (Bld) 28.8 % Normal 19-41 [facility] Work Phone: MCH Entitic mass (RBC) 31.6 pg Normal 27.0-32.0 [facility] Work Phone: MCHC mass conc (RBC) 34.5 g/dL Normal 32-36 [facility] Work Phone: MCV Entitic volume (RBC) 91.6 fL Normal 81-99 [facility] Work Phone: Monocytes/100 WBC (Bld) 5.9 % Normal 0-10 [facility] Work Phone: Neutrophils #/vol (Bld) 4.2 3/uL Normal 2.0-7.7 [facility] Work Phone: Neutrophils/100 WBC (Bld) 61.3 % Normal 47-70 [facility] Work Phone: Platelet mean volume Entitic volume (Bld) 8.2 fL Normal 6.5-12.0 [facility] Work Phone: Platelets #/vol (Bld) 227 10*3/uL Normal 150-450 [facility] Work Phone: RBC #/vol (Bld) 4.49 {M/mm3} Normal 4.2-5.4 Compreh ensive Internal Medicine Work Phone: WBC #/vol (Bld) 6.9 10*3/uL Normal 4.4-11.0 Comprehe nsive Internal Medicine Work Phone: COMP METABOLICOrdered By: Elmer stem Billing And Accounting Staff Assistant on 07-13-2010 Albumin mass conc 4.0 g/dL Normal 3.4-5.0 Compreh ensive Internal Medicine Work Phone: Albumin/Globulin mass ratio 1.1 {RATIO} Normal 0.9-2.4 [facility] Work Phone: ALP enzyme act/vol 53 U/L Normal 50-136 Compre [facility] Internal Medicine Work Phone: ALT enzyme act/vol 18 U/L Normal 12-78 [facility] Internal [facility] Work Phone: Anion gap molar conc 9 mmol/L Normal 5-15 [facility] Work Phone: AST enzyme act/vol 4 U/L Abnormal 15-37 Compre [facility] Internal Medicine Work Phone: Bilirubin mass conc 0.40 mg/dL Normal 0.00-1.00 Compr ensive Internal Medicine Work Phone: Calcium mass conc 8.8 mg/dL Normal 8.5-10.1 Compre[facility] Internal [facility] Work Phone: Chloride molar conc 105 mmol/L Normal 98-107 Compr [facility] Internal Medicine Work Phone: CO2 molar conc 26.0 mmol/L Normal 21.0-32.0 Comprehen [facility] Internal Medicine Work Phone: Creatinine mass conc 1.0 mg/dL Normal 0.6-1.0 [facility] Internal Medicine Work Phone: GFR/1.73 sq M predicted among blacks MDRD vol rate/area (S/P/Bld) 80 mL/min/{1.73_m2} Normal Comprehe nsive Internal Medicine Work Phone: GFR/1.73 sq M.predicted MDRD vol rate/area 66 mL/min/{1.73_m2} Normal Comprehensiv e Internal Medicine Work Phone: Globulin mass conc (S) 3.6 g/dL Normal 2.7-4.2 [facility] Internal Medicine Work Phone: Glucose mass conc 89 mg/dL Normal 70-110 Compreh ensive Internal Medicine Work Phone: Potassium molar conc 4.1 mmol/L Normal 3.5-5.1 [facility] Work Phone: Protein mass conc 7.6 g/dL Normal 6.4-8.2 Compreh ensive Internal Medicine Work Phone: Sodium molar conc 140 mmol/L Normal 136-145 [facility] Internal Medicine Work Phone: Urea nitrogen mass conc 13 mg/dL Normal 7-18 [facility] Internal Medicine Work Phone: Urea nitrogen/Creatinine mass ratio 13.0 {RATIO} Normal 10-20 [facility] Internal Medicine Work Phone: ESROrdered By: System Manage r on 07-13-2010 ESR Velocity (Bld) 4 mm/h Normal 0-20 [facility] Internal [facility] Work Phone: Comment on above: appt 08/17/*11 TSHOrdered By: System Manage r on 07-13-2010 Thyrotropin Qn 0.64 {uIU/mL} Normal 0.358-3.74 Compreh [facility] Internal Medicine Work Phone: VITAMIN [id number] By: Davida m Billing And Accounting Staff Assistant on 07-13-2010 Cobalamin (Vitamin B12) mass conc 683 pg/mL Normal 254-1320 [facility] Internal Medicine Work Phone: Comment on above: There is a low frequ ency possibility that high titers ofintrinsic blocking antibodies may not be completely inactivated during the reaction pretreatment stepof this testing method. If test results are in conflictwith the clinical diagnosis, patient should be testedfor the presence of intrinsic factor blocking antibodies. CULTURE, THROATOrdered By: Demetrius conradm Billing And Accounting Staff Assistant on 08-31-2009 CULTURE, THROAT See Note Normal Comprehen [facility] Internal Medicine Work Phone: Comment on above: Penicillin is the dr ug of choice for Beta Streptococcalinfections. For Penicillin allergic patients, Erythromycinmay be used.COPY OF REPORT SENT TO INFECTION CONTROL 09/01/09 1032[facility]. AMOUNT GROWTH 3+ ORGANISM 1: GROUP A BETA STREPTOCOCCUS VIT D,25 47285Ewlbxkg By: Elmer ryan Billing And Accounting Staff Assistant on 08-30-2009 VIT D,25 58614 43.5 ng/mL Normal 32.0-100.0 Comprehens [facility] Internal Medicine Work Phone: Comment on above: Recent studies consi preston the lower limit of 32.0 ng/mL to maryam threshold for optimal health.Ghassan ROMO. J Nutr. 2004;135(2):317-22.Performed at: [facility] [address] [id number] Director: Constance Rapp MD, Phone: [phone] Rapid Strep Test, Office ([phone])Ordered By: ADRIAN Uribe on 08-29-2009 S. pyogenes Ag EIA Ql (Throat) Positive Normal [facility]; [facility] Work Phone: S. pyogenes Ag IA Ql (Unsp spec) Positive Normal [facility] Work Phone: Urinalysis, Office ([id number])Or dered By: ADRIAN Uribe on 08-29-2009 Bilirubin Ql (U) Negative Normal Comprehe nsive Internal Medicine Work Phone: Bilirubin Ql (U) Negative Normal Comprehe nsive Internal Medicine; [facility] Work Phone: Glucose Test strip (U) [Mass/Vol] Negative Normal [facility]; [facility] Work Phone: Glucose Test strip mass conc (U) Negative Normal [facility] Work Phone: Hemoglobin Ql (U) Hemolyzed Trace Normal Co mprehensive Internal Medicine Work Phone: Ketones Ql (U) Negative Normal Comprehens [facility] Internal Medicine Work Phone: Ketones Ql (U) Negative Normal Comprehens [facility]; [facility] Work Phone: Leukocyte esterase Test strip Ql (U) Trace Normal [facility] Work Phone: Nitrite Ql (U) Negative Normal Comprehens [facility] Internal Medicine Work Phone: Nitrite Ql (U) Negative Normal Comprehens [facility]; [facility] Work Phone: pH (U) 6.0 [pH] Normal [facility] Work Phone: Protein Ql (U) Trace Normal Comprehens [facility] Internal Medicine Work Phone: Specific gravity Relative Density (U) 1.025 1 Normal [facility] Work Phone: Urobilinogen mass/time (24H U) 2 mg/dL Normal [facility] Work Phone: CULTURE, THROATOrdered By: Demetrius streetertekalyan Billing And Accounting Staff Assistant on 08-19-2009 CULTURE, THROAT See Note Normal Comprehen [facility] Internal Medicine Work Phone: Comment on above: RESULTS FAXED TO DR CARTER 08/20/09 1050 GARY ECHOLS.Penicillin is the drug of choice for Beta Streptococcalinfections. For Penicillin allergic patients, Erythromycinmay be used. AMOUNT GROWTH 2+ ORGANISM 1: GROUP A BETA STREPTOCOCCUS COPY OF REPORT SENT TO INFECTION CONTROL 08/20/09 1423[facility]. Rapid Strep Test, Office ([phone])Ordered By: Eri Stevenson on 08-19-2009 S. pyogenes Ag EIA Ql (Throat) Negative Normal [facility]; [facility] Work Phone: S. pyogenes Ag IA Ql (Unsp spec) Negative Normal [facility] Work Phone: PPD ([id number])Ordered By: Esha galloway on 05-17-2009 PPD (55899) Negative Normal [facility] Work Phone: Comment on above: 0.0mm Lot:[id number]:04/21Do e:0.1 mlRoute:intradermalSite:left forearmGiven by: AUREA Ulloa PPD ([id number])on 05-17-2009 PPD (86705) Negative Normal [facility]; [facility] Work Phone: Comment on above: 0.0mm Lot:[id number]:04/21Dos e:0.1 mlRoute:intradermalSite:left forearmGiven by: AUREA Ulloa CULTURE, THROATOrdered By: Demetrius hughes Billing And Accounting Staff Assistant on 09-08-2008 CULTURE, THROAT See Note Normal [facility] Work Phone: Comment on above: #1-Penicillin is the drug of choice for Beta Streptococcalinfections. For Penicillin allergic patients, Erythromycinmay be used. AMOUNT GROWTH 3+ ORGANISM 1: GROUP A BETA STREPTOCOCCUS Rapid Strep Test, Office ([phone])Ordered By: Mandy Jean-Baptiste on 09-08-2008 S. pyogenes Ag EIA Ql (Throat) Positive Normal [facility]; [facility] Work Phone: S. pyogenes Ag IA Ql (Unsp spec) Positive Normal [facility] Work Phone: CBCD,SMEAR DIFFOrdered By: Demetrius hughes Billing And Accounting Staff Assistant on 05-21-2008 Band form neutrophils/100 WBC (Bld) 4 % Normal 0-5 [facility] Work Phone: Eosinophils/100 WBC (Bld) 2 % Normal 0-5 [facility] Work Phone: Erythrocyte distribution width Ratio (RBC) 12.6 % Normal 11.6-14.6 [facility] Work Phone: Hematocrit Volume Fraction (Bld) 40.2 % Normal 37-47 [facility] Work Phone: Hemoglobin mass conc (Bld) 14.2 g/dL Normal 12.0-16.0 [facility] Work Phone: Lymphocytes/100 WBC (Bld) 24 % Normal 19-41 [facility] Work Phone: MCH Entitic mass (RBC) 32.1 pg Abnormal 27.0-32.0 [facility] Work Phone: MCHC mass conc (RBC) 35.3 g/dL Normal 32-36 [facility] Work Phone: MCV Entitic volume (RBC) 90.9 fL Normal 81-99 [facility] Work Phone: Monocytes/100 WBC (Bld) 5 % Normal 0-10 [facility] Work Phone: Platelets #/vol (Bld) SeeNote Normal [facility] Work Phone: Comment on above: Result: ADEQUATE Platelets #/vol (Bld) 283 10*3/uL Normal 150-450 [facility] Work Phone: RBC #/vol (Bld) 4.42 {M/mm3} Normal 4.2-5.4 [facility] Work Phone: WBC #/vol (Bld) 7.1 10*3/uL Normal 4.4-11.0 [facility] Internal Medicine Work Phone: CBCD,SMEAR DIFF 100 1 Normal [facility] Internal Medicine Work Phone: CBCD,SMEAR DIFF SeeNote Normal [facility] Internal Medicine Work Phone: Comment on above: Result: NORM C+C CBCD,SMEAR DIFF 65 % Normal 47-70 [facility] Internal Medicine Work Phone: COMP METABOLICOrdered By: Elmer stem Billing And Accounting Staff Assistant on 05-21-2008 Albumin mass conc 4.1 g/dL Normal 3.4-5.0 [facility] Internal Medicine Work Phone: Albumin/Globulin mass ratio 1.3 {RATIO} Normal 0.9-2.4 [facility] Work Phone: ALP enzyme act/vol 63 U/L Normal 50-136 [facility] Internal Medicine Work Phone: ALT enzyme act/vol 32 U/L Normal 30-65 [facility] Medicine Work Phone: Anion gap molar conc 7 mmol/L Normal 5-15 [facility] Work Phone: AST enzyme act/vol 5 U/L Abnormal 15-37 [facility] Internal Medicine Work Phone: Bilirubin mass conc 0.42 mg/dL Normal 0.00-1.00 [facility] Internal Medicine Work Phone: Calcium mass conc 8.9 mg/dL Normal 8.5-10.1 [facility] Internal Medicine Work Phone: Chloride molar conc 107 mmol/L Normal 98-107 [facility] Internal Medicine Work Phone: CO2 molar conc 27.7 mmol/L Normal 21.0-32.0 [facility] Internal Medicine Work Phone: Creatinine mass conc 0.8 mg/dL Normal 0.6-1.0 [facility] Internal Medicine Work Phone: GFR/1.73 sq M predicted among blacks MDRD vol rate/area (S/P/Bld) 104 mL/min/{1.73_m2} Normal [facility] Work Phone: GFR/1.73 sq M.predicted MDRD vol rate/area 86 mL/min/{1.73_m2} Normal [facility] Work Phone: Globulin mass conc (S) 3.2 g/dL Normal 2.7-4.2 [facility] Work Phone: Glucose mass conc 99 mg/dL Normal 70-110 [facility] Work Phone: Potassium molar conc 3.9 mmol/L Normal 3.5-5.1 [facility] Work Phone: Protein mass conc 7.3 g/dL Normal 6.4-8.2 [facility] Work Phone: Sodium molar conc 142 mmol/L Normal 136-145 [facility] Work Phone: Urea nitrogen mass conc 12 mg/dL Normal 7-18 [facility] Work Phone: Urea nitrogen/Creatinine mass ratio 15.0 {RATIO} Normal 10-20 [facility] Internal Medicine Work Phone: MUMPS [id number] By: Demetrius hughes Billing And Accounting Staff Assistant on 05-21-2008 MUMPS [id number] < 0.80 Normal 0.00-0.79 [facility] Internal Medicine Work Phone: Comment on above: Negative < 0.80 Bord mili 0.80 - 1.20 Positive > 1.20 . Note: The presence of IgM specific antibody should be interpreted in conjunction with the patient's clinical history and exposure risk when an acute infection is suspected. MUMPS,IgG [id number] By: Demetrius streetertem Billing And Accounting Staff Assistant on 05-21-2008 MUMPS,IgG [id number] 2.70 {index} Abnormal 0.00-0.90 [facility] Internal Medicine Work Phone: Comment on above: Negative <0.91 Equiv ocal 0.91 - 1.09 Positive >1.09 Presence of antibodies to Mumps is presumptive evidence of immunity except when active infection is suspected. RUBELLA [id number] By: Syst em Billing And Accounting Staff Assistant on 05-21-2008 RUBELLA 6197 51 {IU/mL} Normal [facility] Work Phone: Comment on above: Non-immune <5 Equivo jung 5 - 9 Immune >9 RUBEOLA [id number] By: Ke tem Billing And Accounting Staff Assistant on 05-21-2008 RUBEOLA [id number] 1.29 {index} Abnormal 0.00-0.90 [facility] Work Phone: Comment on above: Negative <0.91 Equiv ocal 0.91 - 1.09 Positive >1.09 . Presence of antibodies to Rubeola is presumptive evidence of immunity except when active infection is suspected.Performed At: [facility] [place], [place] [id number] At: Lab[address] [id number] SKIN TEST INTRADERMAL TB (86 [id number])Ordered By: Sabrina Gillis on 05-21-2008 SKIN TEST INTRADERMAL TB (33628) Negative Normal [facility] Work Phone: Comment on above: 0 mm no induration n oted carol VILLAR see scanned documents screening SKIN TEST INTRADERMAL TB (86 580)on 05-21-2008 SKIN TEST INTRADERMAL TB (25311) Negative Normal [facility]; [facility] Work Phone: Comment on above: 0 mm no induration n oted carol VILLAR see scanned documents screening TSHOrdered By: System Manage r on 05-21-2008 Thyrotropin Qn 0.35 {uIU/mL} Normal 0.34-4.82 [facility] Work Phone: MUMPS,IgG [id number] By: Demetrius ystem Billing And Accounting Staff Assistant on 03-01-2006 MUMPS,IgG [id number] 1.72 {index} Abnormal 0.00-0.90 [facility] Work Phone: Comment on above: Negative <0.91 Equiv ocal 0.91 - 1.09 Positive >1.09 Presence of antibodies to Mumps is presumptive evidence of immunity except when active infection is suspected. RUBELLA [id number] By: Syst em Billing And Accounting Staff Assistant on 03-01-2006 RUBELLA 6197 44 {IU/mL} Normal [facility] Work Phone: Comment on above: Non-immune <5 Equivo jung 5 - 9 Immune >9 RUBEOLA [id number] By: Sys tem Billing And Accounting Staff Assistant on 03-01-2006 RUBEOLA [id number] 1.19 {index} Abnormal 0.00-0.90 [facility] Work Phone: Comment on above: Negative <0.91 Equiv ocal 0.91 - 1.09 Positive >1.09 . Presence of antibodies to Rubeola is presumptive evidence of immunity except when active infection is suspected.Performed At: [id number] [place], [place] [id number] Vital Signs Date Time Vital Sign Value Performing Clinician Facility 08-06-2024 15:02-0400 Body mass index (BMI) [Ratio] 28.33 kg/m2 [place] DO Work Phone: [facility] 08-06-2024 15:02-0400 Body weight 72.53 kg [place] DO Work Phone: [facility] 08-06-2024 15:02-0400 Diastolic blood pressure 79 mm[Hg] [place] DO Work Phone: [facility] 08-06-2024 15:02-0400 Heart rate 95 /min [place] DO Work Phone: [facility] 08-06-2024 15:02-0400 Systolic blood pressure 131 mm[Hg] [place] DO Work Phone: [facility] 04-28-2024 13:59-0500 Body weight 72.12 kg [place] DO Work Phone: [facility] 04-28-2024 13:59-0500 Diastolic blood pressure 82 mm[Hg] [place] DO Work Phone: [facility] 04-28-2024 13:59-0500 Heart rate 100 /min [place] DO Work Phone: [facility] 04-28-2024 13:59-0500 Systolic blood pressure 156 mm[Hg] [place] DO Work Phone: [facility] 04-25-2022 14:55-0500 Body height 160.02 cm Filemonlaurel [facility]; [facility] Work Phone: 04-25-2022 14:55-0500 Body mass index (BMI) [Ratio] 27.46 kg/m2 [facility] Work Phone: 04-25-2022 14:55-0500 Body surface area Derived from formula 1.74 m2 [facility]; [facility] Work Phone: 04-25-2022 14:55-0500 Body temperature 97.3 [degF] [facility] Work Phone: 04-25-2022 14:55-0500 Body weight 70.31 kg [facility] Work Phone: 04-25-2022 14:55-0500 Diastolic blood pressure 80 mm[Hg] [facility]; [facility] Work Phone: Comment on above: Patient Position: Sitting; Cuff Location : Left Arm; Cuff Size: Standard 04-25-2022 14:55-0500 Heart rate 105 /min [facility]; [facility] Work Phone: Comment on above: Pattern: Regular 04-25-2022 14:55-0500 Respiratory rate 16 /min [facility]; [facility] Work Phone: Comment on above: Pattern: Unlabored 04-25-2022 14:55-0500 SaO2% (BldA) [Mass fraction] 98 % [facility]; [facility] Work Phone: Comment on above: Room air 04-25-2022 14:55-0500 Systolic blood pressure 122 mm[Hg] [facility]; [facility] Work Phone: Comment on above: Patient Position: Sitting; Cuff Location : Left Arm; Cuff Size: Standard 10-20-2021 07:20-0400 Body height 160.02 cm Harsh Louis LPN [facility]; [facility] Work Phone: 10-20-2021 07:20-0400 Body mass index (BMI) [Ratio] 27.46 kg/m2 Harsh Louis LPN [facility]; [facility] Work Phone: 10-20-2021 07:20-0400 Body surface area Derived from formula 1.74 m2 Harsh Louis LPN [facility]; [facility] Work Phone: 10-20-2021 07:20-0400 Body temperature 98.8 [degF] Harsh Louis LPN [facility]; [facility] Work Phone: Comment on above: Method: Infrared 10-20-2021 07:20-0400 Body weight 70.31 kg Harsh Louis LPN [facility]; [facility] Work Phone: 10-20-2021 07:20-0400 Heart rate 97 /min Harsh Louis LPN [facility]; [facility] Work Phone: Comment on above: Pattern: Regular 10-20-2021 07:20-0400 SaO2% (BldA) [Mass fraction] 98 % Harsh Louis LPN [facility]; [facility] Work Phone: Comment on above: Room air 05-26-2021 09:47-0400 Diastolic Blood Pressure NBP 89 1 JANIE AKBAR MD [facility] 05-26-2021 09:47-0400 Heart rate 82 /min JANIE AKBAR MD [facility] 05-26-2021 09:47-0400 Respiratory rate 10 /min JANIE AKBAR MD [facility] 05-26-2021 09:47-0400 Systolic Blood Pressure NBP 120 1 JANIE AKBAR MD [facility] 05-26-2021 09:42-0400 Diastolic Blood Pressure NBP 72 1 JANIE AKBAR MD [facility] 05-26-2021 09:42-0400 Heart rate 91 /min JANIE AKBAR MD [facility] 05-26-2021 09:42-0400 Respiratory rate 15 /min JANIE AKBAR MD [facility] 05-26-2021 09:42-0400 Systolic Blood Pressure NBP 113 1 JANIE AKBAR MD [facility] 05-26-2021 09:38-0400 Diastolic Blood Pressure NBP 78 1 JANIE AKBAR MD [facility] 05-26-2021 09:38-0400 Heart rate 78 /min JANIE AKBAR MD [facility] 05-26-2021 09:38-0400 Respiratory rate 10 /min JANIE AKBAR MD [facility] 05-26-2021 09:38-0400 Systolic Blood Pressure NBP 105 1 JANIE AKBAR MD [facility] 05-26-2021 09:23-0400 Body temperature 96.62 [degF] JANIE AKBAR MD [facility] 05-26-2021 08:10-0400 Body height 157.5 cm JANIE AKBAR MD [facility] 05-26-2021 08:10-0400 Body temperature 98.06 [degF] JANIE AKBAR MD [facility] 05-26-2021 08:10-0400 Body weight 68.2 kg JANIE AKBAR MD [facility] 05-26-2021 08:10-0400 Heart rate 88 /min JANIE AKBAR MD [facility] 05-18-2021 14:55-0500 Body height 157.5 cm JANIE AKBAR MD [facility] 05-18-2021 14:55-0500 Body weight 68.2 kg JANIE AKBAR MD [facility] 05-18-2021 14:55-0500 Body weight 27.49 kg/m2 JANIE AKBAR MD [facility] 05-18-2021 14:55-0500 diastolic 74 mm[Hg] JANIE AKBAR MD [facility] 05-18-2021 14:55-0500 Heart rate 91 /min JANIE AKBAR MD [facility] 05-18-2021 14:55-0500 Respiratory rate 20 /min JANIE AKBAR MD [facility] 05-18-2021 14:55-0500 systolic 106 mm[Hg] JANIE AKBAR MD [facility] 03-01-2021 12:05-0500 Body height 160.02 cm Harsh Louis [facility]; [facility] Work Phone: 03-01-2021 12:05-0500 Body mass index (BMI) [Ratio] 27.46 kg/m2 Harsh Louis [facility]; [facility] Work Phone: 03-01-2021 12:05-0500 Body surface area Derived from formula 1.74 m2 Harsh Louis [facility]; [facility] Work Phone: 03-01-2021 12:05-0500 Body weight 70.31 kg Harsh Louis PSYCHIATRIC CLINICIAN [facility]; [facility] Work Phone: 02-28-2021 13:05-0500 Body height 160.02 cm Beth Kelley [facility]; [facility] Work Phone: Comment on above: Pt did not report 02-28-2021 13:05-0500 Body mass index (BMI) [Ratio] 27.46 kg/m2 Beth Slarb PSYCHIATRIC CLINICIAN [facility]; [facility] Work Phone: Comment on above: Pt did not report 02-28-2021 13:05-0500 Body surface area Derived from formula 1.74 m2 Beth Slarb PSYCHIATRIC CLINICIAN [facility]; [facility] Work Phone: Comment on above: Pt did not report 02-28-2021 13:05-0500 Body weight 70.31 kg Beth Slarb PSYCHIATRIC CLINICIAN [facility]; [facility] Work Phone: Comment on above: Pt did not report 01-27-2021 14:54-0500 Body height 160.02 cm Beth Slarb PSYCHIATRIC CLINICIAN [facility]; [facility] Work Phone: 01-27-2021 14:54-0500 Body mass index (BMI) [Ratio] 27.46 kg/m2 Beth Slarb PSYCHIATRIC CLINICIAN [facility]; [facility] Work Phone: 01-27-2021 14:54-0500 Body surface area Derived from formula 1.74 m2 Beth Slarb PSYCHIATRIC CLINICIAN [facility]; [facility] Work Phone: 01-27-2021 14:54-0500 Body temperature 96.9 [degF] Beth Slarb PSYCHIATRIC CLINICIAN [facility]; [facility] Work Phone: 01-27-2021 14:54-0500 Body weight 70.31 kg Beth Slarb PSYCHIATRIC CLINICIAN [facility]; [facility] Work Phone: 01-27-2021 14:54-0500 Diastolic blood pressure 80 mm[Hg] Beth Slarb PSYCHIATRIC CLINICIAN [facility]; [facility] Work Phone: Comment on above: Patient Position: Sitting; Cuff Location : Left Arm; Cuff Size: Standard 01-27-2021 14:54-0500 Heart rate 76 /min Beth Slarb PSYCHIATRIC CLINICIAN [facility]; [facility] Work Phone: Comment on above: Pattern: Regular 01-27-2021 14:54-0500 Respiratory rate 16 /min Beth Slarb PSYCHIATRIC CLINICIAN [facility]; [facility] Work Phone: Comment on above: Pattern: Unlabored 01-27-2021 14:54-0500 SaO2% (BldA) [Mass fraction] 99 % Beth Slarb PSYCHIATRIC CLINICIAN [facility]; [facility] Work Phone: Comment on above: Room air 01-27-2021 14:54-0500 Systolic blood pressure 122 mm[Hg] Beth Slarb PSYCHIATRIC CLINICIAN [facility]; [facility] Work Phone: Comment on above: Patient Position: Sitting; Cuff Location : Left Arm; Cuff Size: Standard 02-19-2020 08:58-0500 BMI (Body Mass Index) 26.04 kg/m2 Harsh Louis LPN [facility]; [facility] Work Phone: 02-19-2020 08:58-0500 Body weight 66.68 kg Harsh Louis LPN [facility]; [facility] Work Phone: 02-19-2020 08:58-0500 BSA (Body Surface Area) 1.7 m2 Harsh Louis LPN [facility]; [facility] Work Phone: 02-19-2020 08:58-0500 Height 160.02 cm Harsh Louis LPN [facility]; [facility] Work Phone: 02-16-2020 08:28-0500 BMI (Body Mass Index) 26.04 kg/m2 Harsh Louis LPN [facility]; [facility] Work Phone: 02-16-2020 08:28-0500 Body weight 66.68 kg Harsh Louis LPN [facility]; [facility] Work Phone: 02-16-2020 08:28-0500 BSA (Body Surface Area) 1.7 m2 Harsh Louis LPN [facility]; [facility] Work Phone: 02-16-2020 08:28-0500 Height 160.02 cm Harsh Louis LPN [facility]; [facility] Work Phone: 12-31-2019 07:46-0400 BMI (Body Mass Index) 26.04 kg/m2 Julia Anthony LPN Compre[facility] ns[facility] Work Phone: 12-31-2019 07:46-0400 Body Temperature 97.5 [degF] Julia Anthony LPN [facility] Work Phone: Comment on above: Method: Temporal 12-31-2019 07:46-0400 Body weight 66.68 kg Julia Anthony LPN [facility] Work Phone: 12-31-2019 07:46-0400 BP Diastolic 84 mm[Hg] Julia Anthony [facility]BO [facility] Work Phone: Comment on above: Patient Position: Sitting; Cuff Location : Left Arm; Cuff Size: Standard 12-31-2019 07:46-0400 BP Systolic 118 mm[Hg] Julia Anthony [facility] Work Phone: Comment on above: Patient Position: Sitting; Cuff Location : Left Arm; Cuff Size: Standard 12-31-2019 07:46-0400 BSA (Body Surface Area) 1.7 m2 Julia Shultzmanuel [facility] Work Phone: 12-31-2019 07:46-0400 Height 160.02 cm Julia Raj LPN [facility] Work Phone: 12-31-2019 07:46-0400 Pulse (Heart Rate) 95 /min Julia Raj LPN [facility] Work Phone: Comment on above: Pattern: Regular 12-31-2019 07:46-0400 Pulse Oximetry 98 % Shanon Percy [facility] Work Phone: Comment on above: Room air 12-31-2019 07:46-0400 Respiratory Rate 16 /min Juliaamelia Anthony [facility] Work Phone: Comment on above: Pattern: Unlabored 12-31-2019 07:46-0400 SaO2% (BldA) [Mass fraction] 98 % Julia Anthony LPN [facility]; [facility] Work Phone: Comment on above: Room air 07-29-2018 15:29-0400 BMI (Body Mass Index) 25.51 kg/m2 Harsh Louis LPN [facility] Work Phone: 07-29-2018 15:29-0400 Body Temperature 98.5 [degF] Harsh Louis LPN [facility] Work Phone: Comment on above: Method: Temporal 07-29-2018 15:29-0400 Body weight 65.32 kg Harsh Louis LPN [facility] Work Phone: 07-29-2018 15:29-0400 BP Diastolic 82 mm[Hg] Harsh Louis LPN [facility] Work Phone: Comment on above: Patient Position: Sitting; Cuff Location : Left Arm; Cuff Size: Standard 07-29-2018 15:29-0400 BP Systolic 126 mm[Hg] Harsh Heriberto [facility] Work Phone: Comment on above: Patient Position: Sitting; Cuff Location : Left Arm; Cuff Size: Standard 07-29-2018 15:29-0400 BSA (Body Surface Area) 1.68 m2 Harsh Heriberto [facility] Work Phone: 07-29-2018 15:29-0400 Height 160.02 cm Harsh Louis LPN [facility] Work Phone: 07-29-2018 15:29-0400 Pulse (Heart Rate) 85 /min Harsh Louis LPN [facility] Work Phone: Comment on above: Pattern: Regular 07-29-2018 15:29-0400 Pulse Oximetry 98 % Shanon Greer [facility] Work Phone: Comment on above: Room air 07-29-2018 15:29-0400 Respiratory Rate 16 /min Harsh Louis LPN [facility] Work Phone: Comment on above: Pattern: Unlabored 07-29-2018 15:29-0400 SaO2% (BldA) [Mass fraction] 98 % Harsh Louis LPN [facility]; [facility] Work Phone: Comment on above: Room air 07-29-2018 15:29-0400 Weight 65.32 kg Shanon Greer [facility] Work Phone: 05-05-2018 11:00-0500 BMI (Body Mass Index) 25.51 kg/m2 Sarah Brewer RN [facility] Work Phone: 05-05-2018 11:00-0500 Body Temperature 98.4 [degF] Sarah Brewer RN [facility] Work Phone: Comment on above: Method: Temporal 05-05-2018 11:00-0500 Body weight 65.32 kg Sarah Brewer RN [facility] Work Phone: 05-05-2018 11:00-0500 BP Diastolic 78 mm[Hg] Sarah Brewer RN [facility] Work Phone: Comment on above: Patient Position: Sitting; Cuff Location : Left Arm; Cuff Size: Standard 05-05-2018 11:00-0500 BP Systolic 138 mm[Hg] Sarah Brewer RN [facility] Work Phone: Comment on above: Patient Position: Sitting; Cuff Location : Left Arm; Cuff Size: Standard 05-05-2018 11:00-0500 BSA (Body Surface Area) 1.68 m2 Sarah Brewer RN [facility] Work Phone: 05-05-2018 11:00-0500 Height 160.02 cm Sarah Brewer RN [facility] Work Phone: 05-05-2018 11:00-0500 Pulse (Heart Rate) 76 /min Sarah Brewer RN [facility] Work Phone: Comment on above: Pattern: Regular 05-05-2018 11:00-0500 Pulse Oximetry 97 % Shanonluciano Sandson [facility] Work Phone: Comment on above: Room air 05-05-2018 11:00-0500 Respiratory Rate 16 /min Sarah Brewer RN [facility] Work Phone: Comment on above: Pattern: Unlabored 05-05-2018 11:00-0500 SaO2% (BldA) [Mass fraction] 97 % Sarah Brewer RN [facility]; [facility] Work Phone: Comment on above: Room air 05-05-2018 11:00-0500 Weight 65.32 kg Shanon Sandson [facility] Work Phone: 04-10-2018 09:56-0500 BMI (Body Mass Index) 25.33 kg/m2 [facility] Work Phone: 04-10-2018 09:56-0500 Body weight 64.86 kg Harsh Louis LPN [facility] Work Phone: 04-10-2018 09:56-0500 BP Diastolic 78 mm[Hg] Harsh Louis LPN [facility] Work Phone: Comment on above: Patient Position: Sitting; Cuff Location : Left Arm; Cuff Size: Standard 04-10-2018 09:56-0500 BP Systolic 120 mm[Hg] Harsh Louis LPN [facility] Work Phone: Comment on above: Patient Position: Sitting; Cuff Location : Left Arm; Cuff Size: Standard 04-10-2018 09:56-0500 BSA (Body Surface Area) 1.68 m2 Harsh Louis LPN [facility] Work Phone: 04-10-2018 09:56-0500 Height 160.02 cm Harsh Louis LPN [facility] Work Phone: 04-10-2018 09:56-0500 Pulse (Heart Rate) 83 /min Harsh Louis LPN [facility] Work Phone: Comment on above: Pattern: Regular 04-10-2018 09:56-0500 Pulse Oximetry 100 % Shanon Greer [facility] Work Phone: Comment on above: Room air 04-10-2018 09:56-0500 Respiratory Rate 18 /min Harsh Louis LPN [facility] Work Phone: Comment on above: Pattern: Unlabored 04-10-2018 09:56-0500 SaO2% (BldA) [Mass fraction] 100 % Harsh Louis LPN [facility]; [facility] Work Phone: Comment on above: Room air 04-10-2018 09:56-0500 Weight 64.86 kg Shanon Greer [facility] Work Phone: 01-17-2018 13:51-0500 BMI (Body Mass Index) 25.33 kg/m2 Sarah Brewer RN [facility] Work Phone: 01-17-2018 13:51-0500 Body Temperature 97.9 [degF] Sarah Brewer RN [facility] Work Phone: Comment on above: Method: Temporal 01-17-2018 13:51-0500 Body weight 64.86 kg Sarah Brewer RN [facility] Work Phone: 01-17-2018 13:51-0500 BP Diastolic 74 mm[Hg] Sarah Brewer RN [facility] Work Phone: Comment on above: Patient Position: Sitting; Cuff Location : Left Arm; Cuff Size: Standard 01-17-2018 13:51-0500 BP Systolic 130 mm[Hg] Sarah Brewer RN [facility] Work Phone: Comment on above: Patient Position: Sitting; Cuff Location : Left Arm; Cuff Size: Standard 01-17-2018 13:51-0500 BSA (Body Surface Area) 1.68 m2 Sarah Brewer RN [facility] Work Phone: 01-17-2018 13:51-0500 Height 160.02 cm Sarah Brewer RN [facility] Work Phone: 01-17-2018 13:51-0500 Pulse (Heart Rate) 72 /min Sarah Brewer RN [facility] Work Phone: Comment on above: Pattern: Regular 01-17-2018 13:51-0500 Pulse Oximetry 98 % Shanon Percy [facility] Work Phone: Comment on above: Room air 01-17-2018 13:51-0500 Respiratory Rate 16 /min Sarah Brewer RN [facility] Work Phone: Comment on above: Pattern: Unlabored 01-17-2018 13:51-0500 SaO2% (BldA) [Mass fraction] 98 % Sarah Brewer RN [facility]; [facility] Work Phone: Comment on above: Room air 01-17-2018 13:51-0500 Weight 64.86 kg Shanon Sandson [facility] Work Phone: 08-14-2017 14:47-0400 BMI (Body Mass Index) 24.62 kg/m2 Zoie Harris RN [facility] Work Phone: 08-14-2017 14:47-0400 Body weight 63.05 kg Zoie Harris RN [facility] Work Phone: 08-14-2017 14:47-0400 BP Diastolic 70 mm[Hg] Zoie Harris RN [facility] Work Phone: Comment on above: Patient Position: Sitting; Cuff Location : Left Arm; Cuff Size: Standard 08-14-2017 14:47-0400 BP Systolic 112 mm[Hg] Zoie Harris RN [facility] Work Phone: Comment on above: Patient Position: Sitting; Cuff Location : Left Arm; Cuff Size: Standard 08-14-2017 14:47-0400 BSA (Body Surface Area) 1.66 m2 Zoie Harris RN [facility] Work Phone: 08-14-2017 14:47-0400 Height 160.02 cm Zoie Harris RN [facility] Work Phone: 08-14-2017 14:47-0400 Pulse (Heart Rate) 76 /min Zoie Harris RN [facility] Work Phone: Comment on above: Pattern: Regular 08-14-2017 14:47-0400 Pulse Oximetry 98 % Shanon Greer [facility] Work Phone: Comment on above: Room air 08-14-2017 14:47-0400 Respiratory Rate 18 /min Zoie Harris RN [facility] Work Phone: Comment on above: Pattern: Unlabored 08-14-2017 14:47-0400 SaO2% (BldA) [Mass fraction] 98 % Zoie Harris RN [facility]; [facility] Work Phone: Comment on above: Room air 08-14-2017 14:47-0400 Weight 63.05 kg Shanon Greer [facility] Work Phone: 06-26-2017 14:38-0400 BMI (Body Mass Index) 25 kg/m2 Zoei Harris RN [facility] Work Phone: 06-26-2017 14:38-0400 Body weight 64.01 kg Zoie Harris RN [facility] Work Phone: 06-26-2017 14:38-0400 BP Diastolic 78 mm[Hg] Zoie Harris RN [facility] Work Phone: Comment on above: Patient Position: Sitting; Cuff Location : Left Arm; Cuff Size: Standard 06-26-2017 14:38-0400 BP Systolic 120 mm[Hg] Zoie Harris RN [facility] Work Phone: Comment on above: Patient Position: Sitting; Cuff Location : Left Arm; Cuff Size: Standard 06-26-2017 14:38-0400 BSA (Body Surface Area) 1.67 m2 Zoie Harris RN [facility] Work Phone: 06-26-2017 14:38-0400 Height 160.02 cm Zoie Harris RN [facility] Work Phone: 06-26-2017 14:38-0400 Pulse (Heart Rate) 80 /min Zoie Harris RN [facility] Work Phone: Comment on above: Pattern: Regular 06-26-2017 14:38-0400 Pulse Oximetry 98 % Shanon Greer [facility] Work Phone: Comment on above: Room air 06-26-2017 14:38-0400 Respiratory Rate 18 /min Zoie Harris RN [facility] Work Phone: Comment on above: Pattern: Unlabored 06-26-2017 14:38-0400 SaO2% (BldA) [Mass fraction] 98 % Zoie Harris RN [facility]; [facility] Work Phone: Comment on above: Room air 06-26-2017 14:38-0400 Weight 64.01 kg Shanon Greer [facility] Work Phone: 05-02-2017 07:16-0500 BMI (Body Mass Index) 25.22 kg/m2 Zoie Harrsi RN [facility] Work Phone: 05-02-2017 07:16-0500 Body weight 64.58 kg Zoie Harris RN [facility] Work Phone: 05-02-2017 07:16-0500 BP Diastolic 96 mm[Hg] Zoie Harris RN [facility] Work Phone: Comment on above: Patient Position: Sitting; Cuff Location : Left Arm; Cuff Size: Standard 05-02-2017 07:16-0500 BP Systolic 138 mm[Hg] Zoie Harris RN [facility] Work Phone: Comment on above: Patient Position: Sitting; Cuff Location : Left Arm; Cuff Size: Standard 05-02-2017 07:16-0500 BSA (Body Surface Area) 1.67 m2 Zoie Harris RN [facility] Work Phone: 05-02-2017 07:16-0500 Height 160.02 cm Zoie Harris RN [facility] Work Phone: 05-02-2017 07:16-0500 Pulse (Heart Rate) 87 /min Zoie Harris RN [facility] Work Phone: Comment on above: Pattern: Regular 05-02-2017 07:16-0500 Pulse Oximetry 99 % Shanon Greer [facility] Work Phone: Comment on above: Room air 05-02-2017 07:16-0500 Respiratory Rate 18 /min Zoie Harris RN [facility] Work Phone: Comment on above: Pattern: Unlabored 05-02-2017 07:16-0500 SaO2% (BldA) [Mass fraction] 99 % Zoie Harris RN [facility]; [facility] Work Phone: Comment on above: Room air 05-02-2017 07:16-0500 Weight 64.58 kg Shanon Greer [facility] Work Phone: 09-16-2014 09:11-0400 BMI (Body Mass Index) 24.16 kg/m2 [facility] Work Phone: 09-16-2014 09:11-0400 Body weight 61.86 kg [facility] Work Phone: 09-16-2014 09:11-0400 BP Diastolic 86 mm[Hg] [facility] Work Phone: Comment on above: Patient Position: Sitting; Cuff Location : Left Arm; Cuff Size: Standard 09-16-2014 09:11-0400 BP Systolic 138 mm[Hg] [facility] Work Phone: Comment on above: Patient Position: Sitting; Cuff Location : Left Arm; Cuff Size: Standard 09-16-2014 09:11-0400 BSA (Body Surface Area) 1.64 m2 [facility] Work Phone: 09-16-2014 09:11-0400 Height 160.02 cm [facility] Work Phone: 09-16-2014 09:11-0400 Pulse (Heart Rate) 85 /min [facility] Work Phone: Comment on above: Pattern: Regular 09-16-2014 09:11-0400 Pulse Oximetry 98 % Shanon Greer [facility] Work Phone: Comment on above: Room air 09-16-2014 09:11-0400 Respiratory Rate 18 /min [facility] Work Phone: Comment on above: Pattern: Unlabored 09-16-2014 09:11-0400 SaO2% (BldA) [Mass fraction] 98 % [facility]; [facility] Work Phone: Comment on above: Room air 09-16-2014 09:11-0400 Weight 61.86 kg Shanon Greer [facility] Work Phone: 07-22-2014 13:50-0400 BMI (Body Mass Index) 24.16 kg/m2 Zoie Harris RN [facility] Work Phone: 07-22-2014 13:50-0400 Body weight 61.86 kg Zoie Harris RN [facility] Work Phone: 07-22-2014 13:50-0400 BP Diastolic 82 mm[Hg] Zoie Harris RN [facility] Work Phone: Comment on above: Patient Position: Sitting; Cuff Location : Left Arm; Cuff Size: Standard 07-22-2014 13:50-0400 BP Systolic 122 mm[Hg] Zoie Harris RN [facility] Work Phone: Comment on above: Patient Position: Sitting; Cuff Location : Left Arm; Cuff Size: Standard 07-22-2014 13:50-0400 BSA (Body Surface Area) 1.64 m2 Zoie Harris RN [facility] Work Phone: 07-22-2014 13:50-0400 Height 160.02 cm Zoie Harris RN [facility] Work Phone: 07-22-2014 13:50-0400 Pulse (Heart Rate) 78 /min Zoie Harris RN [facility] Work Phone: Comment on above: Pattern: Regular 07-22-2014 13:50-0400 Pulse Oximetry 98 % Shanon Percy [facility] Work Phone: Comment on above: Room air 07-22-2014 13:50-0400 Respiratory Rate 18 /min Zoie Harris RN [facility] Work Phone: Comment on above: Pattern: Unlabored 07-22-2014 13:50-0400 SaO2% (BldA) [Mass fraction] 98 % Zoie Harris RN [facility]; [facility] Work Phone: Comment on above: Room air 07-22-2014 13:50-0400 Weight 61.86 kg Shanon Greer [facility] Work Phone: 06-09-2014 13:18-0400 BMI (Body Mass Index) 25 kg/m2 Zoie Harris RN [facility] Work Phone: 06-09-2014 13:18-0400 Body weight 64.01 kg Zoie Harris RN [facility] Work Phone: 06-09-2014 13:18-0400 BP Diastolic 86 mm[Hg] Zoie Harris RN [facility] Work Phone: Comment on above: Patient Position: Sitting; Cuff Location : Left Arm; Cuff Size: Standard 06-09-2014 13:18-0400 BP Systolic 136 mm[Hg] Zoie Harris RN [facility] Work Phone: Comment on above: Patient Position: Sitting; Cuff Location : Left Arm; Cuff Size: Standard 06-09-2014 13:18-0400 BSA (Body Surface Area) 1.67 m2 Zoie Harris RN [facility] Work Phone: 06-09-2014 13:18-0400 Height 160.02 cm Zoie Harris RN [facility] Work Phone: 06-09-2014 13:18-0400 Pulse (Heart Rate) 81 /min Zoie Harris RN [facility] Work Phone: Comment on above: Pattern: Regular 06-09-2014 13:18-0400 Pulse Oximetry 94 % Shanon Greer [facility] Work Phone: Comment on above: Room air 06-09-2014 13:18-0400 Respiratory Rate 18 /min Zoie Harris RN [facility] Work Phone: Comment on above: Pattern: Unlabored 06-09-2014 13:18-0400 SaO2% (BldA) [Mass fraction] 94 % Zoie Harris RN [facility]; [facility] Work Phone: Comment on above: Room air 06-09-2014 13:18-0400 Weight 64.01 kg Shanon Sandson [facility] Work Phone: 05-27-2014 11:44-0400 BMI (Body Mass Index) 24.87 kg/m2 Zoie Harris RN [facility] Work Phone: 05-27-2014 11:44-0400 Body weight 63.67 kg Zoie Harris RN [facility] Work Phone: 05-27-2014 11:44-0400 BP Diastolic 80 mm[Hg] Zoie Harris RN [facility] Work Phone: Comment on above: Patient Position: Sitting; Cuff Location : Left Arm; Cuff Size: Large 05-27-2014 11:44-0400 BP Systolic 120 mm[Hg] Zoie Harris RN [facility] Work Phone: Comment on above: Patient Position: Sitting; Cuff Location : Left Arm; Cuff Size: Large 05-27-2014 11:44-0400 BSA (Body Surface Area) 1.66 m2 Zoie Harris RN [facility] Work Phone: 05-27-2014 11:44-0400 Height 160.02 cm Zoie Harris RN [facility] Work Phone: 05-27-2014 11:44-0400 Respiratory Rate 16 /min Zoie Harris RN [facility] Work Phone: Comment on above: Pattern: Unlabored 05-27-2014 11:44-0400 Weight 63.67 kg Shanon Sandson [facility] Work Phone: 03-10-2012 09:37-0500 BMI (Body Mass Index) 24.87 kg/m2 Sarah Brewer RN [facility] Internal [facility] Work Phone: 03-10-2012 09:37-0500 Body Temperature 97.2 [degF] Sarah Brewer RN [facility] Work Phone: Comment on above: Method: Oral 03-10-2012 09:37-0500 Body weight 63.67 kg Sarah Brewer RN [facility] Work Phone: 03-10-2012 09:37-0500 BP Diastolic 72 mm[Hg] Sarah Brewer RN [facility] Work Phone: Comment on above: Patient Position: Sitting; Cuff Location : Left Arm; Cuff Size: Standard 03-10-2012 09:37-0500 BP Systolic 120 mm[Hg] Sarah Brewer RN [facility] Work Phone: Comment on above: Patient Position: Sitting; Cuff Location : Left Arm; Cuff Size: Standard 03-10-2012 09:37-0500 BSA (Body Surface Area) 1.66 m2 Sarah Brewer RN [facility] Work Phone: 03-10-2012 09:37-0500 Height 160.02 cm Sarah Brewer RN [facility] Work Phone: 03-10-2012 09:37-0500 Pulse (Heart Rate) 94 /min Sarah Brewer RN [facility] Work Phone: Comment on above: Pattern: Regular 03-10-2012 09:37-0500 Pulse Oximetry 99 % Shanon Sandson [facility] Work Phone: Comment on above: Room air 03-10-2012 09:37-0500 Respiratory Rate 16 /min Sarah Brewer RN [facility] Work Phone: Comment on above: Pattern: Unlabored 03-10-2012 09:37-0500 SaO2% (BldA) [Mass fraction] 99 % Sarah Brewer RN [facility]; [facility] Work Phone: Comment on above: Room air 03-10-2012 09:37-0500 Weight 63.67 kg Shanon Greer [facility] Work Phone: 07-12-2011 13:47-0400 BMI (Body Mass Index) 24.87 kg/m2 Zoie Harris RN [facility] Work Phone: 07-12-2011 13:47-0400 Body weight 63.67 kg Zoie Harris RN [facility] Work Phone: 07-12-2011 13:47-0400 BP Diastolic 70 mm[Hg] Zoie Harris RN [facility] Work Phone: Comment on above: Patient Position: Sitting; Cuff Location : Left Arm; Cuff Size: Large 07-12-2011 13:47-0400 BP Systolic 122 mm[Hg] Zoie Harris RN [facility] Work Phone: Comment on above: Patient Position: Sitting; Cuff Location : Left Arm; Cuff Size: Large 07-12-2011 13:47-0400 BSA (Body Surface Area) 1.66 m2 Zoie Harris RN [facility] Work Phone: 07-12-2011 13:47-0400 Height 160.02 cm Zoie Harris RN [facility] Work Phone: 07-12-2011 13:47-0400 Pulse (Heart Rate) 80 /min Zoie Harris RN [facility] Work Phone: Comment on above: Pattern: Regular 07-12-2011 13:47-0400 Respiratory Rate 18 /min Zoie Harris RN [facility] Work Phone: Comment on above: Pattern: Unlabored 07-12-2011 13:47-0400 Weight 63.67 kg Shanon Greer [facility] Work Phone: 08-31-2010 13:41-0400 BMI (Body Mass Index) 24.69 kg/m2 Zoie Harris RN [facility] Work Phone: 08-31-2010 13:41-0400 Body weight 63.22 kg Zoie Harris RN [facility] Work Phone: 08-31-2010 13:41-0400 BP Diastolic 80 mm[Hg] Zoie Harris RN [facility] Work Phone: Comment on above: Patient Position: Sitting; Cuff Location : Left Arm; Cuff Size: Standard 08-31-2010 13:41-0400 BP Systolic 118 mm[Hg] Zoie Harris RN [facility] Work Phone: Comment on above: Patient Position: Sitting; Cuff Location : Left Arm; Cuff Size: Standard 08-31-2010 13:41-0400 BSA (Body Surface Area) 1.66 m2 Zoie Harris RN [facility] Work Phone: 08-31-2010 13:41-0400 Height 160.02 cm Zoie Harris RN [facility] Work Phone: 08-31-2010 13:41-0400 Pulse (Heart Rate) 68 /min Zoie Harris RN [facility] Work Phone: Comment on above: Pattern: Regular 08-31-2010 13:41-0400 Respiratory Rate 20 /min Zoie Harris RN [facility] Work Phone: Comment on above: Pattern: Unlabored 08-31-2010 13:41-0400 Weight 63.22 kg Shanon Greer [facility] Work Phone: 07-13-2010 13:13-0400 BMI (Body Mass Index) 24.67 kg/m2 Zoie Harris RN [facility] Work Phone: 07-13-2010 13:13-0400 Body weight 63.16 kg Zoie Harris RN [facility] Work Phone: 07-13-2010 13:13-0400 BP Diastolic 78 mm[Hg] Zoie Harris RN [facility] Work Phone: Comment on above: Patient Position: Sitting; Cuff Location : Left Arm; Cuff Size: Large 07-13-2010 13:13-0400 BP Systolic 122 mm[Hg] Zoie Harris RN [facility] Work Phone: Comment on above: Patient Position: Sitting; Cuff Location : Left Arm; Cuff Size: Large 07-13-2010 13:13-0400 BSA (Body Surface Area) 1.66 m2 Zoie Harris RN [facility] Work Phone: 07-13-2010 13:13-0400 Height 160.02 cm Zoie Harris RN [facility] Work Phone: 07-13-2010 13:13-0400 Pulse (Heart Rate) 80 /min Zoie Harris RN [facility] Work Phone: Comment on above: Pattern: Regular 07-13-2010 13:13-0400 Respiratory Rate 18 /min Zoie Harris RN [facility] Medicine Work Phone: Comment on above: Pattern: Unlabored 07-13-2010 13:13-0400 Weight 63.16 kg Shanon Greer [facility] Work Phone: 03-01-2010 14:13-0500 Body Temperature 99 [degF] Angie Lyons [facility] Work Phone: 03-01-2010 14:13-0500 BP Diastolic 74 mm[Hg] Angie Serena [facility] Work Phone: Comment on above: Patient Position: Sitting; Cuff Location : Left Arm; Cuff Size: Standard 03-01-2010 14:13-0500 BP Systolic 104 mm[Hg] Angie Serena [facility] Work Phone: Comment on above: Patient Position: Sitting; Cuff Location : Left Arm; Cuff Size: Standard 03-01-2010 14:13-0500 Pulse (Heart Rate) 84 /min Angie Lyons [facility] Work Phone: Comment on above: Pattern: Regular 03-01-2010 14:13-0500 Respiratory Rate 16 /min Angie Lyons [facility] Work Phone: Comment on above: Pattern: Unlabored 02-10-2010 13:30-0500 BMI (Body Mass Index) 23.96 kg/m2 Shanon Greer [facility] Internal Medicine Work Phone: 02-10-2010 13:30-0500 Body Temperature 98.3 [degF] Shanon Greer [facility] Work Phone: Comment on above: Method: Oral 02-10-2010 13:30-0500 Body weight 61.35 kg Shanon Greer [facility] Work Phone: 02-10-2010 13:30-0500 BP Diastolic 70 mm[Hg] Shanon Greer [facility] Work Phone: Comment on above: Patient Position: Sitting; Cuff Location : Left Arm; Cuff Size: Standard 02-10-2010 13:30-0500 BP Systolic 110 mm[Hg] Shanon Greer [facility] Work Phone: Comment on above: Patient Position: Sitting; Cuff Location : Left Arm; Cuff Size: Standard 02-10-2010 13:30-0500 BSA (Body Surface Area) 1.64 m2 Shanon Greer [facility] Work Phone: 02-10-2010 13:30-0500 Height 160.02 cm Shanon Greer [facility] Work Phone: 02-10-2010 13:30-0500 Pulse (Heart Rate) 88 /min Shanon Greer [facility] Work Phone: Comment on above: Pattern: Regular 02-10-2010 13:30-0500 Respiratory Rate 16 /min Shanon Greer [facility] Work Phone: Comment on above: Pattern: Unlabored 02-10-2010 13:30-0500 Weight 61.35 kg Shanon Greer [facility] Work Phone: 08-29-2009 15:00-0400 Body Temperature 98.6 [degF] ADRIAN Uribe LPN [facility] Internal Medicine Work Phone: Comment on above: Method: Oral 08-29-2009 15:00-0400 BP Diastolic 72 mm[Hg] ADRIAN Uribe LPN [facility] Internal Medicine Work Phone: Comment on above: Patient Position: Sitting; Cuff Location : Left Arm; Cuff Size: Standard 08-29-2009 15:00-0400 BP Systolic 110 mm[Hg] ADRIAN Uribe [facility] Internal Medicine Work Phone: Comment on above: Patient Position: Sitting; Cuff Location : Left Arm; Cuff Size: Standard 08-29-2009 15:00-0400 Pulse (Heart Rate) 74 /min ADRIAN Uribe [facility] Internal Medicine Work Phone: Comment on above: Pattern: Regular 08-29-2009 15:00-0400 Respiratory Rate 18 /min ADRIAN Uribe [facility] Internal Medicine Work Phone: Comment on above: Pattern: Unlabored 08-19-2009 07:59-0400 Body Temperature 98.2 [degF] ADRIAN Uribe [facility] Internal Medicine Work Phone: Comment on above: Method: Oral 08-19-2009 07:59-0400 BP Diastolic 72 mm[Hg] ADRIAN Uribe [facility] Internal Medicine Work Phone: Comment on above: Patient Position: Sitting; Cuff Location : Left Arm; Cuff Size: Standard 08-19-2009 07:59-0400 BP Systolic 114 mm[Hg] ADRIAN Uribe [facility] Internal Medicine Work Phone: Comment on above: Patient Position: Sitting; Cuff Location : Left Arm; Cuff Size: Standard 08-19-2009 07:59-0400 Pulse (Heart Rate) 76 /min ADRIAN Uribe [facility] Internal Medicine Work Phone: Comment on above: Pattern: Regular 08-19-2009 07:59-0400 Respiratory Rate 18 /min ADRIAN Uribe [facility] Internal Medicine Work Phone: Comment on above: Pattern: Unlabored 09-08-2008 13:28-0400 BMI (Body Mass Index) 25.02 kg/m2 Mandy Jean-Baptiste [facility] Internal Medicine Work Phone: 09-08-2008 13:28-0400 Body Temperature 99.7 [degF] Mandy Estiven [facility] Internal Medicine Work Phone: Comment on above: Method: Oral 09-08-2008 13:28-0400 Body weight 64.07 kg Mandy Horn [facility] Work Phone: 09-08-2008 13:28-0400 BP Diastolic 78 mm[Hg] [facility] Internal Medicine Work Phone: Comment on above: Patient Position: Supine; Cuff Location: Left Arm; Cuff Size: Standard 09-08-2008 13:28-0400 BP Systolic 120 mm[Hg] [facility] Internal Medicine Work Phone: Comment on above: Patient Position: Supine; Cuff Location: Left Arm; Cuff Size: Standard 09-08-2008 13:28-0400 BSA (Body Surface Area) 1.67 m2 [facility] Internal Medicine Work Phone: 09-08-2008 13:28-0400 Head Circumference 0 cm Shanon Greer [facility] Internal Medicine Work Phone: 09-08-2008 13:28-0400 Head Occipital-frontal circumference 0 cm [facility]; [facility] Work Phone: 09-08-2008 13:28-0400 Height 160.02 cm M[facility] Internal Medicine Work Phone: 09-08-2008 13:28-0400 Pulse (Heart Rate) 100 /min [facility] Internal Medicine Work Phone: Comment on above: Pattern: Regular 09-08-2008 13:28-0400 Respiratory Rate 16 /min [facility] Internal Medicine Work Phone: Comment on above: Pattern: Unlabored 09-08-2008 13:28-0400 Weight 64.07 kg Shanon Greer [facility] Internal Medicine Work Phone: 08-06-2008 12:21-0400 Body Temperature 97.4 [degF] Angie Lyons [facility] Internal Medicine Work Phone: Comment on above: Method: Undefined 08-06-2008 12:21-0400 Body weight 0 kg Angie Lyons [facility] Internal Medicine Work Phone: 08-06-2008 12:21-0400 BP Diastolic 86 mm[Hg] Angie Lyons [facility] Internal Medicine Work Phone: Comment on above: Patient Position: Sitting; Cuff Location : Left Arm; Cuff Size: Large 08-06-2008 12:21-0400 BP Systolic 122 mm[Hg] Angie Lyons [facility] Internal Medicine Work Phone: Comment on above: Patient Position: Sitting; Cuff Location : Left Arm; Cuff Size: Large 08-06-2008 12:21-0400 Head Circumference 0 cm Shanon Greer [facility] Internal Medicine Work Phone: 08-06-2008 12:21-0400 Head Occipital-frontal circumference 0 cm Angie Lyons [facility]; [facility] Work Phone: 08-06-2008 12:21-0400 Height 0 cm Angie Lyons [facility] Internal Medicine Work Phone: 08-06-2008 12:21-0400 Pulse (Heart Rate) 94 /min [facility] Work Phone: Comment on above: Pattern: Regular 08-06-2008 12:21-0400 Respiratory Rate 16 /min Angie Lyons [facility] Internal Medicine Work Phone: Comment on above: Pattern: Undefined 08-06-2008 12:21-0400 Weight 0 kg Shanon Greer [facility] Internal Medicine Work Phone: 06-16-2008 13:27-0400 Body Temperature 99.3 [degF] Latoya Toth RN [facility] Work Phone: Comment on above: Method: Oral 06-16-2008 13:27-0400 Body weight 0 kg Latoya Toth RN [facility] Work Phone: 06-16-2008 13:27-0400 BP Diastolic 68 mm[Hg] Latoya Toth RN [facility] Work Phone: Comment on above: Patient Position: Sitting; Cuff Location : Left Arm; Cuff Size: Standard 06-16-2008 13:27-0400 BP Systolic 100 mm[Hg] Latoya Toth RN [facility] Work Phone: Comment on above: Patient Position: Sitting; Cuff Location : Left Arm; Cuff Size: Standard 06-16-2008 13:27-0400 Head Circumference 0 cm Shanon Percy [facility] Work Phone: 06-16-2008 13:27-0400 Head Occipital-frontal circumference 0 cm Latoya Toth RN [facility]; [facility] Work Phone: 06-16-2008 13:27-0400 Height 0 cm Latoya Toth RN [facility] Work Phone: 06-16-2008 13:27-0400 Pulse (Heart Rate) 76 /min Latoya Toth RN [facility] Work Phone: Comment on above: Pattern: Regular 06-16-2008 13:27-0400 Respiratory Rate 16 /min Latoya Toth RN [facility] Work Phone: Comment on above: Pattern: Unlabored 06-16-2008 13:27-0400 Weight 0 kg Shanon Greer [facility] Work Phone: 05-21-2008 13:48-0400 BMI (Body Mass Index) 25.02 kg/m2 Zoie Harris RN [facility] Work Phone: 05-21-2008 13:48-0400 Body weight 64.07 kg Zoie Harris RN [facility] Work Phone: 05-21-2008 13:48-0400 BP Diastolic 76 mm[Hg] Zoie Harris RN [facility] Work Phone: Comment on above: Patient Position: Sitting; Cuff Location : Left Arm; Cuff Size: Large 05-21-2008 13:48-0400 BP Systolic 120 mm[Hg] Zoie Harris RN [facility] Work Phone: Comment on above: Patient Position: Sitting; Cuff Location : Left Arm; Cuff Size: Large 05-21-2008 13:48-0400 BSA (Body Surface Area) 1.67 m2 Zoie Harris RN [facility] Work Phone: 05-21-2008 13:48-0400 Head Circumference 0 cm Shanon Greer [facility] Work Phone: 05-21-2008 13:48-0400 Head Occipital-frontal circumference 0 cm Zoie Harris RN [facility]; [facility] Work Phone: 05-21-2008 13:48-0400 Height 160.02 cm Zoie Harris RN [facility] Work Phone: 05-21-2008 13:48-0400 Pulse (Heart Rate) 64 /min Zoie Harris RN [facility] Work Phone: Comment on above: Pattern: Regular 05-21-2008 13:48-0400 Respiratory Rate 18 /min Zoie Harris RN [facility] Work Phone: Comment on above: Pattern: Unlabored 05-21-2008 13:48-0400 Weight 64.07 kg Shanon Greer [facility] Work Phone: 12-09-2006 15:25-0400 BMI (Body Mass Index) 25.86 kg/m2 Zoie Harris RN [facility] Work Phone: 12-09-2006 15:25-0400 Body weight 66.23 kg Zoie Harris RN [facility] Work Phone: 12-09-2006 15:25-0400 BP Diastolic 80 mm[Hg] Zoie Harris RN [facility] Work Phone: Comment on above: Patient Position: Sitting; Cuff Location : Right Arm; Cuff Size: Standard 12-09-2006 15:25-0400 BP Systolic 122 mm[Hg] Zoie Harris RN [facility] Work Phone: Comment on above: Patient Position: Sitting; Cuff Location : Right Arm; Cuff Size: Standard 12-09-2006 15:25-0400 BSA (Body Surface Area) 1.69 m2 Zoie Harris RN [facility] Work Phone: 12-09-2006 15:25-0400 Head Circumference 0 cm Shanon Percy [facility] Work Phone: 12-09-2006 15:25-0400 Head Occipital-frontal circumference 0 cm Zoie Harris RN [facility]; [facility] Work Phone: 12-09-2006 15:25-0400 Height 160.02 cm Zoie Harris RN [facility] Work Phone: 12-09-2006 15:25-0400 Pulse (Heart Rate) 88 /min Zoie Harris RN [facility] Work Phone: Comment on above: Pattern: Regular 12-09-2006 15:25-0400 Respiratory Rate 16 /min Zoie Harris RN [facility] Work Phone: Comment on above: Pattern: Unlabored 12-09-2006 15:25-0400 Weight 66.23 kg Shanon Greer [facility] Work Phone: 12-06-2006 10:03-0400 BMI (Body Mass Index) 26.43 kg/m2 Zoie Harris RN [facility] Work Phone: 12-06-2006 10:03-0400 Body Temperature 99 [degF] Zoie Harris RN [facility] Work Phone: Comment on above: Method: Oral 12-06-2006 10:03-0400 Body weight 67.67 kg Zoie Harris RN [facility] Work Phone: 12-06-2006 10:03-0400 BP Diastolic 70 mm[Hg] Zoie Harris RN [facility] Work Phone: Comment on above: Patient Position: Sitting; Cuff Location : Left Arm; Cuff Size: Standard 12-06-2006 10:03-0400 BP Systolic 118 mm[Hg] Zoie Harris RN [facility] Work Phone: Comment on above: Patient Position: Sitting; Cuff Location : Left Arm; Cuff Size: Standard 12-06-2006 10:03-0400 BSA (Body Surface Area) 1.71 m2 Zoie Harris RN [facility] Work Phone: 12-06-2006 10:03-0400 Head Circumference 0 cm Shanon Greer [facility] Work Phone: 12-06-2006 10:03-0400 Head Occipital-frontal circumference 0 cm Zoie Harris RN [facility]; [facility] Work Phone: 12-06-2006 10:03-0400 Height 160.02 cm Zoie Harris RN [facility] Work Phone: 12-06-2006 10:03-0400 Pulse (Heart Rate) 80 /min Zoie Steven SIMPSON [facility] Work Phone: Comment on above: Pattern: Regular 12-06-2006 10:03-0400 Respiratory Rate 16 /min Zoie Steven SIMPSON [facility] Work Phone: Comment on above: Pattern: Unlabored 12-06-2006 10:03-0400 Weight 67.67 kg Shanon Greer [facility] Internal Medicine Work Phone: 11-15-2006 14:12-0400 BMI (Body Mass Index) 26.43 kg/m2 Zoie Harris [facility] Internal Medicine Work Phone: 11-15-2006 14:12-0400 Body Temperature 98.9 [degF] Zoie Harris [facility] Internal Medicine Work Phone: Comment on above: Method: Oral 11-15-2006 14:12-0400 Body weight 67.67 kg Zoie Harris [facility] Internal Medicine Work Phone: 11-15-2006 14:12-0400 BP Diastolic 82 mm[Hg] Zoie Harris [facility] Internal Medicine Work Phone: Comment on above: Patient Position: Sitting; Cuff Location : Left Arm; Cuff Size: Standard 11-15-2006 14:12-0400 BP Systolic 122 mm[Hg] Zoie Harris [facility] Internal Medicine Work Phone: Comment on above: Patient Position: Sitting; Cuff Location : Left Arm; Cuff Size: Standard 11-15-2006 14:12-0400 BSA (Body Surface Area) 1.71 m2 Zoie Harris [facility] Internal Medicine Work Phone: 11-15-2006 14:12-0400 Head Circumference 0 cm Shanon Greer [facility] Internal Medicine Work Phone: 11-15-2006 14:12-0400 Head Occipital-frontal circumference 0 cm Zoie Harris [facility]; [facility] Work Phone: 11-15-2006 14:12-0400 Height 160.02 cm Zoie Harris [facility] Internal Medicine Work Phone: 11-15-2006 14:12-0400 Pulse (Heart Rate) 80 /min Zoie Harris [facility] Work Phone: Comment on above: Pattern: Regular 11-15-2006 14:12-0400 Respiratory Rate 20 /min Zoie Harris [facility] Work Phone: Comment on above: Pattern: Unlabored 11-15-2006 14:12-0400 Weight 67.67 kg Shanon Greer [facility] Internal Medicine Work Phone: 02-27-2006 15:45-0500 BMI (Body Mass Index) 25.56 kg/m2 Peg Cruz PSYCHIATRIC CLINICIAN [facility] Internal Medicine Work Phone: 02-27-2006 15:45-0500 Body Temperature 99 [degF] Peg Cruz PSYCHIATRIC CLINICIAN [facility] Internal Medicine Work Phone: Comment on above: Method: Undefined 02-27-2006 15:45-0500 Body weight 65.46 kg Peg Cruz PSYCHIATRIC CLINICIAN [facility] Work Phone: 02-27-2006 15:45-0500 BP Diastolic 60 mm[Hg] Peg Cruz PSYCHIATRIC CLINICIAN [facility] Work Phone: Comment on above: Patient Position: Sitting; Cuff Location : Left Arm; Cuff Size: Standard 02-27-2006 15:45-0500 BP Systolic 110 mm[Hg] Peg Cruz PSYCHIATRIC CLINICIAN [facility] Internal Medicine Work Phone: Comment on above: Patient Position: Sitting; Cuff Location : Left Arm; Cuff Size: Standard 02-27-2006 15:45-0500 BSA (Body Surface Area) 1.68 m2 Peg Cruz PSYCHIATRIC CLINICIAN [facility] Work Phone: 02-27-2006 15:45-0500 Head Circumference 0 cm Shanon Greer [facility] Work Phone: 02-27-2006 15:45-0500 Head Occipital-frontal circumference 0 cm Peg Cruz PSYCHIATRIC CLINICIAN [facility]; [facility] Work Phone: 02-27-2006 15:45-0500 Height 160.02 cm Peg Cruz PSYCHIATRIC CLINICIAN [facility] Work Phone: 02-27-2006 15:45-0500 Pulse (Heart Rate) 64 /min Peg Cruz PSYCHIATRIC CLINICIAN [facility] Work Phone: Comment on above: Pattern: Regular 02-27-2006 15:45-0500 Respiratory Rate 16 /min Peg Cruz PSYCHIATRIC CLINICIAN [facility] Work Phone: Comment on above: Pattern: Undefined 02-27-2006 15:45-0500 Weight 65.46 kg Shanon Greer [facility] Work Phone: Encounters Encounter Date Encounter Type Care Provider Facility Start: 12-29-2024 End: 12-29-2024 ambulatory ODILON GEORGE [facility] Start: 09-21-2024 End: 09-21-[address] Shanon Greer DO Work Phone: -Physical Therapy Start: 09-21-2024 End: 09-21-[address] Odilon George DO -Physical Therapy Work Phone: Start: 08-28-2024 ambulatory ODILON GEORGE [facility] Ambulatory Start: 08-20-2024 End: 08-20-2024 Refill Odilon George DO Work Phone: [facility] Comment on above: PSA (psoriatic arthr itis) ([facility]); Psoriasis Start: 08-18-2024 End: 08-18-2024 Documentation procedure Nav Goodman LPN [facility] Start: 08-17-2024 End: 10-17-2024 Follow-up encounter Odilon George DO Work Phone: [facility] Comment on above: Creatinine, serum, H epatic Function Panel, CBC and Differential Start: 08-06-2024 End: 08-06-2024 Office outpatient visit 25 minutes Odilon George DO Work Phone: [facility] Comment on above: PSA (psoriatic arthr itis) ([facility]) (Primary Dx); Psoriasis; Acute pain of left shoulder Start: 08-06-2024 End: 08-06-2024 ambulatory ODILON GEORGE [facility] Start: 07-16-2024 End: 07-16-[address] Shanon Greer DO Work Phone: [facility] Work Phone: Start: 07-16-2024 End: 07-16-[address] Shanon Greer DO -Laboratory, [place] Work Phone: Start: 07-16-2024 End: 07-16-2024 ambulatory Shanon Greer Facility:[facility] Start: 06-23-2024 End: 06-23-[address] Shanon Greer DO Work Phone: [facility] Work Phone: Start: 06-23-2024 End: 06-23-[address] Ambrocio Anderson MD -Laboratory, [place] Work Phone: Start: 06-23-2024 End: 06-23-2024 ambulatory Ambrocio Anderson Facility:[facility] Start: 06-04-2024 End: 08-04-2024 Follow-up encounter Odilon George DO Work Phone: [facility] Comment on above: MR Hand Right With A nd Without Contrast Start: 06-02-2024 End: 06-02-2024 ambulatory [facility] Start: 05-04-2024 ambulatory ODILON GEORGE [facility] Ambulatory Start: 04-28-2024 End: 04-28-2024 ambulatory [facility] Start: 04-28-2024 End: 04-30-2024 Orders Only Odilon George DO Work Phone: [facility] Start: 04-28-2024 End: 04-28-2024 Office outpatient new 45 minutes Ambrocio Anderson MD Work Phone: [facility] Comment on above: PSA (psoriatic arthr itis) ([facility]) (Primary Dx); Psoriasis; Polyarthralgia; Hypermobility arthralgia Start: 04-28-2024 End: 05-02-[address] [facility] Start: 03-13-2024 End: 03-13-[address] Shanon Greer DO -[facility] Work Phone: Start: 03-13-2024 End: 03-13-2024 ambulatory Shanon Greer Facility:[facility] Start: 01-09-2024 End: 01-09-2024 ambulatory Shanon Greer Facility:[facility] Start: 11-18-2023 ambulatory Jose Garza Facility:[facility] Start: 11-18-2023 End: 11-18-2023 ambulatory Shanon Greer Facility:[facility] Start: 04-26-2023 End: 04-26-2023 ambulatory [facility] Work Phone: Start: 04-26-2023 End: 04-26-2023 Patient encounter procedure [facility] Work Phone: Start: 09-03-2022 End: 09-08-2022 ambulatory PAM BRIONES MD Facility:[facility] Start: 09-03-2022 End: 09-08-2022 Encounter for gynecological examination (general) (routine) without abnormal findings PAM BRIONES MD Facility:[facility] Start: 09-03-2022 End: 09-07-2022 Outreach Lab PAM BRIONES MD [facility] Start: 05-08-2022 End: 05-08-2022 ambulatory [facility] Work Phone: Start: 05-08-2022 End: 05-08-2022 Patient encounter procedure [facility] Start: 04-25-2022 ambulatory Shanon Greer DO [facility] Start: 04-25-2022 End: 04-25-2022 Office outpatient visit 10 minutes Shanon Greer DO Work Phone: [facility] Start: 01-31-2022 End: 01-31-2022 ambulatory [facility] Work Phone: Start: 01-31-2022 End: 01-31-2022 Patient encounter procedure [facility] Start: 11-06-2021 End: 11-06-2021 ambulatory [facility] Work Phone: Start: 11-06-2021 End: 11-06-2021 Patient encounter procedure [facility] Start: 10-20-2021 End: 10-20-2021 Office outpatient visit 10 minutes Shanon Percy DO Work Phone: [facility] Start: 08-08-2021 End: 08-08-2021 Patient encounter procedure [facility] Start: 05-26-2021 End: 05-26-2021 SAME DAY STAY JANIE AKBAR MD [facility] Start: 05-18-2021 End: 05-18-2021 Admission to establishment JANIE AKBAR MD [facility] Start: 03-01-2021 End: 03-01-2021 Office outpatient visit 15 minutes Shanon Percy DO Work Phone: [facility] Start: 02-28-2021 End: 02-28-2021 Office outpatient visit 15 minutes Shanon Percy DO Work Phone: [facility] Start: 01-27-2021 End: 01-27-2021 Office outpatient visit 40 minutes Shanon Percy DO Work Phone: [facility] Start: 01-27-2021 End: 01-27-2021 Patient encounter status Shanon Percy DO Work Phone: [facility] Start: 02-19-2020 End: 02-19-2020 Office outpatient visit 15 minutes Shanon Percy [facility] Start: 02-16-2020 End: 02-16-2020 Office outpatient visit 15 minutes Shanon Percy [facility] Start: 01-01-2020 End: 01-01-2020 Annotation/Addendum Shanon Pichardo [facility] Start: 12-31-2019 End: 12-31-2019 Office outpatient visit 25 minutes Shanon Pichardo [facility] Start: 07-29-2018 End: 07-29-2018 Office outpatient visit 15 minutes Shanon Pichardo [facility] Start: 05-05-2018 End: 05-05-2018 Office outpatient visit 15 minutes Shanon Greer [facility] Start: 04-10-2018 End: 04-10-2018 Office outpatient visit 25 minutes Shanon Greer [facility] Start: 04-10-2018 Review Shanon Greer [facility] Internal [facility] Start: 01-17-2018 End: 01-17-2018 Office outpatient visit 15 minutes Shanon Pichardo [facility] Start: 08-14-2017 End: 08-14-2017 Office outpatient visit 10 minutes Shanon Greer [facility] Start: 06-26-2017 End: 06-26-2017 Office outpatient visit 10 minutes Shanon Greer [facility] Start: 05-02-2017 End: 05-02-2017 Patient encounter status Shanon Greer DO Work Phone: [facility] Start: 05-02-2017 End: 05-02-2017 Periodic preventive med est patient 40-64yrs Shanon Pichardo Internal [facility] Start: 09-16-2014 End: 09-16-2014 Office outpatient visit 25 minutes Shanon Pichardo [facility] Start: 07-22-2014 End: 07-22-2014 Office outpatient visit 15 minutes Shanon Pichardo [facility] Start: 06-09-2014 End: 06-09-2014 Office outpatient visit 25 minutes Shanon Greer [facility] Start: 05-27-2014 End: 05-27-2014 Office outpatient visit 25 minutes Shanon Greer [facility] Start: 03-10-2012 End: 03-10-2012 Patient encounter procedure Shanon Pichardo [facility] Start: 07-12-2011 End: 07-12-2011 Patient encounter procedure Shanon Pichardo [facility] Start: 12-26-2010 End: 12-26-2010 Patient encounter procedure Shanon Greer [facility] Start: 08-31-2010 End: 08-31-2010 Patient encounter procedure Shanon Greer [facility] Start: 07-13-2010 End: 07-13-2010 Patient encounter procedure Shanon Greer [facility] Start: 03-01-2010 End: 03-01-2010 Patient encounter procedure Shanon Greer [facility] Start: 02-10-2010 End: 02-10-2010 Office outpatient visit 25 minutes Shanon Greer [facility] Start: 08-29-2009 End: 08-29-2009 Office outpatient visit 25 minutes Shanon Greer [facility] Start: 08-19-2009 End: 08-19-2009 Patient encounter procedure Shanon Greer [facility] Start: 05-17-2009 End: 05-18-2009 Patient encounter procedure Shanon Greer [facility] Start: 09-08-2008 End: 09-08-2008 Office outpatient visit 25 minutes Shanon Greer [facility] Start: 08-06-2008 End: 08-08-2008 Patient encounter procedure Shanon Greer [facility] Start: 06-16-2008 End: 06-16-2008 Patient encounter procedure Shanon Greer [facility] Start: 05-21-2008 End: 05-21-2008 Patient encounter procedure Shanon Greer [facility] Start: 05-21-2008 End: 05-21-2008 Patient encounter status Shanon Greer DO Work Phone: [facility] Start: 12-09-2006 End: 12-09-2006 Office outpatient visit 25 minutes Shanon Greer [facility] Start: 12-06-2006 End: 12-06-2006 Office outpatient visit 25 minutes Shanon Greer [facility] Start: 11-15-2006 End: 11-15-2006 Patient encounter procedure Shanon Greer [facility] Start: 02-27-2006 End: 02-27-2006 Office outpatient new 45 minutes Shanon Greer [facility] Start: 02-27-2006 End: 02-27-2006 Patient encounter status Shanonluciano Greer DO Work Phone: [facility] Patient encounter status Harsh Louis LPN [facility]; [facility] Work Phone: Patient encounter status Harsh Louis LPN [facility]; [facility] Work Phone: Patient encounter status Mark Hawk MA [facility]; [facility] Work Phone: End: 08-05-2008 Physical examination Micaela Rai [facility]; [facility] Work Phone: Procedures Date Procedure Procedure Detail Performing Clinician Start: 08-06-2024 Creatinine blood Odilon George DO Work Phone: Start: 08-06-2024 Hepatic function panel Odilon George DO Work Phone: Start: 07-16-2024 In-vitro immunologic test Dr. Shanon Greer DO Work Phone: Comment on above: QuantiFERON-TB Gold Plus is a qualitativ e indirect test forM tuberculosis infection (including disease) and isintended for use in conjunction with risk assessment,radiography, and other medical and diagnostic evaluations.The QuantiFERON-TB Gold Plus result is determined bysubtracting the Nil value from either TB antigen (Ag)value. The Mitogen tube serves as a control for the test. No response to M tub erculosis antigens detected.Infection with M tuberculosis is unlikely, but high riskindividuals should be considered for additional testing(ATS/IDSA/CDC Clinical Practice Guidelines, 2017). Thereference range is an Antigen minus Nil result of <0.35IU/mL.The specimen received for QuantiFERON testing was incubatedby the ordering institution. Specific procedures outlinedin our Directory of Services and in the package insert forthe QuantiFERON Gold (In Tube) test must be followed toenable for proper stimulation of cells for the productionof interferon gamma. Chemiluminescence immunoassaymethodologyPerformed at: [email or web address] [id number] Director: Carlos Alberto Lynch PhD, Phone: [phone] Start: 06-23-2024 In-vitro immunologic test Dr. Shanon Greer DO Work Phone: Comment on above: QuantiFERON-TB Gold Plus is a qualitativ e indirect test forM tuberculosis infection (including disease) and isintended for use in conjunction with risk assessment,radiography, and other medical and diagnostic evaluations.The QuantiFERON-TB Gold Plus result is determined bysubtracting the Nil value from either TB antigen (Ag)value. The Mitogen tube serves as a control for the test. Mitogen (positive co ntrol) gave low response. This mayoccur due to suboptimal pre-analytical handling.The specimen received for QuantiFERON testing was incubatedby the ordering institution. Specific procedures outlinedin our Directory of Services and in the package insert forthe QuantiFERON Gold (In Tube) test must be followed toenable for proper stimulation of cells for the productionof interferon gamma. Chemiluminescence immunoassaymethodologyPerformed at: [facility] [id number] Director: Carlos Alberto Lynch PhD, Phone: [phone] Start: 04-28-2024 Assay of blood/uric acid Odilon Itzel George DO Work Phone: Start: 04-28-2024 C-reactive protein Odilon George DO Work Phone: Start: 05-26-2021 Dilation and curettage of uterus OMAR AKBAR MD Comment on above: WITH NOVASURE ABLATION Start: 03-02-2021 End: 03-02-2021 Virtual Office Visit Comments: See Note; NOTES: [facility] [address] [place] [address]. [place] [address] OFFICE VISIT Date of Service: 03/02/21 MR#: [id number] Acct: [id number] Patient: MARILIN MONSALVE Rep #: [id number] : 1970 Provider: CHIQUITA Medina Age/Sex: 50/F [place] [facility] [place] [facility] [place]: Signed Intake Vital Signs 03/02/21 14:10 Height 5 ft 3 in Weight: 155 lb BMI 27.4 Intake Visit Reasons: COVID-19 Allergies No Known Allergies Allergy (Verified 03/02/21 14:14) HPI HPI Details: Patient was informed that this visit will be billed to patient. This visit was conducted during COVID-19 pandemic. MARILIN MONSALVE, is a 50 F who participates in a telephone office visit for review of her COVID-19 symptoms. Statement read to the patient: This telehealth visit is being offered during our stay at home measures in response to the pandemic. It is subject to an office visit charge. The patient consents to continue. Symptom onset occurred: 02/26/21 Positive COVID-19 test occurred: 02/28/21 COVID vaccine administered: yes, Pfizer The FDA has authorized the emergency use of monoclonal antibody treatment (bamlanivimab/etesev imab or casirivimab/imdevima b) for mild to moderate COVID-19 in adults and pediatric patients with positive results of direct SARS???Cov???2 viral testing ages 12 and older, at least 40 kg, who were not at high risk for progressing to severe COVID-19 and or hospitalization. The significant known and potential risks (allergic reactions or side effects from injection including brief pain, bleeding, bruising of the skin, soreness, swelling, possible infection at the infusion site) and benefits (decrease chance of progression to severe COVID-19) of a monoclonal antibody infusion, and the extent to which such potential risks and benefits are unknown. Patients treated with monoclonal antibody infusion should continue to self-isolate and use infection control measures (such as wear mask, isolate, social distance, avoid sharing personal items, clean and disinfect high touch surfaces, and frequent handwashing) according to the CDC guidelines. The fact sheet for patients, parents and caregivers will be provided prior to the administration of the medication. No drugs are approved by the FDA at this time to treat outpatients with mild or moderate symptoms of COVID-19. The following information was communicated to the patient or caregiver: Monoclonal antibody infusion is not an FDA approved drug. The FDA has authorized the emergency use of monoclonal antibody therapy. The patient had the option to refuse or accept treatment with monoclonal antibody therapy. The patient was informed that the number of people treated with monoclonal antibody therapy at this time is small. The potential benefits and the potential risks of monoclonal antibody therapy are not fully known. Potential benefits of monoclonal antibody include a reduced risk of progressing to severe COVID-19 infection. Potential risks or side effects of monoclonal antibody therapy include allergic reactions, side effects from injection including brief pain, bleeding, bruising of the skin, soreness, swelling, possible infection at the infusion site. The patient stated understanding of this information communicated and wished to proceed with monoclonal antibody infusion therapy. Current symptoms include: Head congestion, chest congestion and fatigue. ROS Const Constitutional: Positive for fatigue ENT ENT: Positive for nasal congestion Resp Respiratory: Positive for chest congestion Endo Endocrine: Positive for fatigue Exam Const General: cooperative, comfortable and no acute distress Orientation: alert and oriented x3 Resp Effort Inspection: normal respiratory effort, able to speak in complete sentences, no audible wheezes, no cough and no respiratory distress Neuro General: patient alert and patient oriented x3 Cognition: normal cognition Speech: speech normal Psych Mental Status: mental status grossly normal Mood: congruent mood Affect: normal affect Speech and Movement: speech clear Attitude: cooperative Thought Process: normal Thought Content: normal Judgment: judgment good Details: Details:: Exam was limited due to phone visit with no video. Coding Level of Care Code Attention [place] Diagnoses COVID-19 U07.1 Time Spent (min) 10 Comment 80417 Assessment and Plan Assessment and Plan (1) COVID-19: Status: Acute Plan - Hayley Medina NP, CURRICULUM DESIGNER-C: This patient remains appropriate for monoclonal antibody treatment. The patient states understanding of this information communicated and wishes to proceed with monoclonal antibody infusion therapy. Patient agrees to receive either balanivimab/etesvima b or casirivimab/imdevima b upon availability. 03/02/21 1450 <Electronically signed by Hayley Medina NP CURRICULUM DESIGNER-C> Date Hayley Medina NP CURRICULUM DESIGNER-C Cosigner Signature: Date (if applicable) CC: Dr. Shanon Greer, DO Shanon Greer DO Work Phone: Start: 01-09-2020 End: 01-09-2020 Pelvic (Non ) Comments: See Note; NOTES: [facility] Imaging Services [address] [place] [address] Pelvic (Non ) MR#: [id number] Acct: [id number] Name: MARILIN MONSALVE Rep #: [id number] : 1970 F 49 From: Rick De Guzman MD PCP: Dr. Shanon Greer DO Status: REG CLI Study: Pelvic (Non ) Date of Exam: 01/09/20 Exam# [id number] Ordering Dr: Shanon Greer DO STUDY: ULTRASOUND OF THE FEMALE PELVIS - COMPLETE REASON FOR EXAM: Female, 49 years old. AUB-HEAVY MENSES WITH CLOTS LMP: 01/05/2020 TECHNIQUE: Transabdominal and Transvaginal TECHNICAL QUALITY: Adequate. COMPARISON: 04/28/2018 FINDINGS: The uterus is anteverted and is in a midline position. The uterus measures 10.1 x 6.1 x 4.4 cm. Normal uterine cervix. The endometrium measures 4 mm in thickness, and is hyperechoic. There is no demonstrated endometrial mass. 1.2 cm intramural fibroid in the anterior fundus the uterus. I.U.D. - The patient does not have an I.U.D. The right ovary is visualized. The right ovary measures 2.5 x 2.1 x 1.3 cm. There is no right ovarian cyst or ovarian mass. There is no visualized right adnexal mass or complex lesion. There is normal arterial and normal venous vascularity. The left ovary is visualized. The left ovary measures 3.3 x 2.4 x 1.7 cm. There is no left ovarian cyst or ovarian mass. There is no visualized left adnexal mass or complex lesion. There is normal arterial and normal venous vascularity. There is no fluid in the cul-de-sac. The pre void volume of the bladder was ml. The post void volume of the bladder was ml. Polycystic ovary disease: No. US/Pelvic (Non ) IMPRESSION: Small uterine fibroid. Electronically Signed: Rick De Guzman MD at 11:42 EDT Tel , Service support , CC: Dr. Shanon Greer DO In Home Aide: Signed Shanon Greer Work Phone: Start: 01-09-2020 End: 01-09-2020 Transvaginal Non- Comments: See Note; NOTES: [facility] Imaging Services [address] [place] [address] Transvaginal Non- MR#: [id number] Acct: [id number] Name: MARILIN MONSALVE Rep #: [id number] : 1970 F 49 From: Rick De Guzman MD PCP: Dr. Shanon Greer, DO Status: REG CLI Study: Transvaginal Non- Date of Exam: Exam# [id number] Ordering Dr: Shanon Greer DO STUDY: ULTRASOUND OF THE FEMALE PELVIS - COMPLETE REASON FOR EXAM: Female, 49 years old. AUB-HEAVY MENSES WITH CLOTS LMP: 01/05/2020 TECHNIQUE: Transabdominal and Transvaginal TECHNICAL QUALITY: Adequate. COMPARISON: 04/28/2018 FINDINGS: The uterus is anteverted and is in a midline position. The uterus measures 10.1 x 6.1 x 4.4 cm. Normal uterine cervix. The endometrium measures 4 mm in thickness, and is hyperechoic. There is no demonstrated endometrial mass. 1.2 cm intramural fibroid in the anterior fundus the uterus. I.U.D. - The patient does not have an I.U.D. The right ovary is visualized. The right ovary measures 2.5 x 2.1 x 1.3 cm. There is no right ovarian cyst or ovarian mass. There is no visualized right adnexal mass or complex lesion. There is normal arterial and normal venous vascularity. The left ovary is visualized. The left ovary measures 3.3 x 2.4 x 1.7 cm. There is no left ovarian cyst or ovarian mass. There is no visualized left adnexal mass or complex lesion. There is normal arterial and normal venous vascularity. There is no fluid in the cul-de-sac. The pre void volume of the bladder was ml. The post void volume of the bladder was ml. Polycystic ovary disease: No. US/Transvaginal Non- IMPRESSION: Small uterine fibroid. Electronically Signed: Rick De Guzman MD at 11:42 EDT Tel , Service support , CC: Dr. Shanon Greer DO In Home Aide: Signed Shanon Greer Work Phone: Start: 03-25-2019 End: 03-25-2019 Liver Comments: See Note; NOTES: [facility] Imaging Services [address] [place] [address] Liver MR#: [id number] Acct: [id number] Name: MARILIN MONSALVE Rep #: [id number] : 1970 F 48 From: Victorino Vines MD PCP: Shanon Greer DO Status: REG CLI Study: Liver Date of Exam: 03/25/19 Exam# [id number] Ordering Dr: Jill Toure MD STUDY: ABDOMINAL ULTRASOUND - RIGHT UPPER QUADRANT REASON FOR VISIT: Female, 48 years old. Elevated liver enzymes TECHNIQUE: Ultrasound evaluation of the right upper quadrant was performed with real-time and static damon-scale imaging. TECHNICAL QUALITY: Adequate. COMPARISON: None. FINDINGS: Liver: The liver measures 16 cm. There is increased echogenicity of the liver. The bile ducts are within normal limits. There is hepatic color flow. The direction of portal flow is hepatopetal. There is no demonstrated mass lesion. Gallbladder: Normal distended gallbladder. The gallbladder wall measures 2 mm. There is a negative sonographic Powell''s sign. There is no pericholecystic fluid. Gallstone versus sludgeball is present. Common Bile Duct (C.B.D.): The common bile duct measures 4 mm. Pancreas: Normal size of the head, body and tail of the pancreas. There is normal echogenicity of the pancreas. There is no demonstrated pancreatic mass or cyst. Right Kidney: Normal size of the right kidney. The right kidney measures 12 cm. Normal renal cortex. There is no demonstrated renal mass or cyst. There is no right hydronephrosis. US/Liver IMPRESSION: No acute abdominal pathology identified. Fatty liver. Gallstone versus sludgeball. Electronically Signed: Victorino Vines, at 17:12 EST Tel , Service support , CC: Shanon Greer DO; Jill Toure MD In Home Aide: Signed Shanon Greer Start: 04-28-2018 End: 04-30-2018 Transvaginal Non- Comments: See Note; NOTES: [facility] Imaging Services [address] [place] [address] Transvaginal Non- MR#: [id number] Acct: [id number] Name: MARILIN MONSALVE Rep #: [id number] : 1970 F 48 From: Dominic Srinivasan MD PCP: Shanon Greer DO Status: REG CLI Study: Transvaginal Non- Date of Exam: 04/28/18 Exam# [id number] Ordering Dr: Shanon Greer DO STUDY: ULTRASOUND OF THE FEMALE PELVIS - COMPLETE REASON FOR EXAM: Female, 48 years old. 2 month history of abnormal uterine bleeding. LMP: April 21, 2018. TECHNIQUE: Transabdominal and Transvaginal TECHNICAL QUALITY: Adequate. COMPARISON: None. FINDINGS: The uterus is anteverted and is in a midline position. The uterus measures 9.7 cm x 4.9 cm x 3.9 cm. There is a Nabothian cyst of the cervix. The endometrium measures 9 point mm in thickness, and is hyperechoic. There is no demonstrated endometrial mass. The uterus is of heterogeneous echotexture. 2 uterine fibroids are seen. The larger measures 1.7 cm x 1.6 cm by 1.6 cm. I.U.D. - The patient does not have an I.U.D. The right ovary is visualized. The right ovary measures 3.1 cm x 2.7 cm x 2.1 cm. There is a 1.8 cm x 1.3 cm x 1.2 cm dominant follicle in the ovary. There is no visualized right adnexal mass or complex lesion. There is normal arterial and normal venous vascularity. The left ovary is visualized. The left ovary measures 2.2 cm x 3 cm x 1.4 cm. A follicle is seen within it measuring 1.1 cm x 1 cm x 0.9 cm. There is no visualized left adnexal mass or complex lesion. There is normal arterial and normal venous vascularity. There is no fluid in the cul-de-sac. The pre void volume of the bladder was 64.5 ml. Polycystic ovary disease: No. US/Transvaginal Non- IMPRESSION: Fibroid uterus. Follicles seen in both ovaries. Electronically Signed: Dominic Srinivasan MD at 10:05 EST , Service support , CC: Shanon Greer DO In Home Aide: Signed Shanon Greer Work Phone: Start: 04-28-2018 End: 04-30-2018 Pelvic (Non ) Comments: See Note; NOTES: [facility] Imaging Services [address] [place] [address] Pelvic (Non ) MR#: [id number] Acct: [id number] Name: MARILIN MONSALVE Rep #: [id number] : 1970 F 48 From: Dominic Srinivasan MD PCP: Shanon Greer DO Status: REG CLI Study: Pelvic (Non ) Date of Exam: 04/28/18 Exam# [id number] Ordering Dr: Shanon Greer DO STUDY: ULTRASOUND OF THE FEMALE PELVIS - COMPLETE REASON FOR EXAM: Female, 48 years old. 2 month history of abnormal uterine bleeding. LMP: April 21, 2018. TECHNIQUE: Transabdominal and Transvaginal TECHNICAL QUALITY: Adequate. COMPARISON: None. FINDINGS: The uterus is anteverted and is in a midline position. The uterus measures 9.7 cm x 4.9 cm x 3.9 cm. There is a Nabothian cyst of the cervix. The endometrium measures 9 point mm in thickness, and is hyperechoic. There is no demonstrated endometrial mass. The uterus is of heterogeneous echotexture. 2 uterine fibroids are seen. The larger measures 1.7 cm x 1.6 cm by 1.6 cm. I.U.D. - The patient does not have an I.U.D. The right ovary is visualized. The right ovary measures 3.1 cm x 2.7 cm x 2.1 cm. There is a 1.8 cm x 1.3 cm x 1.2 cm dominant follicle in the ovary. There is no visualized right adnexal mass or complex lesion. There is normal arterial and normal venous vascularity. The left ovary is visualized. The left ovary measures 2.2 cm x 3 cm x 1.4 cm. A follicle is seen within it measuring 1.1 cm x 1 cm x 0.9 cm. There is no visualized left adnexal mass or complex lesion. There is normal arterial and normal venous vascularity. There is no fluid in the cul-de-sac. The pre void volume of the bladder was 64.5 ml. Polycystic ovary disease: No. US/Pelvic (Non ) IMPRESSION: Fibroid uterus. Follicles seen in both ovaries. Electronically Signed: Dominic Srinivasan MD at 10:05 EST , Service support , CC: Shanon Greer DO In Home Aide: Signed Shanon Greer Work Phone: Start: 06-26-2017 End: 06-26-2017 SCREENING MAMM (CAD), BILAT Comments: See Note; NOTES: [facility] Imaging Services [address] [place] [address] SCREENING MAMM (CAD), BILAT MR#: [id number] Acct: [id number] Name: MARILIN MONSALVE Rep #: [id number] : 1970 F 47 From: Dominic Srinivasan MD PCP: Shanon Greer DO Status: REG CLI Study: SCREENING MAMM (CAD), BILAT Date of Exam: 06/26/17 Exam# [id number] Ordering Dr: Shanon Greer DO MAMMOGRAPHY - BILATERAL SCREENING REASON FOR EXAM: Female, 47 years old. Routine annual screening examination. PERTINENT HISTORY: Aunt with breast cancer. TECHNIQUE: Digital bilateral breast roberto (3D mammographic acquisition) in the CC and MLO projections. 2-D mediolateral oblique (MLO) and craniocaudad (CC) views of both breasts were obtained. CAD: Full Field Digital Mammography with Computer Added Detection was performed. COMPARISON: Comparison is made with prior abdomen examination dated March 23, 2016. FINDINGS: Breast Composition: There are scattered areas of fibroglandular density. There are no dominant masses or suspicious calcifications. No other significant abnormalities are identified. There has been no significant change since the prior study. BI/SCREENING MAMM (CAD), BILAT IMPRESSION: Stable bilateral screening mammogram. Yearly follow-up mammogram recommended. (A) ASSESSMENT CATEGORY: BIRADS Category 1: Negative. A letter regarding these results will be sent to the patient by the facility within 30 days. Approximately 10% of breast cancers are not detected by mammography. A normal mammogram should not delay biopsy of a clinically suspicious abnormality. [id number] Electronically Signed: Dominic Srinivasan MD at 14:41 EDT Tel [phone], Service support , CC: Shanon Greer DO In Home Aide: Signed Shanon Greer Work Phone: Start: 03-23-2016 End: 03-23-2016 Chest PA and Lateral Comments: See Note; NOTES: [facility] Imaging Services [address] [place] [address] Verdana 4d Chest PA and Lateral MR#: [id number] Acct: [id number] Name: MARILIN MONSALVE Rep #: [id number] : 1970 F 45 From: Rae Barrios DO PCP: Shanon Greer DO Status: REG CLI Study: Chest PA and Lateral Date of Exam: 03/23/16 Exam# [id number] Ordering Dr: Jill Toure MD STUDY: X-RAY CHEST REASON FOR EXAM: Female, 45 years old. Joint pain, initiation of new arthritis medication TECHNIQUE: PA and lateral COMPARISON: None. FINDINGS: The lungs are clear and expanded. There is no demonstrated pleural abnormality. Normal size heart. Normal mediastinum and geno. Normal visualized pulmonary arteries. Normal visualized aortic arch and descending thoracic aorta. Normal visualized thoracic spine. Normal visualized ribs, clavicles, and shoulders. There is no demonstrated abnormality of the visualized soft tissue structures of the upper abdomen. RAD/Chest PA and Lateral IMPRESSION: Normal x-ray examination of the chest. Electronically Signed: Rae Barrios DO at 20:46 EST Tel , Service support [phone], CC: Shanon Greer DO; Jill Toure MD In Home Aide: Signed Shanon Greer Start: 03-23-2016 End: 03-23-2016 Pelvis 1 or 2 Views Comments: See Note; NOTES: [facility] Imaging Services [address] [place] [address] Verdana 4d Pelvis 1 or 2 Views MR#: [id number] Acct: [id number] Name: MARILIN MONSALVE Rep #: [id number] : 1970 F 45 From: Rae Barrios DO PCP: Shanon Greer DO Status: REG CLI Study: Pelvis 1 or 2 Views Date of Exam: 03/23/16 Exam# [id number] Ordering Dr: Jill Toure MD STUDY: X-RAY - PELVIS REASON FOR EXAM: Female, 45 years old. Joint pain, initiation of new arthritis medication TECHNIQUE: One view of the pelvis was obtained. COMPARISON: None. FINDINGS: There is a non-specific bowel gas pattern. Normal visualized soft tissue structures. Normal bilateral iliac wings, sacroiliac joints and visualized sacrum. Normal visualized bilateral superior and inferior pubic rami. Normal pubic symphysis. Normal ischial tuberosities. Normal visualized right femoral head. Normal right acetabulum. Normal right hip joint. Normal visualized left femoral head. Normal left acetabulum. Normal left hip joint. RAD/Pelvis 1 or 2 Views IMPRESSION: Normal x-ray examination of the pelvis. Electronically Signed: Rae Barrios DO at 20:48 EST Tel , Service support [phone], CC: Shanon Greer DO; Jill Toure MD In Home Aide: Signed Shanon Greer Plan of Treatment Date Care Activity Detail Author Start: 12-29-2024 End: 12-29-2024 Patient encounter procedure [facility] Start: 11-09-2024 Influenza vaccination Influenza Vaccine (#1) [facility] Start: 08-06-2024 End: 08-06-2024 Patient encounter procedure 08/06/2024 3:00 PM EDT Office Visit [facility] [address] [place] [address] [place] [phone] Odilon George DO [address] [place] [phone] [facility] Start: 07-16-2024 In-vitro immunologic test [facility] Start: 06-02-2024 End: 06-02-2024 Patient encounter procedure 06/02/2024 10:10 AM EDT Office Visit [facility] [address] [place] [address] [place] [phone] Odilon George DO [address] [place] [phone] [facility] Start: 04-25-2022 Procedure Education Eprescribed prescriptions (G8553) [facility]; [facility] Work Phone: Start: 10-20-2021 Procedure Education Eprescribed prescriptions (G8553) [facility]; [facility] Work Phone: Start: 2021 Pneumococcal Vaccine: Age 50+ (1 of 1 - PCV) Pneumococcal Vaccine: Age 50+ (1 of 1 - PCV) [facility] Start: 2021 Screening for malignant neoplasm of colon Flexible sigmoidoscopy [facility] Start: 03-01-2021 Procedure Education Eprescribed prescriptions (G8553) [facility]; [facility] Work Phone: Start: 03-01-2021 Provider Instructions for Treatment [facility]; [facility] Work Phone: Start: 02-28-2021 Procedure Education Eprescribed prescriptions (G8553) [facility]; [facility] Work Phone: Start: 02-28-2021 Iaadiadoo influenza 2019 Novel Coronavirus (COVID-19), HARRY (88376) [facility]; [facility] Work Phone: Start: 01-27-2021 Lipid panel LIPID PANEL (15480) [facility]; [facility] Work Phone: Start: 01-27-2021 Sars-cov-2 antibody SARS-CoV-2 Semi-Quantitative Total Antibody, Gee (22642) [facility]; [facility] Work Phone: Start: 01-27-2021 Assay of thyroid stimulating hormone tsh TSH (39712) [facility]; [facility] Work Phone: Start: 01-27-2021 25 hydroxy includes fractions if performed CALCIFEDIOL (52334) [facility]; [facility] Work Phone: Start: 01-27-2021 Procedure Education Eprescribed prescriptions (G8553) [facility]; [facility] Work Phone: Start: 01-27-2021 Provider Instructions for Treatment Reviewed Depalletizer Operator Letter [facility]; [facility] Work Phone: Start: 02-19-2020 Procedure Education Eprescribed prescriptions (G8553) [facility]; [facility] Work Phone: Start: 02-19-2020 Provider Instructions for Treatment Follow up if no improvement or if symptoms worsen [facility]; [facility] Work Phone: Start: 02-16-2020 Procedure Education Eprescribed prescriptions (G8553) [facility]; [facility] Work Phone: Start: 02-16-2020 Provider Instructions for Treatment Follow up in 2 days desk attendant to call her to make virtual in 2 days with [facility]; [facility] Work Phone: Start: 12-31-2019 Procedure Education Eprescribed prescriptions (G8553) [facility] Work Phone: Start: 12-31-2019 Provider Instructions for Treatment [facility] Work Phone: Start: 12-31-2019 TSH Qn TSH (96638) [facility] Work Phone: Comment on above: send results to dr briones as well Start: 12-31-2019 25 hydroxy includes fractions if performed CALCIFEDIOL (29619) [facility] Work Phone: Start: 07-29-2018 Procedure Education Eprescribed prescriptions (G8553) [facility] Work Phone: Start: 07-29-2018 Provider Instructions for Treatment [facility] Work Phone: Start: 05-05-2018 Procedure Education Eprescribed prescriptions (G8553) [facility] Work Phone: Start: 05-05-2018 Provider Instructions for Treatment [facility] Work Phone: Start: 05-02-2018 History and physical examination, annual for health maintenance [facility] Visit [facility] Start: 04-10-2018 Procedure Education Eprescribed prescriptions (G8553) [facility] Work Phone: Start: 04-10-2018 Gonadotropin follicle stimulating hormone FSH AND LH (92448) [facility] Work Phone: Start: 04-10-2018 Thyrotropin Qn TSH (42089) [facility] Work Phone: Start: 04-10-2018 T4 free mass conc T4, FREE (THYROXINE) (29771) [facility] Work Phone: Start: 04-10-2018 T3 free mass conc T3, FREE (TRIDOTHYRONINE) (56179) [facility] Work Phone: Start: 04-10-2018 Comprehensive metabolic panel METABOLIC PANEL, COMPREHENSIVE (97130) [facility] Work Phone: Start: 04-10-2018 Blood count complete auto&auto difrntl wbc CBC W/AUTO DIFF WBC (25818) [facility] Work Phone: Start: 01-17-2018 Procedure Education Eprescribed prescriptions (G8553) [facility] Work Phone: Start: 06-26-2017 Procedure Education Eprescribed prescriptions (G8553) [facility] Work Phone: Start: 06-26-2017 Provider Instructions for Treatment Follow up in 4 weeks [facility] Work Phone: Start: 05-02-2017 Provider Instructions for Treatment [facility] Work Phone: Start: 05-02-2017 Lipid panel LIPID PANEL (70127) [facility] Work Phone: Start: 05-02-2017 25 hydroxy includes fractions if performed CALCIFEDIOL (88705) [facility] Work Phone: Start: 05-02-2017 Hpv, dna, amp probe HPV automatic (90094) [facility] Work Phone: Start: 09-16-2014 Procedure Education Eprescribed prescriptions (G8553) [facility] Work Phone: Start: 09-16-2014 Provider Instructions for Treatment Follow up in 4 -6 weeks [facility] Work Phone: Start: 07-22-2014 Provider Instructions for Treatment Follow up in 6 weeks [facility] Work Phone: Start: 06-09-2014 25 hydroxy includes fractions if performed Vitamin D Hydroxy (35621) [facility] Work Phone: Start: 06-09-2014 Provider Instructions for Treatment [facility] Work Phone: Start: 05-27-2014 Provider Instructions for Treatment [facility] Work Phone: Start: 03-10-2012 Provider Instructions for Treatment *Antibiotic Usage Education - Female [facility] Work Phone: Start: 2011 Screening for malignant neoplasm of breast Mammogram [facility] Start: 07-13-2010 Provider Instructions for Treatment FOLLOW UP IN 1 MONTH [facility] Work Phone: Start: 07-13-2010 Assay of thyroid stimulating hormone tsh TSH (THYROID STIMULATING HORMONE) (65381) [facility]; [facility] Work Phone: Start: 07-13-2010 Cobalamin (Vitamin B12) mass conc VITAMIN B-12 (CYANOCOBALAMIN) (43782) [facility] Work Phone: Start: 07-13-2010 Cyanocobalamin vitamin b-12 VITAMIN B-12 (CYANOCOBALAMIN) (28157) [facility]; [facility] Work Phone: Start: 07-13-2010 Protein electrophoretic fractj&quantj serum Serum Protein Electrophoresis (SPEP) (70525) [facility]; [facility] Work Phone: Start: 07-13-2010 Protein mass conc Serum Protein Electrophoresis (SPEP) (53135) [facility] Work Phone: Start: 07-13-2010 Thyrotropin Qn TSH (THYROID STIMULATING HORMONE) (96325) [facility] Work Phone: Start: 07-13-2010 Comprehensive metabolic panel METABOLIC PANEL, COMPREHENSIVE (60142) [facility] Work Phone: Start: 07-13-2010 Sedimentation rate rbc non-automated SED RATE ERYTHROCYTE (06159) [facility] Work Phone: Start: 07-13-2010 Blood count complete automated CBC & PLATELETS (AUTO) (29700) [facility] Work Phone: Start: 03-01-2010 Provider Instructions for Treatment *Antibiotic Usage Education - Female [facility] Work Phone: Start: 02-10-2010 Provider Instructions for Treatment [facility] Work Phone: Start: 08-29-2009 25 hydroxy includes fractions if performed CALCIFEDIOL (03160) [facility] Work Phone: Start: 08-29-2009 Cul bact xcpt urine blood/stool aerobic isol EMERY CULTURE-OTHER (61562) [facility] Work Phone: Start: 08-19-2009 Cul bact xcpt urine blood/stool aerobic isol EMERY CULTURE-OTHER (41815) [facility] Work Phone: Start: 09-08-2008 Provider Instructions for Treatment FOLLOW UP IN 2 WEEKS [facility] Work Phone: Start: 09-08-2008 Cul bact xcpt urine blood/stool aerobic isol EMERY CULTURE-OTHER (50220) [facility] Work Phone: Start: 08-08-2008 Provider Instructions for Treatment Antibiotic Usage Education - Female [facility] Work Phone: Start: 06-16-2008 Provider Instructions for Treatment [facility] Work Phone: Start: 05-21-2008 Antibody rubeola RUBEOLA ANTIBODY (52750) [facility] Work Phone: Start: 05-21-2008 Antibody rubella RUBELLA ANTIBODY (80622) [facility] Work Phone: Start: 05-21-2008 Antibody mumps MUMPS ANTIBODY (03311) [facility] Work Phone: Start: 05-21-2008 Comprehensive metabolic panel METABOLIC PANEL, COMPREHENSIVE (10345) [facility] Work Phone: Start: 05-21-2008 Blood count manual cell count each CBC WITH MANUAL DIFF (54170) [facility] Work Phone: Start: 05-21-2008 Assay of thyroid stimulating hormone tsh TSH (30420) [facility]; [facility] Work Phone: Start: 05-21-2008 Thyrotropin Qn TSH (97381) [facility] Work Phone: Start: 05-21-2008 Provider Instructions for Treatment [facility] Work Phone: Start: 12-09-2006 Provider Instructions for Treatment Continue Current Prescription(s) [facility] Work Phone: Start: 12-06-2006 Provider Instructions for Treatment [facility] Work Phone: Start: 02-27-2006 Skin test tuberculosis intradermal PPD (67867) [facility] Work Phone: Comment on above: pt to have read in 48 hr Start: 2001 Screening for malignant neoplasm of cervix [facility] Start: 1992 Screening for malignant neoplasm of cervix Pap Smear [facility] Start: 1991 Screening for malignant neoplasm of colon Flexible sigmoidoscopy [facility] Start: 1989 Hepatitis C screening Hepatitis C Screening [facility] Start: 1986 HIV screening HIV Screening [facility] Start: 1983 Depression screening using PHQ-9 (Patient Health Questionnaire 9) score Depression Screening/Follow-Up (PHQ-2/9) [facility] Start: 1974 History and physical examination, annual for health maintenance Wellness Visit [facility] Start: 1971 Screening for malignant neoplasm of colon [facility] Start: 1971 Tetanus vaccination Tetanus: Every 10yrs [facility] End: 04-28-2025 Anti-cyclic citrullinated peptide antibody level CCP Antibody Lab Routine PSA (psoriatic arthritis) ([facility]) 1 Occurrences starting 04/28/2024 until 04/28/2025 [facility] Comment on above: 1 Occurrences starting 04/28/2024 until 04/28/2025 End: 04-28-2025 C reactive protein [Mass/volume] in Serum or Plasma CRP, Inflammation Lab Routine PSA (psoriatic arthritis) ([facility]) 1 Occurrences starting 04/28/2024 until 04/28/2025 [facility] Work Phone: Comment on above: 1 Occurrences starting 04/28/2024 until 04/28/2025 End: 04-28-2025 Erythrocyte sedimentation rate Sedimentation Rate Lab Routine PSA (psoriatic arthritis) ([facility]) 1 Occurrences starting 04/28/2024 until 04/28/2025 [facility] Comment on above: 1 Occurrences starting 04/28/2024 until 04/28/2025 Mycobacterium tuberculosis tuberculin stimulated gamma interferon [Presence] in Blood [facility] End: 04-28-2025 Rheumatoid factor, quantitative Rheumatoid factor Lab Routine PSA (psoriatic arthritis) ([facility]) 1 Occurrences starting 04/28/2024 until 04/28/2025 [facility] Comment on above: 1 Occurrences starting 04/28/2024 until 04/28/2025 End: 04-28-2025 Urate [Mass/volume] in Serum or Plasma Uric Acid Lab Routine PSA (psoriatic arthritis) ([facility]) 1 Occurrences starting 04/28/2024 until 04/28/2025 [facility] Comment on above: 1 Occurrences starting 04/28/2024 until 04/28/2025 XR Foot - left 3 Views XR Foot L eft 3+ Views (Standard) Imaging Routine PSA (psoriatic arthritis) ([facility]) 04/28/2024 3:08 PM EST [facility] XR Foot - right 3 Views XR Foot Right 3+ Views (Standard) Imaging Routine PSA (psoriatic arthritis) ([facility]) 04/28/2024 3:09 PM EST [facility] XR Hand - bilateral PA and Lateral and Ball Catcher XR Hands Bilateral Ball Catchers 2 Views Imaging Routine PSA (psoriatic arthritis) ([facility]) 04/28/2024 3:09 PM EST [facility] XR Sacroiliac Joint 3 Views XR SI Joints 3+ Views Imaging Routine PSA (psoriatic arthritis) ([facility]) 04/28/2024 3:08 PM EST [facility] Work Phone: [facility] Work Phone: [facility] Work Phone: [facility] Work Phone: [facility] Work Phone: [facility] Work Phone: [facility] Work Phone: [facility] Work Phone: [facility] Work Phone[facility] Work Phone: [facility] Work Phone: [facility] Work Phone: [facility] Work Phone: [facility] Work Phone: [facility] Work Phone: [facility] Work Phone: [facility] Work Phone: [facility]; [facility] Work Phone: Immunizations Immunization Date Immunization Notes Care Provider [facility] 12-20-2023 influenza virus vacc ine, unspecified formulation Odilon George DO Work Phone: [facility] Payers Date Payer Category Payer Self-pay [id number] 2023 Unknown [id number] 2018 Managed Care PPO (unspecified) [facility] Subscriber Plan / Payer (Effective 2018-Present) Name: Marilin Monsalve Relation to Subscriber: Self Name: Marilin Monsalve Payer ID: Not on file Type: Not on file Address: [place] [id number] 2013 Unknown [id number] 2012 Unknown [id number] 2011 Unknown [id number] 1971 Unknown [id number] 2.16840.1.971222.3.579.2. 716 1971 Unknown [id number] 2.840.1.643931.3.579.2. 627 1971 Unknown [id number] 2.840.1.907028.3.579.2. 903 1971 Unknown [id number] 2.16840.1.152337.3.579.2. 90 1971 Unknown [id number] 2.16840.1.304004.3.579.2. 90 1971 Unknown [id number] 2.0.1.161047.3.579.2. 90 1971 Unknown [id number] 2.16840.1.344814.3.579.2. 90 1971 Unknown [id number] 2.16840.1.125387.3.579.2. 90 1971 Unknown [id number] 2.16840.1.413106.3.579.2. 90 1971 Unknown [id number] 2.16840.1.001130.3.579.2. 90 1971 Unknown [id number] 2.16.840.1.619247.3.579.2. 903 1971 Unknown [id number] 2.16.840.1.883723.3.579.2. 903 Unknown Medical [facility]3] Unknown [id number] Unknown [id number] 2.16.840.1.404147.3.579.2. 462 Unknown [id number] 2.16.840.1.688586.3.579.2. 462 Unknown [id number] 2.16.840.1.506128.3.579.2. 462 Unknown [id number] 2.16.840.1.776950.3.579.2. 462 Unknown [id number] 2.16.840.1.347082.3.579.2. 462 Unknown [id number] 2.16.840.1.564646.3.579.2. 462 Unknown [id number] 2.16.840.1.121574.3.579.2. 462 Unknown [id number] 2.16.840.1.326142.3.579.2. 462 Social History Date Type Detail Facility No Drug Use Never smoker [facility] Work Phone: Tobacco use: Never smoker. [facility] Work Phone: Tobacco use: Tobacco use: [facility]; [facility] Work Phone: Start: 02-03-2020 Never smoked t obacco (finding) [facility] Start: 1970 Sex Assigned At Female [facility] Tobacco smoking status DEIS Tobacco smoking consumption unknown [facility] Start: 1970 Sex assigned at Not on file [facility] Gender identity Not on file [facility] Start: 06-29-2024 Sex Female (finding) [facility] 04-03-2021 to 12-29-2024 Note Date & Type Note Facility 12-29-2024 Note RHEUMATOLOGY NEW PAT IENT VISIT Patient Name: Marilin Monsalve : 1970 Medical Record: [id number] PCP: Shanon Greer DO Referring provider: REASON FOR REFERRAL Plaque psoriasis, history of psoriatic arthritis. ASSESSMENT AND PLAN Marilin Monsalve is a 54 y.o. female who is being seen for evaluation of plaque psoriasis, history of psoriatic arthritis. Plaque psoriasis History of psoriatic arthritis Polyarthralgia MRI of the right hand with and without contrast (May 2024)Showed reactive/degenerative bone marrow edema at the base of the thumb and in the trapezium consistent with thumb CMC arthritis. Pericapsular edema/inflammation around the thumb CMC joint noted. Moderately prominent de Quervain's tenosynovitis of the first compartment extensor tendons partially visualized. We discussed with patient that the MRI findings are not fully conclusive for underlying active psoriatic arthritis and some of the changes are likely more mediated by osteoarthritis as well as evidence of decor veins tenosynovitis which was likely more mechanical in nature. With her persistent stiffness, there is the possibility that the MRI was not obtained during active inflammation or at an area that was actively inflamed at that time. Because she requires a biologic for plaque psoriasis, we switched to Cosentyx to see if she may have some improvement in her joint symptoms and stiffness with this medication. Thus far she has not had significant benefit, though she has only had 2 maintenance doses. We agreed to continue with the Cosentyx 300 mg every 4 weeks to see if she has further benefit. She will try Voltaren gel on her CMC to see if she has any improvement. Discussed that we could refer her to orthopedics for a steroid injection in the future if needed. High risk medication use Discussed remaining up-to-date on vaccines including pneumonia, flu, COVID vaccines. Return to clinic in 3 months. Please do not hesitate to contact me with any questions or concerns. Odilon George DO [facility] Rheumatology [address] [place] [address] O: [phone] F: [phone] The above recommendations were discussed with the patient who understands and agrees with the plan. Portions of this note were created with [employer]. Every effort was made to proofread, but sound-alike errors may occasionally occur. Please contact me for any clarification of note contents. My ongoing relationship with Marilin Monsalve requires continued responsibility and cognitive effort of being the focal point for all services related to chronic condition(s). HPI/ROS Marilin Monsalve is a 54 y.o. female with who was referred by for evaluation of psoriatic arthritis. I reviewed the nursing intake form. Any corrections needed have been updated in the HPI. Interval history: Here for follow-up today. Tolerating the Cosentyx fine overall, but has not noticed a huge benefit in joint symptoms. Continues with pain and swelling of the right CMC joint. Still some stiffness in her shoulders and ribs. Had a squamous cell skin cancer removed with Mohs procedure. We discussed remaining up-to-date on dermatology given the Biologics can increase the risk of skin cancer. Initial visit: Past medical history includes psoriasis and psoriatic arthritis. Patient here today to establish care for psoriatic arthritis. She reports that she has a longstanding history of psoriasis dating back to when she was very young. She has tried many measures for her psoriasis and several biologic therapies as outlined below. With Enbrel and Humira, she got recurrent strep infections. Most recently, she has been on Tremfya and has done really well from a skin perspective. She does continue with joint pain. She previously was following with Dr. Toure's office in [place]. She was on methotrexate for a period of time (about 5 years). She did feel she had some benefit in symptoms, but was not great. She got up to a dose of 17.5 mg weekly. Notes that at 20 mg weekly there is started to be abnormalities in her blood work. She decided that she wanted to see how she did off of the methotrexate and has been off for about a year. Currently, she is having issues with pain in her hands. Her right hand gives her the most pain. She also does have some low back pain. Feet have bothered her in the past. She is stiff in the morning, but no more than 30 minutes. Does not feel like she has to run her hands under water. She has pain in the right hand with writing. Denies overt swelling, but does feel that the hands are tight. Reports that she was very flexible as a child. Occasionally will take Advil for pain. Prednisone does help. Enbrel -increased infections Humira -increased infection Stelara Tremfya-currently taking and works well for skin Methotrexate -only slight benefit PHYSICAL EXAM Vitals: 12/29/24 1351 BP: (more content not included)... [facility] 09-21-2024 Discharge summary [facility] 09-21-2024 Discharge summary Note Date/Time September 21, 2024 2:31pm [facility] Physical Therapy [facility] [address] [place] [address] / REHABILITATION SERVICES DISCHARGE SUMMARY MR#: [id number] Acct: [id number] Name: MARILIN MONSALVE Rep #: [id number] : 1970 54 From: Beth Hankins Referring Dr.: Dr. Odilon George DO Status: REG RCR Insurance: [facility] S[employer]Y [employer]URANCE Discharge Summary D/C summary: It has been my pleasure to treat MARILIN MONSALVE referred by Dr. Odilon George DO, with the diagnosis of L shoulder pain for a total of 9 visit(s). Discharge Date: 09/21/24 Please see the following information for a summary of their discharge status. Subjective Subjective: She has pain with certain movements but still better than what it was. She is doing some exercises at home. She is more likely to do stretching than the exercises. She feels that she needs to get herself motivated to do exercises on her own. Pain L shoulder pain: Pain Intensity (Out of 10): 2 R shoulder pain: Pain Intensity (Out of 10): 2 Overall Improvement % Improvement: 75 Objective Objective/Function: UE MMT: R shoulder flex 14.9 and L 17.2 R shoulder ABD 15.4 and L 15.2 R shoulder ER 15.9 and L 18.2 R shoulder IR 13.3and L 13.9 Goals Goal 1:: I HEP Goal Progress: Goal Met Goal 2:: Sit with more upright posture Goal Progress: Goal Met Goal 3:: Increase UE strength (at the time of the eval: UE MMT: R shoulder flex 12 and L 10.6 R shoulder ABD 15.4 and L 11.1 R shoulder ER 14.6 and L 13.9 R shoulder IR 11.7 and L 8.9) Goal Progress: Goal Met Goal 4:: Decrease L shoulder pain with reaching back into the back seat Goal Progress: Progressing Plan Plan: DC PT to HEP D/C Information Discharge Comments: DC PT to HEP d/c sentence: If there are questions or concerns regarding this patient's physical therapy, please feel free to call me at [phone]. Thank you for the referral of thispatient. Sincerely, Beth Vaughan, THIEN Balance/Gait/Functional tests Balance/Special Test Scores Quick DASH Score: 18.1800 Improvement % Improvement: 75 <Electronically signed by Beth Vaughan MPT> 09/21/24 1206 CC: Dr. Odilon George DO; Dr. Shanon Greer DO ~ Signed [facility] Work Phone: 1(217) 596-788406-12-2025 NoteI had inadvertently sent her Cosentyx to [place] pharmacy. [facility] these [facility]? AUTHENTICATED BY ODILON GEORGE ON 08/20/2024 10:21:[address] [place], [place] 1770206-12-2025 History of Present illness Narrative* Odilon George DO - 08/20/2024 10:21 AM EDT I had inadvertently sent her Cosentyx to [place] [facility]. [facility]? * Nav Goodman LPN - 08/20/2024 9:59 AM EDT Pt.'s Cosentyx has been approved from 08-18-24 to 08-18-25. Pt has been made aware via voicemail and [employer] message as has Dr. Geroge. I also let her know she will be doing a starter dose first then a maintenance dose but most importantly she is not to start her Cosentx until 6 weeks from 08-06-24 dueto her previous infusion. * Nav Goodman LPN - 08/18/2024 10:02 AM EDT Pt.'s Cosentyx loading dose and maintenance dose required a PA, the online form was completed/submitted through [employer]. documented in this [id number] History of Present illness Narrative* Nav Goodman LPN - 08/20/2024 9:59 AM EDT Pt.'s Cosentyx has been approved from 08-18-24 to 08-18-25. Pt has been made aware via [employer] and [employer] message as has Dr. George. I also let her know she will be doing a starter dose first then a maintenance dose but most importantly she is not to start her Cosentx until 6 weeks from 08-06-24 dueto her previous infusion. * Nav Goodman LPN - 08/18/2024 10:02 AM EDT Pt.'s Cosentyx loading dose and maintenance dose required a PA, the online form was completed/submitted through [employer]. documented in this [id number] History of Present illness Narrative* Nav Goodman LPN - 08/18/2024 10:02 AM EDT Pt.'s Cosentyx loading dose and maintenance dose required a PA, the online form was completed/submitted through [employer]. documented in this [id number] Telephone encounter Note* Telephone Encounter - Odilon George DO - 08/17/2024 8:22 PM EDT Labs reviewed. Sending in Cosentyx. Please submit with diagnoses codes of both plaque psoriasis andpsoriatic arthritis. [id number] Miscellaneous Notes* Telephone Encounter - Odilon George DO - 08/17/2024 8:22 PM EDT Labs reviewed. Sending in Cosentyx. Please submit with diagnoses codes of both plaque psoriasis andpsoriatic arthritis. documented in this [id number] NoteRHEUMATOLOGY NEW PATIENT VISIT Patient Name: Marilin Monsalve : 1970 Medical Record: [id number] PCP: Shanon Greer DO Referring provider: REASON FOR REFERRAL Plaque psoriasis, history of psoriatic arthritis. ASSESSMENT AND PLAN Marilin Monsalve is a 54 y.o. female who is being seen for evaluation of plaque psoriasis, history of psoriatic arthritis. Plaque psoriasis History of psoriatic arthritis Polyarthralgia She is currently on Tremfya 100 mg every 8 weeks. She continues with significant stiffness and scattered tenderness throughout her hands, though overt synovitis is not detected. MRI of the right hand with and without contrast (May 2024)Showed reactive/degenerative bone marrow edema at the base of the thumb and in the trapezium consistent with thumb CMC arthritis. Pericapsular edema/inflammation around the thumb CMC joint noted. Moderately prominent de Quervain's tenosynovitis of the first compartment extensor tendons partially visualized. Discussed with patient that the MRI findings are not fully conclusive for underlying active psoriatic arthritis and some of the changes are likely more mediated by osteoarthritis as well as evidence of decor veins tenosynovitis which was likely more mechanical in nature. With her persistent stiffness, there is the possibility that the MRI was not obtained during active inflammation or at an area that was actively inflamed at that time. She does have an indication for underlying biologic therapy for her plaque psoriasis, so we discussed that we could consider an agent that may have slightly more benefit for the joints to see if she has any improvement in symptoms. We discussed Cosentyx and Taltz. Patient would like to proceed with 1 of these agents. We will try for Cosentyx 300 mg with loading dose at 0, 1, 2, 3, 4, then 300 mg every 4 weeks thereafter. She cannot start this until she is at the 8-week eliana from her last dose of Tremfya which was 2 weeks ago. We may have to consider Lauryn if insurance prefers that on formulary. She is in agreement with this plan. There is a possibility that we could lose a degree of skin control with the change to alternate agent. High risk medication use Secukinumab (COSENTYX) discussed with patient included risk of infection and risk of development or worsening of inflammatory bowel disease. Hold in event of infection. Handout of medication given. Patient to let us know of any side effects. Will request most recent TB test from [facility]. I have also ordered CBC, creatinine, LFTs for baseline labs. After we have these results, we will plan to send in Cosentyx for prior authorization. Return to clinic in 3 to 4 months. Please do not hesitate to contact me with any questions or concerns. Odilon George DO [facility] Rheumatology [address] [place], [place] [address] [address] O: [phone] F: [phone] The above recommendations were discussed with the patient who understands and agrees with the plan. Portions of this note were created with [employer]. Every effort was made to proofread, but sound-alike errors may occasionally occur. Please contact me for any clarification of note contents. My ongoing relationship with Marilin Monsalve requires continued responsibility and cognitive effort of being the focal point for all services related to chronic condition(s). HPI/ROS Marilin Monsalve is a 54 y.o. female with who was referred by for evaluation of psoriatic arthritis. I reviewed the nursing intake form. Any corrections needed have been updated in the HPI. Interval history: Patient here for follow-up today. She continues with worsening arthralgias. The base of her thumbs bother her a lot but she also has pain in her hand joints. Also appears very stiff. We discussed MRI results and how some of it may be related to underlying osteoarthritis. Initial visit: Past medical history includes psoriasis and psoriatic arthritis. Patient here today to establish care for psoriatic arthritis. She reports that she has a longstanding history of psoriasis dating back to when she was very young. She has tried many measures for her psoriasis and several biologic therapies as outlined below. With Enbrel and Humira, she got recurrent strep infections. Most recently, she has been on Tremfya and has done really well from a skin perspective. She does continue with joint pain. She previously was following with Dr. Toure's office in [place]. She was on methotrexate for a period of time (about 5 years). She did feel she had some benefit in symptoms, but was not great. She got up to a dose of 17.5 mg weekly. Notes that at 20 mg weekly there is started to be abnormalities in her blood work. She decided that she wanted to see how she did off of the methotrexate and has been off for about a year. Currently, she is having issues with pain in her hands. Her right hand (more content not included)...[facility]05-29-2025 History of Present illness Narrative* Odilon George DO - 08/06/2024 3:10 PM EDT Images from the original note were not included. RHEUMATOLOGY NEW PATIENT VISIT Patient Name: Marilin Monsalve : 1970 Medical Record: [id number] PCP: Shanon Greer DO Referring provider: REASON FOR REFERRAL Plaque psoriasis, history of psoriatic arthritis. ASSESSMENT AND PLAN Marilin Monsalve is a 54 y.o. female who is being seen for evaluation of plaque psoriasis, historyof psoriatic arthritis. Plaque psoriasis History of psoriatic arthritis Polyarthralgia She is currently on Tremfya 100 mg every 8 weeks. She continues with significant stiffness and scattered tenderness throughout her hands, though overt synovitis is not detected. MRI of the right hand with and without contrast (May 2024)Showed reactive/degenerative bone marrow edema at the base of the thumb and in the trapezium consistent with thumb CMC arthritis. Pericapsular edema/inflammation around the thumb CMC joint noted. Moderately prominent de Quervain's tenosynov itis of the first compartment extensor tendons partially visualized. Discussed with patient that the MRI findings are not fully conclusive for underlying active psoriatic arthritis and some of the changes are likely more mediated by osteoarthritis as well as evidence of decor veins tenosynovitis which was likely more mechanical in nature. With her persistent stiffness, there is the possibility that the MRI was not obtained during active inflammation or at an area that was actively inflamed at that time. She does have an indication for underlying biologic therapyfor her plaque psoriasis, so we discussed that we could consider an agent that may have slightly more benefit for the joints to see if she has any improvement in symptoms. We discussed Cosentyx and Taltz. Patient would like to proceed with 1 of these agents. We will try for Cosentyx 300 mg with loading dose at 0, 1, 2, 3, 4, then 300 mg every 4 weeks thereafter. She cannot start this until she is at the 8-week eliana from her last dose of Tremfya which was2 weeks ago. We may have to consider Taltz if insurance prefers that on formulary. She is in agreement with this plan. There is a possibility that we could lose a degree of skin control with the change to alternate agent. High risk medication use Secukinumab (COSENTYX) discussed with patient included risk of infection and risk of development orworsening of inflammatory bowel disease. Hold in event of infection. Handout of medication given. Patient to let us know of any side effects. Will request most recent TB test from [facility]. I have also ordered CBC, creatinine, LFTs for baseline labs. After we have these results, we will plan to send in Cosentyx for prior authorization. Return to clinic in 3 to 4 months. Please do not hesitate to contact me with any questions or concerns. Odilon George, [facility] Rheumatology [address] [place] [address] O: [phone] F: [phone] The above recommendations were discussed with the patient who understands and agrees with the plan. Portions of this note were created with [employer]. Every effort was made to proofread, but sound-alike errors may occasionally occur. Please contact me for any clarification of note contents. My ongoing relationship with Marilin Monsalve requires continued responsibility and cognitive effort of being the focal point for all services related to chronic condition(s). HPI/ROS Marilin Monsalve is a 54 y.o. female with who was referred by for evaluation of psoriatic arthritis. I reviewed the nursing intake form. Any corrections needed have been updated in the HPI. Interval history: Patient here for follow-up today. She continues with worsening arthralgias. The base of her thumbs bother her a lot but she also has pain in her hand joints. Also appears very stiff. We discussed MRIresults and how some of it may be related to underlying osteoarthritis. Initial visit: Past medical history includes psoriasis and psoriatic arthritis. Patient here today to establish care for psoriatic arthritis. She reports that she has a longstanding history of psoriasis dating back to when she was very young. She has tried many measures for her psoriasis and several biologic therapies as outlined below. With Enbrel and Humira, she got recurrent strep infections. Most recently, she has been on Tremfya and has done really well from a skin perspective. She does continue with joint pain. She previously was following with Dr. Toure's office in [place]. She was on methotrexate for a period of time (about 5 years). She did feel she had some benefit in symptoms, but was not great. She got up to a dose of 17.5 mg weekly. Notes that at 20 mg w eekly there is started to be abnormalities in her blood work. She decided that she wanted to see how she did off of the methotrexate and has been off for about a year. Currently, she is having issueswith pain in her hands. Her right hand gives her the most pain. She also does have some low back pain. Feet have bothered her in the past. She is stiff in the morning, but no more than 30 minutes. Does not feel like she has to run her hands under water. She has pain in the right hand with writing. Denies overt swelling, but does feel that the hands are tight. Reports that she was very flexible asa child. Occasionally will take Advil for pain. Prednisone does help. Enbrel -increased infections Humira -increased infection Stelara Ibarra-currently taking and works well for skin Methotrexate -only slight benefit PHYSICAL EXAM Vitals: 08/06/24 1502 BP: 131/79 BP Location: Left arm Patient Position: Sitting Pulse: 95 Weight: 72.5 kg (159 lb 14.4 oz) Constitutional: ?No acute distress. Normal appearance. Not?ill-appearing. HENT: Head normocephalic?and atraumatic. Eyes: No discharge.??? Pulmonary: Pulmonary effort is normal. No?respiratory distress. Skin: Warm?and dry. No rash over exposed surfaces. Neurological: Alert. Psychiatric: ???Mood, affect, thought content normal. Musculoskeletal: No distinct synovitis detected in hand joints, but she does have scattered tenderness. * Esperanza Lewis LPN - 08/06/2024 3:02 PM EDT RHEUMATOLOGY FOLLOW-UP VISIT INTAKE: Have you had any new illnesses, infections, or hospitalizations? ? []Yes [x]No If yes, please specify: Are you having any side effects from your rheumatology medications? ? []Yes ? []No ? [x]N/A If yes, please specify: Are you having morning stiffness? ? [x]Yes []No How many minutes does it last? 5 to 10 ? Are you having any joint swelling? ? [x]Yes []No If yes, what joints? hands Global Assessment: Considering all of the ways that your disease affects you, how are you doing (0 = best ; 10 = worst)? 6.0 No show/cancellation policy provided to patient: []Yes []Patient declined [x]Patient previously received and declined additional copy documented in this [id number] NoteRHEUMATOLOGY NEW PATIENT VISIT Patient Name: Marilin Monsalve : 1970 Medical Record: [id number] PCP: Shanon Greer DO Referring provider: Ambrocio Anderson REASON FOR REFERRAL Plaque psoriasis, history of psoriatic arthritis. ASSESSMENT AND PLAN Marilin Monsalve is a 54 y.o. female who is being seen for evaluation of plaque psoriasis, history of psoriatic arthritis. Plaque psoriasis History of psoriatic arthritis Polyarthralgia Skin well-controlled on current regimen of Tremfya 100 mg every 8 weeks. Continues with arthralgias. Tenderness over PIPs appreciated in bilateral hands today. Some tenderness also present over SI joints. Also does have evidence of hypermobility on exam, discussed that hypermobility arthralgia may also be contributing to clinical picture. We will request her prior rheumatology notes. Will do a fresh workup with x-rays of hands, feet, and SI joints to evaluate for evidence of axial involvement. Will also check rheumatoid factor, CCP, uric acid, inflammatory markers. If workup overall unrevealing, we will plan to proceed with an MRI of her right hand with and without contrast to evaluate for underlying synovitis. She will continue Tremfya in the interim. Return to clinic in 6 weeks Please do not hesitate to contact me with any questions or concerns. Odilon George DO [facility] Rheumatology [address] [place] [address] O: [phone] F: [phone] The above recommendations were discussed with the patient who understands and agrees with the plan. Portions of this note were created with [employer]. Every effort was made to proofread, but sound-alike errors may occasionally occur. Please contact me for any clarification of note contents. My ongoing relationship with Marilin Monsalve requires continued responsibility and cognitive effort of being the focal point for all services related to chronic condition(s). HPI/ROS Marilin Monsalve is a 54 y.o. female with who was referred by Ambrocio Anderson for evaluation of psoriatic arthritis. I reviewed the nursing intake form. Any corrections needed have been updated in the HPI. Initial visit: Past medical history includes psoriasis and psoriatic arthritis. Patient here today to establish care for psoriatic arthritis. She reports that she has a longstanding history of psoriasis dating back to when she was very young. She has tried many measures for her psoriasis and several biologic therapies as outlined below. With Enbrel and Humira, she got recurrent strep infections. Most recently, she has been on Tremfya and has done really well from a skin perspective. She does continue with joint pain. She previously was following with Dr. Toure's office in [place]. She was on methotrexate for a period of time (about 5 years). She did feel she had some benefit in symptoms, but was not great. She got up to a dose of 17.5 mg weekly. Notes that at 20 mg weekly there is started to be abnormalities in her blood work. She decided that she wanted to see how she did off of the methotrexate and has been off for about a year. Currently, she is having issues with pain in her hands. Her right hand gives her the most pain. She also does have some low back pain. Feet have bothered her in the past. She is stiff in the morning, but no more than 30 minutes. Does not feel like she has to run her hands under water. She has pain in the right hand with writing. Denies overt swelling, but does feel that the hands are tight. Reports that she was very flexible as a child. Occasionally will take Advil for pain. Prednisone does help. Enbrel -increased infections Humira -increased infection Freda Ibarra-currently taking and works well for skin Methotrexate -only slight benefit PHYSICAL EXAM Vitals: 04/28/24 1359 BP: (!) 156/82 BP Location: Left arm Patient Position: Sitting Pulse: (!) 100 Weight: 72.1 kg (159 lb) Constitutional: ?No acute distress. Normal appearance. Not?ill-appearing. HENT: Head normocephalic?and atraumatic. Eyes: No discharge.??? Pulmonary: Pulmonary effort is normal. No?respiratory distress. Skin: Warm?and dry. No rash over exposed surfaces. Neurological: Alert. Psychiatric: ???Mood, affect, thought content normal. Musculoskeletal: Beighton score of 7. Tenderness is noted below. Please see image below for frazier joint exam: There is currently no information documented on the homunculus. Go to the Rheumatology activity and [facility]. PAST MEDICAL HISTORY No past medical history on file. AUTHENTICATED BY ODILON GEORGE, ON 04/28/2024 14:58:30[facility]02-18-2025 History of Present illness Narrative* Odilon George DO - 04/28/2024 2:11 PM EST Images from the original note were not included. RHEUMATOLOGY NEW PATIENT VISIT Patient Name: Marilin Monsalve : 1970 Medical Record: [id number] PCP: Shanon Greer DO Referring provider: Ambrocio Anderson REASON FOR REFERRAL Plaque psoriasis, history of psoriatic arthritis. ASSESSMENT AND PLAN Marilin Monsalve is a 54 y.o. female who is being seen for evaluation of plaque psoriasis, historyof psoriatic arthritis. Plaque psoriasis History of psoriatic arthritis Polyarthralgia Skin well-controlled on current regimen of Tremfya 100 mg every 8 weeks. Continues with arthralgias. Tenderness over PIPs appreciated in bilateral hands today. Some tenderness also present over SI joints. Also does have evidence of hypermobility on exam, discussed that hypermobility arthralgia may also be contributing to clinical picture. We will request her prior rheumatology notes. Will do a fresh workup with x-rays of hands, feet, and SI joints to evaluate for evidence of axial involvement. Will also check rheumatoid factor, CCP, uric acid, inflammatory markers. If workup overall unrevealing, we will plan to proceed with an MRI of her right hand with and without contrast to evaluate for underlying synovitis. She will continue Tremfya in the interim. Return to clinic in 6 weeks Please do not hesitate to contact me with any questions or concerns. Odilon George DO [facility] Rheumatology [address] [place] [address] O: [phone] F: [phone] The above recommendations were discussed with the patient who understands and agrees with the plan. Portions of this note were created with [employer]. Every effort was made to proofread, but sound-alike errors may occasionally occur. Please contact me for any clarification of note contents. My ongoing relationship with Marilin Monsalve requires continued responsibility and cognitive effort of being the focal point for all services related to chronic condition(s). HPI/ROS Marilin Monsalve is a 54 y.o. female with who was referred by Ambrocio Anderson for evaluation of psoriatic arthritis. I reviewed the nursing intake form. Any corrections needed have been updated in the HPI. Initial visit: Past medical history includes psoriasis and psoriatic arthritis. Patient here today to establish care for psoriatic arthritis. She reports that she has a longstanding history of psoriasis dating back to when she was very young. She has tried many measures for her psoriasis and several biologic therapies as outlined below. With Enbrel and Humira, she got recurrent strep infections. Most recently, she has been on Tremfya and has done really well from a skin perspective. She does continue with joint pain. She previously was following with Dr. Toure's office in [place]. She was on methotrexate for a period of time (about 5 years). She did feel she had some benefit in symptoms, but was not great. She got up to a dose of 17.5 mg weekly. Notes that at 20 mg w eekly there is started to be abnormalities in her blood work. She decided that she wanted to see how she did off of the methotrexate and has been off for about a year. Currently, she is having issueswith pain in her hands. Her right hand gives her the most pain. She also does have some low back pain. Feet have bothered her in the past. She is stiff in the morning, but no more than 30 minutes. Does not feel like she has to run her hands under water. She has pain in the right hand with writing. Denies overt swelling, but does feel that the hands are tight. Reports that she was very flexible asa child. Occasionally will take Advil for pain. Prednisone does help. Enbrel -increased infections Humira -increased infection Freda Ibarra-currently taking and works well for skin Methotrexate -only slight benefit PHYSICAL EXAM Vitals: 04/28/24 1359 BP: (!) 156/82 BP Location: Left arm Patient Position: Sitting Pulse: (!) 100 Weight: 72.1 kg (159 lb) Constitutional: ?No acute distress. Normal appearance. Not?ill-appearing. HENT: Head normocephalic?and atraumatic. Eyes: No discharge.??? Pulmonary: Pulmonary effort is normal. No?respiratory distress. Skin: Warm?and dry. No rash over exposed surfaces. Neurological: Alert. Psychiatric: ???Mood, affect, thought content normal. Musculoskeletal: Beighton score of 7. Tenderness is noted below. Please see image below for frazier joint exam: There is currently no information documented on the homunculus. Go to the Rheumatology activity andcomplete the homunculus joint exam. PAST MEDICAL HISTORY No past medical history on file. * Esperanza Lewis LPN - 04/28/2024 2:00 PM EST RHEUMATOLOGY NEW PATIENT INTAKE: Have you ever been diagnosed with the following? [x] Psoriasis [] Crohn s disease [] Ulcerative Colitis [] Inflammatory eye disease (uveitis, scleritis, episcleritis, iritis) Have you or do you experience any of the following? [] Color changes in your fingers in the cold (Raynaud s) [] Increased thickening of your skin [] Recurrent rash (other than sunburn) when you go into the sun [] A single finger or toe swelling like a sausage [] Fluid around your heart [] Fluid around your lungs [] Miscarriage (if applicable) [] Blood clots REVIEW OF SYSTEMS Constitutional:?? []Fever []Fatigue []Unexpected weight loss Eyes:?? []Change in visual acuity []Dry eyes []Redness HENT:? []Oral/nasal ulcers []Dry mouth []Difficulty swallowing Cardiovascular:?? []Chest pain []Palpitations []Edema Respiratory:?? []Cough []Shortness of breath GI:?? []Abdominal pain []Diarrhea []Constipation []Bloody stools : []Dysuria []Hematuria Musculoskeletal: [x]Joint pain [x]Joint swelling Integument:?? []Rash []Hair loss Neurologic:?? []Headache []Dizziness Psychiatric:?? []Depression [x]Anxiety Endocrine:?? []Polydipsia []Polyuria Lymphatic:?? []Swollen glands Allergic/Immunologic: [x]Seasonal allergies []Frequent infections FAMILY HISTORY Does anyone in your family have a rheumatologic condition (rheumatoid arthritis, psoriatic arthritis, lupus, Sjogren s for example) or skin psoriasis? [x]Yes []No If yes, please list family member and condition: Mother osteoarthritis SOCIAL HISTORY Occupation: teacher Do you smoke cigarettes or cigars? []Yes [x]No []Previously Please list how long you have smoked and how much per day if applicable: Do you drink alcohol? [x]Yes []No Please list how much per week if applicable: 1 to 2 drinks Do you use marijuana, cocaine, heroin, or any other substances? []Yes [x]No Please list if applicable No show/cancellation policy provided to patient [x]Yes []Patient declined documented in this [id number] Evaluation + Plan note Diagnostic Tests Pending * HPV Screen, DNA Probe 09/03/22 Future Scheduled Tests Laboratory* Thyroid Stimulating Hormone 09/03/22 * Lipid Profile 09/03/22 Radiology* MA Mammo Screening Bilateral w/ Roberto 09/03/22 [facility] 03-18-2022 Evaluation + Plan noteExtracted from: Title:[employer]ER History and Physical Author:SCAR AKBAR MD Date:05/26/21 Abnormal uterine bleeding to OR for hys D&C w ablation discussed r/b/a discussed postop care follow up in 2 weeks for routine check Orders: Lactated Ringers Infusion 1000 mL, Start: 05/26/21 6:00:00 EDT, 18 hour(s), Stop date 05/27/21 17:59:00 EDT, Rate: 25 mL/hr Future Scheduled Tests Laboratory* Thyroid Stimulating Hormone 04/03/21 * Complete Blood Count 04/03/21 [facility] 03-18-2022 Hospital Discharge instructions Patient Education 05/26/2021 09:35:07 Nausea and Vomiting, Adult, Mxjm-bb-Gmmb Nausea and Vomiting, Adult Nausea is feeling sick to your stomach or feeling that you are about to throw up (vomit). Vomiting is when food in your stomach is thrown up and out of the mouth. Throwing up can make you feel weak. It can also make you lose too much water in your body (get dehydrated). If you lose too much water in your body, you may: Feel tired. Feel thirsty. Have a dry mouth. Have cracked lips. Go pee (urinate) less often. Older adults and people with other diseases or a weak body defense system (immune system) are at higher risk for losing too much water in the body. If you feel sick to your stomach and you throw up, it is important to follow instructions from your doctor about how to take care of yourself. Follow these instructions at home: Watch your symptoms for any changes. Tell your doctor about them. Follow these instructions to carefor yourself at home. Eating and drinking Take an ORS (oral rehydration solution). This is a drink that is sold at pharmacies and stores. Drink clear fluids in small amounts as you are able, such as: ?Water. ?Ice chips. ?Fruit juice that has water added (diluted fruit juice). ?Low-calorie sports drinks. Eat bland, lzzu-bo-xshjfm foods in small amounts as you are able, such as: ?Bananas. ?Applesauce. ?Rice. ?Low-fat (lean) meats. ?[place]. ?Crackers. Avoid drinking fluids that have a lot of sugar or caffeine in them. This includes energy drinks, sports drinks, and soda. Avoid alcohol. Avoid spicy or fatty foods. General instructions Take wfcw-zpw-lvfehdt and prescription medicines only as told by your doctor. Drink enough fluid to keep your pee (urine) pale yellow. Wash your hands often with soap and water. If you cannot use soap and water, use hand insulation cutter. Make sure that all people in your home wash their hands well and often. Rest at home while you get better. Watch your condition for any changes. Take slow and deep breaths when you feel sick to your stomach. Keep all follow-up visits as told by your doctor. This is important. Contact a doctor if: Your symptoms get worse. You have new symptoms. You have a fever. You cannot drink fluids without throwing up. You feel sick to your stomach for more than 2 days. You feel light-headed or dizzy. You have a headache. You have muscle cramps. You have a rash. You have pain while peeing. Get help right away if: You have pain in your chest, neck, arm, or jaw. You feel very weak or you pass out (faint). You throw up again and again. You have throw up that is bright red or looks like black coffee grounds. You have bloody or black poop (stools) or poop that looks like tar. You have a very bad headache, a stiff neck, or both. You have very bad pain, cramping, or bloating in your belly (abdomen). You have trouble breathing. You are breathing very quickly. Your heart is beating very quickly. Your skin feels cold and clammy. You feel confused. You have signs of losing too much water in your body, such as: ?Dark pee, very little pee, or no pee. ?Cracked lips. ?Dry mouth. ?Sunken eyes. ?Sleepiness. ?Weakness. These symptoms may be an emergency. Do not wait to see if the symptoms will go away. Get medical help right away. Call your local emergency services (911 in the [place] Do not drive yourself to the hospital. Summary Nausea is feeling sick to your stomach or feeling that you are about to throw up (vomit). Vomiting is when food in your stomach is thrown up and out of the mouth. Follow instructions from your doctor about eating and drinking to keep from losing too much water in your body. Take imrg-mat-gfjsioz and prescription medicines only as told by your doctor. Contact your doctor if your symptoms get worse or you have new symptoms. Keep all follow-up visits as told by your doctor. This is important. This information is not intended to replace advice given to you by your health care provider. Make sure you discuss any questions you have with your health care provider. Document Released: 08/13/2008 Document Revised: 06/19/2019 Document Reviewed: 08/05/2018 [employer] Patient Education 2020 [employer] 05/26/2021 09:35:01 Monitored Anesthesia Care, Care After Monitored Anesthesia Care, Care After These instructions provide you with information about caring for yourself after your procedure. Your health care provider may also give you more specific instructions. Your treatment has been plannedaccording to current medical practices, but problems sometimes occur. Call your health care provider if you have any problems or questions after your procedure. What can I expect after the procedure? After your procedure, you may: Feel sleepy for several hours. Feel clumsy and have poor balance for several hours. Feel forgetful about what happened after the procedure. Have poor judgment for several hours. Feel nauseous or vomit. Have a sore throat if you had a breathing tube during the procedure. Follow these instructions at home: For at least 24 hours after the procedure: Have a responsible adult stay with you. It is important to have someone help care for you until youare awake and alert. Rest as needed. Do not: ?Participate in activities in which you could fall or become injured. ?Drive. ?Use heavy machinery. ?Drink alcohol. ?Take sleeping pills or medicines that cause drowsiness. ?Make important decisions or sign legal documents. ?Take care of children on your own. Eating and drinking Follow the diet that is recommended by your health care provider. If you vomit, drink water, juice, or soup when you can drink without vomiting. Make sure you have little or no nausea before eating solid foods. General instructions Take kbzo-ctf-kjaeimp and prescription medicines only as told by your health care provider. If you have sleep apnea, surgery and certain medicines can increase your risk for breathing problems. Follow instructions from your health care provider about wearing your sleep device: ?Anytime you are sleeping, including during daytime naps. ?While taking prescription pain medicines, sleeping medicines, or medicines that make you drowsy. If you smoke, do not smoke without supervision. Keep all follow-up visits as told by your health care provider. This is important. Contact a health care provider if: You keep feeling nauseous or you keep vomiting. You feel light-headed. You develop a rash. You have a fever. Get help right away if: You have trouble breathing. Summary For several hours after your procedure, you may feel sleepy and have poor judgment. Have a responsible adult stay with you for at least 24 hours or until you are awake and alert. This information is not intended to replace advice given to you by your health care provider. Make sure you discuss any questions you have with your health care provider. Document Released: 06/17/2016 Document Revised: 05/26/2018 Document Reviewed: 06/17/2016 [employer] Patient Education 2020 [employer] 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 However, you should always follow any specific instructions given to you by your surgeon. Pain Medication Please follow the directions on the label of your medication and use your discharge medication listprovided by the hospital. Do not take this medication on an empty stomach. This may cause a stomachache. Use a stool softener or gentle laxative (milk of magnesia) if needed. Constipation is not uncommon while taking oral pain medication. Use less of any narcotic pain medication as soon as your pain allows. You may take jiic-wdi-siwgozovwqc medication if you no longer need your prescribed pain medication. Ypij-nua-mqbafuo pain medications are Tylenol (acetaminophen) or Advil (ibuprofen). Do not take Tylenol if you are still taking [place] or Percocet. They are the same type of medication. Too much acetaminophen can hurt your liver. Activity It is OK to use the stairs, but try to avoid them or take less trips right after surgery. After surgery, you may feel tired. Rest is important for healing. Slowly increase your activity level by walking and doing normal activities as you feel comfortable. Follow surgeon instructions on driving. You may not be able to drive for one to six weeks dependingon what surgery and incisions you have. Do not drive while taking narcotic pain medication. They should be out of your system for 24 hours. Diet Eating smaller meals instead of three large meals is good. This may help with your appetite and nutrition. Good nutrition will help you heal. Follow diet instructions that you were taught after surgery. Infection Prevention Washing your hands is one of the best ways to prevent infection. Always wash your hands before and after touching your incision or dressing. Hands carry germs that can cause infections. Try not to touch your incision. Keep the Incision Clean Wear clean, loose-fitting clothes to prevent clothes from rubbing on the incision. Put clean sheets on your bed when you get home. Do not let other people or animals touch the incision. Showering You may start to shower 24 hours after your surgery. Use a clean washcloth and towel on your incision before you use it on any other area of your body. Adjust the shower spray to gentle and use warm water. Gently wash over your incision using antibacterial soap and water and pat it dry. Do not rub the incision. Do not soak or submerge in the bathtub or hot tub until your surgeon says it is OK. Wound Care When you go home, you may leave your incision(s) open to the air. Your incision(s) may be closed with sutures or regla. If incision is closed with sutures under the skin, you do not need to have these removed as they will dissolve on their own. If incision is closed with regla, the regla will need to be removed. If your incision is horizontal (sideways), they need to be removed within three to seven days. If your incision is vertical (up and down), they need to be removed within 10 14 days. If you have thin white tape strips (Steri-Strips) over your incision, keep them dry. Do not remove them unless they begin curling up at the sides and are almost falling off or have been in place for seven days. If your incision begins coming apart, has drainage (thick, foul smelling, white, yellow, green, pink or red) with redness around the incision and feels warm to touch, call your surgeon. You may have an infection. Vaginal Care You may have drainage after surgery. Normal colors are watery, brown-black discharge. Vaginal spotting and bleeding are normal. However, if you are soaking two pads in one hour, that isnot normal. Call your surgeon. No tampons or douching. NO SEXUAL INTERCOURSE FOR 6 WEEKS. Call Your Doctor If: Your pain is not controlled by pain medication. You have a fever of 100.4 degrees or higher. You have a lot of bleeding from the incision or a lot of vaginal bleeding (more than two pads per hour). You have bad stomach pain or you start throwing up. If you are unable to reach your doctor, go to the hospital. Follow Up If a follow-up appointment has not been made, please call your surgeon s office within a day. Contact your surgeon for any specific problems or questions that you may have. Follow Up Care 05/04/2021 13:52:23 With:JANIE AKBAR Address: [address] [facility] [place] [address] [phone] Business (1) When:Within 2 Week(s) [facility] 01-24-2022 Evaluation + Plan note Future Appointments Future Scheduled Tests Laboratory* Thyroid Stimulating Hormone 04/03/21 * Complete Blood Count 04/03/21 [facility] Evaluation noteNo assessment information available [facility] Work Phone: Eval[facility] note* Diagnosis PSA (psoriatic arthritis) (HCC)- Primary Psoriatic arthropathy Psoriasis Other psoriasis Polyarthralgia Pain in joint, multiple sites Hypermobility arthralgia Pain in joint, site unspecified [facility] PSA (psoriatic arthritis) (HCC)- Primary Psoriatic arthropathy Psoriasis Other psoriasis Acute pain of left shoulder [facility] Diagnosis PSA (psoriatic arthritis) (HCC) Psoriatic arthropathy Psoriasis Other psoriasis [facility]* Diagnosis PSA (psoriatic arthritis) (HCC)- Primary Psoriatic arthropathy Psoriasis Other psoriasis [facility] Narrative No data available for this section [facility] Hospital Discharge instructions No data available for this section [facility]avier Instructions* Name Dates Details Patient Instructions Indication:Non-smoker Start:01-Mar-2021 Instruction Type:Provider Instructions for Treatment How to Access Health Informa tion Online using Patient Portal and [employer] Apps Indication:Non-smoker Start:01-Mar-2021 Instruction Type:Patient Education Patient Instructions Indication:BMI 27.0-27.9,adult Start:28-Feb-2021 Instruction Type:Provider Instructions for Treatment How to Access Health Informa tion Online using Patient Portal and [employer] Apps Indication:BMI 27.0-27.9,adult Start:28-Feb-2021 Instruction Type:Patient Education Patient Instructions Indication:Non-smoker Start:27-Jan-2021 Instruction Type:Provider Instructions for Treatment How to Access Health Informa tion Online using Patient Portal and [employer] Apps Indication:Non-smoker Start:27-Jan-2021 Instruction Type:Patient Education Patient Instructions Indication:BMI 26.0-26.9,adult Start:19-Feb-2020 Instruction Type:Provider Instructions for Treatment How to Access Health Informa tion Online using Patient Portal and [employer] Apps Indication:BMI 26.0-26.9,adult Start:19-Feb-2020 Instruction Type:Patient Education How to access health informa tion online Indication:Non-smoker Start:16-Feb-2020 Instruction Type:Patient Education How to access health informa tion online - Detail Indication:Non-smoker Start:16-Feb-2020 Instruction Type:Patient Education Patient Instructions Indication:Non-smoker Start:16-Feb-2020 Instruction Type:Provider Instructions for Treatment How to access health informa tion online Indication:BMI 25.0-25.9,adult Start:31-Dec-2019 Instruction Type:Patient Education How to access health informa tion online - Detail Indication:BMI 25.0-25.9,adult Start:31-Dec-2019 Instruction Type:Patient Education Patient Instructions Indication:BMI 25.0-25.9,adult Start:31-Dec-2019 Instruction Type:Provider Instructions for Treatment How to access health informa tion online Indication:Non-smoker Start:29-Jul-2018 Instruction Type:Patient Education How to access health informa tion online - Detail Indication:Non-smoker Start:29-Jul-2018 Instruction Type:Patient Education Patient Instructions Indication:Non-smoker Start:29-Jul-2018 Instruction Type:Provider Instructions for Treatment How to access health informa tion online Indication:BMI 25.0-25.9,adult Start:05-May-2018 Instruction Type:Patient Education How to access health informa tion online - Detail Indication:BMI 25.0-25.9,adult Start:05-May-2018 Instruction Type:Patient Education Patient Instructions Indication:BMI 25.0-25.9,adult Start:05-May-2018 Instruction Type:Provider Instructions for Treatment How to access health informa tion online Indication:BMI 25.0-25.9,adult Start:10-Apr-2018 Instruction Type:Patient Education How to access health informa tion online - Detail Indication:BMI 25.0-25.9,adult Start:10-Apr-2018 Instruction Type:Patient Education Patient Instructions Indication:BMI 25.0-25.9,adult Start:10-Apr-2018 Instruction Type:Provider Instructions for Treatment How to access health informa tion online Indication:Non-smoker Start:17-Jan-2018 Instruction Type:Patient Education How to access health informa tion online - Detail Indication:Non-smoker Start:17-Jan-2018 Instruction Type:Patient Education Patient Instructions Indication:Non-smoker Start:17-Jan-2018 Instruction Type:Provider Instructions for Treatment How to access health informa tion online Indication:BMI 24.0-24.9, adult Start:14-Aug-2017 Instruction Type:Patient Education How to access health informa tion online - Detail Indication:BMI 24.0-24.9, adult Start:14-Aug-2017 Instruction Type:Patient Education Patient Instructions Indication:BMI 24.0-24.9, adult Start:14-Aug-2017 Instruction Type:Provider Instructions for Treatment How to access health informa tion online Indication:Non-smoker Start:26-Jun-2017 Instruction Type:Patient Education How to access health informa tion online - Detail Indication:Non-smoker Start:26-Jun-2017 Instruction Type:Patient Education Patient Instructions Indication:Non-smoker Start:26-Jun-2017 Instruction Type:Provider Instructions for Treatment How to access health informa tion online Indication:Fatigue Start:16-Sep-2014 Instruction Type:Patient Education How to access health informa tion online - Detail Indication:Fatigue Start:16-Sep-2014 Instruction Type:Patient Education Patient Instructions Indication:Fatigue Start:16-Sep-2014 Instruction Type:Provider Instructions for Treatment Patient Instructions Indication:Fatigue Start:22-Jul-2014 Instruction Type:Provider Instructions for Treatment Patient Instructions Indication:Vitamin D deficiency Start:09-Jun-2014 Instruction Type:Provider Instructions for Treatment Patient Instructions Indication:Acute sinusitis, unspecified Start:10-Mar-2012 Instruction Type:Provider Instructions for Treatment Sore throat: diagnosis and treatment Indication:Streptococcal sore throat Start:08-Sep-2008 Instruction Type:Patient Education [facility] Work Phone: Instructions* Name Dates Details Patient Instructions Indication:Non-smoker Start:01-Mar-2021 Instruction Type:Provider Instructions for Treatment How to Access Health Informa tion Online using Patient Portal and [employer] Apps Indication:Non-smoker Start:01-Mar-2021 Instruction Type:Patient Education Patient Instructions Indication:BMI 27.0-27.9,adult Start:28-Feb-2021 Instruction Type:Provider Instructions for Treatment How to Access Health Informa tion Online using Patient Portal and [employer] Apps Indication:BMI 27.0-27.9,adult Start:28-Feb-2021 Instruction Type:Patient Education Patient Instructions Indication:Non-smoker Start:27-Jan-2021 Instruction Type:Provider Instructions for Treatment How to Access Health Informa tion Online using Patient Portal and [employer] Apps Indication:Non-smoker Start:27-Jan-2021 Instruction Type:Patient Education Patient Instructions Indication:BMI 26.0-26.9,adult Start:19-Feb-2020 Instruction Type:Provider Instructions for Treatment How to Access Health Informa tion Online using Patient Portal and [employer] Apps Indication:BMI 26.0-26.9,adult Start:19-Feb-2020 Instruction Type:Patient Education How to access health informa tion online Indication:Non-smoker Start:16-Feb-2020 Instruction Type:Patient Education How to access health informa tion online - Detail Indication:Non-smoker Start:16-Feb-2020 Instruction Type:Patient Education Patient Instructions Indication:Non-smoker Start:16-Feb-2020 Instruction Type:Provider Instructions for Treatment How to access health informa tion online Indication:BMI 25.0-25.9,adult Start:31-Dec-2019 Instruction Type:Patient Education How to access health informa tion online - Detail Indication:BMI 25.0-25.9,adult Start:31-Dec-2019 Instruction Type:Patient Education Patient Instructions Indication:BMI 25.0-25.9,adult Start:31-Dec-2019 Instruction Type:Provider Instructions for Treatment How to access health informa tion online Indication:Non-smoker Start:29-Jul-2018 Instruction Type:Patient Education How to access health informa tion online - Detail Indication:Non-smoker Start:29-Jul-2018 Instruction Type:Patient Education Patient Instructions Indication:Non-smoker Start:29-Jul-2018 Instruction Type:Provider Instructions for Treatment How to access health informa tion online Indication:BMI 25.0-25.9,adult Start:05-May-2018 Instruction Type:Patient Education How to access health informa tion online - Detail Indication:BMI 25.0-25.9,adult Start:05-May-2018 Instruction Type:Patient Education Patient Instructions Indication:BMI 25.0-25.9,adult Start:05-May-2018 Instruction Type:Provider Instructions for Treatment How to access health informa tion online Indication:BMI 25.0-25.9,adult Start:10-Apr-2018 Instruction Type:Patient Education How to access health informa tion online - Detail Indication:BMI 25.0-25.9,adult Start:10-Apr-2018 Instruction Type:Patient Education Patient Instructions Indication:BMI 25.0-25.9,adult Start:10-Apr-2018 Instruction Type:Provider Instructions for Treatment How to access health informa tion online Indication:Non-smoker Start:17-Jan-2018 Instruction Type:Patient Education How to access health informa tion online - Detail Indication:Non-smoker Start:17-Jan-2018 Instruction Type:Patient Education Patient Instructions Indication:Non-smoker Start:17-Jan-2018 Instruction Type:Provider Instructions for Treatment How to access health informa tion online Indication:BMI 24.0-24.9, adult Start:14-Aug-2017 Instruction Type:Patient Education How to access health informa tion online - Detail Indication:BMI 24.0-24.9, adult Start:14-Aug-2017 Instruction Type:Patient Education Patient Instructions Indication:BMI 24.0-24.9, adult Start:14-Aug-2017 Instruction Type:Provider Instructions for Treatment How to access health informa tion online Indication:Non-smoker Start:26-Jun-2017 Instruction Type:Patient Education How to access health informa tion online - Detail Indication:Non-smoker Start:26-Jun-2017 Instruction Type:Patient Education Patient Instructions Indication:Non-smoker Start:26-Jun-2017 Instruction Type:Provider Instructions for Treatment How to access health informa tion online Indication:Fatigue Start:16-Sep-2014 Instruction Type:Patient Education How to access health informa tion online - Detail Indication:Fatigue Start:16-Sep-2014 Instruction Type:Patient Education Patient Instructions Indication:Fatigue Start:16-Sep-2014 Instruction Type:Provider Instructions for Treatment Patient Instructions Indication:Fatigue Start:22-Jul-2014 Instruction Type:Provider Instructions for Treatment Patient Instructions Indication:Vitamin D deficiency Start:09-Jun-2014 Instruction Type:Provider Instructions for Treatment Patient Instructions Indication:Acute sinusitis, unspecified Start:10-Mar-2012 Instruction Type:Provider Instructions for Treatment Sore throat: diagnosis and treatment Indication:Streptococcal sore throat Start:08-Sep-2008 Instruction Type:Patient Education [facility]; [facility] Work Phone: Instructions* Name Dates Details Patient Instructions Indication:Non-smoker Start:01-Mar-2021 Instruction Type:Provider Instructions for Treatment How to Access Health Informa tion Online using Patient Portal and [employer] Apps Indication:Non-smoker Start:01-Mar-2021 Instruction Type:Patient Education Patient Instructions Indication:BMI 27.0-27.9,adult Start:28-Feb-2021 Instruction Type:Provider Instructions for Treatment How to Access Health Informa tion Online using Patient Portal and [employer] Apps Indication:BMI 27.0-27.9,adult Start:28-Feb-2021 Instruction Type:Patient Education Patient Instructions Indication:Non-smoker Start:27-Jan-2021 Instruction Type:Provider Instructions for Treatment How to Access Health Informa tion Online using Patient Portal and [employer]rd [employer] Apps Indication:Non-smoker Start:27-Jan-2021 Instruction Type:Patient Education Patient Instructions Indication:BMI 26.0-26.9,adult Start:19-Feb-2020 Instruction Type:Provider Instructions for Treatment How to Access Health Informa tion Online using Patient Portal and [employer]rd [employer] Apps Indication:BMI 26.0-26.9,adult Start:19-Feb-2020 Instruction Type:Patient Education How to access health informa tion online Indication:Non-smoker Start:16-Feb-2020 Instruction Type:Patient Education How to access health informa tion online - Detail Indication:Non-smoker Start:16-Feb-2020 Instruction Type:Patient Education Patient Instructions Indication:Non-smoker Start:16-Feb-2020 Instruction Type:Provider Instructions for Treatment How to access health informa tion online Indication:BMI 25.0-25.9,adult Start:31-Dec-2019 Instruction Type:Patient Education How to access health informa tion online - Detail Indication:BMI 25.0-25.9,adult Start:31-Dec-2019 Instruction Type:Patient Education Patient Instructions Indication:BMI 25.0-25.9,adult Start:31-Dec-2019 Instruction Type:Provider Instructions for Treatment How to access health informa tion online Indication:Non-smoker Start:29-Jul-2018 Instruction Type:Patient Education How to access health informa tion online - Detail Indication:Non-smoker Start:29-Jul-2018 Instruction Type:Patient Education Patient Instructions Indication:Non-smoker Start:29-Jul-2018 Instruction Type:Provider Instructions for Treatment How to access health informa tion online Indication:BMI 25.0-25.9,adult Start:05-May-2018 Instruction Type:Patient Education How to access health informa tion online - Detail Indication:BMI 25.0-25.9,adult Start:05-May-2018 Instruction Type:Patient Education Patient Instructions Indication:BMI 25.0-25.9,adult Start:05-May-2018 Instruction Type:Provider Instructions for Treatment How to access health informa tion online Indication:BMI 25.0-25.9,adult Start:10-Apr-2018 Instruction Type:Patient Education How to access health informa tion online - Detail Indication:BMI 25.0-25.9,adult Start:10-Apr-2018 Instruction Type:Patient Education Patient Instructions Indication:BMI 25.0-25.9,adult Start:10-Apr-2018 Instruction Type:Provider Instructions for Treatment How to access health informa tion online Indication:Non-smoker Start:17-Jan-2018 Instruction Type:Patient Education How to access health informa tion online - Detail Indication:Non-smoker Start:17-Jan-2018 Instruction Type:Patient Education Patient Instructions Indication:Non-smoker Start:17-Jan-2018 Instruction Type:Provider Instructions for Treatment How to access health informa tion online Indication:BMI 24.0-24.9, adult Start:14-Aug-2017 Instruction Type:Patient Education How to access health informa tion online - Detail Indication:BMI 24.0-24.9, adult Start:14-Aug-2017 Instruction Type:Patient Education Patient Instructions Indication:BMI 24.0-24.9, adult Start:14-Aug-2017 Instruction Type:Provider Instructions for Treatment How to access health informa tion online Indication:Non-smoker Start:26-Jun-2017 Instruction Type:Patient Education How to access health informa tion online - Detail Indication:Non-smoker Start:26-Jun-2017 Instruction Type:Patient Education Patient Instructions Indication:Non-smoker Start:26-Jun-2017 Instruction Type:Provider Instructions for Treatment How to access health informa tion online Indication:Fatigue Start:16-Sep-2014 Instruction Type:Patient Education How to access health informa tion online - Detail Indication:Fatigue Start:16-Sep-2014 Instruction Type:Patient Education Patient Instructions Indication:Fatigue Start:16-Sep-2014 Instruction Type:Provider Instructions for Treatment Patient Instructions Indication:Fatigue Start:22-Jul-2014 Instruction Type:Provider Instructions for Treatment Patient Instructions Indication:Vitamin D deficiency Start:09-Jun-2014 Instruction Type:Provider Instructions for Treatment Patient Instructions Indication:Acute sinusitis, unspecified Start:10-Mar-2012 Instruction Type:Provider Instructions for Treatment Sore throat: diagnosis and treatment Indication:Streptococcal sore throat Start:08-Sep-2008 Instruction Type:Patient Education [facility]; [facility] Work Phone: Instructions* Name Dates Details Patient Instructions Indication:Non-smoker Start:20-Oct-2021 Instruction Type:Provider Instructions for Treatment How to Access Health Informa tion Online using Patient Portal and 3rd [employer] Apps Indication:Non-smoker Start:20-Oct-2021 Instruction Type:Patient Education Patient Instructions Indication:Non-smoker Start:01-Mar-2021 Instruction Type:Provider Instructions for Treatment How to Access Health Informa tion Online using Patient Portal and [employer]rd [employer] Apps Indication:Non-smoker Start:01-Mar-2021 Instruction Type:Patient Education Patient Instructions Indication:BMI 27.0-27.9,adult Start:28-Feb-2021 Instruction Type:Provider Instructions for Treatment How to Access Health Informa tion Online using Patient Portal and 3rd [employer] Apps Indication:BMI 27.0-27.9,adult Start:28-Feb-2021 Instruction Type:Patient Education Patient Instructions Indication:Non-smoker Start:27-Jan-2021 Instruction Type:Provider Instructions for Treatment How to Access Health Informa tion Online using Patient Portal and 3rd [employer] Apps Indication:Non-smoker Start:27-Jan-2021 Instruction Type:Patient Education Patient Instructions Indication:BMI 26.0-26.9,adult Start:19-Feb-2020 Instruction Type:Provider Instructions for Treatment How to Access Health Informa tion Online using Patient Portal and 3rd [employer] Apps Indication:BMI 26.0-26.9,adult Start:19-Feb-2020 Instruction Type:Patient Education How to access health informa tion online Indication:Non-smoker Start:16-Feb-2020 Instruction Type:Patient Education How to access health informa tion online - Detail Indication:Non-smoker Start:16-Feb-2020 Instruction Type:Patient Education Patient Instructions Indication:Non-smoker Start:16-Feb-2020 Instruction Type:Provider Instructions for Treatment How to access health informa tion online Indication:BMI 25.0-25.9,adult Start:31-Dec-2019 Instruction Type:Patient Education How to access health informa tion online - Detail Indication:BMI 25.0-25.9,adult Start:31-Dec-2019 Instruction Type:Patient Education Patient Instructions Indication:BMI 25.0-25.9,adult Start:31-Dec-2019 Instruction Type:Provider Instructions for Treatment How to access health informa tion online Indication:Non-smoker Start:29-Jul-2018 Instruction Type:Patient Education How to access health informa tion online - Detail Indication:Non-smoker Start:29-Jul-2018 Instruction Type:Patient Education Patient Instructions Indication:Non-smoker Start:29-Jul-2018 Instruction Type:Provider Instructions for Treatment How to access health informa tion online Indication:BMI 25.0-25.9,adult Start:05-May-2018 Instruction Type:Patient Education How to access health informa tion online - Detail Indication:BMI 25.0-25.9,adult Start:05-May-2018 Instruction Type:Patient Education Patient Instructions Indication:BMI 25.0-25.9,adult Start:05-May-2018 Instruction Type:Provider Instructions for Treatment How to access health informa tion online Indication:BMI 25.0-25.9,adult Start:10-Apr-2018 Instruction Type:Patient Education How to access health informa tion online - Detail Indication:BMI 25.0-25.9,adult Start:10-Apr-2018 Instruction Type:Patient Education Patient Instructions Indication:BMI 25.0-25.9,adult Start:10-Apr-2018 Instruction Type:Provider Instructions for Treatment How to access health informa tion online Indication:Non-smoker Start:17-Jan-2018 Instruction Type:Patient Education How to access health informa tion online - Detail Indication:Non-smoker Start:17-Jan-2018 Instruction Type:Patient Education Patient Instructions Indication:Non-smoker Start:17-Jan-2018 Instruction Type:Provider Instructions for Treatment How to access health informa tion online Indication:BMI 24.0-24.9, adult Start:14-Aug-2017 Instruction Type:Patient Education How to access health informa tion online - Detail Indication:BMI 24.0-24.9, adult Start:14-Aug-2017 Instruction Type:Patient Education Patient Instructions Indication:BMI 24.0-24.9, adult Start:14-Aug-2017 Instruction Type:Provider Instructions for Treatment How to access health informa tion online Indication:Non-smoker Start:26-Jun-2017 Instruction Type:Patient Education How to access health informa tion online - Detail Indication:Non-smoker Start:26-Jun-2017 Instruction Type:Patient Education Patient Instructions Indication:Non-smoker Start:26-Jun-2017 Instruction Type:Provider Instructions for Treatment How to access health informa tion online Indication:Fatigue Start:16-Sep-2014 Instruction Type:Patient Education How to access health informa tion online - Detail Indication:Fatigue Start:16-Sep-2014 Instruction Type:Patient Education Patient Instructions Indication:Fatigue Start:16-Sep-2014 Instruction Type:Provider Instructions for Treatment Patient Instructions Indication:Fatigue Start:22-Jul-2014 Instruction Type:Provider Instructions for Treatment Patient Instructions Indication:Vitamin D deficiency Start:09-Jun-2014 Instruction Type:Provider Instructions for Treatment Patient Instructions Indication:Acute sinusitis, unspecified Start:10-Mar-2012 Instruction Type:Provider Instructions for Treatment Sore throat: diagnosis and treatment Indication:Streptococcal sore throat Start:08-Sep-2008 Instruction Type:Patient Education [facility]; [facility] Work Phone: Instructions* Name Dates Details Patient Instructions Indication:Non-smoker Start:20-Oct-2021 Instruction Type:Provider Instructions for Treatment How to Access Health Informa tion Online using Patient Portal and 3rd [employer] Apps Indication:Non-smoker Start:20-Oct-2021 Instruction Type:Patient Education Patient Instructions Indication:Non-smoker Start:01-Mar-2021 Instruction Type:Provider Instructions for Treatment How to Access Health Informa tion Online using Patient Portal and 3rd Republican Apps Indication:Non-smoker Start:01-Mar-2021 Instruction Type:Patient Education Patient Instructions Indication:BMI 27.0-27.9,adult Start:28-Feb-2021 Instruction Type:Provider Instructions for Treatment How to Access Health Informa tion Online using Patient Portal and [employer] Apps Indication:BMI 27.0-27.9,adult Start:28-Feb-2021 Instruction Type:Patient Education Patient Instructions Indication:Non-smoker Start:27-Jan-2021 Instruction Type:Provider Instructions for Treatment How to Access Health Informa tion Online using Patient Portal and 3rd [employer] Apps Indication:Non-smoker Start:27-Jan-2021 Instruction Type:Patient Education Patient Instructions Indication:BMI 26.0-26.9,adult Start:19-Feb-2020 Instruction Type:Provider Instructions for Treatment How to Access Health Informa tion Online using Patient Portal and 3rd Republican Apps Indication:BMI 26.0-26.9,adult Start:19-Feb-2020 Instruction Type:Patient Education How to access health informa tion online Indication:Non-smoker Start:16-Feb-2020 Instruction Type:Patient Education How to access health informa tion online - Detail Indication:Non-smoker Start:16-Feb-2020 Instruction Type:Patient Education Patient Instructions Indication:Non-smoker Start:16-Feb-2020 Instruction Type:Provider Instructions for Treatment How to access health informa tion online Indication:BMI 25.0-25.9,adult Start:31-Dec-2019 Instruction Type:Patient Education How to access health informa tion online - Detail Indication:BMI 25.0-25.9,adult Start:31-Dec-2019 Instruction Type:Patient Education Patient Instructions Indication:BMI 25.0-25.9,adult Start:31-Dec-2019 Instruction Type:Provider Instructions for Treatment How to access health informa tion online Indication:Non-smoker Start:29-Jul-2018 Instruction Type:Patient Education How to access health informa tion online - Detail Indication:Non-smoker Start:29-Jul-2018 Instruction Type:Patient Education Patient Instructions Indication:Non-smoker Start:29-Jul-2018 Instruction Type:Provider Instructions for Treatment How to access health informa tion online Indication:BMI 25.0-25.9,adult Start:05-May-2018 Instruction Type:Patient Education How to access health informa tion online - Detail Indication:BMI 25.0-25.9,adult Start:05-May-2018 Instruction Type:Patient Education Patient Instructions Indication:BMI 25.0-25.9,adult Start:05-May-2018 Instruction Type:Provider Instructions for Treatment How to access health informa tion online Indication:BMI 25.0-25.9,adult Start:10-Apr-2018 Instruction Type:Patient Education How to access health informa tion online - Detail Indication:BMI 25.0-25.9,adult Start:10-Apr-2018 Instruction Type:Patient Education Patient Instructions Indication:BMI 25.0-25.9,adult Start:10-Apr-2018 Instruction Type:Provider Instructions for Treatment How to access health informa tion online Indication:Non-smoker Start:17-Jan-2018 Instruction Type:Patient Education How to access health informa tion online - Detail Indication:Non-smoker Start:17-Jan-2018 Instruction Type:Patient Education Patient Instructions Indication:Non-smoker Start:17-Jan-2018 Instruction Type:Provider Instructions for Treatment How to access health informa tion online Indication:BMI 24.0-24.9, adult Start:14-Aug-2017 Instruction Type:Patient Education How to access health informa tion online - Detail Indication:BMI 24.0-24.9, adult Start:14-Aug-2017 Instruction Type:Patient Education Patient Instructions Indication:BMI 24.0-24.9, adult Start:14-Aug-2017 Instruction Type:Provider Instructions for Treatment How to access health informa tion online Indication:Non-smoker Start:26-Jun-2017 Instruction Type:Patient Education How to access health informa tion online - Detail Indication:Non-smoker Start:26-Jun-2017 Instruction Type:Patient Education Patient Instructions Indication:Non-smoker Start:26-Jun-2017 Instruction Type:Provider Instructions for Treatment How to access health informa tion online Indication:Fatigue Start:16-Sep-2014 Instruction Type:Patient Education How to access health informa tion online - Detail Indication:Fatigue Start:16-Sep-2014 Instruction Type:Patient Education Patient Instructions Indication:Fatigue Start:16-Sep-2014 Instruction Type:Provider Instructions for Treatment Patient Instructions Indication:Fatigue Start:22-Jul-2014 Instruction Type:Provider Instructions for Treatment Patient Instructions Indication:Vitamin D deficiency Start:09-Jun-2014 Instruction Type:Provider Instructions for Treatment Patient Instructions Indication:Acute sinusitis, unspecified Start:10-Mar-2012 Instruction Type:Provider Instructions for Treatment Sore throat: diagnosis and treatment Indication:Streptococcal sore throat Start:08-Sep-2008 Instruction Type:Patient Education [facility]; [facility] Work Phone: Instructions* Name Dates Details Patient Instructions Indication:BMI 27.0-27.9,adult Start:25-Apr-2022 Instruction Type:Provider Instructions for Treatment How to Access Health Informa tion Online using Patient Portal and 3rd [employer] Apps Indication:BMI 27.0-27.9,adult Start:25-Apr-2022 Instruction Type:Patient Education Patient Instructions Indication:Non-smoker Start:20-Oct-2021 Instruction Type:Provider Instructions for Treatment How to Access Health Informa tion Online using Patient Portal and [employer]rd [employer] Apps Indication:Non-smoker Start:20-Oct-2021 Instruction Type:Patient Education Patient Instructions Indication:Non-smoker Start:01-Mar-2021 Instruction Type:Provider Instructions for Treatment How to Access Health Informa tion Online using Patient Portal and [employer]rd [employer] Apps Indication:Non-smoker Start:01-Mar-2021 Instruction Type:Patient Education Patient Instructions Indication:BMI 27.0-27.9,adult Start:28-Feb-2021 Instruction Type:Provider Instructions for Treatment How to Access Health Informa tion Online using Patient Portal and [employer]rd [employer] Apps Indication:BMI 27.0-27.9,adult Start:28-Feb-2021 Instruction Type:Patient Education Patient Instructions Indication:Non-smoker Start:27-Jan-2021 Instruction Type:Provider Instructions for Treatment How to Access Health Informa tion Online using Patient Portal and 3rd [employer] Apps Indication:Non-smoker Start:27-Jan-2021 Instruction Type:Patient Education Patient Instructions Indication:BMI 26.0-26.9,adult Start:19-Feb-2020 Instruction Type:Provider Instructions for Treatment How to Access Health Informa tion Online using Patient Portal and [employer]rd [employer] Apps Indication:BMI 26.0-26.9,adult Start:19-Feb-2020 Instruction Type:Patient Education How to access health informa tion online Indication:Non-smoker Start:16-Feb-2020 Instruction Type:Patient Education How to access health informa tion online - Detail Indication:Non-smoker Start:16-Feb-2020 Instruction Type:Patient Education Patient Instructions Indication:Non-smoker Start:16-Feb-2020 Instruction Type:Provider Instructions for Treatment How to access health informa tion online Indication:BMI 25.0-25.9,adult Start:31-Dec-2019 Instruction Type:Patient Education How to access health informa tion online - Detail Indication:BMI 25.0-25.9,adult Start:31-Dec-2019 Instruction Type:Patient Education Patient Instructions Indication:BMI 25.0-25.9,adult Start:31-Dec-2019 Instruction Type:Provider Instructions for Treatment How to access health informa tion online Indication:Non-smoker Start:29-Jul-2018 Instruction Type:Patient Education How to access health informa tion online - Detail Indication:Non-smoker Start:29-Jul-2018 Instruction Type:Patient Education Patient Instructions Indication:Non-smoker Start:29-Jul-2018 Instruction Type:Provider Instructions for Treatment How to access health informa tion online Indication:BMI 25.0-25.9,adult Start:05-May-2018 Instruction Type:Patient Education How to access health informa tion online - Detail Indication:BMI 25.0-25.9,adult Start:05-May-2018 Instruction Type:Patient Education Patient Instructions Indication:BMI 25.0-25.9,adult Start:05-May-2018 Instruction Type:Provider Instructions for Treatment How to access health informa tion online Indication:BMI 25.0-25.9,adult Start:10-Apr-2018 Instruction Type:Patient Education How to access health informa tion online - Detail Indication:BMI 25.0-25.9,adult Start:10-Apr-2018 Instruction Type:Patient Education Patient Instructions Indication:BMI 25.0-25.9,adult Start:10-Apr-2018 Instruction Type:Provider Instructions for Treatment How to access health informa tion online Indication:Non-smoker Start:17-Jan-2018 Instruction Type:Patient Education How to access health informa tion online - Detail Indication:Non-smoker Start:17-Jan-2018 Instruction Type:Patient Education Patient Instructions Indication:Non-smoker Start:17-Jan-2018 Instruction Type:Provider Instructions for Treatment How to access health informa tion online Indication:BMI 24.0-24.9, adult Start:14-Aug-2017 Instruction Type:Patient Education How to access health informa tion online - Detail Indication:BMI 24.0-24.9, adult Start:14-Aug-2017 Instruction Type:Patient Education Patient Instructions Indication:BMI 24.0-24.9, adult Start:14-Aug-2017 Instruction Type:Provider Instructions for Treatment How to access health informa tion online Indication:Non-smoker Start:26-Jun-2017 Instruction Type:Patient Education How to access health informa tion online - Detail Indication:Non-smoker Start:26-Jun-2017 Instruction Type:Patient Education Patient Instructions Indication:Non-smoker Start:26-Jun-2017 Instruction Type:Provider Instructions for Treatment How to access health informa tion online Indication:Fatigue Start:16-Sep-2014 Instruction Type:Patient Education How to access health informa tion online - Detail Indication:Fatigue Start:16-Sep-2014 Instruction Type:Patient Education Patient Instructions Indication:Fatigue Start:16-Sep-2014 Instruction Type:Provider Instructions for Treatment Patient Instructions Indication:Fatigue Start:22-Jul-2014 Instruction Type:Provider Instructions for Treatment Patient Instructions Indication:Vitamin D deficiency Start:09-Jun-2014 Instruction Type:Provider Instructions for Treatment Patient Instructions Indication:Acute sinusitis, unspecified Start:10-Mar-2012 Instruction Type:Provider Instructions for Treatment Sore throat: diagnosis and treatment Indication:Streptococcal sore throat Start:08-Sep-2008 Instruction Type:Patient Education [facility]; [facility] Work Phone: Progress note No data available for this section [facility] for referral (narrative)No reason for [facility]: Reason for visit Narrative* Evaluate and Treat (Routine) - Closed Specialty Diagnoses / Procedures Referred By Contac t Referred To Contact Rheumatology Diagnoses PSA (psoriatic arthritis) ([facility]) Ambrocio Anderson MD [address] [place] [address] Phone: tel: fax: Ariel Odilonnikhil Robbins, [address] [phone] Phone: tel: fax: Referral ID Status Reason Start Date Expiration Date Visits Re quested Visits Authorized Closed 12/24/2023 12/23/2024 1 1 [facility] Family History No Family History Records FoundUnknown Family Member Name Dates Details Father Comments:COPD--alcoholism Status:Active Mother Comments:Essential Hypertens ion Status:Active Unknown Family Member Name Dates Details Father Comments:COPD--alcoholism Status:Active Mother Comments:Essential Hypertens ion Status:Active Unknown Family Member Name Dates Details Father Comments:COPD--alcoholism Status:Active Mother Comments:Essential Hypertens ion Status:Active Unknown Family Member Name Dates Details Father Comments:COPD--alcoholism Status:Active Mother Comments:Essential Hypertens ion Status:Active Unknown Family Member Name Dates Details Father Comments:COPD--alcoholism Status:Active Mother Comments:Essential Hypertens ion Status:Active Unknown Family Member Name Dates Details Father Comments:COPD--alcoholism Status:Active Mother Comments:Essential Hypertens ion Status:Active Unknown Family Member Name Dates Details Father Comments:COPD--alcoholism Status:Active Mother Comments:Essential Hypertens ion Status:Active Unknown Family Member Name Dates Details Father Comments:COPD--alcoholism Status:Active Mother Comments:Essential Hypertens ion Status:Active Unknown Family Member Name Dates Details Father Comments:COPD--alcoholism Status:Active Mother Comments:Essential Hypertens ion Status:Active Unknown Family Member Name Dates Details Father Comments:COPD--alcoholism Status:Active Mother Comments:Essential Hypertens ion Status:Active Unknown Family Member Name Dates Details Father Comments:COPD--alcoholism Status:Active Mother Comments:Essential Hypertens ion Status:Active Unknown Family Member Name Dates Details Father Comments:COPD--alcoholism Status:Active Mother Comments:Essential Hypertens ion Status:Active Unknown Family Member Name Dates Details Father Comments:COPD--alcoholism Status:Active Mother Comments:Essential Hypertens ion Status:Active Unknown Family Member Name Dates Details Father Comments:COPD--alcoholism Status:Active Mother Comments:Essential Hypertens ion Status:Active Unknown Family Member Name Dates Details Father Comments:COPD--alcoholism Status:Active Mother Comments:Essential Hypertens ion Status:Active Unknown Family Member Name Dates Details Father Comments:COPD--alcoholism Status:Active Mother Comments:Essential Hypertens ion Status:Active Unknown Family Member Name Dates Details Father Comments:COPD--alcoholism Status:Active Mother Comments:Essential Hypertens ion Status:Active Unknown Family Member Name Dates Details Father Comments:COPD--alcoholism Status:Active Mother Comments:Essential Hypertens ion Status:Active Unknown Family Member Name Dates Details Father Comments:COPD--alcoholism Status:Active Mother Comments:Essential Hypertens ion Status:Active Unknown Family Member Name Dates Details Father Comments:COPD--alcoholism Status:Active Mother Comments:Essential Hypertens ion Status:Active Instructions Name Dates Details BMI 25.0-25.9,adult : How to access health information online Indication:BMI 25.0-25.9,adult BMI 25.0-25.9,adult : How to access health information online - Detail Indication:BMI 25.0-25.9,adult BMI 25.0-25.9,adult : Patien t Instructions Indication:BMI 25.0-25.9,adult Non-smoker : How to access h ealth information online Indication:Non-smoker Non-smoker : How to access h ealth information online - Detail Indication:Non-smoker Non-smoker : Patient Instruc tions Indication:Non-smoker BMI 24.0-24.9, adult : How t o access health information online Indication:BMI 24.0-24.9, adult BMI 24.0-24.9, adult : How t o access health information online - Detail Indication:BMI 24.0-24.9, adult BMI 24.0-24.9, adult : Patie nt Instructions Indication:BMI 24.0-24.9, adult Fatigue : How to access heal th information online Indication:Fatigue Fatigue : How to access heal th information online - Detail Indication:Fatigue Fatigue : Patient Instructio ns Indication:Fatigue Vitamin D deficiency : Patie nt Instructions Indication:Vitamin D deficiency Acute sinusitis, unspecified : Patient Instructions Indication:Acute sinusitis, unspecified Streptococcal sore throat : Sore throat: diagnosis and treatment Indication:Streptococcal sore throat Name Dates Details BMI 25.0-25.9,adult : How to access health information online Indication:BMI 25.0-25.9,adult BMI 25.0-25.9,adult : How to access health information online - Detail Indication:BMI 25.0-25.9,adult BMI 25.0-25.9,adult : Patien t Instructions Indication:BMI 25.0-25.9,adult Non-smoker : How to access h ealth information online Indication:Non-smoker Non-smoker : How to access h ealth information online - Detail Indication:Non-smoker Non-smoker : Patient Instruc tions Indication:Non-smoker BMI 24.0-24.9, adult : How t o access health information online Indication:BMI 24.0-24.9, adult BMI 24.0-24.9, adult : How t o access health information online - Detail Indication:BMI 24.0-24.9, adult BMI 24.0-24.9, adult : Patie nt Instructions Indication:BMI 24.0-24.9, adult Fatigue : How to access heal th information online Indication:Fatigue Fatigue : How to access heal th information online - Detail Indication:Fatigue Fatigue : Patient Instructio ns Indication:Fatigue Vitamin D deficiency : Patie nt Instructions Indication:Vitamin D deficiency Acute sinusitis, unspecified : Patient Instructions Indication:Acute sinusitis, unspecified Streptococcal sore throat : Sore throat: diagnosis and treatment Indication:Streptococcal sore throat Name Dates Details BMI 25.0-25.9,adult : How to access health information online Indication:BMI 25.0-25.9,adult BMI 25.0-25.9,adult : How to access health information online - Detail Indication:BMI 25.0-25.9,adult BMI 25.0-25.9,adult : Patien t Instructions Indication:BMI 25.0-25.9,adult Non-smoker : How to access h ealth information online Indication:Non-smoker Non-smoker : How to access h ealth information online - Detail Indication:Non-smoker Non-smoker : Patient Instruc tions Indication:Non-smoker BMI 24.0-24.9, adult : How t o access health information online Indication:BMI 24.0-24.9, adult BMI 24.0-24.9, adult : How t o access health information online - Detail Indication:BMI 24.0-24.9, adult BMI 24.0-24.9, adult : Patie nt Instructions Indication:BMI 24.0-24.9, adult Fatigue : How to access heal th information online Indication:Fatigue Fatigue : How to access heal th information online - Detail Indication:Fatigue Fatigue : Patient Instructio ns Indication:Fatigue Vitamin D deficiency : Patie nt Instructions Indication:Vitamin D deficiency Acute sinusitis, unspecified : Patient Instructions Indication:Acute sinusitis, unspecified Streptococcal sore throat : Sore throat: diagnosis and treatment Indication:Streptococcal sore throat Name Dates Details How to access health informa tion online Indication:Non-smoker Start:29-Jul-2018 Instruction Type:Patient Education How to access health informa tion online - Detail Indication:Non-smoker Start:29-Jul-2018 Instruction Type:Patient Education Patient Instructions Indication:Non-smoker Start:29-Jul-2018 Instruction Type:Provider Instructions for Treatment How to access health informa tion online Indication:BMI 25.0-25.9,adult Start:05-May-2018 Instruction Type:Patient Education How to access health informa tion online - Detail Indication:BMI 25.0-25.9,adult Start:05-May-2018 Instruction Type:Patient Education Patient Instructions Indication:BMI 25.0-25.9,adult Start:05-May-2018 Instruction Type:Provider Instructions for Treatment How to access health informa tion online Indication:BMI 25.0-25.9,adult Start:10-Apr-2018 Instruction Type:Patient Education How to access health informa tion online - Detail Indication:BMI 25.0-25.9,adult Start:10-Apr-2018 Instruction Type:Patient Education Patient Instructions Indication:BMI 25.0-25.9,adult Start:10-Apr-2018 Instruction Type:Provider Instructions for Treatment How to access health informa tion online Indication:Non-smoker Start:17-Jan-2018 Instruction Type:Patient Education How to access health informa tion online - Detail Indication:Non-smoker Start:17-Jan-2018 Instruction Type:Patient Education Patient Instructions Indication:Non-smoker Start:17-Jan-2018 Instruction Type:Provider Instructions for Treatment How to access health informa tion online Indication:BMI 24.0-24.9, adult Start:14-Aug-2017 Instruction Type:Patient Education How to access health informa tion online - Detail Indication:BMI 24.0-24.9, adult Start:14-Aug-2017 Instruction Type:Patient Education Patient Instructions Indication:BMI 24.0-24.9, adult Start:14-Aug-2017 Instruction Type:Provider Instructions for Treatment How to access health informa tion online Indication:Non-smoker Start:26-Jun-2017 Instruction Type:Patient Education How to access health informa tion online - Detail Indication:Non-smoker Start:26-Jun-2017 Instruction Type:Patient Education Patient Instructions Indication:Non-smoker Start:26-Jun-2017 Instruction Type:Provider Instructions for Treatment How to access health informa tion online Indication:Fatigue Start:16-Sep-2014 Instruction Type:Patient Education How to access health informa tion online - Detail Indication:Fatigue Start:16-Sep-2014 Instruction Type:Patient Education Patient Instructions Indication:Fatigue Start:16-Sep-2014 Instruction Type:Provider Instructions for Treatment Patient Instructions Indication:Fatigue Start:22-Jul-2014 Instruction Type:Provider Instructions for Treatment Patient Instructions Indication:Vitamin D deficiency Start:09-Jun-2014 Instruction Type:Provider Instructions for Treatment Patient Instructions Indication:Acute sinusitis, unspecified Start:10-Mar-2012 Instruction Type:Provider Instructions for Treatment Sore throat: diagnosis and treatment Indication:Streptococcal sore throat Start:08-Sep-2008 Instruction Type:Patient Education Name Dates Details How to access health informa tion online Indication:Non-smoker Start:29-Jul-2018 Instruction Type:Patient Education How to access health informa tion online - Detail Indication:Non-smoker Start:29-Jul-2018 Instruction Type:Patient Education Patient Instructions Indication:Non-smoker Start:29-Jul-2018 Instruction Type:Provider Instructions for Treatment How to access health informa tion online Indication:BMI 25.0-25.9,adult Start:05-May-2018 Instruction Type:Patient Education How to access health informa tion online - Detail Indication:BMI 25.0-25.9,adult Start:05-May-2018 Instruction Type:Patient Education Patient Instructions Indication:BMI 25.0-25.9,adult Start:05-May-2018 Instruction Type:Provider Instructions for Treatment How to access health informa tion online Indication:BMI 25.0-25.9,adult Start:10-Apr-2018 Instruction Type:Patient Education How to access health informa tion online - Detail Indication:BMI 25.0-25.9,adult Start:10-Apr-2018 Instruction Type:Patient Education Patient Instructions Indication:BMI 25.0-25.9,adult Start:10-Apr-2018 Instruction Type:Provider Instructions for Treatment How to access health informa tion online Indication:Non-smoker Start:17-Jan-2018 Instruction Type:Patient Education How to access health informa tion online - Detail Indication:Non-smoker Start:17-Jan-2018 Instruction Type:Patient Education Patient Instructions Indication:Non-smoker Start:17-Jan-2018 Instruction Type:Provider Instructions for Treatment How to access health informa tion online Indication:BMI 24.0-24.9, adult Start:14-Aug-2017 Instruction Type:Patient Education How to access health informa tion online - Detail Indication:BMI 24.0-24.9, adult Start:14-Aug-2017 Instruction Type:Patient Education Patient Instructions Indication:BMI 24.0-24.9, adult Start:14-Aug-2017 Instruction Type:Provider Instructions for Treatment How to access health informa tion online Indication:Non-smoker Start:26-Jun-2017 Instruction Type:Patient Education How to access health informa tion online - Detail Indication:Non-smoker Start:26-Jun-2017 Instruction Type:Patient Education Patient Instructions Indication:Non-smoker Start:26-Jun-2017 Instruction Type:Provider Instructions for Treatment How to access health informa tion online Indication:Fatigue Start:16-Sep-2014 Instruction Type:Patient Education How to access health informa tion online - Detail Indication:Fatigue Start:16-Sep-2014 Instruction Type:Patient Education Patient Instructions Indication:Fatigue Start:16-Sep-2014 Instruction Type:Provider Instructions for Treatment Patient Instructions Indication:Fatigue Start:22-Jul-2014 Instruction Type:Provider Instructions for Treatment Patient Instructions Indication:Vitamin D deficiency Start:09-Jun-2014 Instruction Type:Provider Instructions for Treatment Patient Instructions Indication:Acute sinusitis, unspecified Start:10-Mar-2012 Instruction Type:Provider Instructions for Treatment Sore throat: diagnosis and treatment Indication:Streptococcal sore throat Start:08-Sep-2008 Instruction Type:Patient Education Name Dates Details How to access health informa tion online Indication:Non-smoker Start:29-Jul-2018 Instruction Type:Patient Education How to access health informa tion online - Detail Indication:Non-smoker Start:29-Jul-2018 Instruction Type:Patient Education Patient Instructions Indication:Non-smoker Start:29-Jul-2018 Instruction Type:Provider Instructions for Treatment How to access health informa tion online Indication:BMI 25.0-25.9,adult Start:05-May-2018 Instruction Type:Patient Education How to access health informa tion online - Detail Indication:BMI 25.0-25.9,adult Start:05-May-2018 Instruction Type:Patient Education Patient Instructions Indication:BMI 25.0-25.9,adult Start:05-May-2018 Instruction Type:Provider Instructions for Treatment How to access health informa tion online Indication:BMI 25.0-25.9,adult Start:10-Apr-2018 Instruction Type:Patient Education How to access health informa tion online - Detail Indication:BMI 25.0-25.9,adult Start:10-Apr-2018 Instruction Type:Patient Education Patient Instructions Indication:BMI 25.0-25.9,adult Start:10-Apr-2018 Instruction Type:Provider Instructions for Treatment How to access health informa tion online Indication:Non-smoker Start:17-Jan-2018 Instruction Type:Patient Education How to access health informa tion online - Detail Indication:Non-smoker Start:17-Jan-2018 Instruction Type:Patient Education Patient Instructions Indication:Non-smoker Start:17-Jan-2018 Instruction Type:Provider Instructions for Treatment How to access health informa tion online Indication:BMI 24.0-24.9, adult Start:14-Aug-2017 Instruction Type:Patient Education How to access health informa tion online - Detail Indication:BMI 24.0-24.9, adult Start:14-Aug-2017 Instruction Type:Patient Education Patient Instructions Indication:BMI 24.0-24.9, adult Start:14-Aug-2017 Instruction Type:Provider Instructions for Treatment How to access health informa tion online Indication:Non-smoker Start:26-Jun-2017 Instruction Type:Patient Education How to access health informa tion online - Detail Indication:Non-smoker Start:26-Jun-2017 Instruction Type:Patient Education Patient Instructions Indication:Non-smoker Start:26-Jun-2017 Instruction Type:Provider Instructions for Treatment How to access health informa tion online Indication:Fatigue Start:16-Sep-2014 Instruction Type:Patient Education How to access health informa tion online - Detail Indication:Fatigue Start:16-Sep-2014 Instruction Type:Patient Education Patient Instructions Indication:Fatigue Start:16-Sep-2014 Instruction Type:Provider Instructions for Treatment Patient Instructions Indication:Fatigue Start:22-Jul-2014 Instruction Type:Provider Instructions for Treatment Patient Instructions Indication:Vitamin D deficiency Start:09-Jun-2014 Instruction Type:Provider Instructions for Treatment Patient Instructions Indication:Acute sinusitis, unspecified Start:10-Mar-2012 Instruction Type:Provider Instructions for Treatment Sore throat: diagnosis and treatment Indication:Streptococcal sore throat Start:08-Sep-2008 Instruction Type:Patient Education Name Dates Details How to access health informa tion online Indication:Non-smoker Start:29-Jul-2018 Instruction Type:Patient Education How to access health informa tion online - Detail Indication:Non-smoker Start:29-Jul-2018 Instruction Type:Patient Education Patient Instructions Indication:Non-smoker Start:29-Jul-2018 Instruction Type:Provider Instructions for Treatment How to access health informa tion online Indication:BMI 25.0-25.9,adult Start:05-May-2018 Instruction Type:Patient Education How to access health informa tion online - Detail Indication:BMI 25.0-25.9,adult Start:05-May-2018 Instruction Type:Patient Education Patient Instructions Indication:BMI 25.0-25.9,adult Start:05-May-2018 Instruction Type:Provider Instructions for Treatment How to access health informa tion online Indication:BMI 25.0-25.9,adult Start:10-Apr-2018 Instruction Type:Patient Education How to access health informa tion online - Detail Indication:BMI 25.0-25.9,adult Start:10-Apr-2018 Instruction Type:Patient Education Patient Instructions Indication:BMI 25.0-25.9,adult Start:10-Apr-2018 Instruction Type:Provider Instructions for Treatment How to access health informa tion online Indication:Non-smoker Start:17-Jan-2018 Instruction Type:Patient Education How to access health informa tion online - Detail Indication:Non-smoker Start:17-Jan-2018 Instruction Type:Patient Education Patient Instructions Indication:Non-smoker Start:17-Jan-2018 Instruction Type:Provider Instructions for Treatment How to access health informa tion online Indication:BMI 24.0-24.9, adult Start:14-Aug-2017 Instruction Type:Patient Education How to access health informa tion online - Detail Indication:BMI 24.0-24.9, adult Start:14-Aug-2017 Instruction Type:Patient Education Patient Instructions Indication:BMI 24.0-24.9, adult Start:14-Aug-2017 Instruction Type:Provider Instructions for Treatment How to access health informa tion online Indication:Non-smoker Start:26-Jun-2017 Instruction Type:Patient Education How to access health informa tion online - Detail Indication:Non-smoker Start:26-Jun-2017 Instruction Type:Patient Education Patient Instructions Indication:Non-smoker Start:26-Jun-2017 Instruction Type:Provider Instructions for Treatment How to access health informa tion online Indication:Fatigue Start:16-Sep-2014 Instruction Type:Patient Education How to access health informa tion online - Detail Indication:Fatigue Start:16-Sep-2014 Instruction Type:Patient Education Patient Instructions Indication:Fatigue Start:16-Sep-2014 Instruction Type:Provider Instructions for Treatment Patient Instructions Indication:Fatigue Start:22-Jul-2014 Instruction Type:Provider Instructions for Treatment Patient Instructions Indication:Vitamin D deficiency Start:09-Jun-2014 Instruction Type:Provider Instructions for Treatment Patient Instructions Indication:Acute sinusitis, unspecified Start:10-Mar-2012 Instruction Type:Provider Instructions for Treatment Sore throat: diagnosis and treatment Indication:Streptococcal sore throat Start:08-Sep-2008 Instruction Type:Patient Education Name Dates Details How to access health informa tion online Indication:BMI 25.0-25.9,adult Start:31-Dec-2019 Instruction Type:Patient Education How to access health informa tion online - Detail Indication:BMI 25.0-25.9,adult Start:31-Dec-2019 Instruction Type:Patient Education Patient Instructions Indication:BMI 25.0-25.9,adult Start:31-Dec-2019 Instruction Type:Provider Instructions for Treatment How to access health informa tion online Indication:Non-smoker Start:29-Jul-2018 Instruction Type:Patient Education How to access health informa tion online - Detail Indication:Non-smoker Start:29-Jul-2018 Instruction Type:Patient Education Patient Instructions Indication:Non-smoker Start:29-Jul-2018 Instruction Type:Provider Instructions for Treatment How to access health informa tion online Indication:BMI 25.0-25.9,adult Start:05-May-2018 Instruction Type:Patient Education How to access health informa tion online - Detail Indication:BMI 25.0-25.9,adult Start:05-May-2018 Instruction Type:Patient Education Patient Instructions Indication:BMI 25.0-25.9,adult Start:05-May-2018 Instruction Type:Provider Instructions for Treatment How to access health informa tion online Indication:BMI 25.0-25.9,adult Start:10-Apr-2018 Instruction Type:Patient Education How to access health informa tion online - Detail Indication:BMI 25.0-25.9,adult Start:10-Apr-2018 Instruction Type:Patient Education Patient Instructions Indication:BMI 25.0-25.9,adult Start:10-Apr-2018 Instruction Type:Provider Instructions for Treatment How to access health informa tion online Indication:Non-smoker Start:17-Jan-2018 Instruction Type:Patient Education How to access health informa tion online - Detail Indication:Non-smoker Start:17-Jan-2018 Instruction Type:Patient Education Patient Instructions Indication:Non-smoker Start:17-Jan-2018 Instruction Type:Provider Instructions for Treatment How to access health informa tion online Indication:BMI 24.0-24.9, adult Start:14-Aug-2017 Instruction Type:Patient Education How to access health informa tion online - Detail Indication:BMI 24.0-24.9, adult Start:14-Aug-2017 Instruction Type:Patient Education Patient Instructions Indication:BMI 24.0-24.9, adult Start:14-Aug-2017 Instruction Type:Provider Instructions for Treatment How to access health informa tion online Indication:Non-smoker Start:26-Jun-2017 Instruction Type:Patient Education How to access health informa tion online - Detail Indication:Non-smoker Start:26-Jun-2017 Instruction Type:Patient Education Patient Instructions Indication:Non-smoker Start:26-Jun-2017 Instruction Type:Provider Instructions for Treatment How to access health informa tion online Indication:Fatigue Start:16-Sep-2014 Instruction Type:Patient Education How to access health informa tion online - Detail Indication:Fatigue Start:16-Sep-2014 Instruction Type:Patient Education Patient Instructions Indication:Fatigue Start:16-Sep-2014 Instruction Type:Provider Instructions for Treatment Patient Instructions Indication:Fatigue Start:22-Jul-2014 Instruction Type:Provider Instructions for Treatment Patient Instructions Indication:Vitamin D deficiency Start:09-Jun-2014 Instruction Type:Provider Instructions for Treatment Patient Instructions Indication:Acute sinusitis, unspecified Start:10-Mar-2012 Instruction Type:Provider Instructions for Treatment Sore throat: diagnosis and treatment Indication:Streptococcal sore throat Start:08-Sep-2008 Instruction Type:Patient Education Name Dates Details How to access health informa tion online Indication:BMI 25.0-25.9,adult Start:31-Dec-2019 Instruction Type:Patient Education How to access health informa tion online - Detail Indication:BMI 25.0-25.9,adult Start:31-Dec-2019 Instruction Type:Patient Education Patient Instructions Indication:BMI 25.0-25.9,adult Start:31-Dec-2019 Instruction Type:Provider Instructions for Treatment How to access health informa tion online Indication:Non-smoker Start:29-Jul-2018 Instruction Type:Patient Education How to access health informa tion online - Detail Indication:Non-smoker Start:29-Jul-2018 Instruction Type:Patient Education Patient Instructions Indication:Non-smoker Start:29-Jul-2018 Instruction Type:Provider Instructions for Treatment How to access health informa tion online Indication:BMI 25.0-25.9,adult Start:05-May-2018 Instruction Type:Patient Education How to access health informa tion online - Detail Indication:BMI 25.0-25.9,adult Start:05-May-2018 Instruction Type:Patient Education Patient Instructions Indication:BMI 25.0-25.9,adult Start:05-May-2018 Instruction Type:Provider Instructions for Treatment How to access health informa tion online Indication:BMI 25.0-25.9,adult Start:10-Apr-2018 Instruction Type:Patient Education How to access health informa tion online - Detail Indication:BMI 25.0-25.9,adult Start:10-Apr-2018 Instruction Type:Patient Education Patient Instructions Indication:BMI 25.0-25.9,adult Start:10-Apr-2018 Instruction Type:Provider Instructions for Treatment How to access health informa tion online Indication:Non-smoker Start:17-Jan-2018 Instruction Type:Patient Education How to access health informa tion online - Detail Indication:Non-smoker Start:17-Jan-2018 Instruction Type:Patient Education Patient Instructions Indication:Non-smoker Start:17-Jan-2018 Instruction Type:Provider Instructions for Treatment How to access health informa tion online Indication:BMI 24.0-24.9, adult Start:14-Aug-2017 Instruction Type:Patient Education How to access health informa tion online - Detail Indication:BMI 24.0-24.9, adult Start:14-Aug-2017 Instruction Type:Patient Education Patient Instructions Indication:BMI 24.0-24.9, adult Start:14-Aug-2017 Instruction Type:Provider Instructions for Treatment How to access health informa tion online Indication:Non-smoker Start:26-Jun-2017 Instruction Type:Patient Education How to access health informa tion online - Detail Indication:Non-smoker Start:26-Jun-2017 Instruction Type:Patient Education Patient Instructions Indication:Non-smoker Start:26-Jun-2017 Instruction Type:Provider Instructions for Treatment How to access health informa tion online Indication:Fatigue Start:16-Sep-2014 Instruction Type:Patient Education How to access health informa tion online - Detail Indication:Fatigue Start:16-Sep-2014 Instruction Type:Patient Education Patient Instructions Indication:Fatigue Start:16-Sep-2014 Instruction Type:Provider Instructions for Treatment Patient Instructions Indication:Fatigue Start:22-Jul-2014 Instruction Type:Provider Instructions for Treatment Patient Instructions Indication:Vitamin D deficiency Start:09-Jun-2014 Instruction Type:Provider Instructions for Treatment Patient Instructions Indication:Acute sinusitis, unspecified Start:10-Mar-2012 Instruction Type:Provider Instructions for Treatment Sore throat: diagnosis and treatment Indication:Streptococcal sore throat Start:08-Sep-2008 Instruction Type:Patient Education Name Dates Details How to access health informa tion online Indication:Non-smoker Start:16-Feb-2020 Instruction Type:Patient Education How to access health informa tion online - Detail Indication:Non-smoker Start:16-Feb-2020 Instruction Type:Patient Education Patient Instructions Indication:Non-smoker Start:16-Feb-2020 Instruction Type:Provider Instructions for Treatment How to access health informa tion online Indication:BMI 25.0-25.9,adult Start:31-Dec-2019 Instruction Type:Patient Education How to access health informa tion online - Detail Indication:BMI 25.0-25.9,adult Start:31-Dec-2019 Instruction Type:Patient Education Patient Instructions Indication:BMI 25.0-25.9,adult Start:31-Dec-2019 Instruction Type:Provider Instructions for Treatment How to access health informa tion online Indication:Non-smoker Start:29-Jul-2018 Instruction Type:Patient Education How to access health informa tion online - Detail Indication:Non-smoker Start:29-Jul-2018 Instruction Type:Patient Education Patient Instructions Indication:Non-smoker Start:29-Jul-2018 Instruction Type:Provider Instructions for Treatment How to access health informa tion online Indication:BMI 25.0-25.9,adult Start:05-May-2018 Instruction Type:Patient Education How to access health informa tion online - Detail Indication:BMI 25.0-25.9,adult Start:05-May-2018 Instruction Type:Patient Education Patient Instructions Indication:BMI 25.0-25.9,adult Start:05-May-2018 Instruction Type:Provider Instructions for Treatment How to access health informa tion online Indication:BMI 25.0-25.9,adult Start:10-Apr-2018 Instruction Type:Patient Education How to access health informa tion online - Detail Indication:BMI 25.0-25.9,adult Start:10-Apr-2018 Instruction Type:Patient Education Patient Instructions Indication:BMI 25.0-25.9,adult Start:10-Apr-2018 Instruction Type:Provider Instructions for Treatment How to access health informa tion online Indication:Non-smoker Start:17-Jan-2018 Instruction Type:Patient Education How to access health informa tion online - Detail Indication:Non-smoker Start:17-Jan-2018 Instruction Type:Patient Education Patient Instructions Indication:Non-smoker Start:17-Jan-2018 Instruction Type:Provider Instructions for Treatment How to access health informa tion online Indication:BMI 24.0-24.9, adult Start:14-Aug-2017 Instruction Type:Patient Education How to access health informa tion online - Detail Indication:BMI 24.0-24.9, adult Start:14-Aug-2017 Instruction Type:Patient Education Patient Instructions Indication:BMI 24.0-24.9, adult Start:14-Aug-2017 Instruction Type:Provider Instructions for Treatment How to access health informa tion online Indication:Non-smoker Start:26-Jun-2017 Instruction Type:Patient Education How to access health informa tion online - Detail Indication:Non-smoker Start:26-Jun-2017 Instruction Type:Patient Education Patient Instructions Indication:Non-smoker Start:26-Jun-2017 Instruction Type:Provider Instructions for Treatment How to access health informa tion online Indication:Fatigue Start:16-Sep-2014 Instruction Type:Patient Education How to access health informa tion online - Detail Indication:Fatigue Start:16-Sep-2014 Instruction Type:Patient Education Patient Instructions Indication:Fatigue Start:16-Sep-2014 Instruction Type:Provider Instructions for Treatment Patient Instructions Indication:Fatigue Start:22-Jul-2014 Instruction Type:Provider Instructions for Treatment Patient Instructions Indication:Vitamin D deficiency Start:09-Jun-2014 Instruction Type:Provider Instructions for Treatment Patient Instructions Indication:Acute sinusitis, unspecified Start:10-Mar-2012 Instruction Type:Provider Instructions for Treatment Sore throat: diagnosis and treatment Indication:Streptococcal sore throat Start:08-Sep-2008 Instruction Type:Patient Education Name Dates Details Patient Instructions Indication:BMI 26.0-26.9,adult Start:19-Feb-2020 Instruction Type:Provider Instructions for Treatment How to Access Health Informa tion Online using Patient Portal and [employer]rd [employer] Apps Indication:BMI 26.0-26.9,adult Start:19-Feb-2020 Instruction Type:Patient Education How to access health informa tion online Indication:Non-smoker Start:16-Feb-2020 Instruction Type:Patient Education How to access health informa tion online - Detail Indication:Non-smoker Start:16-Feb-2020 Instruction Type:Patient Education Patient Instructions Indication:Non-smoker Start:16-Feb-2020 Instruction Type:Provider Instructions for Treatment How to access health informa tion online Indication:BMI 25.0-25.9,adult Start:31-Dec-2019 Instruction Type:Patient Education How to access health informa tion online - Detail Indication:BMI 25.0-25.9,adult Start:31-Dec-2019 Instruction Type:Patient Education Patient Instructions Indication:BMI 25.0-25.9,adult Start:31-Dec-2019 Instruction Type:Provider Instructions for Treatment How to access health informa tion online Indication:Non-smoker Start:29-Jul-2018 Instruction Type:Patient Education How to access health informa tion online - Detail Indication:Non-smoker Start:29-Jul-2018 Instruction Type:Patient Education Patient Instructions Indication:Non-smoker Start:29-Jul-2018 Instruction Type:Provider Instructions for Treatment How to access health informa tion online Indication:BMI 25.0-25.9,adult Start:05-May-2018 Instruction Type:Patient Education How to access health informa tion online - Detail Indication:BMI 25.0-25.9,adult Start:05-May-2018 Instruction Type:Patient Education Patient Instructions Indication:BMI 25.0-25.9,adult Start:05-May-2018 Instruction Type:Provider Instructions for Treatment How to access health informa tion online Indication:BMI 25.0-25.9,adult Start:10-Apr-2018 Instruction Type:Patient Education How to access health informa tion online - Detail Indication:BMI 25.0-25.9,adult Start:10-Apr-2018 Instruction Type:Patient Education Patient Instructions Indication:BMI 25.0-25.9,adult Start:10-Apr-2018 Instruction Type:Provider Instructions for Treatment How to access health informa tion online Indication:Non-smoker Start:17-Jan-2018 Instruction Type:Patient Education How to access health informa tion online - Detail Indication:Non-smoker Start:17-Jan-2018 Instruction Type:Patient Education Patient Instructions Indication:Non-smoker Start:17-Jan-2018 Instruction Type:Provider Instructions for Treatment How to access health informa tion online Indication:BMI 24.0-24.9, adult Start:14-Aug-2017 Instruction Type:Patient Education How to access health informa tion online - Detail Indication:BMI 24.0-24.9, adult Start:14-Aug-2017 Instruction Type:Patient Education Patient Instructions Indication:BMI 24.0-24.9, adult Start:14-Aug-2017 Instruction Type:Provider Instructions for Treatment How to access health informa tion online Indication:Non-smoker Start:26-Jun-2017 Instruction Type:Patient Education How to access health informa tion online - Detail Indication:Non-smoker Start:26-Jun-2017 Instruction Type:Patient Education Patient Instructions Indication:Non-smoker Start:26-Jun-2017 Instruction Type:Provider Instructions for Treatment How to access health informa tion online Indication:Fatigue Start:16-Sep-2014 Instruction Type:Patient Education How to access health informa tion online - Detail Indication:Fatigue Start:16-Sep-2014 Instruction Type:Patient Education Patient Instructions Indication:Fatigue Start:16-Sep-2014 Instruction Type:Provider Instructions for Treatment Patient Instructions Indication:Fatigue Start:22-Jul-2014 Instruction Type:Provider Instructions for Treatment Patient Instructions Indication:Vitamin D deficiency Start:09-Jun-2014 Instruction Type:Provider Instructions for Treatment Patient Instructions Indication:Acute sinusitis, unspecified Start:10-Mar-2012 Instruction Type:Provider Instructions for Treatment Sore throat: diagnosis and treatment Indication:Streptococcal sore throat Start:08-Sep-2008 Instruction Type:Patient Education Name Dates Details Patient Instructions Indication:BMI 26.0-26.9,adult Start:19-Feb-2020 Instruction Type:Provider Instructions for Treatment How to Access Health Informa tion Online using Patient Portal and [employer]rd [employer] Apps Indication:BMI 26.0-26.9,adult Start:19-Feb-2020 Instruction Type:Patient Education How to access health informa tion online Indication:Non-smoker Start:16-Feb-2020 Instruction Type:Patient Education How to access health informa tion online - Detail Indication:Non-smoker Start:16-Feb-2020 Instruction Type:Patient Education Patient Instructions Indication:Non-smoker Start:16-Feb-2020 Instruction Type:Provider Instructions for Treatment How to access health informa tion online Indication:BMI 25.0-25.9,adult Start:31-Dec-2019 Instruction Type:Patient Education How to access health informa tion online - Detail Indication:BMI 25.0-25.9,adult Start:31-Dec-2019 Instruction Type:Patient Education Patient Instructions Indication:BMI 25.0-25.9,adult Start:31-Dec-2019 Instruction Type:Provider Instructions for Treatment How to access health informa tion online Indication:Non-smoker Start:29-Jul-2018 Instruction Type:Patient Education How to access health informa tion online - Detail Indication:Non-smoker Start:29-Jul-2018 Instruction Type:Patient Education Patient Instructions Indication:Non-smoker Start:29-Jul-2018 Instruction Type:Provider Instructions for Treatment How to access health informa tion online Indication:BMI 25.0-25.9,adult Start:05-May-2018 Instruction Type:Patient Education How to access health informa tion online - Detail Indication:BMI 25.0-25.9,adult Start:05-May-2018 Instruction Type:Patient Education Patient Instructions Indication:BMI 25.0-25.9,adult Start:05-May-2018 Instruction Type:Provider Instructions for Treatment How to access health informa tion online Indication:BMI 25.0-25.9,adult Start:10-Apr-2018 Instruction Type:Patient Education How to access health informa tion online - Detail Indication:BMI 25.0-25.9,adult Start:10-Apr-2018 Instruction Type:Patient Education Patient Instructions Indication:BMI 25.0-25.9,adult Start:10-Apr-2018 Instruction Type:Provider Instructions for Treatment How to access health informa tion online Indication:Non-smoker Start:17-Jan-2018 Instruction Type:Patient Education How to access health informa tion online - Detail Indication:Non-smoker Start:17-Jan-2018 Instruction Type:Patient Education Patient Instructions Indication:Non-smoker Start:17-Jan-2018 Instruction Type:Provider Instructions for Treatment How to access health informa tion online Indication:BMI 24.0-24.9, adult Start:14-Aug-2017 Instruction Type:Patient Education How to access health informa tion online - Detail Indication:BMI 24.0-24.9, adult Start:14-Aug-2017 Instruction Type:Patient Education Patient Instructions Indication:BMI 24.0-24.9, adult Start:14-Aug-2017 Instruction Type:Provider Instructions for Treatment How to access health informa tion online Indication:Non-smoker Start:26-Jun-2017 Instruction Type:Patient Education How to access health informa tion online - Detail Indication:Non-smoker Start:26-Jun-2017 Instruction Type:Patient Education Patient Instructions Indication:Non-smoker Start:26-Jun-2017 Instruction Type:Provider Instructions for Treatment How to access health informa tion online Indication:Fatigue Start:16-Sep-2014 Instruction Type:Patient Education How to access health informa tion online - Detail Indication:Fatigue Start:16-Sep-2014 Instruction Type:Patient Education Patient Instructions Indication:Fatigue Start:16-Sep-2014 Instruction Type:Provider Instructions for Treatment Patient Instructions Indication:Fatigue Start:22-Jul-2014 Instruction Type:Provider Instructions for Treatment Patient Instructions Indication:Vitamin D deficiency Start:09-Jun-2014 Instruction Type:Provider Instructions for Treatment Patient Instructions Indication:Acute sinusitis, unspecified Start:10-Mar-2012 Instruction Type:Provider Instructions for Treatment Sore throat: diagnosis and treatment Indication:Streptococcal sore throat Start:08-Sep-2008 Instruction Type:Patient Education Name Dates Details How to access health informa tion online Indication:BMI 25.0-25.9,adult Start:31-Dec-2019 Instruction Type:Patient Education How to access health informa tion online - Detail Indication:BMI 25.0-25.9,adult Start:31-Dec-2019 Instruction Type:Patient Education Patient Instructions Indication:BMI 25.0-25.9,adult Start:31-Dec-2019 Instruction Type:Provider Instructions for Treatment How to access health informa tion online Indication:Non-smoker Start:29-Jul-2018 Instruction Type:Patient Education How to access health informa tion online - Detail Indication:Non-smoker Start:29-Jul-2018 Instruction Type:Patient Education Patient Instructions Indication:Non-smoker Start:29-Jul-2018 Instruction Type:Provider Instructions for Treatment How to access health informa tion online Indication:BMI 25.0-25.9,adult Start:05-May-2018 Instruction Type:Patient Education How to access health informa tion online - Detail Indication:BMI 25.0-25.9,adult Start:05-May-2018 Instruction Type:Patient Education Patient Instructions Indication:BMI 25.0-25.9,adult Start:05-May-2018 Instruction Type:Provider Instructions for Treatment How to access health informa tion online Indication:BMI 25.0-25.9,adult Start:10-Apr-2018 Instruction Type:Patient Education How to access health informa tion online - Detail Indication:BMI 25.0-25.9,adult Start:10-Apr-2018 Instruction Type:Patient Education Patient Instructions Indication:BMI 25.0-25.9,adult Start:10-Apr-2018 Instruction Type:Provider Instructions for Treatment How to access health informa tion online Indication:Non-smoker Start:17-Jan-2018 Instruction Type:Patient Education How to access health informa tion online - Detail Indication:Non-smoker Start:17-Jan-2018 Instruction Type:Patient Education Patient Instructions Indication:Non-smoker Start:17-Jan-2018 Instruction Type:Provider Instructions for Treatment How to access health informa tion online Indication:BMI 24.0-24.9, adult Start:14-Aug-2017 Instruction Type:Patient Education How to access health informa tion online - Detail Indication:BMI 24.0-24.9, adult Start:14-Aug-2017 Instruction Type:Patient Education Patient Instructions Indication:BMI 24.0-24.9, adult Start:14-Aug-2017 Instruction Type:Provider Instructions for Treatment How to access health informa tion online Indication:Non-smoker Start:26-Jun-2017 Instruction Type:Patient Education How to access health informa tion online - Detail Indication:Non-smoker Start:26-Jun-2017 Instruction Type:Patient Education Patient Instructions Indication:Non-smoker Start:26-Jun-2017 Instruction Type:Provider Instructions for Treatment How to access health informa tion online Indication:Fatigue Start:16-Sep-2014 Instruction Type:Patient Education How to access health informa tion online - Detail Indication:Fatigue Start:16-Sep-2014 Instruction Type:Patient Education Patient Instructions Indication:Fatigue Start:16-Sep-2014 Instruction Type:Provider Instructions for Treatment Patient Instructions Indication:Fatigue Start:22-Jul-2014 Instruction Type:Provider Instructions for Treatment Patient Instructions Indication:Vitamin D deficiency Start:09-Jun-2014 Instruction Type:Provider Instructions for Treatment Patient Instructions Indication:Acute sinusitis, unspecified Start:10-Mar-2012 Instruction Type:Provider Instructions for Treatment Sore throat: diagnosis and treatment Indication:Streptococcal sore throat Start:08-Sep-2008 Instruction Type:Patient Education Name Dates Details How to access health informa tion online Indication:BMI 25.0-25.9,adult Start:31-Dec-2019 Instruction Type:Patient Education How to access health informa tion online - Detail Indication:BMI 25.0-25.9,adult Start:31-Dec-2019 Instruction Type:Patient Education Patient Instructions Indication:BMI 25.0-25.9,adult Start:31-Dec-2019 Instruction Type:Provider Instructions for Treatment How to access health informa tion online Indication:Non-smoker Start:29-Jul-2018 Instruction Type:Patient Education How to access health informa tion online - Detail Indication:Non-smoker Start:29-Jul-2018 Instruction Type:Patient Education Patient Instructions Indication:Non-smoker Start:29-Jul-2018 Instruction Type:Provider Instructions for Treatment How to access health informa tion online Indication:BMI 25.0-25.9,adult Start:05-May-2018 Instruction Type:Patient Education How to access health informa tion online - Detail Indication:BMI 25.0-25.9,adult Start:05-May-2018 Instruction Type:Patient Education Patient Instructions Indication:BMI 25.0-25.9,adult Start:05-May-2018 Instruction Type:Provider Instructions for Treatment How to access health informa tion online Indication:BMI 25.0-25.9,adult Start:10-Apr-2018 Instruction Type:Patient Education How to access health informa tion online - Detail Indication:BMI 25.0-25.9,adult Start:10-Apr-2018 Instruction Type:Patient Education Patient Instructions Indication:BMI 25.0-25.9,adult Start:10-Apr-2018 Instruction Type:Provider Instructions for Treatment How to access health informa tion online Indication:Non-smoker Start:17-Jan-2018 Instruction Type:Patient Education How to access health informa tion online - Detail Indication:Non-smoker Start:17-Jan-2018 Instruction Type:Patient Education Patient Instructions Indication:Non-smoker Start:17-Jan-2018 Instruction Type:Provider Instructions for Treatment How to access health informa tion online Indication:BMI 24.0-24.9, adult Start:14-Aug-2017 Instruction Type:Patient Education How to access health informa tion online - Detail Indication:BMI 24.0-24.9, adult Start:14-Aug-2017 Instruction Type:Patient Education Patient Instructions Indication:BMI 24.0-24.9, adult Start:14-Aug-2017 Instruction Type:Provider Instructions for Treatment How to access health informa tion online Indication:Non-smoker Start:26-Jun-2017 Instruction Type:Patient Education How to access health informa tion online - Detail Indication:Non-smoker Start:26-Jun-2017 Instruction Type:Patient Education Patient Instructions Indication:Non-smoker Start:26-Jun-2017 Instruction Type:Provider Instructions for Treatment How to access health informa tion online Indication:Fatigue Start:16-Sep-2014 Instruction Type:Patient Education How to access health informa tion online - Detail Indication:Fatigue Start:16-Sep-2014 Instruction Type:Patient Education Patient Instructions Indication:Fatigue Start:16-Sep-2014 Instruction Type:Provider Instructions for Treatment Patient Instructions Indication:Fatigue Start:22-Jul-2014 Instruction Type:Provider Instructions for Treatment Patient Instructions Indication:Vitamin D deficiency Start:09-Jun-2014 Instruction Type:Provider Instructions for Treatment Patient Instructions Indication:Acute sinusitis, unspecified Start:10-Mar-2012 Instruction Type:Provider Instructions for Treatment Sore throat: diagnosis and treatment Indication:Streptococcal sore throat Start:08-Sep-2008 Instruction Type:Patient Education Chief Complaint and Reason for Visit Chief Complaint STANDING ORDER Chief Complaint STANDING ORDER STANDING ORDER Chief Complaint S/O- PAIN COPY PCP- ADD SKIN/ LAB ORDER Chief Complaint 2 DRS/ 2ORDERS Chief Complaint Admit Date FASTING March 13, 2024 8: 07am SKIN June 23, 2024 4:2 0pm Chief Complaint Admit Date SKIN June 23, 2024 4:2 0pm 2 ORDERING JAMEE July 16, 2024 7:24am Chief Complaint Admit Date SKIN June 23, 2024 4:2 0pm 2 ORDERING JAMEE July 16, 2024 7:24am L SHOULDER PAIN. RX HERE September 21, 2024 8:00am Summary Purpose Advance Directives No Advanced Directives Records FoundNo Advanced Directives Records FoundNo Advanced Directives Records FoundNo Advanced Directives Records FoundNo Advanced Directives Records FoundNo Advanced Directives Records Found Additional Source Comments Goals (unrecognized section and content) Goals may be documented in a n alternate section INFORMATION SOURCE (unrecogn ized section and content) DATE CREATED AUTHOR 04/25/2022 [facility] DATE CREATED AUTHOR AUTHOR'S ORGANIZ ATION 09/13/2022 [facility] ([place]) DATE CREATED AUTHOR AUTHOR'S ORGANIZ ATION 06/28/2024 [facility] DATE CREATED AUTHOR AUTHOR'S ORGANIZ ATION 08/09/2024 [facility] DATE CREATED AUTHOR AUTHOR'S ORGANIZ ATION 09/24/2024 [facility] DATE CREATED AUTHOR AUTHOR'S ORGANIZ ATION 12/31/2024 [facility] Care Teams (unrecognized sec tion and content) Team Status: Active Member Role Status Dates Dr. Shanon Greer DO Family Provider Active Dr. Shanon Greer DO Primary Care Provider Active Team Status: Inactive Member Role Status Dates Dr. Shanon Greer DO Primary Care Provider Active Dr. Jill Toure MD Attending Provider, Referring Provider Active Team Status: Inactive Member Role Status Dates Dr. Shanon Greer DO Primary Care Provider Active Dr. Jill Toure MD Attending Provider, Referring Provider Active Dr. Ambrocio Anderson MD Other Provider Active Team Status: Inactive Member Role Status Dates Dr. Shanon Greer DO Primary Care Pr ovider, Attending Provider, Referring Provider Active Dr. Ambrocio Anderson MD Other Provider Active Rehab Director Occupational Therapist Relationship Specialty Start Date End Date Shanon Greer DO [address] [facility] [address] [place] [address] PCP - General Internal Medicine 04/28/24 Rehab Director Occupational Therapist Relationship Specialty Start Date End Date Shanon Greer DO [address] [facility] [address] [place] [address] PCP - General Internal Medicine 04/28/24 Team Status: Inactive Member Role Status Dates Dr. Shanon Greer DO Primary Care Provider Active Start: March 13, 2024 End: March 13, 2024 Dr. Shanon Greer DO Attending Provider Active Start: March 13, 2024 End: March 13, 2024 Dr. Shanon Greer DO Referring Provider Active Start: March 13, 2024 End: March 13, 2024 Team Status: Inactive Member Role Status Dates Dr. Shanon Greer DO Primary Care Provider Active Start: June 23, 2024 End: June 23, 2024 Dr. Ambrocio Anderson MD Attending Provider Active Start: June 23, 2024 End: June 23, 2024 Dr. Ambrocio Anderson MD Referring Provider Active Start: June 23, 2024 End: June 23, 2024 Team Status: Inactive Member Role Status Dates Dr. Shanon Greer DO Primary Care Provider Active Start: July 16, 2024 End: July 16, 2024 Dr. Shanon Greer DO Attending Provider Active Start: July 16, 2024 End: July 16, 2024 Dr. Shanon Greer DO Referring Provider Active Start: July 16, 2024 End: July 16, 2024 Dr. Ambrocio Anderson MD Other Provider Active Sta rt: July 16, 2024 End: July 16, 2024 Rehab Director Occupational Therapist Relationship Specialty Start Date End Date Shanon Greer DO [address] [facility] [address] [place] [address] PCP - General Internal Medicine 04/28/24 Rehab Director Occupational Therapist Relationship Specialty Start Date End Date Shanon Greer DO [address] [facility] [address] [place] [address] PCP - General Internal Medicine 04/28/24 Rehab Director Occupational Therapist Relationship Specialty Start Date End Date Shanon Greer DO [address] [facility] [address] [place] [address] PCP - General Internal Medicine 04/28/24 Rehab Director Occupational Therapist Relationship Specialty Start Date End Date Shanon Greer DO [address] [facility] [address] [place] [address] PCP - General Internal Medicine 04/28/24 Rehab Director Occupational Therapist Relationship Specialty Start Date End Date Shanon Greer DO [address] [facility] [address] [place] [address] PCP - General Internal Medicine 04/28/24 Rehab Director Occupational Therapist Relationship Specialty Start Date End Date Shanon Greer DO [address] [facility] [address] [place] [address] PCP - General Internal Medicine 04/28/24 Team Status: Active Member Role/Relationship Status Dates Dr. Shanon Greer DO Primary Care Provider Active Team Status: Inactive Member Role/Relationship Status Dates Dr. Shanon Greer DO Primary Care Provider Active Start: June 23, 2024 End: June 23, 2024 Dr. Ambrocio Anderson MD Attending Provider Active Start: June 23, 2024 End: June 23, 2024 Dr. Ambrocio Anderson MD Referring Provider Active Start: June 23, 2024 End: June 23, 2024 Team Status: Inactive Member Role/Relationship Status Dates Dr. Shanon Greer DO Primary Care Provider Active Start: July 16, 2024 End: July 16, 2024 Dr. Shanon Greer DO Attending Provider Active Start: July 16, 2024 End: July 16, 2024 Dr. Shanon Greer DO Referring Provider Active Start: July 16, 2024 End: July 16, 2024 Dr. Ambrocio Anderson MD Other Provider Active Sta rt: July 16, 2024 End: July 16, 2024 Team Status: Inactive Member Role/Relationship Status Dates Dr. Shanon Greer DO Primary Care Provider Active Start: September 21, 2024 End: September 21, 2024 Dr. Odilon George DO Attending Provider Active St art: September 21, 2024 End: September 21, 2024 Dr. Odilon George DO Referring Provider Active St art: September 21, 2024 End: September 21, 2024 Rehab Director Occupational Therapist Relationship Specialty Start Date End Date Shanon Greer DO [address] [facility] [address] [place], [place] [id number] PCP - General Internal Medicine 04/28/24 Reason for Visit (unrecogniz ed section and content) Reason Onset Date Comments Medication Refill 08/20/2024 FOR RECORDS PERTAINING TO PATIENTS WHO ARE OR HAVE BEEN ENROLLED IN A CHEMICAL DEPENDENCY/SUBSTANCEABUSE PROGRAM, SOME INFORMATION MAY BE OMITTED. This clinical summary was aggregated from multiple sources. Caution should be exercised in using it in the provision of clinical care. This summary normalizes information from multiple sources, and as a consequence, information in this document may materially change the coding, format and clinical context of patient data. In addition, data may be omitted in some cases. CLINICAL DECISIONS SHOULD BE BASED ON THE PRIMARY CLINICAL RECORDS. [facility]. provides no warranty or guarantee of the accuracy or completeness of information in this document.
[2025-02-27 09:12] LABS: AST(SGOT) 12 U/L (<=31); Alanine Aminotransfer ALT/SGPT 19 U/L (<=34); Albumin, Serum 4.2 g/dL (3.5-5.0); Alkaline Phosphatase 78 U/L (35-104); Bilirubin, Direct 0.14 mg/dL (0.00-0.30); Globulin 3.1 g/dL (2.2-4.2)
== END | disposition home or self-care (01) ==
PROVIDERS: PCP Internal Medicine; Referring Provider Internal Medicine; Visit Provider Internal Medicine
DX: Z51.81 Encounter for therapeutic drug level monitoring (principal); E78.5 Hyperlipidemia, unspecified
CPT/HCPCS: 36415; 80076; 83695